=== PATIENT | male | born 1965 | race Caucasian/White ===

== ENCOUNTER → 2017-11-28 | Outpatient (REF) | payer OTHER, MEDICAID ==
[2017-11-28 12:24] LABS: HEMATOCRIT 42.9 % (42.0-52.0); HEMOGLOBIN 15.1 g/dl (14.0-18.0); MEAN CORPUSCULAR HEMOGLOBIN 33.6 pg (27.0-33.0); MEAN CORPUSCULAR HGB CONC 35.2 g/dl (32.0-36.5); MEAN CORPUSCULAR VOLUME 95.3 fl (80.0-96.0); PLATELET COUNT, AUTOMATED 228 10^3/uL (150-450); RED CELL DISTRIBUTION WIDTH 12.2 % (11.5-14.5); WHITE BLOOD COUNT 8.4 10^3/uL (4.0-10.0)
[2017-11-28 12:37] LABS: PROTHROMBIN TIME 12.2 SECONDS (12.4-14.5)
[2017-11-28 12:49] LABS: ALBUMIN 3.8 GM/DL (3.2-5.2); ALBUMIN/GLOBULIN RATIO 1.09 (1.00-1.93); ALKALINE PHOSPHATASE 66 U/L (45-117); ALT/SGPT 40 U/L (12-78); ANION GAP 11 MEQ/L (8-16); AST/SGOT 42 U/L (7-37); BILIRUBIN,TOTAL 0.4 MG/DL (0.2-1.0); BLOOD UREA NITROGEN 8 MG/DL (7-18); C REACTIVE PROTEIN QUANTITATIV 3.06 MG/DL (0.00-0.30); CALCIUM LEVEL 9.1 MG/DL (8.5-10.1); CARBON DIOXIDE LEVEL 24 MEQ/L (21-32); CHLORIDE LEVEL 101 MEQ/L (98-107); CREATININE FOR GFR 0.68 MG/DL (0.70-1.30); GLOMERULAR FILTRATION RATE > 60.0 (>56); GLUCOSE, FASTING 83 MG/DL (70-100); POTASSIUM SERUM 4.3 MEQ/L (3.5-5.1); RHEUMATOID FACTOR QUANT < 10.0 IU/ML (0-15.0); SODIUM LEVEL 136 MEQ/L (136-145); TOTAL PROTEIN 7.3 GM/DL (6.4-8.2)
[2017-11-28 12:59] LABS: ERYTHROCYTE SEDIMENTATION RATE 11 mm/hr (0-20)
[2017-11-29 14:46] LABS: COLD AGGLUTININS NEGATIVE (NEGATIVE)
[2017-11-30 00:06] LABS: ANTINUCLEAR ANTIBODIES DIRECT Negative (Negative)
== END ==
LOC: M LAB REF 12:13
DX: I70.25 Atherosclerosis of native arteries of other extremities with ulceration (principal)

== ENCOUNTER → 2017-12-05 | Outpatient (REF) | payer OTHER | LOC: M LAB REF 14:35 | DX: I70.25 Atherosclerosis of native arteries of other extremities with ulceration (principal) | CPT/HCPCS: 88304 ==

== ENCOUNTER → 2018-02-22 | Outpatient (CLI) | payer OTHER | LOC: M EKG 15:18 | DX: Z01.818 Encounter for other preprocedural examination (principal) | CPT/HCPCS: 93005 ==

== ENCOUNTER → 2018-07-27 | Outpatient (CLI) | payer OTHER | LOC: M RAD 10:23 | DX: I70.213 Atherosclerosis of native arteries of extremities with intermittent claudication, bilateral legs (principal); I83.811 Varicose veins of right lower extremity with pain | CPT/HCPCS: 93925 ==

== ENCOUNTER 2018-08-06 12:16 | Emergency (ER) | payer OTHER ==
[2018-08-06 15:46] LABS: BASO % 0.3 % (0.0-1.0); EOS # 0.3 10^3/uL (0.0-0.50); EOS % 3.7 % (0.0-3.0); HEMATOCRIT 46.1 % (42.0-52.0); HEMOGLOBIN 16.6 g/dl (13.5-17.5); IMMATURE GRANULOCYTE % 0.4 % (0-3.0); LYMPH # 1.9 10^3/uL (1.5-4.5); LYMPH % 24.7 % (24.0-44.0); MEAN CORPUSCULAR HEMOGLOBIN 35.1 pg (27.0-33.0); MEAN CORPUSCULAR VOLUME 97.5 fl (80.0-96.0); MONO # 1.5 10^3/uL (0.0-0.8); MONO % 19.6 % (0.0-5.0); NEUTROPHILS % 51.3 % (36.0-66.0); PLATELET COUNT, AUTOMATED 218 10^3/uL (150-450); RED BLOOD COUNT 4.73 10^6/uL (4.30-6.10); RED CELL DISTRIBUTION WIDTH 11.8 % (11.5-14.5); WHITE BLOOD COUNT 7.7 10^3/uL (4.0-10.0)
[2018-08-06 15:49] LABS: PROTHROMBIN TIME 12.2 SECONDS (12.1-14.4)
[2018-08-06 15:51] LABS: PARTIAL THROMBOPLASTIN TIME 23.9 SECONDS (25.4-37.6)
[2018-08-06 15:59] LABS: ALBUMIN 3.7 GM/DL (3.2-5.2); ALBUMIN/GLOBULIN RATIO 1.12 (1.00-1.93); ALKALINE PHOSPHATASE 60 U/L (45-117); ALT/SGPT 36 U/L (12-78); ANION GAP 11 MEQ/L (8-16); AST/SGOT 36 U/L (7-37); BILIRUBIN,DIRECT 0.2 MG/DL (0.0-0.2); BILIRUBIN,TOTAL 0.4 MG/DL (0.2-1.0); BLOOD UREA NITROGEN 11 MG/DL (7-18); CALCIUM LEVEL 8.7 MG/DL (8.5-10.1); CARBON DIOXIDE LEVEL 21 MEQ/L (21-32); CHLORIDE LEVEL 103 MEQ/L (98-107); CK-MB VALUE MASS < 1.0 NG/ML (<3.6); CPK CREATINE PHOSPHOKINASE 54 U/L (39-308); GLOMERULAR FILTRATION RATE > 60.0 (>56); GLUCOSE, FASTING 77 MG/DL (70-100); MB/CK RELATIVE INDEX 1.85 (< OR =4); POTASSIUM SERUM 4.4 MEQ/L (3.5-5.1); SODIUM LEVEL 135 MEQ/L (136-145); TROPONIN I < 0.02 NG/ML (< 0.10)
[2018-08-06] MEDS: ASPIRIN 81 MG CHEW TABLET PO (16:12)
[2018-08-06] MEDS: NS 1,000 ML IV (16:14)
[2018-08-06] MEDS ORDERED: ISOVUE-370 76% 100ML VIAL (Q9967) As Ordered (16:36)
== END 2018-08-06 18:07 | disposition home or self-care (01) ==
LOC: M ED 12:16
DX: I82.4Z2 Acute embolism and thrombosis of unspecified deep veins of left distal lower extremity (principal); Z87.891 Personal history of nicotine dependence
CPT/HCPCS: Q9967

== ENCOUNTER → 2018-08-06 | Outpatient (CLI) | payer OTHER | LOC: M RAD 10:22 | DX: I82.411 Acute embolism and thrombosis of right femoral vein (principal); I87.2 Venous insufficiency (chronic) (peripheral); I70.213 Atherosclerosis of native arteries of extremities with intermittent claudication, bilateral legs; I83.811 Varicose veins of right lower extremity with pain | CPT/HCPCS: 93970 ==

== ENCOUNTER 2018-09-26 15:20 | Inpatient (IN) | payer OTHER ==
[~2018-09-26] VITALS: Ht 177.8 cm; Wt 57.0 kg
[~2018-09-26 15:20] MED LIST: ELIQ5TAB PO; LOVE1INJ SC
[2018-09-26] MEDS ORDERED: BISACODYL 10 MG SUPP PR PRN (17:00)
[2018-09-26] MEDS ORDERED: MOM 30ML SUSPENSION UDC PO PRN (17:00)
[2018-09-26] MEDS ORDERED: MORPHINE 4 MG/ML 1ML VIAL/SYRINGE (J2270) IV PRN (17:00)
[2018-09-26] MEDS ORDERED: ACETAMINOPHEN TAB 650MG DOSE (2X325MG) PO PRN (17:00)
[2018-09-26 17:30] VITALS: BP 168/91
[2018-09-26] MEDS: D5W/0.45% SODIUM CHLORIDE 1,000 ML IV SCH (17:50)
[2018-09-26] MEDS: NORCO, ANEXSIA 5/325MG TABLET (HYDROcodone/ACETAMINOPHEN) PO PRN (17:50)
[2018-09-26 18:52] LABS: INR 0.89; PROTHROMBIN TIME 12.1 SECONDS (12.1-14.4)
[2018-09-26 18:53] LABS: PARTIAL THROMBOPLASTIN TIME 29.5 SECONDS (25.4-37.6)
[2018-09-26] MEDS: PIPERACILLIN/TAZOBACTAM SOD 3.375 GM in D5W MINI-BAG PLUS 50 ML IV SCH (18:57)
[2018-09-26 19:01] LABS: BASO % 0.4 % (0.0-1.0); EOS # 0.2 10^3/uL (0.0-0.50); EOS % 2.7 % (0.0-3.0); HEMATOCRIT 43.6 % (42.0-52.0); HEMOGLOBIN 15.9 g/dl (13.5-17.5); LYMPH # 1.7 10^3/uL (1.5-4.5); MEAN CORPUSCULAR HEMOGLOBIN 34.5 pg (27.0-33.0); MEAN CORPUSCULAR HGB CONC 36.5 g/dl (32.0-36.5); MEAN CORPUSCULAR VOLUME 94.6 fl (80.0-96.0); MONO # 1.3 10^3/uL (0.0-0.8); MONO % 15.9 % (0.0-5.0); NEUTROPHILS # 4.7 10^3/uL (1.8-7.7); NEUTROPHILS % 59.5 % (36.0-66.0); PLATELET COUNT, AUTOMATED 214 10^3/uL (150-450); RED BLOOD COUNT 4.61 10^6/uL (4.30-6.10); WHITE BLOOD COUNT 7.9 10^3/uL (4.0-10.0)
[2018-09-26 19:13] LABS: ALBUMIN 3.5 GM/DL (3.2-5.2); ALT/SGPT 91 U/L (12-78); BILIRUBIN,TOTAL 0.6 MG/DL (0.2-1.0); BLOOD UREA NITROGEN 5 MG/DL (7-18); CALCIUM LEVEL 8.5 MG/DL (8.5-10.1); CARBON DIOXIDE LEVEL 22 MEQ/L (21-32); CHLORIDE LEVEL 98 MEQ/L (98-107); CREATININE FOR GFR 0.53 MG/DL (0.70-1.30); GLOMERULAR FILTRATION RATE > 60.0 (>56); GLUCOSE, FASTING 61 MG/DL (70-100); POTASSIUM SERUM 4.2 MEQ/L (3.5-5.1); SODIUM LEVEL 131 MEQ/L (136-145); TOTAL PROTEIN 7.1 GM/DL (6.4-8.2)
[2018-09-26] MEDS: DOCUSATE SODIUM 100 MG CAP PO SCH (20:09)
[2018-09-26] MEDS: SENOKOT S TAB PO SCH (20:09)
[2018-09-26 22:00] VITALS: BP 134/86
[2018-09-26] MEDS: MORPHINE 4 MG/ML 1ML VIAL/SYRINGE (J2270) IV PRN (23:43)
[2018-09-27] VITALS (8 sets, daily range): BP systolic 121–157; BP diastolic 76–86
[2018-09-27] MEDS: PIPERACILLIN/TAZOBACTAM SOD 3.375 GM in D5W MINI-BAG PLUS 50 ML IV SCH ×4 (00:23→18:36)
[2018-09-27] MEDS: NORCO, ANEXSIA 5/325MG TABLET (HYDROcodone/ACETAMINOPHEN) PO PRN ×3 (06:16→20:09)
[2018-09-27] MEDS ORDERED: FLUBLOK(EGG FREE)(QUAD)INFLUENZA VACC 0.5ML SYRINGE (90682)18YRS&OLDER IM ONE (09:00)
[2018-09-27] MEDS ORDERED: CLOPIDOGREL 75 MG TAB PO SCH (09:00)
[2018-09-27] MEDS: SENOKOT S TAB PO SCH ×2 (09:02→20:14)
[2018-09-27] MEDS: DOCUSATE SODIUM 100 MG CAP PO SCH ×2 (09:02→20:13)
[2018-09-27] MEDS: MORPHINE 4 MG/ML 1ML VIAL/SYRINGE (J2270) IV PRN (09:35)
[2018-09-27] MEDS ORDERED: PLAV1TAB2 PO ×3 (10:42→10:45)
--- NOTE | 2018-09-27 11:25 | HPEPDOC ---
General Date of Admission Sep 26, 2018 at 16:57 Attending Physician: Dash Ignacio MD Chief Complaint The patient is a 53-year-old male admitted with a reason for visit of Rt First Toe Gangrene, Cellulitis. History of Present Illness A 53 yo male 34 PKY chronic smoker with PMH significant for Burger disease (per pt, Raynaud disease per record), HTN and anxiety. Pt is a poor historian. Pt was diagnosed Buerger disease of fingers with thrombosis in 2013 and underwent Rt hand surgery. The disease expanded to his Rt foot with claudication 2 years ago, for which he has to use a cane for walk. His Rt foot pain got worse for a couple of months. A couple of weeks ago, pt noticed his Rt great toe turned black and is painful. He was referred to Dr Feng for wound care. Pt stated he started having intermittent rest pain in his Rt foot about 1 week ago. His great toe nail fell off 3 days ago. His Rt foot is swelling and so painful that he can barely walk or sleep. He feels his LLE was involved now as well. Pt has followed up with Dr Alvarez at [facility] over past 4 years. He was first seen by Dr Ignacio of vascular surgery in the end of June 2018 for evaluation of his claudication. Pt seems not compliant for follow up. Pt presented to our office on 09/26/18 afternoon for follow up of BLE arterial US. Pt c/o worsening rest pain, paresthesia and coldness in his Rt foot; the Rt great toe gangrene got worse as well. Pt was found to be pulseless in Rt foot. Arterial US BLE 07/27/18 shows bilateral SFA occlusive disease in Rt SFA, PA, proximal MAC, TPT and distal MAC segments. There is an occlusion in the Lt proximal SFA with reversal of flow in the mid SFA, distal SFA open. The distal MAC is occluded. Abnormal monophasic flow waveforms are seen in the SFA, PA, TPT and GRINDER OPERATOR TOOL. Severe atherosclerotic changes are seen in b/l multifocal area. It also shows partial nonocclusive thrombus in the right femoral vein to popliteal vein. Reflux noted through the bilateral deep venous systems and mild reflux through the bilateral lesser saphenous veins. Venous US 08/06/18 shows striations and echogenic material in the right popliteal vein consistent with chronic or less likely an acute nonocclusive DVT. Pt was admitted to the hospital for anticoagulation and revascularization. Home Medications Scheduled Clopidogrel Bisulfate (Plavix) 75 Mg Tab, 75 MG PO DAILY Allergies Coded Allergies: No Known Allergies (Verified , 03/17/03) Past Medical History Medical History 1. HTN 2. 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 Anxiety Surgical History 1. Port placement 2. Hand surgery 04/2018 Family History Significant Family History: Cancer (Lung), Diabetes Social History * Smoker: former Smoker (34 PKY qiut 2016) Alcohol: sober (12 beers weekly) Drugs: denies Review of Systems Other systems 14 systems reviewed and were negative except those listed in HPI Physical Examination General Exam: Positive: Alert, Moderate Distress Eye Exam: Positive: PERRLA, Conjunctiva & lids normal, EOMI ENT Exam: Positive: Atraumatic Neck Exam: Positive: Supple, +2 carotid pulse wo bruit Chest Exam: Positive: Clear to auscultation, Normal air movement; Negative: Rales, Rhonchi, Wheezing, Diminished, Other Heart Exam: Positive: Rate Normal, Regular Rhythm, Normal S1, Normal S2; Negative: Gallops, Murmurs, Rubs, Other Abdomen Exam: Positive: Normal bowel sounds, BS Hyperactive, Soft; Negative: Tenderness, Mass, Hernia, Other Extremity Exam: Positive: Tenderness (Rt foot cold, purple red and mildly swelling, significant paresthesic and tender to touch, Rt great toe gengrene, toenail missing.), Swelling; Negative: Clubbing, Cyanosis, Edema, Normal pulses (Rt DP and PT not audible, Lt DP and PT monophasic), Other Neuro Exam: Positive: Strength at 5/5 X4 ext, Cranial Nerves 3-12 NL Psych Exam: Positive: Mental status NL, Anxiety, Oriented x 3; Negative: Memory Intact (can not answer questions logically ) Vital Signs Vital Signs Date Time Temp Pulse Resp B/P (MAP) Pulse Ox O2 Delivery O2 Flow Rate FiO2 09/27/18 09:45 18 Room Air 09/27/18 06:00 98.2 71 135/86 (102) 93 Laboratory Data Labs 24H Laboratory Tests 2 09/26/18 18:12: Immature Granulocyte % (Auto) 0.5, White Blood Count 7.9, Red Blood Count 4.61, Hemoglobin 15.9, Hematocrit 43.6, Mean Corpuscular Volume 94.6, Mean Corpuscular Hemoglobin 34.5H, Mean Corpuscular Hemoglobin Concent 36.5, Red Cell Distribution Width 11.7, Platelet Count 214, Neutrophils (%) (Auto) 59.5, Lymphocytes (%) (Auto) 21.0L, Monocytes (%) (Auto) 15.9H, Eosinophils (%) (Auto) 2.7, Basophils (%) (Auto) 0.4, Neutrophils # (Auto) 4.7, Lymphocytes # (Auto) 1.7, Monocytes # (Auto) 1.3H, Eosinophils # (Auto) 0.2, Basophils # (Auto) 0.0, Nucleated Red Blood Cells % (auto) 0.0, Prothrombin Time 12.1, Prothromb Time International Ratio 0.89, Activated Partial Thromboplast Time 29.5, Anion Gap 11, Glomerular Filtration Rate > 60.0, Blood Urea Nitrogen 5L, Creatinine 0.53L, Sodium Level 131L, Potassium Level 4.2, Chloride Level 98, Carbon Dioxide Level 22, Calcium Level 8.5, Aspartate Amino Transf (AST/SGOT) 99H, Alanine Aminotransferase (ALT/SGPT) 91H, Alkaline Phosphatase 93, Total Bilirubin 0.6, Total Protein 7.1, Albumin 3.5, Albumin/Globulin Ratio 0.97L CBC/BMP Laboratory Tests 09/26/18 18:12 Red Blood Count 4.61, Mean Corpuscular Volume 94.6, Mean Corpuscular Hemoglobin 34.5 H, Mean Corpuscular Hemoglobin Concent 36.5, Red Cell Distribution Width 11.7, Neutrophils (%) (Auto) 59.5, Lymphocytes (%) (Auto) 21.0 L, Monocytes (%) (Auto) 15.9 H, Eosinophils (%) (Auto) 2.7, Basophils (%) (Auto) 0.4, Neutrophils # (Auto) 4.7, Lymphocytes # (Auto) 1.7, Monocytes # (Auto) 1.3 H, Eosinophils # (Auto) 0.2, Basophils # (Auto) 0.0, Calcium Level 8.5, Aspartate Amino Transf (AST/SGOT) 99 H, Alanine Aminotransferase (ALT/SGPT) 91 H, Alkaline Phosphatase 93, Total Bilirubin 0.6, Total Protein 7.1, Albumin 3.5 Assessment/Plan 1. Severe BLE PVD with acute RLE ischemia and gangrenous toe Pt is a 53 yo male 34 PKY chronic smoker with underlying Burger disease /Raynaud disease. Pt has progressive BLE PVD with acute RLE ischemia and Rt gangrene toe. Arterial US shows severe atherosclerotic changes in BLE arterial systems and occlusive disease in Rt SFA, PA, MAC and TPT and in the Lt proximal SFA with reversal of flow in the mid SFA and distal MAC. Venous US 08/06/18 shows striations and echogenic material in the right popliteal vein consistent with chronic or less likely an acute nonocclusive DVT. Anticoagulation and revascularization are warranted. 2. Burger disease /Raynaud disease with thrombosis 3. Nonocclusive DVT RLE 4. VVI 5. HTN 6. Anxiety Plan / VTE VTE Prophylaxis Ordered?: Yes Plan Plan 1. Continue home Plavix 75 mg daily 2. Anticoagulation with Heparin drip per protocol 3. Zosyn 3.375 g IV q6hrs. 4. Angiogram RLE tomorrow GRISEL UMAÑA PA-C Sep 27, 2018 11:25
[2018-09-27] MEDS ORDERED: HEPARIN SOD (PORCINE) 5000 UNITS/ML VIAL IV ONE (11:45)
[2018-09-27 12:43] LABS: HEMATOCRIT 43.6 % (42.0-52.0); HEMOGLOBIN 15.4 g/dl (13.5-17.5); MEAN CORPUSCULAR HEMOGLOBIN 33.8 pg (27.0-33.0); MEAN CORPUSCULAR HGB CONC 35.3 g/dl (32.0-36.5); MEAN CORPUSCULAR VOLUME 95.6 fl (80.0-96.0); PLATELET COUNT, AUTOMATED 234 10^3/uL (150-450); RED BLOOD COUNT 4.56 10^6/uL (4.30-6.10); WHITE BLOOD COUNT 7.4 10^3/uL (4.0-10.0)
[2018-09-27] MEDS: HEPARIN DRIP 25,000 UNITS in APPROPRIATE DILUENT 1 EA IV SCH (13:22)
[2018-09-27] MEDS ORDERED: LIDOCAINE 2% MDV 20 ML VIAL As Ordered ONE (14:18)
[2018-09-27] MEDS ORDERED: HEPARIN 1,000 UNITS/ML 10ML VIAL (FOR RADIOLOGY& DIALYSIS ONLY) As Ordered ONE (14:18)
[2018-09-27] MEDS ORDERED: MIDAZOLAM INJ 2 MG/2 ML VIAL (J2250) As Ordered ONE (14:18)
[2018-09-27] MEDS ORDERED: fentaNYL 100 MCG/2 ML INJECTION (J3010) As Ordered ONE (14:18)
[2018-09-27] MEDS ORDERED: ISOVUE-300 61% 50ML VIAL (Q9967) As Ordered ONE (14:19)
[2018-09-27 19:55] LABS: INR 0.93; PROTHROMBIN TIME 12.6 SECONDS (12.1-14.4)
[2018-09-27 19:56] LABS: PARTIAL THROMBOPLASTIN TIME 36.4 SECONDS (25.4-37.6)
[2018-09-27] MEDS: D5W/0.45% SODIUM CHLORIDE 1,000 ML IV SCH (20:09)
[2018-09-27] MEDS: HEPARIN SOD (PORCINE) 5000 UNITS/ML VIAL IV PRN (20:25)
[2018-09-28] MEDS: MORPHINE 4 MG/ML 1ML VIAL/SYRINGE (J2270) IV PRN ×3 (00:05→18:05)
[2018-09-28] MEDS: PIPERACILLIN/TAZOBACTAM SOD 3.375 GM in D5W MINI-BAG PLUS 50 ML IV SCH ×4 (00:22→18:04)
[2018-09-28 02:00] VITALS: BP 146/87
[2018-09-28 06:00] VITALS: BP 123/88
[2018-09-28] MEDS: NORCO, ANEXSIA 5/325MG TABLET (HYDROcodone/ACETAMINOPHEN) PO PRN ×3 (06:08→21:30)
[2018-09-28] MEDS: DOCUSATE SODIUM 100 MG CAP PO SCH ×3 (08:02→21:30)
[2018-09-28] MEDS: SENOKOT S TAB PO SCH ×3 (08:02→21:29)
[2018-09-28] MEDS: D5W/0.45% SODIUM CHLORIDE 1,000 ML IV SCH (08:02)
[2018-09-28] MEDS: CLOPIDOGREL 75 MG TAB PO SCH (09:34)
[2018-09-28 10:00] VITALS: BP 137/82
[2018-09-28] MEDS: HEPARIN SOD (PORCINE) 5000 UNITS/ML VIAL IV PRN (11:24)
[2018-09-28] MEDS: HEPARIN DRIP 25,000 UNITS in APPROPRIATE DILUENT 1 EA IV SCH (11:27)
--- NOTE | 2018-09-28 14:33 | REP ---
Bilateral lower extremity duplex venous ultrasound: DVT study and vein mapping. History: Rule out DVT. Vein mapping for lower extremity arterial reconstruction. Comparison study August 06, 2018 showed nonocclusive echogenic thrombus in the right lower extremity femoral vein and popliteal vein. Sonographic findings: The deep veins in the left lower extremity are anechoic and fully compressible from the groin to the popliteal fossa. There is no evidence of left lower extremity deep vein thrombosis. Color flow and spectral Doppler interrogation are unremarkable on the left. On the right, there is echogenic nonocclusive deep vein thrombus in the mid and distal femoral vein and in the popliteal vein. This is likely chronic. Similar distribution as the prior study. No evidence of acute DVT. Vein mapping study findings: Right lower extremity venous diameter chart: Proximal greater saphenous vein 7.8 mm. Mid greater saphenous vein 7.8 mm. Distal greater saphenous vein 5.8 mm. Calf proximal greater saphenous vein 6.6 mm. Mid greater saphenous vein at the calf 6.0 mm. Distal greater saphenous vein at the calf 5.1 mm. Lesser saphenous vein, proximal 3.5 mm. Lesser saphenous vein at mid 1.9 mm. Lesser saphenous vein, distal 1.6 mm Left lower extremity venous diameter chart: Proximal greater saphenous vein 5.5 mm. Mid greater saphenous vein 4.0 mm. Distal greater saphenous vein 3.7 mm. Greater saphenous vein and calf proximal 4.0 mm. Greater saphenous vein calf mid 2.8 mm. Greater saphenous vein calf distal 3.6 mm. SFA proximal 2.1 mm. Left saphenous vein, mid 2.7 mm. Lesser saphenous vein, distal 2.4 mm Electronically Signed by Unruly Gotti MD 09/28/2018 02:24 P
[2018-09-28 18:00] VITALS: BP 154/88
[2018-09-28 22:00] VITALS: BP 143/87
[2018-09-29] MEDS: PIPERACILLIN/TAZOBACTAM SOD 3.375 GM in D5W MINI-BAG PLUS 50 ML IV SCH ×4 (00:38→18:17)
[2018-09-29] MEDS: NORCO, ANEXSIA 5/325MG TABLET (HYDROcodone/ACETAMINOPHEN) PO PRN ×4 (01:45→20:44)
[2018-09-29 02:00] VITALS: BP 124/82
[2018-09-29] MEDS: HEPARIN DRIP 25,000 UNITS in APPROPRIATE DILUENT 1 EA IV SCH (05:50)
[2018-09-29 06:00] VITALS: BP 128/78
[2018-09-29] MEDS: D5W/0.45% SODIUM CHLORIDE 1,000 ML IV SCH (07:25)
[2018-09-29] MEDS: SENOKOT S TAB PO SCH ×2 (08:21→20:38)
[2018-09-29] MEDS: DOCUSATE SODIUM 100 MG CAP PO SCH ×2 (08:21→20:38)
[2018-09-29] MEDS: CLOPIDOGREL 75 MG TAB PO SCH (09:37)
[2018-09-29] MEDS: MORPHINE 4 MG/ML 1ML VIAL/SYRINGE (J2270) IV PRN ×4 (09:38→22:59)
[2018-09-29 14:00] VITALS: BP 156/80
[2018-09-29] MEDS: HEPARIN SOD (PORCINE) 5000 UNITS/ML VIAL IV PRN ×2 (14:00→20:38)
[2018-09-29 22:00] VITALS: BP 122/86
[2018-09-30] MEDS: HEPARIN DRIP 25,000 UNITS in APPROPRIATE DILUENT 1 EA IV SCH ×2 (00:39→18:07)
[2018-09-30] MEDS: PIPERACILLIN/TAZOBACTAM SOD 3.375 GM in D5W MINI-BAG PLUS 50 ML IV SCH ×4 (01:33→18:04)
[2018-09-30] MEDS: NORCO, ANEXSIA 5/325MG TABLET (HYDROcodone/ACETAMINOPHEN) PO PRN ×5 (01:34→20:06)
[2018-09-30 02:00] VITALS: BP 98/62
[2018-09-30] MEDS: MORPHINE 4 MG/ML 1ML VIAL/SYRINGE (J2270) IV PRN ×3 (05:36→17:22)
[2018-09-30 06:00] VITALS: BP 140/84
[2018-09-30] MEDS: DOCUSATE SODIUM 100 MG CAP PO SCH ×2 (09:30→20:04)
[2018-09-30] MEDS: SENOKOT S TAB PO SCH ×2 (09:30→20:04)
[2018-09-30] MEDS: CLOPIDOGREL 75 MG TAB PO SCH (09:30)
[2018-09-30] MEDS: D5W/0.45% SODIUM CHLORIDE 1,000 ML IV SCH ×2 (09:32→16:47)
[2018-09-30 10:00] VITALS: BP 162/87
[2018-09-30 10:15] LABS: HEMATOCRIT 40.2 % (42.0-52.0); HEMOGLOBIN 14.4 g/dl (13.5-17.5); MEAN CORPUSCULAR HEMOGLOBIN 34.3 pg (27.0-33.0); MEAN CORPUSCULAR HGB CONC 35.8 g/dl (32.0-36.5); MEAN CORPUSCULAR VOLUME 95.7 fl (80.0-96.0); PLATELET COUNT, AUTOMATED 216 10^3/uL (150-450); WHITE BLOOD COUNT 8.7 10^3/uL (4.0-10.0)
[2018-09-30 14:00] VITALS: BP 139/85
[2018-09-30 22:00] VITALS: BP 136/76
[2018-10-01] MEDS: NORCO, ANEXSIA 5/325MG TABLET (HYDROcodone/ACETAMINOPHEN) PO PRN ×5 (00:08→20:29)
[2018-10-01] MEDS: PIPERACILLIN/TAZOBACTAM SOD 3.375 GM in D5W MINI-BAG PLUS 50 ML IV SCH ×4 (00:08→18:00)
[2018-10-01 02:00] VITALS: BP 140/80
[2018-10-01 06:00] VITALS: BP 153/79
[2018-10-01] MEDS: CLOPIDOGREL 75 MG TAB PO SCH (08:11)
[2018-10-01] MEDS: DOCUSATE SODIUM 100 MG CAP PO SCH ×2 (08:11→20:29)
[2018-10-01] MEDS: SENOKOT S TAB PO SCH ×2 (08:11→20:29)
[2018-10-01] MEDS: HEPARIN DRIP 25,000 UNITS in APPROPRIATE DILUENT 1 EA IV SCH ×2 (08:12→23:23)
[2018-10-01] MEDS: MORPHINE 4 MG/ML 1ML VIAL/SYRINGE (J2270) IV PRN ×3 (13:00→23:29)
[2018-10-01 14:00] VITALS: BP 115/68
[2018-10-01] MEDS: D5W/0.45% SODIUM CHLORIDE 1,000 ML IV SCH (17:03)
--- NOTE | 2018-10-01 17:26 | IPNPDOC ---
Subjective Date Seen The patient was seen on 10/01/18. Subjective Chief Complaint/HPI C/o Rt foot pain, coldness, numbness /tingling remain unchanged. Objective Physical Examination General Exam: Positive: Alert, Moderate Distress Eye Exam: Positive: PERRLA, Conjunctiva & lids normal, EOMI ENT Exam: Positive: Atraumatic Neck Exam: Positive: Supple, +2 carotid pulse wo bruit Chest Exam: Positive: Clear to auscultation, Normal air movement; Negative: Rales, Rhonchi, Wheezing, Diminished, Other Heart Exam: Positive: Rate Normal, Regular Rhythm, Normal S1, Normal S2; Negative: Gallops, Murmurs, Rubs, Other Abdomen Exam: Positive: Normal bowel sounds, BS Hyperactive, Soft; Negative: Tenderness, Mass, Hernia, Other Extremity Exam: Positive: Tenderness (Rt foot cold, purple red and mildly swelling, significant paresthesic and tender to touch, Rt great toe gengrene, toenail missing.), Swelling; Negative: Clubbing, Cyanosis, Edema, Normal pulses (Rt DP and PT not audible, Lt DP and PT monophasic), Other Neuro Exam: Positive: Strength at 5/5 X4 ext, Cranial Nerves 3-12 NL Psych Exam: Positive: Mental status NL, Anxiety, Oriented x 3; Negative: Memory Intact (can not answer questions logically ) Assessment /Plan Assessment 1. Severe BLE PVD with acute RLE ischemia and gangrenous toe On Heparin drip with slight improvement. Vein mapping done. 2. Burger disease /Raynaud disease with thrombosis 3. Nonocclusive DVT RLE 4. VVI 5. HTN 6. Anxiety Plan/VTE VTE Prophylaxis Ordered?: Yes Plan Continue anticoagulation with Heparin drip Continue Zosyn for gangrenous toe infection NPO after 24:00 Plan to have FemPop bypass tomorrow. VS, I&O, 24H, Fishbone Vital Signs/I&O Vital Signs Date Time Temp Pulse Resp B/P (MAP) Pulse Ox O2 Delivery O2 Flow Rate FiO2 10/01/18 17:05 22 Room Air 10/01/18 14:00 96.6 80 115/68 (84) 97 I&O- Last 24 Hours up to 6 AM 10/01/18 06:00 Intake Total 2570 ml Output Total 1925 ml Balance 645 ml Laboratory Data 24H LABS Laboratory Tests 2 1/20/19 21:50: Activated Partial Thromboplast Time 67.8H 10/01/18 04:04: Activated Partial Thromboplast Time 82.9H 10/01/18 09:59: Activated Partial Thromboplast Time 87.8H 10/01/18 16:23: Activated Partial Thromboplast Time 80.1H GRISEL UMAÑA PA-C Oct 01, 2018 17:26
[2018-10-01 22:00] VITALS: BP 149/87
[2018-10-02] VITALS (7 sets, daily range): BP systolic 128–170; BP diastolic 78–89
[2018-10-02] MEDS: PIPERACILLIN/TAZOBACTAM SOD 3.375 GM in D5W MINI-BAG PLUS 50 ML IV SCH ×4 (00:55→18:17)
[2018-10-02] MEDS: NORCO, ANEXSIA 5/325MG TABLET (HYDROcodone/ACETAMINOPHEN) PO PRN ×4 (06:48→23:24)
[2018-10-02] MEDS: DOCUSATE SODIUM 100 MG CAP PO SCH ×2 (08:36→20:24)
[2018-10-02] MEDS: SENOKOT S TAB PO SCH ×2 (08:36→20:24)
[2018-10-02] MEDS: CLOPIDOGREL 75 MG TAB PO SCH (08:37)
[2018-10-02] MEDS: MORPHINE 4 MG/ML 1ML VIAL/SYRINGE (J2270) IV PRN ×3 (10:35→20:25)
[2018-10-02] MEDS ORDERED: THROMBIN SOLN 20,000 UNITS KIT As Ordered ONE (11:40)
[2018-10-02] MEDS ORDERED: CLINDAMYCIN INJ 900MG/6ML VIAL As Ordered ONE (11:41)
[2018-10-02] MEDS ORDERED: CONRAY-60 60% 50ML VIAL (Q9961) As Ordered ONE (11:41)
[2018-10-02] MEDS ORDERED: HEPARIN SOD (PORCINE) 5000 UNITS/ML VIAL As Ordered ONE ×2 (11:41→12:26)
[2018-10-02] MEDS ORDERED: BUPIVACAINE HCL 0.5% 30 ML VIAL As Ordered ONE (12:24)
[2018-10-02] MEDS ORDERED: LIDOCAINE 1% SDV INJ 30 ML VIAL As Ordered ONE (12:24)
[2018-10-02] MEDS ORDERED: ONDANSETRON 4MG/2ML VIAL (J2405) As Ordered ONE (12:26)
[2018-10-02] MEDS ORDERED: KETAMINE HCL 200 MG/20 ML VIAL As Ordered ONE (12:26)
[2018-10-02] MEDS ORDERED: fentaNYL 250 MCG/5 ML INJECTION (J3010) As Ordered ONE (12:26)
[2018-10-02] MEDS ORDERED: ePHEDrine SULFATE 25 MG/5 ML(5MG/ML) SYRINGE As Ordered ONE (12:26)
[2018-10-02] MEDS ORDERED: PROPOFOL 200 MG/20 ML VIAL As Ordered ONE ×2 (12:26→13:00)
[2018-10-02] MEDS ORDERED: MIDAZOLAM INJ 2 MG/2 ML VIAL (J2250) As Ordered ONE (12:26)
[2018-10-02] MEDS: D5W/0.45% SODIUM CHLORIDE 1,000 ML IV SCH (12:48)
[2018-10-02] MEDS ORDERED: ZOSYN 3.375 GM VIAL (J2543) As Ordered ONE (13:10)
[2018-10-02] MEDS ORDERED: HEPARIN 25,000 UNITS/250 ML D5W BAG (100 UNITS/ML) As Ordered ONE (14:07)
[2018-10-02] MEDS ORDERED: NORCO, ANEXSIA 5/325MG TABLET (HYDROcodone/ACETAMINOPHEN) PO PRN (14:15)
[2018-10-02] MEDS ORDERED: fentaNYL 100 MCG/2 ML INJECTION (J3010) IV PRN (14:15)
[2018-10-02] MEDS ORDERED: LR 1,000 ML IV SCH (14:15)
--- NOTE | 2018-10-02 18:49 | RO ---
DATE OF PROCEDURE: 10/02/2018 PREOPERATIVE DIAGNOSIS: Right lower extremity ischemia, right first toe gangrene, Buerger's disease, history of tobacco use with smoking of cigarettes, right foot and calf cellulitis, chronic total occlusion of the right superficial femoral artery, aortoiliac atherosclerotic arterial occlusive disease, femoral-popliteal atherosclerotic arterial occlusive disease, tibioperoneal arterial atherosclerotic arterial occlusive disease, chronic venous hypertension bilateral lower extremities. POSTPROCEDURE DIAGNOSIS: Right lower extremity ischemia, right first toe gangrene, Buerger's disease, history of tobacco use with smoking of cigarettes, right foot and calf cellulitis, chronic total occlusion of the right superficial femoral artery, aortoiliac atherosclerotic arterial occlusive disease, femoral-popliteal atherosclerotic arterial occlusive disease, tibioperoneal arterial atherosclerotic arterial occlusive disease, chronic venous hypertension bilateral lower extremities. PROCEDURE: Right external iliac artery endarterectomy, right common femoral artery endarterectomy, right profunda femoris artery endarterectomy, right superficial femoral artery endarterectomy, endarterectomy closure with patch angioplasty with a XenoSure Biologic patch. Ligation of right superficial femoral artery. SURGEON: Sage Ignacio HIDE EXAMINER: Daniel Johns PA-C ANESTHESIA: Local monitored anesthesia care (MAC). ESTIMATED BLOOD LOSS: 50 mL. IV FLUIDS: 600 mL. HEPARIN: 6000 units. SPECIMEN: Right external iliac artery, common femoral artery, profunda femoris artery and superficial femoral artery plaque. INDICATION: The patient is a 53-year-old male with right lower extremity cellulitis and pain as well as necrosis of the distal aspect of the right great toe. The patient underwent an ultrasound which showed severe atherosclerotic occlusive disease in the lower extremities as well as the patient having a history of Buerger's disease with ulceration of his fingers and toes previously. The patient presented to the office in acute pain and with severe cellulitis of the right lower extremity and was admitted from the office to the hospital for IV antibiotic therapy and angiography of the right lower extremity. The patient underwent angiogram which showed complete occlusion of his right superficial femoral artery and popliteal artery with reconstitution of his anterior tibial, posterior tibial and peroneal artery in the below-knee region with severe disease in the anterior tibial and peroneal arteries with the dominant vessel runoff into the foot being the posterior tibial artery. Plan was for the patient to undergo a right femoral to posterior tibial artery bypass graft, but due to the extensive amount of disease in the external iliac artery, common femoral artery and profunda femoris artery, an endarterectomy was performed, which showed significant improvement in flow to the right lower extremity. Risks, benefits, and alternative options were discussed with the patient. Alternative treatment options included but were not limited to no intervention. Benefits included but were not limited to worship of blood flow to the right lower extremity with limb salvage and relief of symptoms and prevention of further tissue loss. Risks included but were not limited to infection, bleeding, loss of limb, loss to life, myocardial infarction, pulmonary embolus, deep vein thrombosis (DVT), cerebrovascular accident, complication from anesthesia, possible need for further open surgical intervention, complication from the prepping and draping materials, poor result, and/or poor outcome. The patient acknowledges these risks, benefits and alternative treatment options. The patient's questions were answered. No guarantees were made to the patient or his family regarding the results or outcome of the procedure. The procedure was described and explained to the patient in detail including drawing of pictures, describing the procedure, and the anatomy involved. DESCRIPTION OF PROCEDURE: The patient was taken to the operating room, placed supine on the operating room table and then prepped and draped in a standard surgical fashion. Incision was made obliquely in the right inguinal region after anesthetizing the overlying skin with 1% lidocaine mixed with 0.5% Marcaine. Incision was carried down through the skin and subcutaneous tissue using Bovie electrocautery. The femoral sheath was identified and opened along the force of the sheath exposing the right common femoral artery. Dissection was carried proximally and distally exposing the right superficial femoral artery and profunda femoris artery. The right superficial femoral artery was small in caliber and had no pulse or flow noted with Doppler. The right profunda femoris artery had minimal pulse with flow noted with Doppler, the right common femoral artery also had minimal pulse with flow noted with Doppler. An arteriotomy was then made after the clamps were placed around the common femoral, superficial femoral and profunda femoris artery, after the patient had received 6000 units of heparin for systemic anticoagulation. An arteriotomy was made, and this showed a high-grade stenosis in the entire length of the common femoral artery extending into the superficial femoral artery which was occluded, and the profunda femoris artery down to the secondary branches. The secondary branches of the profunda femoris were then dissected and encircled with vessel loops. The inguinal ligament was dissected and retracted cephalad exposing the external iliac artery, and a vessel loop was placed around the external iliac artery followed by a Satinsky clamp. The arteriotomy was extended into the external iliac artery, and an endarterectomy was performed with removal of plaque from the external iliac artery, common femoral artery, profunda femoris and superficial femoral artery. The superficial femoral artery showed no retrograde flow and was occluded distally, and the superficial femoral artery was then ligated with an #0 silk suture and transected. There was good back bleeding from the profunda femoris artery and good inflow noted through the external iliac artery. The arteriotomy closure was performed using a XenoSure Biologic Patch and #6-0 Prolene suture. There was good flow noted in the external iliac artery, common femoral, and profunda femoris artery branches at the completion of the arteriotomy closure after all vessels had been antegrade and retrograde flushed prior to completing the arteriotomy closure. Hemostasis was then obtained with thrombin Gelfoam, the deep layers were closed with a #2-0 Vicryl to approximate the femoral sheath and the deep subcutaneous tissue. The skin was closed with tremayne. Dressings were applied. The patient tolerated the procedure well. All instrument, sponge and needle counts were correct at the end the case. There were no complications. Dr. Ignacio was present for and directed the entire case. The patient was transferred to the recovery room, awake, alert, extubated and in stable condition with significantly improved flow to the right lower extremity and increased capillary refill in the right foot. Procedure and outcome were described and discussed with the patient in the recovery room where all of his questions were answered. SANJAY
[2018-10-02] MEDS: HEPARIN DRIP 25,000 UNITS in APPROPRIATE DILUENT 1 EA IV SCH (20:31)
[2018-10-03] MEDS: PIPERACILLIN/TAZOBACTAM SOD 3.375 GM in D5W MINI-BAG PLUS 50 ML IV SCH ×4 (00:08→18:26)
[2018-10-03 02:00] VITALS: BP 142/84
[2018-10-03] MEDS: HEPARIN DRIP 25,000 UNITS in APPROPRIATE DILUENT 1 EA IV SCH ×3 (03:19→16:45)
[2018-10-03] MEDS: MORPHINE 4 MG/ML 1ML VIAL/SYRINGE (J2270) IV PRN ×5 (03:25→23:41)
[2018-10-03 06:00] VITALS: BP 142/84
[2018-10-03] MEDS: NORCO, ANEXSIA 5/325MG TABLET (HYDROcodone/ACETAMINOPHEN) PO PRN ×3 (06:36→20:44)
[2018-10-03] MEDS: DOCUSATE SODIUM 100 MG CAP PO SCH ×2 (08:06→20:05)
[2018-10-03] MEDS: CLOPIDOGREL 75 MG TAB PO SCH (08:06)
[2018-10-03] MEDS: SENOKOT S TAB PO SCH ×2 (08:06→20:05)
[2018-10-03 08:53] LABS: HEMATOCRIT 37.2 % (42.0-52.0); HEMOGLOBIN 13.3 g/dl (13.5-17.5); MEAN CORPUSCULAR HEMOGLOBIN 33.8 pg (27.0-33.0); MEAN CORPUSCULAR HGB CONC 35.8 g/dl (32.0-36.5); MEAN CORPUSCULAR VOLUME 94.4 fl (80.0-96.0); PLATELET COUNT, AUTOMATED 262 10^3/uL (150-450); RED BLOOD COUNT 3.94 10^6/uL (4.30-6.10); WHITE BLOOD COUNT 12.3 10^3/uL (4.0-10.0)
[2018-10-03 10:00] VITALS: BP 126/81
[2018-10-03] MEDS: D5W/0.45% SODIUM CHLORIDE 1,000 ML IV SCH (10:18)
--- NOTE | 2018-10-03 10:35 | IPNPDOC ---
Subjective Date Seen The patient was seen on 10/03/18. Subjective Chief Complaint/HPI C/o soreness in Rt groin. Rt foot pain, coldness and numbness/tingling resolved. Objective Physical Examination General Exam: Positive: Alert, Moderate Distress Eye Exam: Positive: PERRLA, Conjunctiva & lids normal, EOMI ENT Exam: Positive: Atraumatic Neck Exam: Positive: Supple, +2 carotid pulse wo bruit Chest Exam: Positive: Clear to auscultation, Normal air movement; Negative: Rales, Rhonchi, Wheezing, Diminished, Other Heart Exam: Positive: Rate Normal, Regular Rhythm, Normal S1, Normal S2; Negative: Gallops, Murmurs, Rubs, Other Abdomen Exam: Positive: Normal bowel sounds, BS Hyperactive, Soft; Negative: Tenderness, Mass, Hernia, Other Extremity Exam: Positive: Edema (Rt groin incision c/d/i min serosanguinous drainage on dressing.), Tenderness (Rt foot tenderness resolved after surgery. Rt foot warm, cap refill <3 sec, Rt great toe gengrene, toenail missing demarcated at level PIP.); Negative: Clubbing, Cyanosis, Normal pulses (Rt DP and PT audible solid and monophasic , Lt PT monophasic, DP intermittent ), Other Skin Exam: Positive: Nl turgor and temperature Neuro Exam: Positive: Strength at 5/5 X4 ext, Cranial Nerves 3-12 NL Psych Exam: Positive: Mental status NL, Anxiety, Oriented x 3; Negative: Memory Intact (can not answer questions logically ) Assessment /Plan Assessment 1. POD #1, s/p Rt femoral endarterectomy Continue on Heparin drip, Sx/S RLE ALI resolved with solid distal pulses. *Lt DP is intermittent by Doppler. 2. Rt great toe gangrene Continue on IV Zosyn. The Rt great toe gangrene demarcated at level PIP. leukocytosis 12.3 vs 8.7 2. Burger disease /Raynaud disease with thrombosis 3. Nonocclusive DVT RLE 4. VVI 5. HTN 6. Anxiety Plan/VTE VTE Prophylaxis Ordered?: Yes Plan 1. Continue Heparin drip per protocol 2. Continue IV Zosyn until discharge 3. Dressing changed today 4. OOB up to chair 5. Encourage ambulation as able 6. PT Eval and Tx 7. Advice for smoking cessation 8. Arterial Duplex US LLE 9. Plan to DC home tomorrow VS, I&O, 24H, Fishbone Vital Signs/I&O Vital Signs Date Time Temp Pulse Resp B/P (MAP) Pulse Ox O2 Delivery O2 Flow Rate FiO2 10/03/18 08:17 18 Room Air 10/03/18 06:00 98.2 60 142/84 (103) 96 I&O- Last 24 Hours up to 6 AM 10/03/18 06:00 Intake Total 3026 ml Output Total 2200 ml Balance 826 ml Laboratory Data 24H LABS Laboratory Tests 2 10/02/18 16:10: Activated Partial Thromboplast Time > 240.0*H 10/02/18 18:01: Activated Partial Thromboplast Time 161.8*H 10/03/18 02:21: Activated Partial Thromboplast Time 54.0H 10/03/18 08:42: Activated Partial Thromboplast Time 68.7H, Nucleated Red Blood Cells % (auto) 0.0 CBC/BMP Laboratory Tests 10/03/18 08:42 Red Blood Count 3.94 L, Mean Corpuscular Volume 94.4, Mean Corpuscular Hemoglobin 33.8 H, Mean Corpuscular Hemoglobin Concent 35.8, Red Cell Distribution Width 11.6 GRISEL UMAÑA PA-C Oct 03, 2018 10:35
--- NOTE | 2018-10-03 11:22 | DS.PDOC ---
Discharge Summary General Date of Admission Sep 26, 2018 at 16:57 Date of Discharge 10/04/18 Attending Physician: Dash Ignacio MD Discharge Summary PROCEDURES PERFORMED DURING STAY: 1. RLE angiogram, 2. Rt femoral endarterectomy and patch angioplasty ADMITTING DIAGNOSES: 1. Severe BLE PVD with acute RLE ischemia and Rt gangrenous toe 2. Burger disease /Raynaud disease with thrombosis 3. Nonocclusive DVT RLE 4. VVI 5. HTN 6. Anxiety DISCHARGE DIAGNOSES: Same above COMPLICATIONS/CHIEF COMPLAINT: Acute RLE ischemia and Rt gangrenous great toe. HISTORY OF PRESENT ILLNESS:A 53 yo male 34 PKY chronic smoker with PMH significant for Burger disease (per pt, Raynaud disease per record), HTN and anxiety. Pt is a poor historian. Pt was diagnosed Buerger disease of fingers with thrombosis in 2013 and underwent Rt hand surgery. The disease expanded to his Rt foot with claudication 2 years ago, for which he has to use a cane for walk. His Rt foot pain got worse for a couple of months. A couple of weeks ago, pt noticed his Rt great toe turned black and is painful. He was referred to Dr Feng for wound care. Pt stated he started having intermittent rest pain in his Rt foot about 1 week ago. His great toe nail fell off 3 days ago. His Rt foot is swelling and so painful that he can barely walk or sleep. He feels his LLE was involved now as well. Pt has followed up with Dr Alvarez at [facility] over past 4 years. He was first seen by Dr Ignacio of vascular surgery in the end of June 2018 for evaluation of his claudication. Pt seems not compliant for follow up. Pt presented to our office on 09/26/18 afternoon for follow up of BLE arterial US. Pt c/o worsening rest pain, paresthesia and coldness in his Rt foot; the Rt great toe gangrene got worse as well. Pt was found to be pulseless in Rt foot. Arterial US BLE 07/27/18 shows bilateral SFA o cclusive disease in Rt SFA, PA, proximal MAC, TPT and distal MAC segments. There is an occlusion in the Lt proximal SFA with reversal of flow in the mid SFA, distal SFA open. The distal MAC is occluded. Abnormal monophasic flow waveforms are seen in the SFA, PA, TPT and SHELLFISH PROCESSING MACHINE TENDER. Severe atherosclerotic changes are seen in b/l multifocal area. It also shows partial nonocclusive thrombus in the right femoral vein to popliteal vein. Reflux noted through the bilateral deep venous systems and mild reflux through the bilateral lesser saphenous veins. Venous US 08/06/18 shows striations and echogenic material in the right popliteal vein consistent with chronic or less likely an acute nonocclusive DVT. Pt was admitted to the hospital for anticoagulation and revascularization. HOSPITAL COURSE: Pt was started on anticoagulation with Heparin drip. Angiogram RLE redemonstrated the US finding of occlusion of Rt SFA which is not amendable to endovascular intervention. Pt underwent Rt femoral endarterectomy that successfully revascularized distal foot. His Sx/S acute RLE ischemia have resolved postoperatively. Pt has been on IV Zosyn for his Rt gangrenous great toe with cellulitis. The gangrene was demarcated to PIP and cellulitis has resolved. Pt started ambulating with a walk assistance. He was doing well and ready for discharge today. Since pt has extensive small vessels disease, pt will be on dual antiplatelets with Aspirin 81 mg daily and Plavix 75mg daily. He will also be on 10 days course of Augmentin. He will f/u with Dr Ignacio for his gangrenous toe and LLE angiogram scheduling. DISCHARGE MEDICATIONS: Please see below. ALLERGIES: Please see below. PHYSICAL EXAMINATION ON DISCHARGE: VITAL SIGNS: Please see below. GENERAL: AAO x3 HEENT: NCAD, KENN, EOMI NECK: Supple, no carotid bruits CARDIOVASCULAR EXAMINATION: RRR, no G/M/R, PP: Rt DP and PT audible monophasic, Lt Rt DP and PT audible monophasic, DP intermittent RESPIRATORY EXAMINATION: CTAB ABDOMINAL EXAMINATION: BS nl, NT/ND, no pulsatile mass EXTREMITIES: No C/C/E LLE, RLE; Rt groin incision c/d/i, no hematoma. Rt great toe gangrene demarcated and dry w/o Sx/S infection. SKIN: moist and warm NEUROLOGICAL EXAMINATION: CN 2-12, motor and sensation intact, no focal deficits PSYCHIATRIC EXAMINATION: Appropriate mood and affect. LABORATORY DATA: Please see below. IMAGIN. RLE angiogram, 2. BLE vein mapping and Doppler, 3. LLE arterial US. See the reports for details PROGNOSIS: Good ACTIVITY: As tolerated. DIET: DASH diet DISCHARGE PLAN: discharge today DISPOSITION: home DISCHARGE INSTRUCTIONS: 1. Keep dressing clean and dry, change it as needed 2. Can have shower today 3. No pulling, heavy lifting >10 lb and no strenuous activity x 4 weeks 4. No driving prior to office visit in 1 week ITEMS TO FOLLOWUP ON ON OUTPATIENT: F/u with Dr Ignacio in 1 week Will schedule LLE angiogram during the visit. DISCHARGE CONDITION: good. TIME SPENT ON DISCHARGE: Greater than 60 minutes. Vital Signs/I&Os Vital Signs Date Time Temp Pulse Resp B/P (MAP) Pulse Ox O2 Delivery O2 Flow Rate FiO2 10/03/18 10:00 98.9 68 18 126/81 (96) 97 10/03/18 08:17 Room Air I&O- Last 24 Hours up to 6 AM 10/03/18 06:00 Intake Total 3026 ml Output Total 2200 ml Balance 826 ml Laboratory Data Labs 24H Laboratory Tests 2 10/02/18 16:10: Activated Partial Thromboplast Time > 240.0*H 10/02/18 18:01: Activated Partial Thromboplast Time 161.8*H 10/03/18 02:21: Activated Partial Thromboplast Time 54.0H 10/03/18 08:42: Activated Partial Thromboplast Time 68.7H, Nucleated Red Blood Cells % (auto) 0.0 10/03/18 10:44: CBC/BMP Laboratory Tests 10/03/18 08:42 Red Blood Count 3.94 L, Mean Corpuscular Volume 94.4, Mean Corpuscular Hemoglobin 33.8 H, Mean Corpuscular Hemoglobin Concent 35.8, Red Cell Distribution Width 11.6 Discharge Medications Scheduled Amoxicillin/Clavulanate Potas (Augmentin 875-125 mg) 1 Tab Tab, 1 TAB PO BID Aspirin (Aspir-81) 81 Mg Tab, 1 TAB PO DAILY for pain Clopidogrel Bisulfate (Plavix) 75 Mg Tab, 75 MG PO DAILY Scheduled PRN Acetaminophen/Hydrocodone ([place], [place] 5/325) 1 Tab Tab, 1 TAB PO Q6hrp PRN for MODERATE PAIN (PS 5-7) Allergies Coded Allergies: No Known Allergies (Verified , 03/17/03) GRISEL UMAÑA PA-C Oct 03, 2018 11:22
[2018-10-03 11:30] LABS: BLOOD UREA NITROGEN 6 MG/DL (7-18); CALCIUM LEVEL 8.9 MG/DL (8.5-10.1); CARBON DIOXIDE LEVEL 24 MEQ/L (21-32); CHLORIDE LEVEL 100 MEQ/L (98-107); CREATININE FOR GFR 0.81 MG/DL (0.70-1.30); GLOMERULAR FILTRATION RATE > 60.0 (>56); GLUCOSE, FASTING 80 MG/DL (70-100); POTASSIUM SERUM 3.8 MEQ/L (3.5-5.1); SODIUM LEVEL 132 MEQ/L (136-145)
[2018-10-03 14:00] VITALS: BP 133/92
--- NOTE | 2018-10-03 15:47 | REP ---
Unilateral left lower extremity arterial ultrasound: History: Peripheral vascular disease. Findings: Severe atherosclerotic changes are seen in the common femoral artery to the foot in the left lower extremity. The femoral artery is occluded proximally with reconstituted flow in the distal superficial femoral artery. The proximal and distal anterior tibial artery is felt to be occluded. Abnormal monophasic waveforms are observed at and below the popliteal artery on the left. Ankle brachial index could not be done due to patient tolerance. Left lower extremity arterial Doppler velocity chart: Left CF A 85 cm/S Profunda 65 cm/S Proximal SFA occluded Mid SFA occluded Distal SFA reverse flow reconstituted 90.8 cm/S Popliteal 59 cm/S Proximal AT A occluded Tibioperoneal trunk 41 cm/S Proximal BIOSOLIDS MANAGEMENT TECHNICIAN 16 cm/S Distal BIOSOLIDS MANAGEMENT TECHNICIAN 22 cm/S Distal AT A occluded Electronically Signed by Unruly Gotti MD 10/03/2018 03:38 P
[2018-10-03] MEDS: HEPARIN SOD (PORCINE) 5000 UNITS/ML VIAL IV PRN (16:41)
[2018-10-03 18:00] VITALS: BP 151/97
[2018-10-03 22:00] VITALS: BP 137/86
[2018-10-04] MEDS: PIPERACILLIN/TAZOBACTAM SOD 3.375 GM in D5W MINI-BAG PLUS 50 ML IV SCH ×2 (00:12→07:54)
[2018-10-04] MEDS: HEPARIN DRIP 25,000 UNITS in APPROPRIATE DILUENT 1 EA IV SCH (00:18)
[2018-10-04] MEDS: D5W/0.45% SODIUM CHLORIDE 1,000 ML IV SCH (04:48)
[2018-10-04] MEDS: MORPHINE 4 MG/ML 1ML VIAL/SYRINGE (J2270) IV PRN (05:19)
[2018-10-04 06:00] VITALS: BP 140/91
[2018-10-04] MEDS: SENOKOT S TAB PO SCH (07:55)
[2018-10-04] MEDS: NORCO, ANEXSIA 5/325MG TABLET (HYDROcodone/ACETAMINOPHEN) PO PRN (07:55)
[2018-10-04] MEDS: CLOPIDOGREL 75 MG TAB PO SCH (07:55)
[2018-10-04] MEDS: DOCUSATE SODIUM 100 MG CAP PO SCH (07:55)
[2018-10-04] MEDS ORDERED: NORCOTAB PO (09:20)
[2018-10-04] MEDS ORDERED: ELIQ2.5T PO (09:41)
[2018-10-04] MEDS ORDERED: AUGM875T28 PO (09:41)
--- NOTE | 2018-10-04 09:43 | IPNPDOC ---
Subjective Date Seen The patient was seen on 10/04/18. Subjective Chief Complaint/HPI Doing well, RLE and foot pain resolved. Ready to go home Objective Physical Examination General Exam: Positive: Alert, Moderate Distress Eye Exam: Positive: PERRLA, Conjunctiva & lids normal, EOMI ENT Exam: Positive: Atraumatic Neck Exam: Positive: Supple, +2 carotid pulse wo bruit Chest Exam: Positive: Clear to auscultation, Normal air movement; Negative: Rales, Rhonchi, Wheezing, Diminished, Other Heart Exam: Positive: Rate Normal, Regular Rhythm, Normal S1, Normal S2; Negative: Gallops, Murmurs, Rubs, Other Abdomen Exam: Positive: Normal bowel sounds, BS Hyperactive, Soft; Negative: Tenderness, Mass, Hernia, Other Extremity Exam: Positive: Edema (Rt groin incision c/d/i min serous drainage on dressing.), Other (Rt foot nontender, warm, cap refill <3 sec, Rt great toe gengrene, toenail missing demarcated at level PIP.); Negative: Clubbing, Cyanosis, Normal pulses (Rt DP and PT audible solid and monophasic , Lt PT and DP monophasic, DP intermittent ), Tenderness, Swelling Skin Exam: Positive: Nl turgor and temperature Neuro Exam: Positive: Strength at 5/5 X4 ext, Cranial Nerves 3-12 NL Psych Exam: Positive: Mental status NL, Anxiety, Oriented x 3; Negative: Memory Intact (can not answer questions logically ) Assessment /Plan Assessment 1. POD #2, s/p Rt femoral endarterectomy On Heparin drip, Sx/S RLE ALI resolved with solid but monophasic distal pulses. 2. Rt great toe gangrene On IV Zosyn. The Rt great toe gangrene demarcated at level PIP. 3. Occlusive PVD LLE asymptomatic now Lt PT and DP monophasic, DP is intermittent by Doppler. Arterial US LLE 10/03/18 with finding of severe atherosclerotic changes in CHANGE PERSON to the foot in LLE. The FA is occluded proximally with reconstituted flow in the distal SFA. The proximal and distal MAC is felt to be occluded. Abnormal monophasic waveforms are observed at and below the PA on the left. 4.. Burger disease /Raynaud disease with thrombosis 5. Nonocclusive DVT RLE 6. VVI 7. HTN 8. Anxiety Plan/VTE VTE Prophylaxis Ordered?: Yes Plan 1. DC home today 2. Continue Plavix 75 mg daily 3. Asprin 81 mg daily x 90 days, refills 6 4. Augmentin 875-125 mg 1 tab Bid x 10 days, no refill 5. [place] 3/325 mg 1 tab q6hrp pain x 7 days, no refill 6. F/u with Dr Ignacio in 1 week 7. Angiogram LLE will be scheduled as an outpatient VS, I&O, 24H, Fishbone Vital Signs/I&O Vital Signs Date Time Temp Pulse Resp B/P (MAP) Pulse Ox O2 Delivery O2 Flow Rate FiO2 10/04/18 08:25 6 Room Air 10/04/18 06:00 98.0 63 140/91 (107) 94 I&O- Last 24 Hours up to 6 AM 10/04/18 06:00 Intake Total 2434 ml Output Total 2250 ml Balance 184 ml Laboratory Data 24H LABS Laboratory Tests 2 10/03/18 10:44: Anion Gap 8, Glomerular Filtration Rate > 60.0, Blood Urea Nitrogen 6L, Creatinine 0.81, Sodium Level 132L, Potassium Level 3.8, Chloride Level 100, Carbon Dioxide Level 24, Calcium Level 8.9 10/03/18 15:30: Activated Partial Thromboplast Time 59.4H 10/03/18 22:51: Activated Partial Thromboplast Time 86.3H 10/04/18 05:19: Activated Partial Thromboplast Time 71.4H CBC/BMP Laboratory Tests 10/03/18 10:44 Calcium Level 8.9 GRISEL UMAÑA PA-C Oct 04, 2018 09:43
[2018-10-04 10:00] VITALS: BP 151/88
[2018-10-04] MEDS ORDERED: ASPI81TA85 PO (10:56)
[2018-10-04 13:28] LABS: BASO # 0.1 10^3/uL (0.0-0.2); BASO % 0.6 % (0.0-1.0); EOS # 0.3 10^3/uL (0.0-0.50); EOS % 2.7 % (0.0-3.0); HEMATOCRIT 40.3 % (42.0-52.0); HEMOGLOBIN 14.2 g/dl (13.5-17.5); LYMPH # 2.4 10^3/uL (1.5-4.5); LYMPH % 21.2 % (24.0-44.0); MEAN CORPUSCULAR HEMOGLOBIN 34.1 pg (27.0-33.0); MEAN CORPUSCULAR HGB CONC 35.2 g/dl (32.0-36.5); MEAN CORPUSCULAR VOLUME 96.9 fl (80.0-96.0); MONO % 20.4 % (0.0-5.0); NEUTROPHILS # 6.2 10^3/uL (1.8-7.7); NEUTROPHILS % 54.1 % (36.0-66.0); PLATELET COUNT, AUTOMATED 304 10^3/uL (150-450); RED BLOOD COUNT 4.16 10^6/uL (4.30-6.10); WHITE BLOOD COUNT 11.5 10^3/uL (4.0-10.0)
[2018-10-04 14:36] LABS: MONO # 2.3 10^3/uL (0.0-0.8)
--- NOTE | 2018-10-08 10:56 | REPIR ---
DATE OF PROCEDURE: 09/27/2018 ATTENDING PHYSICIAN: Dr. Sage Ignacio BIOMETRICS HEAD: Ranulfo Price and Jasmyne Castillo PREOPERATIVE DIAGNOSES: Right first toe gangrene and ischemia, right foot pain, right superficial femoral vein and popliteal vein deep vein thrombosis (DVT), chronic, right lower extremity venous valvular insufficiency, femoral-popliteal arterial atherosclerotic occlusive disease, aortoiliac atherosclerotic arterial occlusive disease. PROCEDURE: Aortogram, iliofemoral angiogram, selective right common femoral artery catheter placement, right lower extremity angiogram, selective right profunda femoris artery catheter placement, right lower extremity angiogram, Mynx closure of the left common femoral arteriotomy. INDICATION: The patient is a 53-year-old male with severe debilitating pain in his right lower extremity who has discoloration and gangrene of the right first toe and severe atherosclerotic arterial occlusive disease as well as venous valvular insufficiency in the right lower extremity. The patient also has chronic DVT in the right lower extremity. The patient undergo an angiogram with possible angioplasty, stent and/or atherectomy. Risks, benefits, alternative options were discussed with the patient. ANESTHESIA: Local with sedation with 1 mg Versed, 50 mcg of fentanyl and 10 mL of 2% lidocaine. FLUORO TIME: 1.1 minutes. CONTRAST: 13 mL of Isovue-300. SEDATION TIME: 1627 hours to 1703 hours, for a total of 36 minutes. The sedation was administered by the registered nurse in the room. The cardiopulmonary monitoring was performed by the registered nurse in the room. The administration of sedation and cardiopulmonary monitoring were performed under my direct supervision. I was present for and directed the entire case. There were no sedation related complications, and the patient returned to pre sedation status at the completion of procedure. COMPLICATIONS: None. DRAINS: None. SPECIMENS: None. IMPLANTS: Left common femoral arteriotomy closure with a Mynx closure device. DESCRIPTION OF PROCEDURE: The patient was taken to the angiography suite, placed supine on the angiography room table and then prepped and draped in a standard surgical fashion. The left common femoral artery was cannulated with a micropuncture needle after anesthetizing the overlying skin with 2% lidocaine. A micropuncture wire was advanced to the micropuncture needle, which was upsized to a micropuncture sheath. A uiuson wire was advanced to the micropuncture sheath, which was upsized to #5-Yakut sheath. An Omni flush catheter was placed in the aorta and abdominal aortogram was performed. Catheter was pulled down to the level of the bifurcation iliac arteries and a pelvic aortogram with iliofemoral angiography was performed. Catheter was directed over the bifurcation iliac arteries, placed in the right common femoral artery and a right lower extremity angiogram was performed. This showed complete occlusion of the superficial femoral artery with reconstitution of the tibial vessels distally. The catheter was advanced into the profunda femoris artery and a selective profunda femoris artery, right lower extremity angiogram was performed. The catheter and wire were then removed. A Mynx closure device was used to close the arteriotomy in the left common femoral artery with an additional 10 minutes of adjunctive pressure applied for hemostasis. Dressings were then applied. The patient tolerated the procedure well. All instrument, sponge, needle counts were correct at the end of the case. There were no complications. Dr. Ignacio was present for and directed the entire case. The patient was transferred to the holding area and subsequently to the floor in stable condition.
== END 2018-10-04 15:08 | disposition home health service (06) | DRG 169 ==
LOC: M MSPAV 16:57
PROVIDERS: ADMIT Surgery Vascular Surgery; ATTEND Surgery Vascular Surgery
PROC: 04CK0ZZ Extirpation of Matter from Right Femoral Artery, Open Approach (ICD-10-PCS; 2018-10-02)
PROC: 04UK0KZ Supplement Right Femoral Artery with Nonautologous Tissue Substitute, Open Approach (ICD-10-PCS; 2018-10-02)
PROC: 04CH0ZZ Extirpation of Matter from Right External Iliac Artery, Open Approach (ICD-10-PCS; principal; 2018-10-02 11:30)
DX: I70.261 Atherosclerosis of native arteries of extremities with gangrene, right leg (principal); I73.1 Thromboangiitis obliterans [Buerger's disease]; L03.115 Cellulitis of right lower limb; I70.202 Unspecified atherosclerosis of native arteries of extremities, left leg; I82.511 Chronic embolism and thrombosis of right femoral vein; I82.531 Chronic embolism and thrombosis of right popliteal vein; I73.01 Raynaud's syndrome with gangrene; I77.1 Stricture of artery; I10 Essential (primary) hypertension; F41.9 Anxiety disorder, unspecified; Z79.899 Other long term (current) drug therapy; Z87.891 Personal history of nicotine dependence

== ENCOUNTER 2018-11-15 07:29 | Inpatient (IN) | payer MEDICARE, MEDICAID ==
[2018-11-15] VITALS (7 sets, daily range): BP systolic 117–142; BP diastolic 75–88
[~2018-11-15] VITALS: Ht 177.8 cm; Wt 63.7 kg
[~2018-11-15 07:29] MED LIST changes: +ASPI81TA85 PO; +AUGM875T28 PO; +ELIQ2.5T PO; +HEPARIN 1,000 UNITS/ML 10ML VIAL (FOR RADIOLOGY& DIALYSIS ONLY) As Ordered ONE; +ISOVUE-300 61% 50ML VIAL (Q9967) As Ordered ONE; +LIDOCAINE 2% MDV 20 ML VIAL As Ordered ONE; +NORCOTAB PO; +PLAV1TAB2 PO
[2018-11-15] MEDS ORDERED: NORCO, ANEXSIA 5/325MG TABLET (HYDROcodone/ACETAMINOPHEN) As Ordered ONE (07:55)
[2018-11-15] MEDS ORDERED: MIDAZOLAM INJ 2 MG/2 ML VIAL (J2250) As Ordered ONE (08:56)
[2018-11-15] MEDS ORDERED: fentaNYL 100 MCG/2 ML INJECTION (J3010) As Ordered ONE (08:56)
[2018-11-15] MEDS ORDERED: LIDOCAINE 2% MDV 20 ML VIAL As Ordered ONE (09:09)
[2018-11-15] MEDS ORDERED: MOM 30ML SUSPENSION UDC PO PRN (11:00)
[2018-11-15] MEDS ORDERED: BISACODYL 10 MG SUPP PR PRN (11:00)
[2018-11-15] MEDS ORDERED: TYLE500T78 PO (11:25)
[2018-11-15] MEDS ORDERED: PLAV1TAB2 PO (11:25)
[2018-11-15] MEDS ORDERED: ASPI1TAB15 PO (11:25)
[2018-11-15] MEDS ORDERED: TYLE1TAB5 PO (11:25)
[2018-11-15] MEDS ORDERED: HEPARIN DRIP 25,000 UNITS in APPROPRIATE DILUENT 1 EA IV SCH (11:27)
[2018-11-15] MEDS ORDERED: HEPARIN SOD (PORCINE) 5000 UNITS/ML VIAL IV ONE (11:45)
[2018-11-15] MEDS ORDERED: ACETAMINOPHEN TAB 650MG DOSE (2X325MG) PO PRN (12:00)
[2018-11-15] MEDS: PIPERACILLIN/TAZOBACTAM SOD 3.375 GM in D5W MINI-BAG PLUS 50 ML IV SCH ×3 (12:18→23:04)
[2018-11-15] MEDS: MORPHINE 4 MG/ML 1ML VIAL/SYRINGE (J2270) IV PRN ×3 (12:19→23:07)
[2018-11-15 12:25] LABS: ALBUMIN 3.2 GM/DL (3.2-5.2); ALT/SGPT 30 U/L (12-78); BILIRUBIN,TOTAL 0.3 MG/DL (0.2-1.0); BLOOD UREA NITROGEN 7 MG/DL (7-18); CALCIUM LEVEL 8.9 MG/DL (8.5-10.1); CARBON DIOXIDE LEVEL 26 MEQ/L (21-32); CHLORIDE LEVEL 97 MEQ/L (98-107); CREATININE FOR GFR 0.64 MG/DL (0.70-1.30); GLOMERULAR FILTRATION RATE > 60.0 (>56); GLUCOSE, FASTING 111 MG/DL (70-100); POTASSIUM SERUM 3.6 MEQ/L (3.5-5.1); SODIUM LEVEL 131 MEQ/L (136-145); TOTAL PROTEIN 6.9 GM/DL (6.4-8.2)
[2018-11-15] MEDS: HEPARIN DRIP 25,000 UNITS in APPROPRIATE DILUENT 1 EA IV SCH (12:41)
[2018-11-15 13:03] LABS: BASO % 0.5 % (0.0-1.0); EOS # 0.2 10^3/uL (0.0-0.50); EOS % 2.8 % (0.0-3.0); HEMATOCRIT 40.9 % (42.0-52.0); HEMOGLOBIN 14.4 g/dl (13.5-17.5); LYMPH # 1.3 10^3/uL (1.5-4.5); LYMPH % 20.5 % (24.0-44.0); MEAN CORPUSCULAR HEMOGLOBIN 33.5 pg (27.0-33.0); MEAN CORPUSCULAR HGB CONC 35.2 g/dl (32.0-36.5); MEAN CORPUSCULAR VOLUME 95.1 fl (80.0-96.0); MONO # 0.9 10^3/uL (0.0-0.8); MONO % 14.3 % (0.0-5.0); NEUTROPHILS # 3.9 10^3/uL (1.8-7.7); NEUTROPHILS % 61.3 % (36.0-66.0); PLATELET COUNT, AUTOMATED 241 10^3/uL (150-450); WHITE BLOOD COUNT 6.4 10^3/uL (4.0-10.0)
[2018-11-15 13:06] LABS: INR 0.94; PROTHROMBIN TIME 12.7 SECONDS (12.1-14.4)
[2018-11-15] MEDS: PERCOCET 5MG/325MG TAB PO PRN ×2 (15:24→23:04)
--- NOTE | 2018-11-15 15:48 | REP ---
Chest x-ray: Two views. History: Cough. Comparison chest x-ray: January 01, 2013. Findings: There is linear discoid atelectasis in the left lower lobe. Lung kwong are otherwise clear. Pleural angles are sharp. Heart size is normal. No bony abnormality is appreciated. Impression: Left lower lobe plate-like atelectasis. Otherwise no acute disease. Electronically Signed by Unruly Gotti MD 11/15/2018 03:40 P
[2018-11-15] MEDS: DOCUSATE SODIUM 100 MG CAP PO SCH (21:00)
[2018-11-15] MEDS: SENOKOT S TAB PO SCH (21:00)
--- NOTE | 2018-11-15 22:57 | HPEPDOC ---
General Date of Admission Nov 15, 2018 at 10:28 Attending Physician: Dash Ignacio MD Chief Complaint The patient is a 53-year-old male admitted with a reason for visit of Ischemic Right Lower Extremity. Home Medications Scheduled Aspirin (Aspirin) 81 Mg Tab, 81 MG PO QHS, (Reported) Clopidogrel Bisulfate (Plavix) 75 Mg Tab, 75 MG PO DAILY, (Reported) Scheduled PRN (Tylenol Pm Extra Strength 500-25 mg) 1 Tab Tab, 3 TAB PO QHS PRN for PAIN, (Reported) Acetaminophen (Tylenol Extra Strength) 500 Mg Tab, 1,500 MG PO Q6H PRN for PAIN, (Reported) Allergies Coded Allergies: No Known Allergies (Verified , 03/17/03) Vital Signs Vital Signs Date Time Temp Pulse Resp B/P (MAP) Pulse Ox O2 Delivery O2 Flow Rate FiO2 11/15/18 20:01 18 11/15/18 15:50 97.8 78 133/82 (99) 94 Laboratory Data Labs 24H Laboratory Tests 2 11/15/18 10:49: Anion Gap 8, Glomerular Filtration Rate > 60.0, Blood Urea Nitrogen 7, Creatinine 0.64L, Sodium Level 131L, Potassium Level 3.6, Chloride Level 97L, Carbon Dioxide Level 26, Calcium Level 8.9, Aspartate Amino Transf (AST/SGOT) 33, Alanine Aminotransferase (ALT/SGPT) 30, Alkaline Phosphatase 65, Total Bilirubin 0.3, Total Protein 6.9, Albumin 3.2, Albumin/Globulin Ratio 0.86L 11/15/18 11:45: Immature Granulocyte % (Auto) 0.6, White Blood Count 6.4, Red Blood Count 4.30, Hemoglobin 14.4, Hematocrit 40.9L, Mean Corpuscular Volume 95.1, Mean Corpuscular Hemoglobin 33.5H, Mean Corpuscular Hemoglobin Concent 35.2, Red Cell Distribution Width 13.2, Platelet Count 241, Neutrophils (%) (Auto) 61.3, Lymphocytes (%) (Auto) 20.5L, Monocytes (%) (Auto) 14.3H, Eosinophils (%) (Auto) 2.8, Basophils (%) (Auto) 0.5, Neutrophils # (Auto) 3.9, Lymphocytes # (Auto) 1.3L, Monocytes # (Auto) 0.9H, Eosinophils # (Auto) 0.2, Basophils # (Auto) 0.0, Nucleated Red Blood Cells % (auto) 0.0, Prothrombin Time 12.7, Prothromb Time International Ratio 0.94, Activated Partial Thromboplast Time 29.0 11/15/18 18:57: Activated Partial Thromboplast Time 77.6H CBC/BMP Laboratory Tests 11/15/18 10:49 Calcium Level 8.9, Aspartate Amino Transf (AST/SGOT) 33, Alanine Aminotransferase (ALT/SGPT) 30, Alkaline Phosphatase 65, Total Bilirubin 0.3, Total Protein 6.9, Albumin 3.2 11/15/18 11:45 Red Blood Count 4.30, Mean Corpuscular Volume 95.1, Mean Corpuscular Hemoglobin 33.5 H, Mean Corpuscular Hemoglobin Concent 35.2, Red Cell Distribution Width 13.2, Neutrophils (%) (Auto) 61.3, Lymphocytes (%) (Auto) 20.5 L, Monocytes (%) (Auto) 14.3 H, Eosinophils (%) (Auto) 2.8, Basophils (%) (Auto) 0.5, Neutrophils # (Auto) 3.9, Lymphocytes # (Auto) 1.3 L, Monocytes # (Auto) 0.9 H, Eosinophils # (Auto) 0.2, Basophils # (Auto) 0.0 Dash Ignacio MD Nov 15, 2018 22:57
[2018-11-16] MEDS: PIPERACILLIN/TAZOBACTAM SOD 3.375 GM in D5W MINI-BAG PLUS 50 ML IV SCH ×3 (05:53→18:19)
[2018-11-16] MEDS: MORPHINE 4 MG/ML 1ML VIAL/SYRINGE (J2270) IV PRN ×5 (05:55→20:44)
[2018-11-16 06:00] VITALS: BP 134/84
[2018-11-16] MEDS: HEPARIN DRIP 25,000 UNITS in APPROPRIATE DILUENT 1 EA IV SCH (06:40)
--- NOTE | 2018-11-16 07:20 | ECGEPIP ---
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
[2018-11-16] MEDS: CLOPIDOGREL 75 MG TAB PO SCH (08:15)
[2018-11-16] MEDS: PERCOCET 5MG/325MG TAB PO PRN ×2 (08:16→18:33)
[2018-11-16] MEDS: DOCUSATE SODIUM 100 MG CAP PO SCH ×2 (08:16→20:09)
[2018-11-16] MEDS: SENOKOT S TAB PO SCH ×2 (08:16→20:09)
[2018-11-16 14:00] VITALS: BP 101/70
[2018-11-16 22:00] VITALS: BP 145/79
--- NOTE | 2018-11-16 23:10 | IPNPDOC ---
Subjective General Date/Time Seen The patient was seen on 11/16/18 at 23:08. Subject Chief Complaint/History The patient is a 53-year-old male admitted with a reason for visit of Ischemic Right Lower Extremity. Current Medications Current Medications Current Medications Acetaminophen (Tylenol Tab) 650 mg Q4HP PRN PO PAIN; Start 11/15/18 at 12:00 Bisacodyl (Dulcolax Suppository) 10 mg DAILYPRN PRN NE CONSTIPATION; Start 11/15/18 at 11:00 Clopidogrel Bisulfate (PLAVix) 75 mg DAILY PO Last administered on 11/16/18at 08:15; Start 11/16/18 at 09:00 Docusate Sodium (Colace) 100 mg BID PO Last administered on 11/16/18at 20:09; Start 11/15/18 at 21:00 Heparin Sodium (Porcine) (Heparin) ASDIRECTED PRN IV SEE LABEL COMMENTS; Start 11/15/18 at 11:30 Heparin Sodium (Porcine) 69953 units/IV Miscellaneous Supplies 250 ml @ 0 mls/hr Q0M IV ; Start 11/15/18 at 11:27; Status UNV Heparin Sodium (Porcine) 61187 units/IV Miscellaneous Supplies 250 ml @ 0 mls/hr Q0M IV Last administered on 11/16/18at 06:40; Start 11/15/18 at 11:45 Home Med (Med Rec Complete!) ASDIRECTED XX ; Start 11/15/18 at 11:30; Stop 11/15/18 at 11:34; Status DC Magnesium Hydroxide (Milk Of Magnesia) 30 ml DAILYPRN PRN PO CONSTIPATION; Start 11/15/18 at 11:00 Morphine Sulfate (Morphine Sulfate Inj) 2 mg Q2HP PRN IV SEVERE PAIN (PS 8-10); Start 11/15/18 at 11:00 Morphine Sulfate (Morphine Sulfate Inj) 4 mg Q2HP PRN IV SEVERE PAIN (PS 8-10) Last administered on 11/16/18at 20:44; Start 11/15/18 at 11:00 Non-Formulary Medication (Heparin Iv Rate Change Documentation ml/ Hr) ASDIRECTED XX Last administered on 11/15/18at 12:42; Start 11/15/18 at 11:30; Stop 11/20/18 at 11:29 Oxycodone/ Acetaminophen (Percocet 5mg/ 325mg Tablet) 1 tab Q4HP PRN PO MODERATE PAIN (PS 5-7); Start 11/15/18 at 11:00 Oxycodone/ Acetaminophen (Percocet 5mg/ 325mg Tablet) 2 tab Q6HP PRN PO SEVERE PAIN (PS 8-10) Last administered on 11/16/18at 18:33; Start 11/15/18 at 11:00 Piperacillin Sod/ Tazobactam Sod 3.375 gm/Dextrose 50 ml @ 50 mls/hr Q6H IV Last administered on 11/16/18at 18:19; Start 11/15/18 at 12:00 Senna/Docusate Sodium (Senokot S) 1 tab BID PO Last administered on 11/16/18at 20:09; Start 11/15/18 at 21:00 Allergies Coded Allergies: No Known Allergies (Verified , 03/17/03) VITAL SIGNS VITAL SIGNS Vital Signs Date Time Temp Pulse Resp B/P (MAP) Pulse Ox O2 Delivery O2 Flow Rate FiO2 11/16/18 20:44 18 11/16/18 18:43 18 11/16/18 18:33 18 11/16/18 18:33 18 11/16/18 14:00 97.7 59 18 101/70 (80) 97 11/16/18 13:05 18 11/16/18 08:46 18 11/16/18 08:16 18 11/16/18 08:15 18 11/16/18 06:00 98.1 67 20 134/84 (101) 97 11/16/18 05:55 18 Intake & Output 11/16/18 06:00 Intake Total 1100 ml Output Total 1625 ml Balance -525 ml Laboratory Tests 11/16/18 00:54: Activated Partial Thromboplast Time 82.9H 11/16/18 06:09: Activated Partial Thromboplast Time 75.1H Current Medications Medications (Trade) Dose Ordered Sig/Seth Route PRN Reason Start Time Stop Time Status Last Admin Dose Admin Clopidogrel Bisulfate (PLAVix) 75 mg DAILY PO 11/16/18 09:00 11/16/18 08:15 Docusate Sodium (Colace) 100 mg BID PO 11/15/18 21:00 11/16/18 20:09 Heparin Sodium (Porcine) 45321 units/IV Miscellaneous Supplies 250 ml @ 0 mls/hr Q0M IV 11/15/18 11:45 11/16/18 06:40 Morphine Sulfate (Morphine Sulfate Inj) 4 mg Q2HP PRN IV SEVERE PAIN (PS 8-10) 11/15/18 11:00 11/16/18 20:44 Non-Formulary Medication (Heparin Iv Rate Change Documentation ml/ Hr) ASDIRECTED XX 11/15/18 11:30 11/20/18 11:29 11/15/18 12:42 Oxycodone/ Acetaminophen (Percocet 5mg/ 325mg Tablet) 2 tab Q6HP PRN PO SEVERE PAIN (PS 8-10) 11/15/18 11:00 11/16/18 18:33 Piperacillin Sod/ Tazobactam Sod 3.375 gm/Dextrose 50 ml @ 50 mls/hr Q6H IV 11/15/18 12:00 11/16/18 18:19 Senna/Docusate Sodium (Senokot S) 1 tab BID PO 11/15/18 21:00 11/16/18 20:09 Laboratory Tests 11/15/18 10:49 Calcium Level 8.9, Aspartate Amino Transf (AST/SGOT) 33, Alanine Aminotransferas e (ALT/SGPT) 30, Alkaline Phosphatase 65, Total Bilirubin 0.3, Total Protein 6.9, Albumin 3.2 11/15/18 11:45 Red Blood Count 4.30, Mean Corpuscular Volume 95.1, Mean Corpuscular Hemoglobin 33.5 H, Mean Corpuscular Hemoglobin Concent 35.2, Red Cell Distribution Width 13.2, Neutrophils (%) (Auto) 61.3, Lymphocytes (%) (Auto) 20.5 L, Monocytes (%) (Auto) 14.3 H, Eosinophils (%) (Auto) 2.8, Basophils (%) (Auto) 0.5, Neutrophils # (Auto) 3.9, Lymphocytes # (Auto) 1.3 L, Monocytes # (Auto) 0.9 H, Eosinophils # (Auto) 0.2, Basophils # (Auto) 0.0 Dash Ignacio MD Nov 16, 2018 23:10
[2018-11-17] MEDS: PIPERACILLIN/TAZOBACTAM SOD 3.375 GM in D5W MINI-BAG PLUS 50 ML IV SCH ×4 (00:26→19:17)
[2018-11-17] MEDS: MORPHINE 4 MG/ML 1ML VIAL/SYRINGE (J2270) IV PRN ×3 (00:30→20:41)
[2018-11-17] MEDS: HEPARIN DRIP 25,000 UNITS in APPROPRIATE DILUENT 1 EA IV SCH ×3 (03:20→22:46)
[2018-11-17 06:00] VITALS: BP 124/78
[2018-11-17] MEDS: HEPARIN SOD (PORCINE) 5000 UNITS/ML VIAL IV PRN ×2 (08:28→22:46)
[2018-11-17] MEDS: PERCOCET 5MG/325MG TAB PO PRN ×3 (11:05→22:51)
[2018-11-17 14:00] VITALS: BP 127/82
[2018-11-17] MEDS: SENOKOT S TAB PO SCH ×2 (15:24→20:43)
[2018-11-17] MEDS: DOCUSATE SODIUM 100 MG CAP PO SCH ×2 (15:44→20:43)
[2018-11-17] MEDS: CLOPIDOGREL 75 MG TAB PO SCH (20:43)
[2018-11-17 22:00] VITALS: BP 129/80
[2018-11-18] MEDS: PIPERACILLIN/TAZOBACTAM SOD 3.375 GM in D5W MINI-BAG PLUS 50 ML IV SCH ×5 (00:01→23:09)
[2018-11-18 06:00] VITALS: BP 144/80
[2018-11-18] MEDS: PERCOCET 5MG/325MG TAB PO PRN ×5 (07:33→23:52)
[2018-11-18] MEDS: SENOKOT S TAB PO SCH ×2 (07:35→20:00)
[2018-11-18] MEDS: CLOPIDOGREL 75 MG TAB PO SCH (08:11)
[2018-11-18] MEDS: DOCUSATE SODIUM 100 MG CAP PO SCH ×2 (08:11→20:00)
[2018-11-18] MEDS ORDERED: THROMBIN SOLN 20,000 UNITS KIT As Ordered ONE (09:29)
[2018-11-18] MEDS ORDERED: CONRAY-60 60% 50ML VIAL (Q9961) As Ordered ONE (09:29)
[2018-11-18] MEDS ORDERED: HEPARIN SOD (PORCINE) 5000 UNITS/ML VIAL As Ordered ONE ×2 (09:30→14:30)
[2018-11-18] MEDS ORDERED: CLINDAMYCIN INJ 900MG/6ML VIAL As Ordered ONE (09:30)
[2018-11-18] MEDS ORDERED: fentaNYL 250 MCG/5 ML INJECTION (J3010) As Ordered ONE (09:39)
[2018-11-18] MEDS ORDERED: MIDAZOLAM INJ 5 MG/ML VIAL (J2250) As Ordered ONE (09:39)
--- NOTE | 2018-11-18 10:00 | IPNPDOC ---
Subjective General Date/Time Seen The patient was seen on 11/17/18 at 16:58. Subject Chief Complaint/History The patient is a 53-year-old male admitted with a reason for visit of Ischemic Right Lower Extremity. Current Medications Current Medications Current Medications Acetaminophen (Tylenol Tab) 650 mg Q4HP PRN PO PAIN; Start 11/15/18 at 12:00 Bisacodyl (Dulcolax Suppository) 10 mg DAILYPRN PRN [place] CONSTIPATION; Start 11/15/18 at 11:00 Clopidogrel Bisulfate (PLAVix) 75 mg DAILY PO Last administered on 11/18/18 08:11; Start 11/16/18 at 09:00 Docusate Sodium (Colace) 100 mg BID PO Last administered on 11/18/18 08:11; Start 11/15/18 at 21:00 Heparin Sodium (Porcine) (Heparin) ASDIRECTED PRN IV SEE LABEL COMMENTS Last administered on 11/17/18at 22:46; Start 11/15/18 at 11:30 Heparin Sodium (Porcine) 39839 units/IV Miscellaneous Supplies 250 ml @ 0 mls/hr Q0M IV ; Start 11/15/18 at 11:27; Status UNV Heparin Sodium (Porcine) 23781 units/IV Miscellaneous Supplies 250 ml @ 0 mls/hr Q0M IV Last administered on 11/17/18at 22:46; Start 11/15/18 at 11:45 Home Med (Med Rec Complete!) ASDIRECTED XX ; Start 11/15/18 at 11:30; Stop 11/15/18 at 11:34; Status DC Magnesium Hydroxide (Milk Of Magnesia) 30 ml DAILYPRN PRN PO CONSTIPATION; Start 11/15/18 at 11:00 Morphine Sulfate (Morphine Sulfate Inj) 2 mg Q2HP PRN IV SEVERE PAIN (PS 8-10); Start 11/15/18 at 11:00 Morphine Sulfate (Morphine Sulfate Inj) 4 mg Q2HP PRN IV SEVERE PAIN (PS 8-10) Last administered on 11/17/18at 20:41; Start 11/15/18 at 11:00 Non-Formulary Medication (Heparin Iv Rate Change Documentation ml/ Hr) ASDIRECTED XX Last administered on 11/17/18 22:44; Start 11/15/18 at 11:30; S top 11/20/18 at 11:29 Oxycodone/ Acetaminophen (Percocet 5mg/ 325mg Tablet) 1 tab Q4HP PRN PO MODERATE PAIN (PS 5-7); Start 11/15/18 at 11:00 Oxycodone/ Acetaminophen (Percocet 5mg/ 325mg Tablet) 2 tab Q6HP PRN PO SEVERE PAIN (PS 8-10) Last administered on 11/18/18at 07:33; Start 11/15/18 at 11:00 Piperacillin Sod/ Tazobactam Sod 3.375 gm/Dextrose 50 ml @ 50 mls/hr Q6H IV Last administered on 11/18/18at 06:17; Start 11/15/18 at 12:00 Senna/Docusate Sodium (Senokot S) 1 tab BID PO Last administered on 11/17/18at 20:43; Start 11/15/18 at 21:00 Allergies Coded Allergies: No Known Allergies (Verified , 03/17/03) VITAL SIGNS VITAL SIGNS Vital Signs Date Time Temp Pulse Resp B/P (MAP) Pulse Ox O2 Delivery O2 Flow Rate FiO2 11/17/18 15:45 18 11/17/18 14:00 98.0 58 18 127/82 (97) 94 11/17/18 11:05 18 Intake & Output 11/18/18 06:00 Intake Total 580 ml Output Total 1100 ml Balance -520 ml Laboratory Tests 11/17/18 14:18: Activated Partial Thromboplast Time 79.9H 11/17/18 21:10: Activated Partial Thromboplast Time 56.2H 11/18/18 06:14: Activated Partial Thromboplast Time 92.3H Current Medications Medications (Trade) Dose Ordered Sig/Seth Route PRN Reason Start Time Stop Time Status Last Admin Dose Admin Clopidogrel Bisulfate (PLAVix) 75 mg DAILY PO 11/16/18 09:00 11/18/18 08:11 Docusate Sodium (Colace) 100 mg BID PO 11/15/18 21:00 11/18/18 08:11 Heparin Sodium (Porcine) (Heparin) ASDIRECTED PRN IV SEE LABEL COMMENTS 11/15/18 11:30 11/17/18 22:46 Heparin Sodium (Porcine) 09109 units/IV Miscellaneous Supplies 250 ml @ 0 mls/hr Q0M IV 11/15/18 11:45 11/17/18 22:46 Morphine Sulfate (Morphine Sulfate Inj) 4 mg Q2HP PRN IV SEVERE PAIN (PS 8-10) 11/15/18 11:00 11/17/18 20:41 Non-Formulary Medication (Heparin Iv Rate Change Documentation ml/ Hr) ASDIRECTED XX 11/15/18 11:30 11/20/18 11:29 11/17/18 22:44 Oxycodone/ Acetaminophen (Percocet 5mg/ 325mg Tablet) 2 tab Q6HP PRN PO SEVERE PAIN (PS 8-10) 11/15/18 11:00 11/18/18 07:33 Piperacillin Sod/ Tazobactam Sod 3.375 gm/Dextrose 50 ml @ 50 mls/hr Q6H IV 11/15/18 12:00 11/18/18 06:17 Senna/Docusate Sodium (Senokot S) 1 tab BID PO 11/15/18 21:00 11/17/18 20:43 Assessment/Plan Assessment Right lower extremity ischemia Plan Plan for right femoral to posterior tibial artery bypass graft with reverse saphenous vein graft from the right lower extremity. Dash Ignacio MD Nov 18, 2018 10:00
--- NOTE | 2018-11-18 10:05 | IPNPDOC ---
Subjective General Date/Time Seen The patient was seen on 11/18/18 at 10:00. Subject Chief Complaint/History The patient is a 53-year-old male admitted with a reason for visit of Ischemic Right Lower Extremity. Current Medications Current Medications Current Medications Acetaminophen (Tylenol Tab) 650 mg Q4HP PRN PO PAIN; Start 11/15/18 at 12:00 Bisacodyl (Dulcolax Suppository) 10 mg DAILYPRN PRN [place] CONSTIPATION; Start 11/15/18 at 11:00 Clopidogrel Bisulfate (PLAVix) 75 mg DAILY PO Last administered on 11/18/18at 08:11; Start 11/16/18 at 09:00 Docusate Sodium (Colace) 100 mg BID PO Last administered on 11/18/18at 08:11; Start 11/15/18 at 21:00 Heparin Sodium (Porcine) (Heparin) ASDIRECTED PRN IV SEE LABEL COMMENTS Last administered on 11/17/18at 22:46; Start 11/15/18 at 11:30 Heparin Sodium (Porcine) 03611 units/IV Miscellaneous Supplies 250 ml @ 0 mls/hr Q0M IV ; Start 11/15/18 at 11:27; Status UNV Heparin Sodium (Porcine) 30416 units/IV Miscellaneous Supplies 250 ml @ 0 mls/hr Q0M IV Last administered on 11/17/18at 22:46; Start 11/15/18 at 11:45 Home Med (Med Rec Complete!) ASDIRECTED XX ; Start 11/15/18 at 11:30; Stop 11/15/18 at 11:34; Status DC Magnesium Hydroxide (Milk Of Magnesia) 30 ml DAILYPRN PRN PO CONSTIPATION; Start 11/15/18 at 11:00 Morphine Sulfate (Morphine Sulfate Inj) 2 mg Q2HP PRN IV SEVERE PAIN (PS 8-10); Start 11/15/18 at 11:00 Morphine Sulfate (Morphine Sulfate Inj) 4 mg Q2HP PRN IV SEVERE PAIN (PS 8-10) Last administered on 11/17/18at 20:41; Start 11/15/18 at 11:00 Non-Formulary Medication (Heparin Iv Rate Change Documentation ml/ Hr) ASDIRECTED XX Last administered on 11/17/18at 22:44; Start 11/15/18 at 11:30; St op 11/20/18 at 11:29 Oxycodone/ Acetaminophen (Percocet 5mg/ 325mg Tablet) 1 tab Q4HP PRN PO MODERATE PAIN (PS 5-7); Start 11/15/18 at 11:00 Oxycodone/ Acetaminophen (Percocet 5mg/ 325mg Tablet) 2 tab Q6HP PRN PO SEVERE PAIN (PS 8-10) Last administered on 11/18/18at 07:33; Start 11/15/18 at 11:00 Piperacillin Sod/ Tazobactam Sod 3.375 gm/Dextrose 50 ml @ 50 mls/hr Q6H IV Last administered on 11/18/18at 06:17; Start 11/15/18 at 12:00 Senna/Docusate Sodium (Senokot S) 1 tab BID PO Last administered on 11/17/18at 20:43; Start 11/15/18 at 21:00 Allergies Coded Allergies: No Known Allergies (Verified , 03/17/03) VITAL SIGNS VITAL SIGNS Vital Signs Date Time Temp Pulse Resp B/P (MAP) Pulse Ox O2 Delivery O2 Flow Rate FiO2 11/18/18 08:07 18 11/18/18 07:33 18 11/18/18 06:00 98.5 63 18 144/80 (101) 97 11/17/18 22:51 20 11/17/18 22:00 98.1 60 18 129/80 (96) 94 11/17/18 20:51 18 11/17/18 20:41 18 11/17/18 15:45 18 11/17/18 14:00 98.0 58 18 127/82 (97) 94 11/17/18 11:05 18 Intake & Output 11/18/18 06:00 Intake Total 580 ml Output Total 1100 ml Balance -520 ml Laboratory Tests 11/17/18 14:18: Activated Partial Thromboplast Time 79.9H 11/17/18 21:10: Activated Partial Thromboplast Time 56.2H 11/18/18 06:14: Activated Partial Thromboplast Time 92.3H Current Medications Medications (Trade) Dose Ordered Sig/Seth Route PRN Reason Start Time Stop Time Status Last Admin Dose Admin Clopidogrel Bisulfate (PLAVix) 75 mg DAILY PO 11/16/18 09:00 11/18/18 08:11 Docusate Sodium (Colace) 100 mg BID PO 11/15/18 21:00 11/18/18 08:11 Heparin Sodium (Porcine) (Heparin) ASDIRECTED PRN IV SEE LABEL COMMENTS 11/15/18 11:30 11/17/18 22:46 Heparin Sodium (Porcine) 16622 units/IV Miscellaneous Supplies 250 ml @ 0 mls/hr Q0M IV 11/15/18 11:45 11/17/18 22:46 Morphine Sulfate (Morphine Sulfate Inj) 4 mg Q2HP PRN IV SEVERE PAIN (PS 8-10) 11/15/18 11:00 11/17/18 20:41 Non-Formulary Medication (Heparin Iv Rate Change Documentation ml/ Hr) ASDIRECTED XX 11/15/18 11:30 11/20/18 11:29 11/17/18 22:44 Oxycodone/ Acetaminophen (Percocet 5mg/ 325mg Tablet) 2 tab Q6HP PRN PO SEVERE PAIN (PS 8-10) 11/15/18 11:00 11/18/18 07:33 Piperacillin Sod/ Tazobactam Sod 3.375 gm/Dextrose 50 ml @ 50 mls/hr Q6H IV 11/15/18 12:00 11/18/18 06:17 Senna/Docusate Sodium (Senokot S) 1 tab BID PO 11/15/18 21:00 11/17/18 20:43 Assessment/Plan Assessment Right lower extremity ischemia Plan Patient will undergo a right femoral to posterior tibial artery bypass graft with reverse saphenous vein graft from the right lower extremity. Dash Ignacio MD Nov 18, 2018 10:05
[2018-11-18] MEDS ORDERED: MIDAZOLAM INJ 2 MG/2 ML VIAL (J2250) As Ordered ONE (10:24)
[2018-11-18 10:29] LABS: HEMATOCRIT 37.1 % (42.0-52.0); HEMOGLOBIN 13.2 g/dl (13.5-17.5); MEAN CORPUSCULAR HEMOGLOBIN 33.4 pg (27.0-33.0); MEAN CORPUSCULAR HGB CONC 35.6 g/dl (32.0-36.5); MEAN CORPUSCULAR VOLUME 93.9 fl (80.0-96.0); PLATELET COUNT, AUTOMATED 229 10^3/uL (150-450); RED BLOOD COUNT 3.95 10^6/uL (4.30-6.10); WHITE BLOOD COUNT 10.5 10^3/uL (4.0-10.0)
[2018-11-18] MEDS ORDERED: ROCURONIUM BROMIDE 50 MG/5 ML VIAL As Ordered ONE ×2 (10:29→14:33)
[2018-11-18] MEDS ORDERED: LIDOCAINE 2% INJ 100 MG/5 ML SDV (FOR ANES.) As Ordered ONE (10:49)
[2018-11-18] MEDS ORDERED: PROPOFOL 200 MG/20 ML VIAL As Ordered ONE (10:49)
[2018-11-18 10:54] LABS: BLOOD UREA NITROGEN 5 MG/DL (7-18); CALCIUM LEVEL 8.4 MG/DL (8.5-10.1); CARBON DIOXIDE LEVEL 22 MEQ/L (21-32); CHLORIDE LEVEL 101 MEQ/L (98-107); CREATININE FOR GFR 0.62 MG/DL (0.70-1.30); GLOMERULAR FILTRATION RATE > 60.0 (>56); GLUCOSE, FASTING 87 MG/DL (70-100); POTASSIUM SERUM 4.3 MEQ/L (3.5-5.1); SODIUM LEVEL 133 MEQ/L (136-145)
[2018-11-18] MEDS ORDERED: ePHEDrine SULFATE 25 MG/5 ML(5MG/ML) SYRINGE As Ordered ONE ×2 (11:01→14:51)
[2018-11-18] MEDS ORDERED: SUCCINYLCHOLINE 100 MG/5 ML SYRINGE (J0330) As Ordered ONE (11:01)
[2018-11-18] MEDS ORDERED: ZOSYN 3.375 GM VIAL (J2543) As Ordered ONE (11:11)
[2018-11-18] MEDS ORDERED: HYDROmorphone HCL 2 MG/ML 1ML VIAL (J1170) As Ordered ONE (13:10)
[2018-11-18] MEDS ORDERED: PROTAMINE SULF INJ 50 MG/5 ML VIAL (J2720) As Ordered ONE (15:42)
[2018-11-18] MEDS ORDERED: GLYCOPYRROLATE INJ 0.2 MG/ML 2 ML VIAL As Ordered ONE (16:01)
[2018-11-18] MEDS ORDERED: NEOSTIGMINE 10 MG/10 ML VIAL (J2710) As Ordered ONE (16:01)
[2018-11-18] MEDS ORDERED: ONDANSETRON 4MG/2ML VIAL (J2405) As Ordered ONE ×2 (16:02→17:44)
[2018-11-18] MEDS ORDERED: fentaNYL 100 MCG/2 ML INJECTION (J3010) As Ordered ONE (16:40)
[2018-11-18] MEDS: fentaNYL 100 MCG/2 ML INJECTION (J3010) IV PRN ×4 (16:40→17:00)
[2018-11-18] MEDS ORDERED: PHENYLEPHRINE HCL INJ 10 MG in D5W 100 ML IV ONE (17:00)
[2018-11-18] MEDS ORDERED: ONDANSETRON 4MG/2ML VIAL (J2405) IV PRN (17:00)
[2018-11-18] MEDS ORDERED: LR 1,000 ML IV SCH (17:00)
[2018-11-18] MEDS ORDERED: METOCLOPRAMIDE INJ 10MG/2ML VIAL (J2765) IV PRN (17:00)
[2018-11-18] MEDS ORDERED: PERCOCET 5MG/325MG TAB As Ordered ONE ×2 (17:12→17:44)
[2018-11-18] MEDS ORDERED: MORPHINE 4 MG/ML 1ML VIAL/SYRINGE (J2270) As Ordered ONE (17:27)
[2018-11-18] MEDS: MORPHINE 4 MG/ML 1ML VIAL/SYRINGE (J2270) IV PRN (17:31)
[2018-11-18 18:35] VITALS: BP 109/67
[2018-11-18 20:00] VITALS: BP 106/61
[2018-11-18 21:00] VITALS: BP 95/63
[2018-11-18 22:00] VITALS: BP 100/63
[2018-11-18 23:00] VITALS: BP 101/68
[2018-11-19] VITALS (11 sets, daily range): BP systolic 101–148; BP diastolic 66–87
[2018-11-19] MEDS: PERCOCET 5MG/325MG TAB PO PRN ×4 (04:50→21:09)
[2018-11-19 04:51] LABS: HEMOGLOBIN 11.7 g/dl (13.5-17.5); MEAN CORPUSCULAR HEMOGLOBIN 31.5 pg (27.0-33.0); MEAN CORPUSCULAR HGB CONC 34.4 g/dl (32.0-36.5); MEAN CORPUSCULAR VOLUME 91.4 fl (80.0-96.0); PLATELET COUNT, AUTOMATED 175 10^3/uL (150-450); RED BLOOD COUNT 3.72 10^6/uL (4.30-6.10); WHITE BLOOD COUNT 9.8 10^3/uL (4.0-10.0)
[2018-11-19] MEDS: PIPERACILLIN/TAZOBACTAM SOD 3.375 GM in D5W MINI-BAG PLUS 50 ML IV SCH ×4 (05:11→23:50)
[2018-11-19 05:17] LABS: BLOOD UREA NITROGEN 4 MG/DL (7-18); CARBON DIOXIDE LEVEL 25 MEQ/L (21-32); CHLORIDE LEVEL 101 MEQ/L (98-107); CREATININE FOR GFR 0.69 MG/DL (0.70-1.30); GLOMERULAR FILTRATION RATE > 60.0 (>56); GLUCOSE, FASTING 106 MG/DL (70-100); SODIUM LEVEL 133 MEQ/L (136-145)
[2018-11-19] MEDS ORDERED: PHENYLephrine HCL 500 MCG/5 ML (100MCG/ML) SYRINGE (J2370) ONE (08:45)
[2018-11-19] MEDS ORDERED: PHENYLEPHRINE INJ 10MG/ML VIAL (J2370) ONE (08:45)
[2018-11-19] MEDS: CLOPIDOGREL 75 MG TAB PO SCH (09:13)
[2018-11-19] MEDS: SENOKOT S TAB PO SCH ×2 (09:13→20:13)
[2018-11-19] MEDS: DOCUSATE SODIUM 100 MG CAP PO SCH ×2 (09:13→20:13)
[2018-11-19] MEDS: MORPHINE 4 MG/ML 1ML VIAL/SYRINGE (J2270) IV PRN ×3 (11:51→23:50)
--- NOTE | 2018-11-19 19:59 | ROOPDOC ---
[facility] Report Of Operation Report of Operation Dash Ignacio MD Nov 19, 2018 19:59
--- NOTE | 2018-11-19 20:03 | IPNPDOC ---
Subjective General Date/Time Seen The patient was seen on 11/19/18 at 20:00. Subject Chief Complaint/History The patient is a 53-year-old male admitted with a reason for visit of Ischemic Right Lower Extremity. Current Medications Current Medications Current Medications Acetaminophen (Tylenol Tab) 650 mg Q4HP PRN PO PAIN; Start 11/15/18 at 12:00 Bisacodyl (Dulcolax Suppository) [address] CONSTIPATION; Start 11/15/18 at 11:00 Clopidogrel Bisulfate (PLAVix) 75 mg DAILY PO Last administered on 11/19/18at 09:13; Start 11/16/18 at 09:00 Docusate Sodium (Colace) 100 mg BID PO Last administered on 11/19/18at 09:13; Start 11/15/18 at 21:00 Fentanyl Citrate (Sublimaze) 25 mcg Q5MP PRN IV MODERATE PAIN (PS 4-7) Last administered on 11/18/18at 17:00; Start 11/18/18 at 17:00; Stop 11/18/18 at 17:58; Status DC Heparin Sodium (Porcine) (Heparin) ASDIRECTED PRN IV SEE LABEL COMMENTS Last administered on 11/17/18at 22:46; Start 11/15/18 at 11:30; Stop 11/18/18 at 16:28; Status DC Heparin Sodium (Porcine) 45960 units/IV Miscellaneous Supplies 250 ml @ 0 mls/hr Q0M IV ; Start 11/15/18 at 11:27; Status UNV Heparin Sodium (Porcine) 30172 units/IV Miscellaneous Supplies 250 ml @ 0 mls/hr Q0M IV Last administered on 11/17/18at 22:46; Start 11/15/18 at 11:45; Stop 11/18/18 at 16:28; Status DC Home Med (Med Rec Complete!) ASDIRECTED XX ; Start 11/15/18 at 11:30; Stop 11/15/18 at 11:34; Status DC Lactated Ringer's 1,000 ml @ 100 mls/hr Q10H IV ; Start 11/18/18 at 17:00; Stop 11/18/18 at 18:00; Status DC Magnesium Hydroxide (Milk Of Magnesia) 30 ml DAILYPRN PRN PO CONSTIPATION; Start 11/15/18 at 11:00 Metoclopramide HCl (REGLAN INJection) 10 mg Q6HP PRN IV NAUSEA OR VOMITING; Start 11/18/18 at 17:00; Stop 11/18/18 at 18:00; Status DC Morphine Sulfate (Morphine Sulfate Inj) 2 mg Q2HP PRN IV SEVERE PAIN (PS 8-10) Last administered on 11/18/18 17:31; Start 11/15/18 at 11:00 Morphine Sulfate (Morphine Sulfate Inj) 4 mg Q2HP PRN IV SEVERE PAIN (PS 8-10) Last administered on 11/19/18 18:03; Start 11/15/18 at 11:00 Non-Formulary Medication (Heparin Iv Rate Change Documentation ml/ Hr) ASDIRECTED XX Last administered on 11/17/18 22:44; Start 11/15/18 at 11:30; Stop 11/18/18 at 16:28; Status DC Ondansetron HCl (ZOFRAN INJection) 4 mg Q4HP PRN IV NAUSEA OR VOMITING Last administered on 11/18/18 17:45; Start 11/18/18 at 17:00; Stop 11/18/18 at 18:00; Status DC Oxycodone/ Acetaminophen (Percocet 5mg/ 325mg Tablet) 1 tab ASDIRECTED PRN PO MILD/MODERATE PAIN (PS 1-7) Last administered on 11/18/18 17:47; Start 11/18/18 at 17:00; Stop 11/18/18 at 17:49; Status DC Oxycodone/ Acetaminophen (Percocet 5mg/ 325mg Tablet) 1 tab Q4HP PRN PO MODERATE PAIN (PS 5-7) Last administered on 11/19/18 09:04; Start 11/15/18 at 11:00 Oxycodone/ Acetaminophen (Percocet 5mg/ 325mg Tablet) 2 tab Q6HP PRN PO SEVERE PAIN (PS 8-10) Last administered on 11/19/18 15:12; Start 11/15/18 at 11:00 Piperacillin Sod/ Tazobactam Sod 3.375 gm/Dextrose 50 ml @ 50 mls/hr Q6H IV Last administered on 11/19/18 17:25; Start 11/15/18 at 12:00 Senna/Docusate Sodium (Senokot S) 1 tab BID PO Last administered on 11/19/18at 09:13; Start 11/15/18 at 21:00 Allergies Coded Allergies: No Known Allergies (Verified , 03/17/03) VITAL SIGNS VITAL SIGNS Vital Signs Date Time Temp Pulse Resp B/P (MAP) Pulse Ox O2 Delivery O2 Flow Rate FiO2 11/19/18 18:46 21 11/19/18 18:03 24 11/19/18 17:16 18 11/19/18 16:00 98.2 81 18 132/79 (96) 95 11/19/18 15:12 25 11/19/18 12:00 99.3 77 18 148/87 (107) 94 11/19/18 11:51 22 11/19/18 11:30 76 11/19/18 11:15 76 11/19/18 11:00 76 11/19/18 10:00 77 18 144/86 (105) 94 11/19/18 09:38 18 11/19/18 09:30 79 11/19/18 09:04 69 25 119/77 98 11/19/18 09:00 74 119/77 (91) 11/19/18 08:50 74 11/19/18 08:00 98.9 73 16 120/74 (89) 98 11/19/18 06:00 82 16 119/77 (91) 11/19/18 04:50 22 11/19/18 04:00 97.8 82 16 130/79 (96) 11/19/18 02:00 73 16 110/66 (81) 11/19/18 00:00 97.4 66 16 101/66 (78) 94 11/18/18 23:52 18 11/18/18 23:00 97.8 76 16 101/68 (79) 97 11/18/18 22:00 97.8 65 16 100/63 (75) 96 11/18/18 21:00 97.4 69 16 95/63 (74) 96 Intake & Output 11/19/18 06:00 Intake Total 4390 ml Output Total 1950 ml Balance 2440 ml Laboratory Tests 11/19/18 04:35: White Blood Count 9.8, Red Blood Count 3.72L, Hemoglobin 11.7L, Hematocrit 34.0L, Mean Corpuscular Volume 91.4, Mean Corpuscular Hemoglobin 31.5, Mean Corpuscular Hemoglobin Concent 34.4, Red Cell Distribution Width 15.9H, Platelet Count 175, Nucleated Red Blood Cells % (auto) 0.0, Blood Urea Nitrogen 4L, Creatinine 0.69L, Sodium Level 133L, Potassium Level 4.0, Chloride Level 101, Carbon Dioxide Level 25, Calcium Level 8.0L, Anion Gap 7L, Glomerular Filtration Rate > 60.0, Fasting Glucose 106H Current Medications Medications (Trade) Dose Ordered Sig/Seth Route PRN Reason Start Time Stop Time Status Last Admin Dose Admin Clopidogrel Bisulfate (PLAVix) 75 mg DAILY PO 11/16/18 09:00 11/19/18 09:13 Docusate Sodium (Colace) 100 mg BID PO 11/15/18 21:00 11/19/18 09:13 Morphine Sulfate (Morphine Sulfate Inj) 4 mg Q2HP PRN IV SEVERE PAIN (PS 8-10) 11/15/18 11:00 11/19/18 18:03 Oxycodone/ Acetaminophen (Percocet 5mg/ 325mg Tablet) 2 tab Q6HP PRN PO SEVERE PAIN (PS 8-10) 11/15/18 11:00 11/19/18 15:12 Piperacillin Sod/ Tazobactam Sod 3.375 gm/Dextrose 50 ml @ 50 mls/hr Q6H IV 11/15/18 12:00 11/19/18 17:25 Senna/Docusate Sodium (Senokot S) 1 tab BID PO 11/15/18 21:00 11/19/18 09:13 Laboratory Tests 11/18/18 10:12 Red Blood Count 3.95 L, Mean Corpuscular Volume 93.9, Mean Corpuscular Hemoglobin 33.4 H, Mean Corpuscular Hemoglobin Concent 35.6, Red Cell Distribution Width 12.9, Calcium Level 8.4 L 11/19/18 04:35 Red Blood Count 3.72 L, Mean Corpuscular Volume 91.4, Mean Corpuscular Hem oglobin 31.5, Mean Corpuscular Hemoglobin Concent 34.4, Red Cell Distribution Width 15.9 H, Calcium Level 8.0 L Objective Physical Examination General Exam: Positive: Alert, Cooperative, No Acute Distress Eye Exam: Positive: PERRLA, Conjunctiva & lids normal, EOMI ENT Exam: Positive: Atraumatic, Mucous membr. moist/pink, Pharynx Normal, Tongue Midline, Nares Patent, Ext Auditory Canal Nml, Pinna Normal Neck Exam: Positive: Supple, +2 carotid pulse wo bruit Chest Exam: Positive: Clear to auscultation, Normal air movement Heart Exam: Positive: Rate Normal Telemetry: Positive: No significant arrhythmia Abdomen Exam: Positive: Normal bowel sounds, Soft Male Exam: Positive: Normal Genital Exam Extremity Exam: Positive: Clubbing, Tenderness, Swelling Skin Exam: Positive: Nl turgor and temperature Neuro Exam: Positive: Normal Speech, Sensation Intact Psych Exam: Positive: Mental status NL, Mood NL, Memory Intact, Oriented x 3 Dash Ignacio MD Nov 19, 2018 20:03
[2018-11-20] VITALS (7 sets, daily range): BP systolic 105–143; BP diastolic 56–78
[2018-11-20 05:28] LABS: HEMATOCRIT 31.5 % (42.0-52.0); HEMOGLOBIN 10.6 g/dl (13.5-17.5); MEAN CORPUSCULAR HEMOGLOBIN 31.5 pg (27.0-33.0); MEAN CORPUSCULAR HGB CONC 33.7 g/dl (32.0-36.5); MEAN CORPUSCULAR VOLUME 93.5 fl (80.0-96.0); PLATELET COUNT, AUTOMATED 182 10^3/uL (150-450); RED BLOOD COUNT 3.37 10^6/uL (4.30-6.10); WHITE BLOOD COUNT 10.6 10^3/uL (4.0-10.0)
[2018-11-20 05:46] LABS: BLOOD UREA NITROGEN 6 MG/DL (7-18); CALCIUM LEVEL 8.1 MG/DL (8.5-10.1); CARBON DIOXIDE LEVEL 26 MEQ/L (21-32); CHLORIDE LEVEL 104 MEQ/L (98-107); CREATININE FOR GFR 0.71 MG/DL (0.70-1.30); GLOMERULAR FILTRATION RATE > 60.0 (>56); GLUCOSE, FASTING 89 MG/DL (70-100); POTASSIUM SERUM 4.4 MEQ/L (3.5-5.1); SODIUM LEVEL 135 MEQ/L (136-145)
[2018-11-20] MEDS: PERCOCET 5MG/325MG TAB PO PRN ×3 (06:04→18:33)
[2018-11-20] MEDS: PIPERACILLIN/TAZOBACTAM SOD 3.375 GM in D5W MINI-BAG PLUS 50 ML IV SCH ×4 (06:04→23:45)
[2018-11-20] MEDS: SENOKOT S TAB PO SCH ×2 (08:39→19:57)
[2018-11-20] MEDS: DOCUSATE SODIUM 100 MG CAP PO SCH ×2 (08:39→19:58)
[2018-11-20] MEDS: CLOPIDOGREL 75 MG TAB PO SCH (08:39)
[2018-11-20] MEDS: MORPHINE 4 MG/ML 1ML VIAL/SYRINGE (J2270) IV PRN ×4 (10:14→22:10)
[2018-11-21] MEDS: PERCOCET 5MG/325MG TAB PO PRN ×3 (04:26→18:28)
[2018-11-21 04:43] VITALS: BP 146/77
[2018-11-21] MEDS: PIPERACILLIN/TAZOBACTAM SOD 3.375 GM in D5W MINI-BAG PLUS 50 ML IV SCH ×3 (05:53→17:46)
[2018-11-21 07:30] VITALS: BP 103/59
[2018-11-21] MEDS: MORPHINE 4 MG/ML 1ML VIAL/SYRINGE (J2270) IV PRN ×5 (07:37→20:40)
[2018-11-21] MEDS: DOCUSATE SODIUM 100 MG CAP PO SCH ×2 (08:13→19:56)
[2018-11-21] MEDS: CLOPIDOGREL 75 MG TAB PO SCH (08:13)
[2018-11-21] MEDS: SENOKOT S TAB PO SCH ×2 (08:13→19:56)
[2018-11-21 10:33] LABS: HEMATOCRIT 31.9 % (42.0-52.0); HEMOGLOBIN 10.8 g/dl (13.5-17.5); MEAN CORPUSCULAR HEMOGLOBIN 31.6 pg (27.0-33.0); MEAN CORPUSCULAR HGB CONC 33.9 g/dl (32.0-36.5); MEAN CORPUSCULAR VOLUME 93.3 fl (80.0-96.0); PLATELET COUNT, AUTOMATED 266 10^3/uL (150-450); RED BLOOD COUNT 3.42 10^6/uL (4.30-6.10); WHITE BLOOD COUNT 9.3 10^3/uL (4.0-10.0)
[2018-11-21 11:03] LABS: BLOOD UREA NITROGEN 7 MG/DL (7-18); CALCIUM LEVEL 8.3 MG/DL (8.5-10.1); CARBON DIOXIDE LEVEL 27 MEQ/L (21-32); CHLORIDE LEVEL 100 MEQ/L (98-107); GLOMERULAR FILTRATION RATE > 60.0 (>56); GLUCOSE, FASTING 87 MG/DL (70-100); POTASSIUM SERUM 4.3 MEQ/L (3.5-5.1); SODIUM LEVEL 132 MEQ/L (136-145)
[2018-11-21 12:00] VITALS: BP 114/71
[2018-11-21] MEDS ORDERED: SLF 3 ML SYR IV PRN (14:30)
[2018-11-21 16:00] VITALS: BP 118/66
[2018-11-21] MEDS: SLF 3 ML SYR IV SCH (19:57)
[2018-11-21 22:00] VITALS: BP 128/79
[2018-11-22] MEDS: PIPERACILLIN/TAZOBACTAM SOD 3.375 GM in D5W MINI-BAG PLUS 50 ML IV SCH ×2 (01:27→06:02)
[2018-11-22] MEDS: PERCOCET 5MG/325MG TAB PO PRN ×2 (02:24→08:43)
[2018-11-22 06:00] VITALS: BP 98/55
[2018-11-22] MEDS: SLF 3 ML SYR IV SCH (06:06)
[2018-11-22] MEDS: MORPHINE 4 MG/ML 1ML VIAL/SYRINGE (J2270) IV PRN (06:06)
[2018-11-22] MEDS: CLOPIDOGREL 75 MG TAB PO SCH (08:42)
[2018-11-22] MEDS: DOCUSATE SODIUM 100 MG CAP PO SCH (08:42)
[2018-11-22] MEDS: SENOKOT S TAB PO SCH (08:42)
[2018-11-22] MEDS ORDERED: AMOX875T2 PO (09:32)
--- NOTE | 2018-11-22 09:34 | DS.PDOC ---
Discharge Summary General Date of Admission Nov 15, 2018 at 10:28 Date of Discharge 11/22/2018 Discharge Summary PROCEDURES PERFORMED DURING STAY: Right leg angiogram. Right femoral to posterior tibial artery bypass graft with non-reverse saphenous vein graft. ADMITTING DIAGNOSES: 1. Right foot gangrene and rest pain. DISCHARGE DIAGNOSES: 1. Right foot gangrene and rest pain. COMPLICATIONS/CHIEF COMPLAINT: Ischemic Right Lower Extremity. 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 HOSPITAL COURSE: Patient was admitted after his angiogram and underwent a right femoral to posterior tibial artery bypass graft with non-reverse saphenous vein graft. Patient did well postoperatively and is now recuperated to the point that he will be transferred to acute rehabilitation unit. DISCHARGE MEDICATIONS: Please see below. ALLERGIES: Please see below. PHYSICAL EXAMINATION ON DISCHARGE: VITAL SIGNS: Please see below. GENERAL: No apparent distress HEENT: Normal NECK: Supple with no carotid bruits CARDIOVASCULAR EXAMINATION: Regular rate and rhythm RESPIRATORY EXAMINATION: Clear to auscultation bilaterally ABDOMINAL EXAMINATION: Soft nontender nondistended EXTREMITIES: Right lower extremity is well-perfused with good Doppler dorsalis pedis and posterior tibial pulses. Incisions are clean, dry and intact with tremayne in place. SKIN: Warm and well-perfused NEUROLOGICAL EXAMINATION: Awake, alert oriented 3 PSYCHIATRIC EXAMINATION: Normal LABORATORY DATA: Please see below. IMAGING: Right lower extremity angiogram showing occlusion of the right superficial femoral, popliteal and proximal tibial peroneal arteries. PROGNOSIS: Good ACTIVITY: As tolerated. DIET: Low-fat low-cholesterol diet DISCHARGE PLAN: Discharged to acute rehabilitation unit DISPOSITION: . DISCHARGE INSTRUCTIONS: 1. Follow-up in the office in 7-10 days. ITEMS TO FOLLOWUP ON ON OUTPATIENT: 1. Initiating exercise program and brisk modification management. DISCHARGE CONDITION: Stable. TIME SPENT ON DISCHARGE: Greater than 45 minutes. Vital Signs/I&Os Vital Signs Date Time Temp Pulse Resp B/P (MAP) Pulse Ox O2 Delivery O2 Flow Rate FiO2 11/22/18 08:43 18 11/22/18 06:00 98.7 69 98/55 (69) 99 11/18/18 18:35 2.0 I&O- Last 24 Hours up to 6 AM 11/22/18 06:00 Intake Total 2990 ml Output Total 1870 ml Balance 1120 ml Laboratory Data Labs 24H Laboratory Tests 2 11/21/18 10:06: Nucleated Red Blood Cells % (auto) 0.0, Anion Gap 5L, Glomerular Filtration Rate > 60.0, Blood Urea Nitrogen 7, Creatinine 0.70, Sodium Level 132L, Potassium Level 4.3, Chloride Level 100, Carbon Dioxide Level 27, Calcium Level 8.3L CBC/BMP Laboratory Tests 11/21/18 10:06 Red Blood Count 3.42 L, Mean Corpuscular Volume 93.3, Mean Corpuscular Hemoglobin 31.6, Mean Corpuscular Hemoglobin Concent 33.9, Red Cell Distribution Width 15.2 H, Calcium Level 8.3 L Discharge Medications Scheduled Amoxicillin/Clavulanate Potas (Amoxicillin/Clavulanate P 875-125 mg) 1 Tab Tab, 875 MG PO BID Aspirin (Aspirin) 81 Mg Tab, 81 MG PO QHS Clopidogrel Bisulfate (Plavix) 75 Mg Tab, 75 MG PO DAILY Oxycodone HCl (Oxycodone HCl ER) 10 Mg Tab, 10 MG PO BID@0700,1900 Pantoprazole Sodium (Pantoprazole Sodium) 40 Mg Tab, 40 MG PO DAILY Scheduled PRN Acetaminophen (Tylenol Extra Strength) 500 Mg Tab, 1,500 MG PO Q6H PRN for PAIN, (Reported) Oxycodone HCl (Oxycodone HCl) 5 Mg Tab, 5 MG PO Q4HP PRN for PAIN Allergies Coded Allergies: No Known Allergies (Verified , 03/17/03) Dash Ignacio MD Nov 22, 2018 09:34
--- NOTE | 2018-12-12 08:44 | REPIR ---
DATE OF PROCEDURE: 11/15/2018 ATTENDING SURGEON: Dr. Sage Ignacio VALVE GRINDER: Nithya Duggan and Shana Castano PREOPERATIVE DIAGNOSES: Right lower extremity ischemia. Right foot rest pain. Right first toe gangrene. POSTOPERATIVE DIAGNOSES: Right lower extremity ischemia. Right foot rest pain. Right first toe gangrene. PROCEDURE: Aortogram. Iliofemoral angiogram. Selective right common femoral artery catheter placement with right lower extremity angiogram. Selective right profunda femoris artery catheter placement with right lower extremity angiogram. MYNX closure of the left common femoral arteriotomy. INDICATION: Patient is a 53-year-old male with significant ischemia of the right lower extremity and gangrene of the right first toe tip, who will undergo an angiogram with possible angioplasty, stent and/or atherectomy. Risks, benefits and alternative options were discussed with the patient. ANESTHESIA: Local with 10 mL of 2% lidocaine. FLUORO TIME: 1.9 minutes. CONTRAST: 20 mL of ISOVUE-300. HEPARIN: None. COMPLICATIONS: None. DRAINS: None. SPECIMENS: None. IMPLANTS: Left common femoral arteriotomy closure with a MYNX closure device. PROCEDURE: Patient was taken to the angiography suite, placed supine. The left common femoral artery was cannulated with a micropuncture needle. A micropuncture wire was advanced through the micropuncture needle, which was upsized to a micropuncture sheath. A Bentson wire was advanced to the micropuncture sheath which was upsized to a #5-Swedish sheath. An Omni Flush catheter was placed in the aorta and an aortogram was performed. Catheter was pulled down level with the bifurcation of the iliac arteries and a pelvic aortogram and iliofemoral angiogram was performed. Catheter was directed over the bifurcation of the iliac arteries, placed in the right common femoral artery and a right lower extremity angiogram was performed. Catheter was then placed in the right profunda femoris artery and a selective right lower extremity angiogram was performed. Catheter was then removed over a Bentson wire, a MYNX closure device was used to close the arteriotomy in the left common femoral artery with an additional 10 minutes of adjunctive pressure applied for hemostasis. Dressings were then applied. The patient tolerated the procedure well. All instrument, sponge, needle counts were correct at the end of the case. There were no complications. Dr. Ignacio was present for and directed the entire case. The patient was transferred to holding area and subsequently admitted for bypass surgery. RADIOLOGIC SUPERVISION INTERPRETATION: The aortogram showed the aorta be widely patent as well as the renal arteries, superior mesenteric and celiac arteries. The infrarenal aorta were patent as well as the lumbar vessels. The common iliac, external and internal iliac arteries were patent bilaterally on the right side. The superficial femoral artery occluded at its origin. The catheter was advanced into the common femoral artery and a right lower extremity angiogram was performed. The catheter was then further advanced into the profunda femoris artery and a right lower extremity angiogram was performed showing reconstitution of the posterior tibial artery which was patent into the foot. A MYNX closure device was used to close the arteriotomy in the left common femoral artery.
--- NOTE | 2018-12-12 10:05 | RO ---
DATE OF PROCEDURE: 11/18/2018 PREOPERATIVE DIAGNOSIS: Right lower extremity rest pain, right first toe gangrene, bilateral lower extremity venous valvular insufficiency with varicose veins, right superficial femoral popliteal artery, chronic total occlusion with reconstitution of the posterior tibial artery which was patent into the foot. POSTOPERATIVE DIAGNOSIS: Right lower extremity wrist pain, right first toe gangrene, bilateral lower extremity venous valvular insufficiency with varicose veins, right superficial femoral popliteal artery, chronic total occlusion with reconstitution of the posterior tibial artery which was patent into the foot. PROCEDURE: Right common femoral artery to posterior tibial artery bypass graft with non reverse saphenous vein graft. ATTENDING PHYSICIAN: Dr. Sage Ignacio ENGINEERING TEAM SUPERVISOR: None. INDICATION: The patient is a 53-year-old male with the occlusion of his right superficial femoral popliteal and proximal tibial vessels with reconstitution of his posterior tibial artery who has gangrene rest pain in the right foot. The patient will undergo a bypass with non reverse saphenous vein graft. Risks, benefits and alternative options were discussed with the patient. ANESTHESIA: General endotracheal. ESTIMATED BLOOD LOSS: 150 mL IV FLUIDS: 2400 mL SPECIMEN: None. COMPLICATIONS: None. DRAINS: None. IMPLANTS: None. URINE OUTPUT: 575 mL via Rubin. HEPARIN: 7000 units followed by an additional 3000 units bolus. COMPLICATIONS: None. PROCEDURE: The patient was taken to the operating room, placed supine on the operating room table and the right lower extremity was prepped and draped in the standard surgical fashion. The saphenous vein was harvested from the ankle to the upper thigh through skipped incisions in a standard fashion. The vein was then prepped with all side branches ligated. The posterior tibial artery in the right calf was exposed through a longitudinal incision the right femoral common femoral artery was exposed through an oblique incision. The vein was anastomosed to the right common femoral artery flow established through the femoral artery and a valvulotome was used to lyse the valves within the non reverse saphenous vein graft. Once all valves were lysed there was good flow through the graft and it was tunneled anatomically and then anastomosed to the posterior tibial artery and end-to-side fashion using 6-0 Prolene suture. There was good flow in the posterior tibial artery distal and proximal to the arterial anastomosis. Hemostasis was then obtained after which the incisions were closed with 2-0 Vicryl to approximate the deeper layers and tremayne to approximate the skin. Dressings were applied. All instrument, sponge, needle counts were correct at the end the case. There were no complications. Dr. Ignacio was present for directed the entire case. The patient was transferred to the recovery room awake, alert, extubated and in stable condition.
== END 2018-11-22 12:01 | DRG 254 ==
LOC: M IRPRO 07:29 → M MS5PR 10:28 → M ICU 11-18 15:43 → M PCU 11-19 21:38 → M MS5PR 11-21 17:59
PROVIDERS: ADMIT Surgery Vascular Surgery; ATTEND Surgery Vascular Surgery
PROC: B400YZZ Plain Radiography of Abdominal Aorta using Other Contrast (ICD-10-PCS; 2018-11-15)
PROC: B40FYZZ Plain Radiography of Right Lower Extremity Arteries using Other Contrast (ICD-10-PCS; 2018-11-15)
PROC: 30233N1 Transfusion of Nonautologous Red Blood Cells into Peripheral Vein, Percutaneous Approach (ICD-10-PCS; 2018-11-18)
PROC: 041K09N Bypass Right Femoral Artery to Posterior Tibial Artery with Autologous Venous Tissue, Open Approach (ICD-10-PCS; principal; 2018-11-18 09:30)
DX: I70.261 Atherosclerosis of native arteries of extremities with gangrene, right leg (principal); I70.221 Atherosclerosis of native arteries of extremities with rest pain, right leg; Z79.82 Long term (current) use of aspirin; Z79.899 Other long term (current) drug therapy

== ENCOUNTER 2018-11-22 11:53 | Inpatient (IN) | payer MEDICARE, MEDICAID ==
[~2018-11-22] VITALS: Ht 177.8 cm; Wt 62.8 kg
[~2018-11-22 11:53] MED LIST changes: +AMOX875T2 PO; +ASPI1TAB15 PO; -HEPARIN 1,000 UNITS/ML 10ML VIAL (FOR RADIOLOGY& DIALYSIS ONLY) As Ordered ONE; -ISOVUE-300 61% 50ML VIAL (Q9967) As Ordered ONE; -LIDOCAINE 2% MDV 20 ML VIAL As Ordered ONE; +TYLE1TAB5 PO; +TYLE500T78 PO
[2018-11-22 12:10] VITALS: BP 128/67
[2018-11-22 14:00] VITALS: BP 121/72
[2018-11-22] MEDS ORDERED: PERCOCET 5MG/325MG TAB PO ONE (16:15)
[2018-11-22] MEDS ORDERED: MOM 30ML SUSPENSION UDC PO PRN (16:30)
[2018-11-22] MEDS ORDERED: BISACODYL 10 MG SUPP PR PRN (16:30)
[2018-11-22] MEDS ORDERED: ACETAMINOPHEN TAB 650MG DOSE (2X325MG) PO PRN (16:30)
[2018-11-22] MEDS ORDERED: ONDANSETRON 4 MG TAB (S0181) PO PRN (16:30)
[2018-11-22 20:00] VITALS: BP 137/77
[2018-11-22] MEDS: AUGMENTIN 875 MG TAB GT SCH (20:21)
[2018-11-22] MEDS: oxyCODONE 5MG TAB PO PRN (20:22)
[2018-11-22] MEDS: DOCUSATE SODIUM 100 MG CAP PO SCH (20:22)
[2018-11-23] MEDS: oxyCODONE 5MG TAB PO PRN ×4 (04:49→18:14)
[2018-11-23 05:25] VITALS: BP 146/61
[2018-11-23 07:16] LABS: BASO % 0.5 % (0.0-1.0); EOS # 0.5 10^3/uL (0.0-0.50); EOS % 5.4 % (0.0-3.0); HEMATOCRIT 33.1 % (42.0-52.0); HEMOGLOBIN 11.4 g/dl (13.5-17.5); LYMPH # 1.6 10^3/uL (1.5-4.5); LYMPH % 19.1 % (24.0-44.0); MEAN CORPUSCULAR HEMOGLOBIN 32.2 pg (27.0-33.0); MEAN CORPUSCULAR HGB CONC 34.4 g/dl (32.0-36.5); MEAN CORPUSCULAR VOLUME 93.5 fl (80.0-96.0); MONO # 1.6 10^3/uL (0.0-0.8); MONO % 19.5 % (0.0-5.0); NEUTROPHILS # 4.6 10^3/uL (1.8-7.7); NEUTROPHILS % 54.5 % (36.0-66.0); PLATELET COUNT, AUTOMATED 380 10^3/uL (150-450); RED BLOOD COUNT 3.54 10^6/uL (4.30-6.10); WHITE BLOOD COUNT 8.4 10^3/uL (4.0-10.0)
[2018-11-23 07:49] LABS: ALBUMIN 2.9 GM/DL (3.2-5.2); ALT/SGPT 41 U/L (12-78); BILIRUBIN,TOTAL 0.5 MG/DL (0.2-1.0); BLOOD UREA NITROGEN 6 MG/DL (7-18); CALCIUM LEVEL 8.9 MG/DL (8.5-10.1); CARBON DIOXIDE LEVEL 23 MEQ/L (21-32); CHLORIDE LEVEL 101 MEQ/L (98-107); CREATININE FOR GFR 0.71 MG/DL (0.70-1.30); GLOMERULAR FILTRATION RATE > 60.0 (>56); GLUCOSE, FASTING 87 MG/DL (70-100); POTASSIUM SERUM 4.2 MEQ/L (3.5-5.1); SODIUM LEVEL 132 MEQ/L (136-145); TOTAL PROTEIN 7.2 GM/DL (6.4-8.2)
[2018-11-23] MEDS: CLOPIDOGREL 75 MG TAB PO SCH (08:53)
[2018-11-23] MEDS: AUGMENTIN 875 MG TAB GT SCH ×2 (08:53→23:29)
[2018-11-23] MEDS: PANTOPRAZOLE 40MG TAB (PROTONIX) PO SCH (08:54)
[2018-11-23] MEDS: ASPIRIN 81 MG CHEW TABLET PO SCH (08:54)
[2018-11-23] MEDS: DOCUSATE SODIUM 100 MG CAP PO SCH ×2 (08:54→21:00)
--- NOTE | 2018-11-23 12:58 | HPEPDOC ---
[employer] Note DATE OF ADMISSION: Nov 22, 2018 at 12:10 SOURCE OF ADMISSION INFORMATION: patient and [facility] records CHIEF COMPLAINT: right LE gangrene HISTORY OF PRESENT ILLNESS: 53M pmh ex-smoker with Buergers disease diagnosed in 2014 after finger thrombosis in 2014 and partial amputation in 2018, HTN, anxiety, with severe BLE PVD with acute RLE ischemia and right gangrenous toe s/p right RLE angiogram, and right femoral endarterectomy with patch angioplasty performed on 10/02/18 with recurrent right LE pain who underwent a repeat right femoral endarterectomy on performed by Dr. Ignacio. Patient was given IV ZOsyn and switched over to the Augmentin prior to discharge. He had post-op anemia and hyponatremia. He was instructed to not bear weight onto his right leg and he was restarted on his Aspirin and Plavix. He was evaluated by therapy and deemed to have deficits in gait and ADLs and medically appropriate for discharge to ARU on 11/22/18. Upon a rrival patient reports his right foot does not appear or feel any worse since following the surgery, but also does not feel or appear much better. REVIEW OF SYSTEMS: The following is a completed review of systems and has been reviewed. Review of systems otherwise unremarkable. PAIN: Patient self reports RLE pain and left toe pain EYES: Negative for recent vision changes EARS, NOSE, & THROAT: denies dysphagia, throat pain, or rhinorrhea CARDIOVASCULAR: denies chest pain or palpitations PULMONARY: Negative. Denies shortness of breath GASTROINTESTINAL: Negative for diarrhea or constipation GENITOURINARY: Negative for dysuria NEUROLOGICAL: denies seizure or tremor SKIN: right groin and LE incision PSYCHIATRIC: Unremarkable All other review of systems found to be negative. PAST MEDICAL HISTORY: as per HPI PAST SURGICAL HISTORY: as per HPI ALLERGIES: Please see below. MEDICATIONS: Please see below. SOCIAL HISTORY: ex-smoker, occasional ETOH, no illicit drugs, lives with DIET: low sodium PHYSICAL EXAMINATION: VITAL SIGNS: Please see below. GENERAL: Pleasant and cooperative. No acute distress. HEENT: PERRL. Extraocular movements intact. Clear conjunctiva CARDIOVASCULAR: Regular rate and rhythm. No murmurs, rubs, or gallops LUNGS: Mostly clear to auscultation bilaterally, + wheezes. No rhonchi ABDOMEN: Soft, nontender, nondistended. Positive bowel sounds. Normal active bowel sounds NEUROLOGICAL: Alert and oriented times three. Cranial nerves II through XII g rossly intact. Sensation grossly intact to light touch EXTREMITIES: 5\5 strength bilateral upper extremities. 5/5 strength in left lower extremity, right lower extremity >3/5 however limited exam due to wounds SKIN: right groin and leg tremayne erythematous without induration, Right D1 gangrenous, and right foot swollen erythematous and painful to touch IMAGING: Imaging documentation personally reviewed by record. FUNCTIONAL STATUS: Premorbid: Mod-Independent with all activities of daily life with AD and required assistance with household tasks and some ADLS. On Admission: Contact guard-Min assist for functional transfers, ambulation, dressing. GOALS: Modified Independent with gait and stairs using a RW, Mod-I for functional transfers, toileting and Mod-I to Supervision for bathing. ASSESSMENT:53-year-old M with past medical history of PVD who presents status post right femoral endarterectomy with gangrenous right foot admitted for complications from PVD. PLAN: 1. Rehab: PT/OT, assess for DME needs 2. Cardio: pmh bilat LE PVD in setting of Buerger's disease s/p right D4 partial digit amputation, s/p right femoral endarterectomy performed 11/19/18-c/u ASA and Plavix in addition to Augmentin x 10d days for cellulitis-medicine and vascular consulted -Arterial US BLE 07/27/18 shows bilateral SFA occlusive disease in Rt SFA, PA, proximal MAC, TPT and distal MAC segments. There is an occlusion in the Lt proximal SFA with reversal of flow in the mid SFA, distal SFA open. The distal MAC is occluded. Abnormal monophasic flow waveforms are seen in the SFA, PA, TPT and [employer]CH[employer]ICIAN. Severe atherosclerotic changes are seen in b/l multifocal area. It also shows partial nonocclusive thrombus in the right femoral vein to popliteal vein. Reflux noted through the bilateral deep venous systems and mild reflux through the bilateral lesser saphenous veins -pmh HTN diet controlled, however will monitor 3. Resp: stable, will encourage incentive spirometry and monitor for infection 4. DVT ppx: Venous US 08/06/18 shows striations and echogenic material in the r ight popliteal vein consistent with chronic or less likely an acute nonocclusive DVT -will repeat Doppler and consider treating 5. GI ppx: Protonix 6. Pain: Oxycodone and Tylenol 7. Skin: will cover right LE incisions with silver optifoam and elevate right leg when in bed 8. Dispo: TBD POST ADMISSION PHYSICIAN EVALUATION: Medical and functional status: Description of medical status, medical assessment: As above. Rehabilitation diagnosis and current and prior cold morbid medical conditions as above. Risk of complications and plans to mitigate them as above. Description of functional status current status is as above. Prior status as above. Status compared to preadmission: There are no clinically significant differences between the patient's current status and the information described on the preadmission screening document. Treatment plan anticipated: Treatment plan is as described above. Required disciplines including physical therapy, occupational therapy, others as noted above. Intensity of services: 3 hours a day, 6 days a week. Special considerations: There are no specific special or safety considerations that would likely preclude immediate implementation of an intensive rehabilitation program or subsequently influence the plan of care ATTESTATION: Considering all the information above, it is my best judgment that this patient requires intensive rehabilitation therapy as described above and an inpatient hospital environment due to the complexity of nursing, medical, and rehabilitation needs required by the patient. Furthermore, this patient can reasonably be expected to participate in an benefit from an inpatient rehabilitation stay with an interdisciplinary team approach to the delivery of rehabilitation care under the direction and supervision of rehabilitation physician. PROGNOSIS: good ESTIMATED LENGTH OF STAY:10-14 days. PROJECTED DISCHARGE DESTINATION: Home with family support and any durable medical equipment required to increase functional safety and mobility. TIME SPENT COUNSELING AND COORDINATING INITIAL CARE: Greater than 70 minutes. Vital Signs Vital Sign - Last 24 Hours 11/22/18 11/22/18 11/22/18 11/22/18 12:10 14:00 16:16 16:46 Temp 97.4 98.0 Pulse 72 67 Resp 15 18 16 16 B/P (MAP) 128/67 (87) 121/72 (88) Pulse Ox 97 97 11/22/18 11/22/18 11/23/18 11/23/18 20:00 20:22 04:49 05:25 Temp 97.8 98.1 Pulse 69 72 Resp 18 19 18 18 B/P (MAP) 137/77 (97) 146/61 (89) Pulse Ox 99 97 11/23/18 11/23/18 09:22 09:52 Resp 18 16 Laboratory Data CBC/BMP Laboratory Tests 11/23/18 06:53 Red Blood Count 3.54 L, Mean Corpuscular Volume 93.5, Mean Corpuscular Hemoglobin 32.2, Mean Corpuscular Hemoglobin Concent 34.4, Red Cell Distribution Width 14.6 H, Neutrophils (%) (Auto) 54.5, Lymphocytes (%) (Auto) 19.1 L, Monocytes (%) (Auto) 19.5 H, Eosinophils (%) (Auto) 5.4 H, Basophils (%) (Auto) 0.5, Neutrophils # (Auto) 4.6, Lymphocytes # (Auto) 1.6, Monocytes # (Auto) 1.6 H, Eosinophils # (Auto) 0.5, Basophils # (Auto) 0.0, Calcium Level 8.9, Aspartate Amino Transf (AST/SGOT) 47 H, Alanine Aminotransferase (ALT/SGPT) 41, Alkaline Phosphatase 72, Total Bilirubin 0.5, Total Protein 7.2, Albumin 2.9 L Labs 24H Laboratory Tests 2 11/23/18 06:53: Immature Granulocyte % (Auto) 1.0, White Blood Count 8.4, Red Blood Count 3.54L, Hemoglobin 11.4L, Hematocrit 33.1L, Mean Corpuscular Volume 93.5, Mean Corpuscular Hemoglobin 32.2, Mean Corpuscular Hemoglobin Concent 34.4, Red Cell Distribution Width 14.6H, Platelet Count 380, Neutrophils (%) (Auto) 54.5, Lymphocytes (%) (Auto) 19.1L, Monocytes (%) (Auto) 19.5H, Eosinophils (%) (Auto) 5.4H, Basophils (%) (Auto) 0.5, Neutrophils # (Auto) 4.6, Lymphocytes # (Auto) 1.6, Monocytes # (Auto) 1.6H, Eosinophils # (Auto) 0.5, Basophils # (Auto) 0.0, Nucleated Red Blood Cells % (auto) 0.0, Anion Gap 8, Glomerular Filtration Rate > 60.0, Blood Urea Nitrogen 6L, Creatinine 0.71, Sodium Level 132L, Potassium Level 4.2, Chloride Level 101, Carbon Dioxide Level 23, Calcium Level 8.9, As partate Amino Transf (AST/SGOT) 47H, Alanine Aminotransferase (ALT/SGPT) 41, Alkaline Phosphatase 72, Total Bilirubin 0.5, Total Protein 7.2, Albumin 2.9L, Albumin/Globulin Ratio 0.67L Home Medications Scheduled Amoxicillin/Clavulanate Potas (Amoxicillin/Clavulanate P 875-125 mg) 1 Tab Tab, 875 MG PO BID Aspirin (Aspirin) 81 Mg Tab, 81 MG PO QHS, (Reported) Clopidogrel Bisulfate (Plavix) 75 Mg Tab, 75 MG PO DAILY, (Reported) Scheduled PRN (Tylenol Pm Extra Strength 500-25 mg) 1 Tab Tab, 3 TAB PO QHS PRN for PAIN, (Reported) Acetaminophen (Tylenol Extra Strength) 500 Mg Tab, 1,500 MG PO Q6H PRN for PAIN, (Reported) Allergies Coded Allergies: No Known Allergies (Verified , 03/17/03) ELSI CAMARGO MD Nov 23, 2018 12:46
--- NOTE | 2018-11-23 13:52 | CR.PDOC ---
General Date of Consultation: Nov 23, 2018 Consultation CONSULTATION REPORT FOR: Dr Allen REASON FOR CONSULTATION: Medical Management ATTENDING: Dr. Tressa Sands PCP: Dr Ramirez [facility] Surgery Dr Ignacio HPI: 53 yoM with severe BLE PVD with acute RLE ischemia and right gangrenous toe s/p right RLE angiogram, and right femoral endarterectomy with patch angioplasty performed on 10/02/18 with recurrent right LE pain who underwent a repeat right femoral endarterectomy on 11/19/[address] Ignacio. Patient was given IV Zosyn and switched to po Augmentin. The pt was transferred to the care of ARU, Dr Allen, 11/22/18. The pt states his Rt foot has been unchanged in appearance, denies pain currently, Rt Great toe with gangrene. Denies any fevers, chills, weakness, fatigue, Headache, Chest Pain, Shortness of breath, cough, palpitations, abdominal pain, N/V/D or changes in bowel or bladder habits. Medical History/Surgical History HTN Raynaud disease with thrombosis Barnard's disease 2013 Anxiety H/O tobacco use, quit 2017 Port placement finger thrombosis in 2013 and partial amputation in 2018 severe BLE PVD with acute RLE ischemia and right gangrenous toe s/p right RLE angiogram, and right femoral endarterectomy with patch angioplasty performed on 10/02/18 with recurrent right LE pain/ repeat right femoral endarterectomy on 07/[address] Ignacio. SOCHX: Resides in: [facility] Marital Status: Employment: disabled Tobacco use: Quit 2016 ETOH: denies FAMHX: Mother: , DM Father: Ca Siblings: 4 COPD, DM, CAD Children: Alive, well. ROS: As noted in HPI, otherwise 11pt ROS of systems reviewed and unremarkable. PE: GEN: 53yoM. No acute distress. Alert and oriented x 3. Pleasant, interactive. HEENT: Normocephalic, atraumatic. Pupils are equal, round, and reactive to light. Extraocular movements are intact. No nystagmus appreciated. Sclera are nonicteric. Conjunctiva without injection. Nose midline. Moist mucous membranes. edentulous. Neck supple, trachea midline. CHEST: Regular rate and rhythm, +S1, +S2 LUNGS: Clear to auscultation bilaterally. No wheezes, rales, or rhonchi. Breathing appears symmetric and easy. Patient is speaking in full sentences. No accessory muscle use. ABD: Round, soft, non-tender, non-distended. +Bowel sounds throughout. No rebound or guarding. No costovertebral angle tenderness. EXT: RLE with dressing intact. Right Great toe gangrenous, and right foot swollen, erythematous and TTP. NEURO: Alert and oriented x 3. No focal deficits appreciated. EKG SINUS RHYTHM Similar to tracing done 08-06-18 Electronically Signed On 11-16-2018 7:19:45 EST by Ishan Larios CXR Left lower lobe plate-like atelectasis. Otherwise no acute disease. Electronically Signed by Unruly Gotti MD 11/15/2018 03:40 P A&P: 53 yoM with severe BLE PVD with acute RLE ischemia and right gangrenous toe s/p right RLE angiogram, and right femoral endarterectomy with patch angioplasty performed on 10/02/18 with recurrent right LE pain who underwent a repeat right femoral endarterectomy on 11/19/[address] Ignacio. Patient was given IV Zosyn and switched to po Augmentin. The pt was transferred to the care of ARU, Dr Allen, 11/22/18. 1. severe BLE PVD with acute RLE ischemia and right gangrenous toe s/p right RLE angiogram, and right femoral endarterectomy with patch angioplasty performed on 10/02/18 with recurrent right LE pain who underwent a repeat right femoral endarterectomy on 11/19/[address] Ignacio. Mgmt as per Dr Ignacio. Complete course of po Augmentin as per Dr Ignacio. ASA/Plavix as per Dr Ignacio. Wound care as per LILIAN John. pain control as per LILIAN John. Bowel care as per LILIAN John. DVT prophylaxis as per LILIAN John. Disposition as per LILIAN John. 2. GERD. protonix. 3. H/O HTN. No meds as outpt SBP 98-146. Monitor. 4. LLL atelectasis. Pt afebrile. WBC 8.4. Encourage I/S. 5. Hyponatremia. Na 132. Appears to be chronic from previous labs, 131-135. Add serum osm, urine studies, mag, TSH. Monitor BMP. 6. Postoperative anemia. Hgb 11.4, trend upward. baseline 13-14. Monitor. Vital Signs/I&O Vital Signs Date Time Temp Pulse Resp B/P (MAP) Pulse Ox O2 Delivery O2 Flow Rate FiO2 11/23/18 09:52 16 11/23/18 05:25 98.1 72 146/61 (89) 97 I&O- Last 24 Hours up to 6 AM 11/23/18 06:00 Intake Total 1340 ml Output Total 625 ml Balance 715 ml Laboratory Data Labs 24H Laboratory Tests 2 11/23/18 06:53: Immature Granulocyte % (Auto) 1.0, White Blood Count 8.4, Red Blood Count 3.54L, Hemoglobin 11.4L, Hematocrit 33.1L, Mean Corpuscular Volume 93.5, Mean Corpuscular Hemoglobin 32.2, Mean Corpuscular Hemoglobin Concent 34.4, Red Cell Distribution Width 14.6H, Platelet Count 380, Neutrophils (%) (Auto) 54.5, Lymphocytes (%) (Auto) 19.1L, Monocytes (%) (Auto) 19.5H, Eosinophils (%) (Auto) 5.4H, Basophils (%) (Auto) 0.5, Neutrophils # (Auto) 4.6, Lymphocytes # (Auto) 1.6, Monocytes # (Auto) 1.6H, Eosinophils # (Auto) 0.5, Basophils # (Auto) 0.0, Nucleated Red Blood Cells % (auto) 0.0, Anion Gap 8, Glomerular Filtration Rate > 60.0, Blood Urea Nitrogen 6L, Creatinine 0.71, Sodium Level 132L, Potassium Le alton 4.2, Chloride Level 101, Carbon Dioxide Level 23, Calcium Level 8.9, Aspartate Amino Transf (AST/SGOT) 47H, Alanine Aminotransferase (ALT/SGPT) 41, Alkaline Phosphatase 72, Total Bilirubin 0.5, Total Protein 7.2, Albumin 2.9L, Albumin/Globulin Ratio 0.67L CBC/BMP Laboratory Tests 11/23/18 06:53 Red Blood Count 3.54 L, Mean Corpuscular Volume 93.5, Mean Corpuscular Hemoglo bin 32.2, Mean Corpuscular Hemoglobin Concent 34.4, Red Cell Distribution Width 14.6 H, Neutrophils (%) (Auto) 54.5, Lymphocytes (%) (Auto) 19.1 L, Monocytes (%) (Auto) 19.5 H, Eosinophils (%) (Auto) 5.4 H, Basophils (%) (Auto) 0.5, Neutrophils # (Auto) 4.6, Lymphocytes # (Auto) 1.6, Monocytes # (Auto) 1.6 H, Eosinophils # (Auto) 0.5, Basophils # (Auto) 0.0, Calcium Level 8.9, Aspartate Amino Transf (AST/SGOT) 47 H, Alanine Aminotransferase (ALT/SGPT) 41, Alkaline Phosphatase 72, Total Bilirubin 0.5, Total Protein 7.2, Albumin 2.9 L Allergies Coded Allergies: No Known Allergies (Verified , 03/17/03) Home Medications Scheduled Amoxicillin/Clavulanate Potas (Amoxicillin/Clavulanate P 875-125 mg) 1 Tab Tab, 875 MG PO BID for 10 Days, #20 Aspirin (Aspirin) 81 Mg Tab, 81 MG PO QHS, (Reported) Clopidogrel Bisulfate (Plavix) 75 Mg Tab, 75 MG PO DAILY, (Reported) Scheduled PRN (Tylenol Pm Extra Strength 500-25 mg) 1 Tab Tab, 3 TAB PO QHS PRN for PAIN, (Reported) Acetaminophen (Tylenol Extra Strength) 500 Mg Tab, 1,500 MG PO Q6H PRN for PAIN, (Reported) Eliza Garvey Nov 23, 2018 13:52
[2018-11-23 14:00] VITALS: BP 137/67
[2018-11-23 20:00] VITALS: BP 118/83
[2018-11-23] MEDS: POLYSPORIN TOPICAL OINTMENT 15GM TOP SCH (23:00)
[2018-11-24 04:09] LABS: APPEARANCE, URINE CLEAR (CLEAR); BACTERIA, URINE AUTO NEGATIVE (NEGATIVE); BILIRUBIN, URINE AUTO NEGATIVE (NEGATIVE); BLOOD, URINE BLOOD NEGATIVE (NEGATIVE); COLOR, URINE YELLOW (YELLOW); GLUCOSE, URINE (UA) AUTO NEGATIVE (NEGATIVE); KETONE, URINE AUTO NEGATIVE (NEGATIVE); LEUKOCYTE ESTERASE, URINE AUTO NEGATIVE (NEGATIVE); NITRITE, URINE AUTO NEGATIVE (NEGATIVE); PROTEIN, URINE AUTO NEGATIVE (NEGATIVE); RBC, URINE AUTO 0 /HPF (0-3); SPECIFIC GRAVITY URINE AUTO 1.005 (1.002-1.035); SQUAMOUS EPITHELIAL CELL UR AU 0 /HPF (0-6); UROBILINOGEN, URINE AUTO 0.2 mg/dL (0.0-2.0); WBC, URINE AUTO 0 /HPF (0-3)
[2018-11-24 04:33] LABS: CREATININE,RANDOM URINE 40.8 MG/DL
[2018-11-24 06:00] VITALS: BP 124/71
[2018-11-24 07:54] LABS: HEMATOCRIT 30.8 % (42.0-52.0); HEMOGLOBIN 10.4 g/dl (13.5-17.5); MEAN CORPUSCULAR HGB CONC 33.8 g/dl (32.0-36.5); MEAN CORPUSCULAR VOLUME 91.9 fl (80.0-96.0); PLATELET COUNT, AUTOMATED 395 10^3/uL (150-450); RED BLOOD COUNT 3.35 10^6/uL (4.30-6.10); WHITE BLOOD COUNT 7.2 10^3/uL (4.0-10.0)
[2018-11-24 08:28] LABS: OSMOLALITY SERUM 279 MOSM/KG (275-295)
[2018-11-24 08:29] LABS: ALBUMIN 2.6 GM/DL (3.2-5.2); ALT/SGPT 43 U/L (12-78); BILIRUBIN,TOTAL 0.4 MG/DL (0.2-1.0); BLOOD UREA NITROGEN 8 MG/DL (7-18); CALCIUM LEVEL 8.3 MG/DL (8.5-10.1); CARBON DIOXIDE LEVEL 22 MEQ/L (21-32); CHLORIDE LEVEL 105 MEQ/L (98-107); CREATININE FOR GFR 0.66 MG/DL (0.70-1.30); GLOMERULAR FILTRATION RATE > 60.0 (>56); GLUCOSE, FASTING 108 MG/DL (70-100); MAGNESIUM LEVEL 2.1 MG/DL (1.8-2.4); POTASSIUM SERUM 4.3 MEQ/L (3.5-5.1); SODIUM LEVEL 135 MEQ/L (136-145); TOTAL PROTEIN 5.8 GM/DL (6.4-8.2)
[2018-11-24] MEDS: AUGMENTIN 875 MG TAB GT SCH ×2 (09:33→20:15)
[2018-11-24] MEDS: DOCUSATE SODIUM 100 MG CAP PO SCH ×2 (09:33→20:16)
[2018-11-24] MEDS: PANTOPRAZOLE 40MG TAB (PROTONIX) PO SCH (09:33)
[2018-11-24] MEDS: ASPIRIN 81 MG CHEW TABLET PO SCH (09:33)
[2018-11-24] MEDS: CLOPIDOGREL 75 MG TAB PO SCH (09:33)
[2018-11-24] MEDS: oxyCODONE 5MG TAB PO PRN ×3 (09:34→20:16)
[2018-11-24 11:29] VITALS: BP 124/71
[2018-11-24] MEDS: POLYSPORIN TOPICAL OINTMENT 15GM TOP SCH ×2 (11:30→20:16)
[2018-11-24 14:00] VITALS: BP 130/74
--- NOTE | 2018-11-24 17:17 | IPN ---
DATE: 11/24/2018 The patient is seen and examined. Undergoing physical therapy (PT). Denies any chest pain, pressure or discomfort. Reported right lower extremity pain that has not changed from previous. No other complaints. Tolerating orally. VITAL SIGNS: Temperature 97.4, pulse 72, respirations 20, blood pressure 130/74, pulse oximetry 96% on room air. LABORATORY: WBC 7.2, hemoglobin and hematocrit 10.4/30.8, platelets 395. Chemistry: Sodium 135, potassium 4.3, chloride 105, bicarbonate 22, BUN 8, creatinine 0.66. PHYSICAL EXAMINATION: GENERAL: The patient is alert, comfortable, and in no acute distress. HEENT: Normocephalic, atraumatic. Pupils are equal, round and reactive to light bilaterally. CARDIAC: Regular, S1, S2. PULMONARY: Bilaterally clear. ABDOMEN: Soft, nontender. EXTREMITIES: Right lower extremity dressing intact with right great toe that is gangrenous, dry gangrene. Right foot is also swollen, edematous, mild erythema. Left foot the patient reported left great toe is slightly tender to palpation. No discoloration. Dorsalis pedis and posterior tibialis pulses are bilaterally thready, which according to vascular surgeon has been baseline for patient. ASSESSMENT AND PLAN: This is a 53-year-old male with history of severe bilateral lower extremity peripheral vascular disease with also smoking, history of hypertension, Raynaud's disease with thrombosis, Barnard's disease, anxiety, finger thrombosis in 2013 with partial amputation, presented with acute ischemia of the right lower extremity and right gangrenous toe, status post right lower extremity angiogram and right femoral endarterectomy with patch angioplasty performed on 10/02/2018 with also recurrence of right lower extremity pain, underwent a repeat right femoral endarterectomy on 11/19/2018. As per Dr. Ignacio, the patient was given Zosyn and switched to oral Augmentin, transferred to acute rehabilitation for further care on 11/22/2018. 1. Severe bilateral peripheral vascular disease with acute right lower extremity ischemia, right gangrenous big toe, status post right lower extremity angiogram and right femoral endarterectomy with patch angioplasty performed on 10/02/2018, as well as 11/19/2018. The patient also has recurrent right lower extremity, underwent a repeat right femoral endarterectomy on 11/19/2018. The patient completed a course of Augmentin, as per vascular surgeon. Aspirin and Plavix as per vascular surgeon. Wound care, pain management, bowel care, deep vein thrombosis (DVT) prophylaxis as per acute rehabilitation provider. 2. Gastroesophageal reflux disease (GERD), continue proton pump inhibitor. 3. Hypertension. Monitor blood pressure. Add medication as needed. 4. Left lower lobe atelectasis. Incentive spirometry. 5. Hyponatremia. Appears to be chronic. Urine study has been sent. 6. Postoperative anemia. We will monitor. 7. Deep vein thrombosis (DVT) prophylaxis. The patient is on aspirin and Plavix. Early ambulation. DISPOSITION: Case discussed with Dr. Ignacio. Possible that the patient also needs work in the near future as an outpatient on the patient's left lower extremity. In the meantime, supportive care, physical therapy (PT) as per Dr. Allen.
[2018-11-24 20:00] VITALS: BP 140/84
[2018-11-25 06:00] VITALS: BP 133/69
[2018-11-25 06:56] LABS: HEMOGLOBIN 10.5 g/dl (13.5-17.5); MEAN CORPUSCULAR HEMOGLOBIN 31.8 pg (27.0-33.0); MEAN CORPUSCULAR HGB CONC 33.9 g/dl (32.0-36.5); MEAN CORPUSCULAR VOLUME 93.9 fl (80.0-96.0); PLATELET COUNT, AUTOMATED 416 10^3/uL (150-450); WHITE BLOOD COUNT 7.6 10^3/uL (4.0-10.0)
[2018-11-25 07:32] LABS: ALBUMIN 2.6 GM/DL (3.2-5.2); ALT/SGPT 54 U/L (12-78); BILIRUBIN,TOTAL 0.5 MG/DL (0.2-1.0); BLOOD UREA NITROGEN 8 MG/DL (7-18); CALCIUM LEVEL 8.4 MG/DL (8.5-10.1); CARBON DIOXIDE LEVEL 21 MEQ/L (21-32); CHLORIDE LEVEL 106 MEQ/L (98-107); CREATININE FOR GFR 0.66 MG/DL (0.70-1.30); GLOMERULAR FILTRATION RATE > 60.0 (>56); GLUCOSE, FASTING 94 MG/DL (70-100); POTASSIUM SERUM 3.9 MEQ/L (3.5-5.1); SODIUM LEVEL 135 MEQ/L (136-145); TOTAL PROTEIN 6.1 GM/DL (6.4-8.2)
[2018-11-25] MEDS: AUGMENTIN 875 MG TAB GT SCH ×2 (08:21→20:02)
[2018-11-25] MEDS: CLOPIDOGREL 75 MG TAB PO SCH (08:22)
[2018-11-25] MEDS: oxyCODONE 5MG TAB PO PRN ×3 (08:22→17:39)
[2018-11-25] MEDS: DOCUSATE SODIUM 100 MG CAP PO SCH ×2 (08:22→19:58)
[2018-11-25] MEDS: ASPIRIN 81 MG CHEW TABLET PO SCH (08:22)
[2018-11-25] MEDS: POLYSPORIN TOPICAL OINTMENT 15GM TOP SCH ×2 (08:23→20:02)
[2018-11-25] MEDS: PANTOPRAZOLE 40MG TAB (PROTONIX) PO SCH (08:23)
[2018-11-25 14:00] VITALS: BP 119/67
--- NOTE | 2018-11-25 18:31 | IPNPDOC ---
Text Note Date of Service The patient was seen on 11/25/18. NOTE The patient is seen and examined. Undergoing physical therapy (PT). Denies any chest pain, pressure or discomfort. Reported right lower extremity pain. No other complaints. Tolerating orally. concerned about delay in getting pain medication overnight. PHYSICAL EXAMINATION: GENERAL: The patient is alert, comfortable, and in no acute distress. HEENT: Normocephalic, atraumatic. Pupils are equal, round and reactive to light bilaterally. CARDIAC: Regular, S1, S2. PULMONARY: Bilaterally clear. ABDOMEN: Soft, nontender. EXTREMITIES: Right lower extremity dressing intact with right great toe that is gangrenous, dry gangrene. Right foot is also swollen, edematous, mild erythema improved. Left foot the patient reported left great toe is slightly tender to palpation. No discoloration. Dorsalis pedis and posterior tibialis pulses are bilaterally 1+ ASSESSMENT AND PLAN: This is a 53-year-old male with history of severe bilateral lower extremity peripheral vascular disease with also smoking, history of hypertension, Raynaud's disease with thrombosis, Barnard's disease, anxiety, finger thrombosis in 2013 with partial amputation, presented with acute ischemia of the right lower extremity and right gangrenous toe, status post right lower extremity angiogram and right femoral endarterectomy with patch angioplasty performed on 10/02/2018 with also recurrence of right lower extremity pain, underwent a repeat right femoral endarterectomy on 11/19/2018. As per Dr. Ignacio, the patient was given Zosyn and switched to oral Augmentin, transferred to acute rehabilitation for further care on 11/22/2018. 1. Severe bilateral peripheral vascular disease with acute right lower extremity ischemia, right gangrenous big toe, status post right lower extremity angiogram and right femoral endarterectomy with patch angioplasty performed on 10/02/2018, as well as 11/19/2018. The patient also has recurrent right lower extremity, underwent a repeat right femoral endarterectomy on 11/19/2018. The patient completed a course of Augmentin, as per vascular surgeon. Aspirin and Plavix as per vascular surgeon. Wound care, pain management, bowel care, deep vein thrombosis (DVT) prophylaxis as per acute rehabilitation provider. 2. Gastroesophageal reflux disease (GERD), continue proton pump inhibitor. 3. Hypertension. Monitor blood pressure. Add medication as needed. 4. Left lower lobe atelectasis. Incentive spirometry. 5. Hyponatremia. Appears to be chronic. Urine study has been sent. 6. Postoperative anemia. We will monitor. 7. Deep vein thrombosis (DVT) prophylaxis. The patient is on aspirin and Plavix. Early ambulation. DISPOSITION: Case discussed with Dr. Ignacio. Possible that the patient also needs work in the near future as an outpatient on the patient's left lower extremity. In the meantime, supportive care, physical therapy (PT) as per Dr. Allen. VS,Shahida, I+O VS, Shahida, I+O Laboratory Tests 11/25/18 06:41 Red Blood Count 3.30 L, Mean Corpuscular Volume 93.9, Mean Corpuscular Hemoglobin 31.8, Mean Corpuscular Hemoglobin Concent 33.9, Red Cell Distribution Width 14.5, Calcium Level 8.4 L, Aspartate Amino Transf (AST/SGOT) 62 H, Alanine Aminotransferase (ALT/SGPT) 54, Alkaline Phosphatase 61, Total Bilirubin 0.5, Total Protein 6.1 L, Albumin 2.6 L Vital Signs Date Time Temp Pulse Resp B/P (MAP) Pulse Ox O2 Delivery O2 Flow Rate FiO2 11/25/18 18:09 20 11/25/18 14:00 97.7 70 119/67 (84) 97 I&O- Last 24 Hours up to 6 AM 11/25/18 06:00 Intake Total 1100 ml Output Total 2050 ml Balance -950 ml WOJCIECH PELAEZ MD Nov 25, 2018 18:31
[2018-11-25 20:00] VITALS: BP 134/72
[2018-11-26 06:00] VITALS: BP 126/73
[2018-11-26] MEDS: oxyCODONE 10 MG CR TAB PO SCH ×2 (09:00→21:08)
[2018-11-26] MEDS: DOCUSATE SODIUM 100 MG CAP PO SCH ×2 (09:06→21:08)
[2018-11-26] MEDS: oxyCODONE 5MG TAB PO PRN ×3 (09:10→19:48)
[2018-11-26] MEDS: AUGMENTIN 875 MG TAB GT SCH ×2 (09:10→21:09)
[2018-11-26] MEDS: ASPIRIN 81 MG CHEW TABLET PO SCH (09:10)
[2018-11-26] MEDS: PANTOPRAZOLE 40MG TAB (PROTONIX) PO SCH (09:10)
[2018-11-26] MEDS: CLOPIDOGREL 75 MG TAB PO SCH (09:11)
[2018-11-26] MEDS: POLYSPORIN TOPICAL OINTMENT 15GM TOP SCH ×2 (09:14→21:10)
--- NOTE | 2018-11-26 11:10 | IPNPDOC ---
Date Seen The patient was seen on 11/26/18. Progress Note HPI: 53 yoM with severe BLE PVD with acute RLE ischemia and right gangrenous toe s/p right RLE angiogram, and right femoral endarterectomy with patch angioplasty performed on 10/02/18 with recurrent right LE pain who underwent a repeat right femoral endarterectomy on 11/19/[address] Ignacio. Patient was given IV Zosyn and switched to po Augmentin. The pt was transferred to the care of ARU, Dr Allen, 11/22/18. The pt states his Rt foot has been unchanged in appearance, Rt Great toe with gangrene. Bandaged currently. Pt states pain has been controlled. Denies any fevers, chills, weakness, fatigue, Headache, Chest Pain, Shortness of breath, cough, palpitations, abdominal pain, N/V/D or changes in bowel or bladder habits. 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 Ignacio. PE: GEN: 53yoM. No acute distress. Alert and oriented x 3. Pleasant, interactive. HEENT: Normocephalic, atraumatic. Sclera are nonicteric. Conjunctiva without injection. Nose midline. Moist mucous membranes. edentulous. CHEST: Regular rate and rhythm, +S1, +S2 LUNGS: Clear to auscultation bilaterally. No wheezes, rales, or rhonchi. Breathing appears symmetric and easy. ABD: Round, soft, non-tender, non-distended. +Bowel sounds throughout. EXT: RLE with dressing intact over surgical wounds and bandage over Rt Foot. NEURO: Alert and oriented x 3. No focal deficits appreciated. EKG SINUS RHYTHM Similar to tracing done 08-06-18 Electronically Signed On 11-16-2018 7:19:45 EST by Ishan Larios CXR Left lower lobe plate-like atelectasis. Otherwise no acute disease. Electronically Signed by Unruly Gotti MD 11/15/2018 03:40 P A&P: 53 yoM with severe BLE PVD with acute RLE ischemia and right gangrenous toe s/p right RLE angiogram, and right femoral endarterectomy with patch angioplasty performed on 10/02/18 with recurrent right LE pain who underwent a repeat right femoral endarterectomy on 11/19/[address] Ignacio. Patient was given IV Zosyn and switched to po Augmentin. The pt was transferred to the care of ARU, Dr Allen, 11/22/18. 1. severe BLE PVD with acute RLE ischemia and right gangrenous toe s/p right RLE angiogram, and right femoral endarterectomy with patch angioplasty performed on 10/02/18 with recurrent right LE pain who underwent a repeat right femoral endarterectomy on 11/19/[address] Ignacio. Mgmt as per Dr Ignacio. Outpt f/u with Dr Ignacio with plan to also evaluate LLE. Complete course of po Augmentin as per Dr Ignacio. ASA/Plavix as per Dr Ignacio. Wound care as per LILIAN John. pain control as per LILIAN John. Bowel care as per LILIAN John. DVT prophylaxis as per LILIAN John. Disposition as per LILIAN John. 2. GERD. protonix. 3. H/O HTN. No meds as outpt SBP 118-146. Monitor. 4. LLL atelectasis. Pt afebrile. WBC 7.6. Encourage I/S. 5. Hyponatremia. Na 135. Appears to be chronic from previous labs, 131-135. serum osm, urine studies, mag, TSH. Monitor BMP. 6. Postoperative anemia. Hgb 10.5. baseline 13-14. Monitor. VS, I&O, 24H, Fishbone Vital Signs/I&O Vital Signs Date Time Temp Pulse Resp B/P (MAP) Pulse Ox O2 Delivery O2 Flow Rate FiO2 11/26/18 10:00 18 11/26/18 09:10 64 11/26/18 06:00 98.1 126/73 (90) 100 I&O- Last 24 Hours up to 6 AM 11/26/18 06:00 Intake Total 1700 ml Output Total 1600 ml Balance 100 ml Laboratory Data Microbiology Microbiology 11/24/18 Urine Culture - Final, Complete Eliza Garvey Nov 26, 2018 11:10
[2018-11-26 14:00] VITALS: BP 123/68
--- NOTE | 2018-11-26 14:40 | IPNPDOC ---
PM&R Progress Note DATE OF SERVICE: Nov 26, 2018 Electrotherapist Progress Note Subjective: PAtient seen in therapy in good spirits, states he is elevating his leg while in bed and that he would like to try a log acting opioid as he usually only needs to take oxycodone twice a day. He says is pain is overall controlled. REVIEW OF SYSTEMS: The following is a completed review of systems and has been reviewed. Review of systems otherwise unremarkable. PAIN: Patient self reports RLE pain and left toe pain EYES: Negative for recent vision changes EARS, NOSE, & THROAT: denies dysphagia, throat pain, or rhinorrhea CARDIOVASCULAR: denies chest pain or palpitations PULMONARY: Negative. Denies shortness of breath GASTROINTESTINAL: Negative for diarrhea or constipation GENITOURINARY: Negative for dysuria NEUROLOGICAL: denies seizure or tremor SKIN: right groin and LE incision PSYCHIATRIC: Unremarkable All other review of systems found to be negative. PHYSICAL EXAMINATION: VITAL SIGNS: Please see below. GENERAL: Pleasant and cooperative. No acute distress. HEENT: PERRL. Extraocular movements intact. Clear conjunctiva CARDIOVASCULAR: Regular rate and rhythm. No murmurs, rubs, or gallops LUNGS: Mostly clear to auscultation bilaterally, + wheezes. No rhonchi ABDOMEN: Soft, nontender, nondistended. Positive bowel sounds. Normal active bowel sounds NEUROLOGICAL: Alert and oriented times three. Cranial nerves II through XII grossly intact. Sensation grossly intact to light touch EXTREMITIES: 5\5 strength bilateral upper extremities. 5/5 strength in left lower extremity, right lower extremity >3/5 however limited exam due to wounds SKIN: right groin and leg tremayne erythematous without induration, Right D1 gangrenous, and right foot swollen erythematous and painful to touch ASSESSMENT:53-year-old M with past medical history of PVD who presents status post right femoral endarterectomy with gangrenous right foot admitted for complications from PVD. PLAN: 1. Rehab: PT/OT, assess for DME needs, ambulating well with RW and NWB to RLE 2. Cardio: pmh bilat LE PVD in setting of Buerger's disease s/p right D4 partial digit amputation, s/p right femoral endarterectomy performed 11/19/18-c/u ASA and Plavix in addition to Augmentin x 10d days for cellulitis-medicine and vascular consulted -Arterial US BLE 11/16/18 shows bilateral SFA occlusive disease in Rt SFA, PA, proximal MAC, TPT and distal MAC segments. There is an occlusion in the Lt proximal SFA with reversal of flow in the mid SFA, distal SFA open. The distal MAC is occluded. Abnormal monophasic flow waveforms are seen in the SFA, PA, TPT and SHELF FILLER. Severe atherosclerotic changes are seen in b/l multifocal area. It also shows partial nonocclusive thrombus in the right femoral vein to popliteal vein. Reflux noted through the bilateral deep venous systems and mild reflux through the bilateral lesser saphenous veins -pmh HTN diet controlled, however will monitor 3. Resp: stable, will encourage incentive spirometry and monitor for infection 4. DVT ppx: Venous US 08/06/18 shows striations and echogenic material in the right popliteal vein consistent with chronic or less likely an acute nonocclusive DVT -will repeat Doppler and consider treating 5. GI ppx: Protonix 6. Pain: will add long acting oxycontin 10mg BID and c/u oxycodone 5mg prn q4h, c/u Tylenol prn 7. Skin: c/u to cover right LE incisions with silver optifoam and elevate right leg when in bed 8. Dispo: 12/04/18 to home, progressing towards goals Allergies Coded Allergies: No Known Allergies (Verified , 03/17/03) Vital Signs Vital Signs Date Time Temp Pulse Resp B/P (MAP) Pulse Ox O2 Delivery O2 Flow Rate FiO2 11/26/18 14:00 97.8 86 18 123/68 (86) 96 Microbiology Microbiology 11/24/18 Urine Culture - Final, Complete Current Medications Current Medications Current Medications Acetaminophen (Tylenol Tab) 650 mg Q4HP PRN PO fever/MILD PAIN (PS 1-4); Start 11/22/18 at 16:30 Amoxicillin/ Clavulanate Potassium (Augmentin) 875 mg BID GT Last administered on 11/26/18at 09:10; Start 11/22/18 at 21:00; Stop 12/02/18 at 09:01 Aspirin (Aspirin Chewable) 81 mg DAILY PO Last administered on 11/26/18at 09:10; Start 11/23/18 at 09:00 Bacitracin/ Polymyxin B Sulfate (Polysporin Top Oint) 1 dose BID TOP Last administered on 11/26/18 09:14; Start 11/23/18 at 21:00 Bisacodyl (Dulcolax Suppository) 10 mg DAILYPRN PRN [place] CONSTIPATION; Start 11/22/18 at 16:30 Clopidogrel Bisulfate (PLAVix) 75 mg DAILY PO Last administered on 11/26/18 09:11; Start 11/23/18 at 09:00 Docusate Sodium (Colace) 100 mg BID PO Last administered on 11/26/18at 09:06; Start 11/22/18 at 21:00 Magnesium Hydroxide (Milk Of Magnesia) 30 ml DAILYPRN PRN PO CONSTIPATION; Start 11/22/18 at 16:30 Ondansetron HCl (Zofran) 4 mg Q6HP PRN PO NAUSEA; Start 11/22/18 at 16:30 Oxycodone HCl (Roxicodone, Oxyir) 5 mg Q4HP PRN PO PAIN Last administered on 11/26/18 09:10; Start 11/22/18 at 16:30 Oxycodone HCl (Roxicodone, Oxyir) 10 mg Q4HP PRN PO SEVERE PAIN (PS 8-10) Last administered on 11/25/18 17:39; Start 11/22/18 at 16:30 Pantoprazole Sodium (Protonix) 40 mg DAILY PO Last administered on 11/26/18 09:10; Start 11/23/18 at 09:00 ELSI CAMARGO MD Nov 26, 2018 14:40
--- NOTE | 2018-11-26 19:34 | REP ---
Bilateral lower extremity duplex venous ultrasound: History: History of right-sided DVT. Right greater saphenous vein stripped. Comparison study on September 28, 2018 for nonocclusive DVT in the right femoral and right popliteal vein suggests chronic change. Today's sonographic findings: The left lower extremity deep veins are anechoic and fully compressible from the groin to the popliteal fossa on two-dimensional scanning. Color flow and spectral Doppler interrogation are unremarkable on the left. There is no evidence of left-sided DVT. On the right, there is nonocclusive echogenic thrombus in the proximal mid and distal femoral vein and the popliteal vein unchanged in extent from the prior study. This is consistent with chronic DVT as before. Limited compressibility was achieved due to patient tolerance and bandaging. Impression: No evidence of acute DVT. Chronic nonocclusive DVT in the right femoral vein and popliteal vein again observed unchanged. Electronically Signed by Unruly Gotti MD 11/26/2018 08:58 P
[2018-11-26 20:00] VITALS: BP 127/70
[2018-11-27 06:00] VITALS: BP 129/71
[2018-11-27 07:04] LABS: HEMATOCRIT 31.6 % (42.0-52.0); HEMOGLOBIN 10.6 g/dl (13.5-17.5); MEAN CORPUSCULAR HEMOGLOBIN 30.8 pg (27.0-33.0); MEAN CORPUSCULAR HGB CONC 33.5 g/dl (32.0-36.5); MEAN CORPUSCULAR VOLUME 91.9 fl (80.0-96.0); PLATELET COUNT, AUTOMATED 515 10^3/uL (150-450); RED BLOOD COUNT 3.44 10^6/uL (4.30-6.10); WHITE BLOOD COUNT 7.4 10^3/uL (4.0-10.0)
[2018-11-27 07:23] LABS: ERYTHROCYTE SEDIMENTATION RATE 58 mm/hr (0-20)
[2018-11-27 07:27] LABS: ALBUMIN 2.8 GM/DL (3.2-5.2); ALT/SGPT 59 U/L (12-78); BILIRUBIN,TOTAL 0.4 MG/DL (0.2-1.0); BLOOD UREA NITROGEN 8 MG/DL (7-18); C REACTIVE PROTEIN QUANTITATIV 1.58 MG/DL (0.00-0.30); CALCIUM LEVEL 8.7 MG/DL (8.5-10.1); CARBON DIOXIDE LEVEL 23 MEQ/L (21-32); CHLORIDE LEVEL 105 MEQ/L (98-107); CREATININE FOR GFR 0.71 MG/DL (0.70-1.30); GLOMERULAR FILTRATION RATE > 60.0 (>56); GLUCOSE, FASTING 84 MG/DL (70-100); SODIUM LEVEL 134 MEQ/L (136-145); TOTAL PROTEIN 6.7 GM/DL (6.4-8.2)
[2018-11-27] MEDS: oxyCODONE 10 MG CR TAB PO SCH ×2 (07:43→18:35)
[2018-11-27] MEDS: AUGMENTIN 875 MG TAB GT SCH ×2 (08:29→21:09)
[2018-11-27] MEDS: ASPIRIN 81 MG CHEW TABLET PO SCH (08:29)
[2018-11-27] MEDS: DOCUSATE SODIUM 100 MG CAP PO SCH ×2 (08:29→21:00)
[2018-11-27] MEDS: PANTOPRAZOLE 40MG TAB (PROTONIX) PO SCH (08:29)
[2018-11-27] MEDS: CLOPIDOGREL 75 MG TAB PO SCH (08:29)
[2018-11-27] MEDS: POLYSPORIN TOPICAL OINTMENT 15GM TOP SCH ×2 (08:29→21:10)
[2018-11-27] MEDS: oxyCODONE 5MG TAB PO PRN ×3 (08:42→17:55)
[2018-11-27 14:00] VITALS: BP 110/60
[2018-11-27 20:00] VITALS: BP 110/60
[2018-11-28 06:00] VITALS: BP 131/66
[2018-11-28] MEDS: oxyCODONE 10 MG CR TAB PO SCH ×2 (06:26→18:20)
[2018-11-28] MEDS: PANTOPRAZOLE 40MG TAB (PROTONIX) PO SCH (08:41)
[2018-11-28] MEDS: AUGMENTIN 875 MG TAB GT SCH ×2 (08:41→20:03)
[2018-11-28] MEDS: oxyCODONE 5MG TAB PO PRN ×3 (08:41→20:03)
[2018-11-28] MEDS: CLOPIDOGREL 75 MG TAB PO SCH (08:41)
[2018-11-28] MEDS: ASPIRIN 81 MG CHEW TABLET PO SCH (08:41)
[2018-11-28] MEDS: POLYSPORIN TOPICAL OINTMENT 15GM TOP SCH ×2 (08:42→20:05)
[2018-11-28] MEDS: DOCUSATE SODIUM 100 MG CAP PO SCH ×2 (08:42→20:03)
[2018-11-28 14:00] VITALS: BP 123/65
[2018-11-28 20:00] VITALS: BP 121/68
[2018-11-29 06:00] VITALS: BP 128/71
[2018-11-29] MEDS: oxyCODONE 10 MG CR TAB PO SCH ×2 (06:43→18:41)
[2018-11-29 07:31] LABS: BASO # 0.1 10^3/uL (0.0-0.2); BASO % 0.7 % (0.0-1.0); EOS # 0.6 10^3/uL (0.0-0.50); EOS % 8.1 % (0.0-3.0); HEMATOCRIT 31.5 % (42.0-52.0); HEMOGLOBIN 10.6 g/dl (13.5-17.5); LYMPH # 1.7 10^3/uL (1.5-4.5); LYMPH % 24.6 % (24.0-44.0); MEAN CORPUSCULAR HEMOGLOBIN 31.1 pg (27.0-33.0); MEAN CORPUSCULAR HGB CONC 33.7 g/dl (32.0-36.5); MEAN CORPUSCULAR VOLUME 92.4 fl (80.0-96.0); MONO # 1.3 10^3/uL (0.0-0.8); MONO % 19.1 % (0.0-5.0); NEUTROPHILS # 3.2 10^3/uL (1.8-7.7); NEUTROPHILS % 47.1 % (36.0-66.0); PLATELET COUNT, AUTOMATED 506 10^3/uL (150-450); RED BLOOD COUNT 3.41 10^6/uL (4.30-6.10); WHITE BLOOD COUNT 6.8 10^3/uL (4.0-10.0)
[2018-11-29 07:55] LABS: BLOOD UREA NITROGEN 7 MG/DL (7-18); CALCIUM LEVEL 8.8 MG/DL (8.5-10.1); CARBON DIOXIDE LEVEL 24 MEQ/L (21-32); CHLORIDE LEVEL 105 MEQ/L (98-107); CREATININE FOR GFR 0.77 MG/DL (0.70-1.30); GLOMERULAR FILTRATION RATE > 60.0 (>56); GLUCOSE, FASTING 90 MG/DL (70-100); POTASSIUM SERUM 4.1 MEQ/L (3.5-5.1); SODIUM LEVEL 136 MEQ/L (136-145)
[2018-11-29] MEDS: PANTOPRAZOLE 40MG TAB (PROTONIX) PO SCH (08:53)
[2018-11-29] MEDS: ASPIRIN 81 MG CHEW TABLET PO SCH (08:53)
[2018-11-29] MEDS: AUGMENTIN 875 MG TAB GT SCH ×2 (08:53→21:37)
[2018-11-29] MEDS: CLOPIDOGREL 75 MG TAB PO SCH (08:53)
[2018-11-29] MEDS: DOCUSATE SODIUM 100 MG CAP PO SCH ×2 (08:54→21:37)
[2018-11-29] MEDS: POLYSPORIN TOPICAL OINTMENT 15GM TOP SCH ×2 (09:02→21:00)
--- NOTE | 2018-11-29 11:45 | IPNPDOC ---
PM&R Progress Note DATE OF SERVICE: Nov 27, 2018 Public Employment Mediator Progress Note Subjective: Patient seen in his room stating therapy went much better today because his pain is better controlled on the oxycontin. REVIEW OF SYSTEMS: The following is a completed review of systems and has been reviewed. Review of systems otherwise unremarkable. PAIN: Patient self reports RLE pain and left toe pain EYES: Negative for recent vision changes EARS, NOSE, & THROAT: denies dysphagia, throat pain, or rhinorrhea CARDIOVASCULAR: denies chest pain or palpitations PULMONARY: Negative. Denies shortness of breath GASTROINTESTINAL: Negative for diarrhea or constipation GENITOURINARY: Negative for dysuria NEUROLOGICAL: denies seizure or tremor SKIN: right groin and LE incision PSYCHIATRIC: Unremarkable All other review of systems found to be negative. PHYSICAL EXAMINATION: VITAL SIGNS: Please see below. GENERAL: Pleasant and cooperative. No acute distress. HEENT: PERRL. Extraocular movements intact. Clear conjunctiva CARDIOVASCULAR: Regular rate and rhythm. No murmurs, rubs, or gallops LUNGS: Mostly clear to auscultation bilaterally, + wheezes. No rhonchi ABDOMEN: Soft, nontender, nondistended. Positive bowel sounds. Normal active bowel sounds NEUROLOGICAL: Alert and oriented times three. Cranial nerves II through XII grossly intact. Sensation grossly intact to light touch EXTREMITIES: 5\\5 strength bilateral upper extremities. 5/5 strength in left lower extremity, right lower extremity >3/5 however limited exam due to wounds SKIN: right groin and leg tremayne erythematous without induration, Right D1 gangrenous, and right foot swollen less erythematous and less painful to touch ASSESSMENT:53-year-old M with past medical history of PVD who presents status post right femoral endarterectomy with gangrenous right foot admitted for com plications from PVD. PLAN: 1. Rehab: PT/OT, assess for DME needs, ambulating well with RW and NWB to RLE 2. Cardio: pmh bilat LE PVD in setting of Buerger's disease s/p right D4 partial digit amputation, s/p right femoral endarterectomy performed 11/19/18-c/u ASA and Plavix in addition to Augmentin x 10d days for cellulitis-medicine and vascular consulted -Arterial US BLE 07/27/18 shows bilateral SFA occlusive disease in Rt SFA, PA, proximal MAC, TPT and distal MAC segments. There is an occlusion in the Lt proximal SFA with reversal of flow in the mid SFA, distal SFA open. The distal MAC is occluded. Abnormal monophasic flow waveforms are seen in the SFA, PA, TPT and DRAFTER PATENT. Severe atherosclerotic changes are seen in b/l multifocal area. It also shows partial nonocclusive thrombus in the right femoral vein to popliteal vein. Reflux noted through the bilateral deep venous systems and mild reflux through the bilateral lesser saphenous veins -pmh HTN diet controlled, however will monitor 3. Resp: stable, will encourage incentive spirometry and monitor for infection 4. DVT ppx: Venous US 08/06/18 shows striations and echogenic material in the right popliteal vein consistent with chronic or less likely an acute nonocclusive DVT - Doppler 11/26/18, "Chronic nonocclusive DVT in the right femoral vein and popliteal vein again observed unchanged"-will discuss with Dr. Ignacio if need to treat this as has not appeared to have been treated in the past 5. GI ppx: Protonix 6. Pain: improvement in pain level with oxycontin 10mg BID and c/u oxycodone 5mg prn q4h, c/u Tylenol prn 7. Skin: c/u to cover right LE incisions with silver optifoam and elevate right leg when in bed 8. Dispo: 12/04/18 to home, progressing towards goals Allergies Coded Allergies: No Known Allergies (Verified , 03/17/03) Vital Signs Vital Signs Date Time Temp Pulse Resp B/P (MAP) Pulse Ox O2 Delivery O2 Flow Rate FiO2 11/29/18 06:43 18 11/29/18 06:00 98.3 63 128/71 (90) 97 Laboratory Data CBC/BMP Laboratory Tests 11/29/18 06:27 Red Blood Count 3.41 L, Mean Corpuscular Volume 92.4, Mean Corpuscular Hemoglobin 31.1, Mean Corpuscular Hemoglobin Concent 33.7, Red Cell Distribution Width 14.3, Neutrophils (%) (Auto) 47.1, Lymphocytes (%) (Auto) 24.6, Monocytes (%) (Auto) 19.1 H, Eosinophils (%) (Auto) 8.1 H, Basophils (%) (Auto) 0.7, Neut rophils # (Auto) 3.2, Lymphocytes # (Auto) 1.7, Monocytes # (Auto) 1.3 H, Eosinophils # (Auto) 0.6 H, Basophils # (Auto) 0.1, Calcium Level 8.8 Labs 24H Laboratory Tests 2 11/29/18 06:27: Immature Granulocyte % (Auto) 0.4, White Blood Count 6.8, Red Blood Count 3.41L, Hemoglobin 10.6L, Hematocrit 31.5L, Mean Corpuscular Volume 92.4, Mean Corpuscular Hemoglobin 31.1, Mean Corpuscular Hemoglobin Concent 33.7, Red Cell Distribution Width 14.3, Platelet Count 506H, Neutrophils (%) (Auto) 47.1, Lymphocytes (%) (Auto) 24.6, Monocytes (%) (Auto) 19.1H, Eosinophils (%) (Auto) 8.1H, Basophils (%) (Auto) 0.7, Neutrophils # (Auto) 3.2, Lymphocytes # (Auto) 1.7, Monocytes # (Auto) 1.3H, Eosinophils # (Auto) 0.6H, Basophils # (Auto) 0.1, Nucleated Red Blood Cells % (auto) 0.0, Anion Gap 7L, Glomerular Filtration Rate > 60.0, Blood Urea Nitrogen 7, Creatinine 0.77, Sodium Level 136, Potassium Level 4.1, Chloride Level 105, Carbon Dioxide Level 24, Calcium Level 8.8 Microbiology Microbiology 11/24/18 Urine Culture - Final, Complete Current Medications Current Medications Current Medications Acetaminophen (Tylenol Tab) 650 mg Q4HP PRN PO fever/MILD PAIN (PS 1-4); Start 11/22/18 at 16:30 Amoxicillin/ Clavulanate Potassium (Augmentin) 875 mg BID GT Last administered on 11/29/18at 08:53; Start 11/22/18 at 21:00; Stop 12/02/18 at 09:01 Aspirin (Aspirin Chewable) 81 mg DAILY PO Last administered on 11/29/18at 08:53; Start 11/23/18 at 09:00 Bacitracin/ Polymyxin B Sulfate (Polysporin Top Oint) 1 dose BID TOP Last administered on 11/29/18at 09:02; Start 11/23/18 at 21:00 Bisacodyl (Dulcolax Suppository) 10 mg DAILYPRN PRN [place] CONSTIPATION; Start 11/22/18 at 16:30 Clopidogrel Bisulfate (PLAVix) 75 mg DAILY PO Last administered on 11/29/18 08:53; Start 11/23/18 at 09:00 Docusate Sodium (Colace) 100 mg BID PO Last administered on 11/28/18at 20:03; Start 11/22/18 at 21:00 Magnesium Hydroxide (Milk Of Magnesia) 30 ml DAILYPRN PRN PO CONSTIPATION; St art 11/22/18 at 16:30 Miscellaneous (Unresolved Clarification Entry) SEE LABEL COMMENTS DAILY XX ; S tart 11/28/18 at 09:00; Stop 11/29/18 at 07:25; Status DC Miscellaneous (Unresolved Clarification Entry) SEE LABEL COMMENTS DAILY XX ; Start 11/29/18 at 09:00; Stop 11/29/18 at 10:49; Status DC Ondansetron HCl (Zofran) 4 mg Q6HP PRN PO NAUSEA; Start 11/22/18 at 16:30 Oxycodone HCl (OxyCONTIN) 10 mg BID PO Last administered on 11/27/18at 07:43; Start 11/26/18 at 09:00; Stop 11/27/18 at 15:03; Status DC Oxycodone HCl (OxyCONTIN) 10 mg BID@0700,1900 PO Last administered on 11/29/18at 06:43; Start 11/27/18 at 19:00 Oxycodone HCl (Roxicodone, Oxyir) 5 mg Q4HP PRN PO PAIN Last administered on 20:03; Start 11/22/18 at 16:30 Oxycodone HCl (Roxicodone, Oxyir) 10 mg Q4HP PRN PO SEVERE PAIN (PS 8-10) Last administered on 11/25/18 17:39; Start 11/22/18 at 16:30; Stop 11/26/18 at 14:34; Status DC Pantoprazole Sodium (Protonix) 40 mg DAILY PO Last administered on 11/29/18 08:53; Start 11/23/18 at 09:00 ELSI CAMARGO MD Nov 29, 2018 11:45
--- NOTE | 2018-11-29 11:46 | IPNPDOC ---
PM&R Progress Note DATE OF SERVICE: Nov 28, 2018 Environmental Services Supervisor Progress Note Subjective: Patient seen in therapy stating he would prefer to go home [place] with his because he hates feeling contained. REVIEW OF SYSTEMS: The following is a completed review of systems and has been reviewed. Review of systems otherwise unremarkable. PAIN: Patient self reports RLE pain and left toe pain EYES: Negative for recent vision changes EARS, NOSE, & THROAT: denies dysphagia, throat pain, or rhinorrhea CARDIOVASCULAR: denies chest pain or palpitations PULMONARY: Negative. Denies shortness of breath GASTROINTESTINAL: Negative for diarrhea or constipation GENITOURINARY: Negative for dysuria NEUROLOGICAL: denies seizure or tremor SKIN: right groin and LE incision PSYCHIATRIC: Unremarkable All other review of systems found to be negative. PHYSICAL EXAMINATION: VITAL SIGNS: Please see below. GENERAL: Pleasant and cooperative. No acute distress. HEENT: PERRL. Extraocular movements intact. Clear conjunctiva CARDIOVASCULAR: Regular rate and rhythm. No murmurs, rubs, or gallops LUNGS: Mostly clear to auscultation bilaterally, + wheezes. No rhonchi ABDOMEN: Soft, nontender, nondistended. Positive bowel sounds. Normal active bowel sounds NEUROLOGICAL: Alert and oriented times three. Cranial nerves II through XII grossly intact. Sensation grossly intact to light touch EXTREMITIES: 5\\5 strength bilateral upper extremities. 5/5 strength in left lower extremity, right lower extremity >3/5 however limited exam due to wounds SKIN: right groin and leg tremayne erythematous without induration, Right D1 gangrenous, and right foot swollen less erythematous and less painful to touch ASSESSMENT:53-year-old M with past medical history of PVD who presents status post right femoral endarterectomy with gangrenous right foot admitted for complications from PVD. PLAN: 1. Rehab: PT/OT, assess for DME needs, ambulating well with RW and NWB to RLE 2. Cardio: pmh bilat LE PVD in setting of Buerger's disease s/p right D4 partial digit amputation, s/p right femoral endarterectomy performed 11/19/18-c/u ASA and Plavix in addition to Augmentin x 10d days for cellulitis-medicine and vascular consulted -Arterial US BLE 07/27/18 shows bilateral SFA occlusive disease in Rt SFA, PA, proximal MAC, TPT and distal MAC segments. There is an occlusion in the Lt proximal SFA with reversal of flow in the mid SFA, distal SFA open. The distal MAC is occluded. Abnormal monophasic flow waveforms are seen in the SFA, PA, TPT and ELECTRICAL ENGINEERING TECHNICIAN. Severe atherosclerotic changes are seen in b/l multifocal area. It also shows partial nonocclusive thrombus in the right femoral vein to popliteal vein. Reflux noted through the bilateral deep venous systems and mild reflux through the bilateral lesser saphenous veins -pmh HTN diet controlled, however will monitor 3. Resp: stable, will encourage incentive spirometry and monitor for infection 4. DVT ppx: Venous US 08/06/18 shows striations and echogenic material in the right popliteal vein consistent with chronic or less likely an acute nonocclusive DVT - Doppler 11/26/18, "Chronic nonocclusive DVT in the right femoral vein and popliteal vein again observed unchanged"-will discuss with Dr. Ignacio if need to treat this as has not appeared to have been treated in the past 5. GI ppx: Protonix 6. Pain: improvement in pain level with oxycontin 10mg BID and c/u oxycodone 5mg prn q4h, c/u Tylenol prn 7. Skin: c/u to cover right LE incisions with silver optifoam and elevate right leg when in bed 8. Dispo: 11/30/18 with , progressing towards goals, will need some assistance at home, however will be able to provide this Allergies Coded Allergies: No Known Allergies (Verified , 03/17/03) Vital Signs Vital Signs Date Time Temp Pulse Resp B/P (MAP) Pulse Ox O2 Delivery O2 Flow Rate FiO2 11/29/18 06:43 18 11/29/18 06:00 98.3 63 128/71 (90) 97 Laboratory Data CBC/BMP Laboratory Tests 11/29/18 06:27 Red Blood Count 3.41 L, Mean Corpuscular Volume 92.4, Mean Corpuscular Hemoglobin 31.1, Mean Corpuscular Hemoglobin Concent 33.7, Red Cell Distribution Width 14.3, Neutrophils (%) (Auto) 47.1, Lymphocytes (%) (Auto) 24.6, Monocytes (%) (Auto) 19.1 H, Eosinophils (%) (Auto) 8.1 H, Basophils (%) (Auto) 0.7, Neutrophils # (Auto) 3.2, Lymphocytes # (Auto) 1.7, Monocytes # (Auto) 1.3 H, Eosinophils # (Auto) 0.6 H, Basophils # (Auto) 0.1, Calcium Level 8.8 Labs 24H Laboratory Tests 2 11/29/18 06:27: Immature Granulocyte % (Auto) 0.4, White Blood Count 6.8, Red Blood Count 3.41L, Hemoglobin 10.6L, Hematocrit 31.5L, Mean Corpuscular Volume 92.4, Mean Corpuscular Hemoglobin 31.1, Mean Corpuscular Hemoglobin Concent 33.7, Red Cell Distribution Width 14.3, Platelet Count 506H, Neutrophils (%) (Auto) 47.1, Lymphocytes (%) (Auto) 24.6, Monocytes (%) (Auto) 19.1H, Eosinophils (%) (Auto) 8.1H, Basophils (%) (Auto) 0.7, Neutrophils # (Auto) 3.2, Lymphocytes # (Auto) 1.7, Monocytes # (Auto) 1.3H, Eosinophils # (Auto) 0.6H, Basophils # (Auto) 0.1, Nucleated Red Blood Cells % (auto) 0.0, Anion Gap 7L, Glomerular Filtration Rate > 60.0, Blood Urea Nitrogen 7, Creatinine 0.77, Sodium Level 136, Potassium Level 4.1, Chloride Level 105, Carbon Dioxide Level 24, Calcium Level 8.8 Microbiology Microbiology 11/24/18 Urine Culture - Final, Complete Current Medications Current Medications Current Medications Acetaminophen (Tylenol Tab) 650 mg Q4HP PRN PO fever/MILD PAIN (PS 1-4); Start 11/22/18 at 16:30 Amoxicillin/ Clavulanate Potassium (Augmentin) 875 mg BID GT Last administered on 11/29/18at 08:53; Start 11/22/18 at 21:00; Stop 12/02/18 at 09:01 Aspirin (Aspirin Chewable) 81 mg DAILY PO Last administered on 11/29/18at 08:53; Start 11/23/18 at 09:00 Bacitracin/ Polymyxin B Sulfate (Polysporin Top Oint) 1 dose BID TOP Last administered on 11/29/18at 09:02; Start 11/23/18 at 21:00 Bisacodyl (Dulcolax Suppository) 10 mg DAILYPRN PRN [place] CONSTIPATION; Start 11/22/18 at 16:30 Clopidogrel Bisulfate (PLAVix) 75 mg DAILY PO Last administered on 11/29/18 08:53; Start 11/23/18 at 09:00 Docusate Sodium (Colace) 100 mg BID PO Last administered on 11/28/18 20:03; Start 11/22/18 at 21:00 Magnesium Hydroxide (Milk Of Magnesia) 30 ml DAILYPRN PRN [place] CONSTIPATION; Start 11/22/18 at 16:30 Miscellaneous (Unresolved Clarification Entry) SEE LABEL COMMENTS DAILY XX ; Start 11/28/18 at 09:00; Stop 11/29/18 at 07:25; Status DC Miscellaneous (Unresolved Clarification Entry) SEE LABEL COMMENTS DAILY XX ; Start 11/29/18 at 09:00; Stop 11/29/18 at 10:49; Status DC Ondansetron HCl (Zofran) 4 mg Q6HP PRN PO NAUSEA; Start 11/22/18 at 16:30 Oxycodone HCl (OxyCONTIN) 10 mg BID PO Last administered on 11/27/18 07:43; Start 11/26/18 at 09:00; Stop 11/27/18 at 15:03; Status DC Oxycodone HCl (OxyCONTIN) 10 mg BID@0700,1900 PO Last administered on 11/29/18 06:43; Start 11/27/18 at 19:00 Oxycodone HCl (Roxicodone, Oxyir) 5 mg Q4HP PRN PO PAIN Last administered on 11/28/18 20:03; Start 11/22/18 at 16:30 Oxycodone HCl (Roxicodone, Oxyir) 10 mg Q4HP PRN PO SEVERE PAIN (PS 8-10) Last administered on 11/25/18 17:39; Start 11/22/18 at 16:30; Stop 11/26/18 at 14:34; Status DC Pantoprazole Sodium (Protonix) 40 mg DAILY PO Last administered on 11/29/18 08:53; Start 11/23/18 at 09:00 ELSI CAMARGO MD Nov 29, 2018 11:46
--- NOTE | 2018-11-29 11:48 | IPNPDOC ---
PM&R Progress Note DATE OF SERVICE: Nov 29, 2018 Clinical Laboratory Technologist Progress Note Subjective: Patient in good spirits and ready to go home tomorrow. REVIEW OF SYSTEMS: The following is a completed review of systems and has been reviewed. Review of systems otherwise unremarkable. PAIN: Patient self reports RLE pain and left toe pain EYES: Negative for recent vision changes EARS, NOSE, & THROAT: denies dysphagia, throat pain, or rhinorrhea CARDIOVASCULAR: denies chest pain or palpitations PULMONARY: Negative. Denies shortness of breath GASTROINTESTINAL: Negative for diarrhea or constipation GENITOURINARY: Negative for dysuria NEUROLOGICAL: denies seizure or tremor SKIN: right groin and LE incision PSYCHIATRIC: Unremarkable All other review of systems found to be negative. PHYSICAL EXAMINATION: VITAL SIGNS: Please see below. GENERAL: Pleasant and cooperative. No acute distress. HEENT: PERRL. Extraocular movements intact. Clear conjunctiva CARDIOVASCULAR: Regular rate and rhythm. No murmurs, rubs, or gallops LUNGS: Mostly clear to auscultation bilaterally, + wheezes. No rhonchi ABDOMEN: Soft, nontender, nondistended. Positive bowel sounds. Normal active bowel sounds NEUROLOGICAL: Alert and oriented times three. Cranial nerves II through XII grossly intact. Sensation grossly intact to light touch EXTREMITIES: 5\\5 strength bilateral upper extremities. 5/5 strength in left lower extremity, right lower extremity >3/5 however limited exam due to wounds SKIN: right groin and leg tremayne covered with silver optifoam, Right D1 gangr enous, and right foot less swollen less erythematous and less painful to touch ASSESSMENT:53-year-old M with past medical history of PVD who presents status post right femoral endarterectomy with gangrenous right foot admitted for complications from PVD. PLAN: 1. Rehab: PT/OT, assess for DME needs, ambulating well with RW and NWB to RLE 2. Cardio: pmh bilat LE PVD in setting of Buerger's disease s/p right D4 partial digit amputation, s/p right femoral endarterectomy performed 11/19/18-c/u ASA and Plavix in addition to Augmentin x 10d days for cellulitis-medicine and vascular consulted -Arterial US BLE 07/27/18 shows bilateral SFA occlusive disease in Rt SFA, PA, proximal MAC, TPT and distal MAC segments. There is an occlusion in the Lt proximal SFA with reversal of flow in the mid SFA, distal SFA open. The distal MAC is occluded. Abnormal monophasic flow waveforms are seen in the SFA, PA, TPT and HOME MISSION WORKER. Severe atherosclerotic changes are seen in b/l multifocal area. It also shows partial nonocclusive thrombus in the right femoral vein to popliteal vein. Reflux noted through the bilateral deep venous systems and mild reflux through the bilateral lesser saphenous veins -pmh HTN diet controlled, however will monitor 3. Resp: stable, will encourage incentive spirometry and monitor for infection 4. DVT ppx: Venous US 08/06/18 shows striations and echogenic material in the right popliteal vein consistent with chronic or less likely an acute nonocclusiv e DVT - Doppler 11/26/18, "Chronic nonocclusive DVT in the right femoral vein and popliteal vein again observed unchanged"-will discuss with Dr. Ignacio if need to treat this as has not appeared to have been treated in the past 5. GI ppx: Protonix 6. Pain: improvement in pain level with oxycontin 10mg BID and c/u oxycodone 5mg prn q4h, c/u Tylenol prn 7. Skin: c/u to cover right LE incisions with silver optifoam and elevate right leg when in bed-improving 8. Dispo: 11/30/18 with , progressing towards goals, will need some assistance at home, however will be able to provide this Allergies Coded Allergies: No Known Allergies (Verified , 03/17/03) Vital Signs Vital Signs Date Time Temp Pulse Resp B/P (MAP) Pulse Ox O2 Delivery O2 Flow Rate FiO2 11/29/18 06:43 18 11/29/18 06:00 98.3 63 128/71 (90) 97 Laboratory Data CBC/BMP Laboratory Tests 11/29/18 06:27 Red Blood Count 3.41 L, Mean Corpuscular Volume 92.4, Mean Corpuscular Hemoglobin 31.1, Mean Corpuscular Hemoglobin Concent 33.7, Red Cell Distribution Width 14.3, Neutrophils (%) (Auto) 47.1, Lymphocytes (%) (Auto) 24.6, Monocytes (%) (Auto) 19.1 H, Eosinophils (%) (Auto) 8.1 H, Basophils (%) (Auto) 0.7, Neutrophils # (Auto) 3.2, Lymphocytes # (Auto) 1.7, Monocytes # (Auto) 1.3 H, Eosinophils # (Auto) 0.6 H, Basophils # (Auto) 0.1, Calcium Level 8.8 Labs 24H Laboratory Tests 2 11/29/18 06:27: Immature Granulocyte % (Auto) 0.4, White Blood Count 6.8, Red Blood Count 3.41L, Hemoglobin 10.6L, Hematocrit 31.5L, Mean Corpuscular Volume 92.4, Mean Corpuscular Hemoglobin 31.1, Mean Corpuscular Hemoglobin Concent 33.7, Red Cell Distribution Width 14.3, Platelet Count 506H, Neutrophils (%) (Auto) 47.1, Lymphocytes (%) (Auto) 24.6, Monocytes (%) (Auto) 19.1H, Eosinophils (%) (Auto) 8.1H, Basophils (%) (Auto) 0.7, Neutrophils # (Auto) 3.2, Lymphocytes # (Auto) 1.7, Monocytes # (Auto) 1.3H, Eosinophils # (Auto) 0.6H, Basophils # (Auto) 0.1, Nucleated Red Blood Cells % (auto) 0.0, Anion Gap 7L, Glomerular Filtration Rate > 60.0, Blood Urea Nitrogen 7, Creatinine 0.77, Sodium Level 136, Potassium Level 4.1, Chloride Level 105, Carbon Dioxide Level 24, Calcium Level 8.8 Microbiology Microbiology 11/24/18 Urine Culture - Final, Complete Current Medications Current Medications Current Medications Acetaminophen (Tylenol Tab) 650 mg Q4HP PRN PO fever/MILD PAIN (PS 1-4); Start 11/22/18 at 16:30 Amoxicillin/ Clavulanate Potassium (Augmentin) 875 mg BID GT Last administered on 11/29/18at 08:53; Start 11/22/18 at 21:00; Stop 12/02/18 at 09:01 Aspirin (Aspirin Chewable) 81 mg DAILY PO Last administered on 11/29/18at 08:53; Start 11/23/18 at 09:00 Bacitracin/ Polymyxin B Sulfate (Polysporin Top Oint) 1 dose BID TOP Last administered on 11/29/18at 09:02; Start 11/23/18 at 21:00 Bisacodyl (Dulcolax Suppository) 10 mg DAILYPRN PRN [place] CONSTIPATION; Start 11/22/18 at 16:30 Clopidogrel Bisulfate (PLAVix) 75 mg DAILY PO Last administered on 11/29/18 08:53; Start 11/23/18 at 09:00 Docusate Sodium (Colace) 100 mg BID PO Last administered on 11/28/18 20:03; Start 11/22/18 at 21:00 Magnesium Hydroxide (Milk Of Magnesia) 30 ml DAILYPRN PRN PO CONSTIPATION; Start 11/22/18 at 16:30 Miscellaneous (Unresolved Clarification Entry) SEE LABEL COMMENTS DAILY XX ; Start 11/28/18 at 09:00; Stop 11/29/18 at 07:25; Status DC Miscellaneous (Unresolved Clarification Entry) SEE LABEL COMMENTS DAILY XX ; Start 11/29/18 at 09:00; Stop 11/29/18 at 10:49; Status DC Ondansetron HCl (Zofran) 4 mg Q6HP PRN PO NAUSEA; Start 11/22/18 at 16:30 Oxycodone HCl (OxyCONTIN) 10 mg BID PO Last administered on 11/27/18at 07:43; Start 11/26/18 at 09:00; Stop 11/27/18 at 15:03; Status DC Oxycodone HCl (OxyCONTIN) 10 mg BID@0700,1900 PO Last administered on 11/29/18 06:43; Start 11/27/18 at 19:00 Oxycodone HCl (Roxicodone, Oxyir) 5 mg Q4HP PRN PO PAIN Last administered on 11/28/18at 20:03; Start 11/22/18 at 16:30 Oxycodone HCl (Roxicodone, Oxyir) 10 mg Q4HP PRN PO SEVERE PAIN (PS 8-10) Last administered on 11/25/18 17:39; Start 11/22/18 at 16:30; Stop 11/26/18 at 14:34; Status DC Pantoprazole Sodium (Protonix) 40 mg DAILY PO Last administered on 11/29/18 08:53; Start 11/23/18 at 09:00 ELSI CAMARGO MD Nov 29, 2018 11:48
[2018-11-29] MEDS ORDERED: PLAV1TAB2 PO (11:55)
[2018-11-29] MEDS ORDERED: OXYCO5TA PO (11:55)
[2018-11-29] MEDS ORDERED: AMOX875T2 PO (11:55)
[2018-11-29] MEDS ORDERED: ASPI1TAB15 PO (11:55)
[2018-11-29] MEDS ORDERED: PANT40TA3 PO (11:55)
[2018-11-29] MEDS ORDERED: OXYC-403 PO ×2 (11:55→11:59)
[2018-11-29] MEDS ORDERED: OXYC-141 PO (11:58)
[2018-11-29 14:00] VITALS: BP 125/65
[2018-11-29 21:37] VITALS: BP 125/83
[2018-11-30 06:00] VITALS: BP 141/78
[2018-11-30] MEDS: oxyCODONE 10 MG CR TAB PO SCH (06:18)
[2018-11-30] MEDS: CLOPIDOGREL 75 MG TAB PO SCH (09:19)
[2018-11-30] MEDS: DOCUSATE SODIUM 100 MG CAP PO SCH (09:19)
[2018-11-30] MEDS: PANTOPRAZOLE 40MG TAB (PROTONIX) PO SCH (09:19)
[2018-11-30] MEDS: AUGMENTIN 875 MG TAB GT SCH (09:19)
[2018-11-30] MEDS: ASPIRIN 81 MG CHEW TABLET PO SCH (09:19)
[2018-11-30] MEDS: POLYSPORIN TOPICAL OINTMENT 15GM TOP SCH (09:20)
[2018-11-30] MEDS: oxyCODONE 5MG TAB PO PRN (11:00)
== END 2018-11-30 12:55 | disposition home or self-care (01) | DRG 300 ==
LOC: M PM&R 12:10
PROVIDERS: ADMIT Physical Medicine & Rehabilitation; ATTEND Physical Medicine & Rehabilitation
DX: I70.261 Atherosclerosis of native arteries of extremities with gangrene, right leg (principal); E87.1 Hypo-osmolality and hyponatremia; J98.11 Atelectasis; I82.511 Chronic embolism and thrombosis of right femoral vein; I70.202 Unspecified atherosclerosis of native arteries of extremities, left leg; I10 Essential (primary) hypertension; F41.9 Anxiety disorder, unspecified; K21.9 Gastro-esophageal reflux disease without esophagitis; I73.1 Thromboangiitis obliterans [Buerger's disease]; D64.9 Anemia, unspecified; R26.9 Unspecified abnormalities of gait and mobility; Z87.891 Personal history of nicotine dependence; Z79.82 Long term (current) use of aspirin; Z79.899 Other long term (current) drug therapy; Z98.62 Peripheral vascular angioplasty status

== ENCOUNTER → 2019-02-19 | Outpatient (CLI) | payer MEDICARE, MEDICAID ==
[~2019-02-19] MED LIST changes: +HYDR-3715 PO; -NORCOTAB PO; +OXYC-141 PO; +OXYC-403 PO; +OXYCO5TA PO; +PANT40TA3 PO
--- NOTE | 2019-02-19 11:00 | REP ---
Bilateral lower extremity arterial Doppler ultrasound: History: Atherosclerosis of the [place] vessels. Intermittent claudication bilateral legs. Findings: Ankle brachial indices could not be performed due to patient pain tolerance. On the left side the superficial femoral artery is felt to be occluded proximally and reconstituted distally. The left anterior tibial artery appears to be occluded as well. On the right there is a patent bypass graft from the common femoral artery to the mid posterior tibial artery. The [place] SFA popliteal and proximal AT A and tibioperoneal trunk are all occluded on the right. Arterial Doppler velocity chart right lower extremity: CF A 125 cm/S Profunda 46 Proximal SFA occluded Mid SFA occluded Distal SFA occluded Popliteal occluded Proximal AT A occluded Tibioperoneal trunk occluded Proximal POLITICAL SCIENCE RESEARCH ASSISTANT 241 cm/S Distal POLITICAL SCIENCE RESEARCH ASSISTANT 76 Distal AT A 49 Arterial Doppler velocity chart left lower extremity: CF A 106 cm/S Profunda 83 Proximal SFA occluded Mid SFA occluded Distal SFA 47 Popliteal 46 Proximal AT A occluded Tibioperoneal trunk 22 Proximal POLITICAL SCIENCE RESEARCH ASSISTANT 20 Distal POLITICAL SCIENCE RESEARCH ASSISTANT 16 Distal AT A no flow seen. Electronically Signed by Unruly Gotti MD 02/19/2019 10:50 A
== END ==
LOC: M RAD 08:39
PROVIDERS: ATTEND Surgery Vascular Surgery
DX: I83.811 Varicose veins of right lower extremity with pain (principal); I70.213 Atherosclerosis of native arteries of extremities with intermittent claudication, bilateral legs

== ENCOUNTER 2019-05-02 12:35 | Day surgery (SDC) | payer MEDICARE, MEDICAID ==
[~2019-05-02] VITALS: Ht 177.8 cm; Wt 59.9 kg
[~2019-05-02 12:35] MED LIST changes: +ACET-683 PO; +LR 1,000 ML IV ONE
[2019-05-02] MEDS ORDERED: LIDOCAINE 2% MDV 20 ML VIAL As Ordered ONE (16:41)
[2019-05-02] MEDS ORDERED: BUPIVACAINE HCL 0.5% 30 ML VIAL As Ordered ONE (16:41)
[2019-05-02] MEDS ORDERED: propofoL 200 MG/20 ML VIAL As Ordered ONE (16:42)
[2019-05-02] MEDS ORDERED: ONDANSETRON 4MG/2ML VIAL (J2405) As Ordered ONE (16:42)
[2019-05-02] MEDS ORDERED: LIDOCAINE 2% INJ 100 MG/5 ML SDV (FOR ANES.) As Ordered ONE (16:42)
[2019-05-02] MEDS ORDERED: fentaNYL 100 MCG/2 ML INJECTION (J3010) As Ordered ONE (16:42)
[2019-05-02] MEDS ORDERED: MIDAZOLAM INJ 2 MG/2 ML VIAL (J2250) As Ordered ONE (16:43)
[2019-05-02 18:00] VITALS: BP 158/83
--- NOTE | 2019-05-17 20:30 | RO ---
DATE OF PROCEDURE: 05/02/2019 PREOPERATIVE DIAGNOSIS: Right first toe gangrene. POSTOPERATIVE DIAGNOSIS: Right first toe gangrene. PROCEDURE: Right first toe guillotine amputation. SURGEON: Dr. Sage Ignacio BROADCAST CHIEF ENGINEER: None. ANESTHESIA: Ankle block and local monitored anesthesia care (MAC). ESTIMATED BLOOD LOSS: 5 mL IV FLUIDS: 200 mL SPECIMEN: Distal portion of the right first toe. INDICATION: The patient is a 53-year-old male with gangrene of his right first toe who has had dry gangrene of the toe, which is now starting to fall off, but there is a tendon which is connecting the toe distally. The patient will undergo amputation of the distal right first toe. DESCRIPTION OF PROCEDURE: The patient was taken to the operating room, placed supine on the operating room table and then prepped and draped in a standard surgical fashion. An ankle block was performed using 2% lidocaine mixed with 0% Marcaine, after which the toe was amputated sharply with a scalpel. The wound remained open with good granulation tissue noted at the base of the wound, and no signs of infection. Dressings were then applied. The patient tolerated the procedure well. All instrument, sponge, and needle counts were correct at the end of the case. There were no complications. Dr. Ignacio was present for and directed the entire case. The patient was transferred to the recovery room awake, alert, extubated and in stable condition.
== END 2019-05-02 18:05 | disposition home or self-care (01) ==
LOC: M SDC 12:35
PROVIDERS: ATTEND Surgery Vascular Surgery
DX: I96 Gangrene, not elsewhere classified (principal); M87.877 Other osteonecrosis, right toe(s); I10 Essential (primary) hypertension; F32.9 Major depressive disorder, single episode, unspecified; F41.9 Anxiety disorder, unspecified; I73.01 Raynaud's syndrome with gangrene; R60.0 Localized edema; I73.1 Thromboangiitis obliterans [Buerger's disease]; Z86.711 Personal history of pulmonary embolism; Z79.899 Other long term (current) drug therapy; Z79.01 Long term (current) use of anticoagulants; Z79.82 Long term (current) use of aspirin; Z87.891 Personal history of nicotine dependence
CPT/HCPCS: 28825; 64450; 88305; J2250; J2405; J3010

== ENCOUNTER → 2019-07-17 | Outpatient (CLI) | payer MEDICARE, MEDICAID ==
[~2019-07-17] MED LIST changes: -LR 1,000 ML IV ONE
--- NOTE | 2019-07-17 18:00 | REP ---
Bilateral lower extremity arterial Doppler ultrasound: History: Atherosclerosis. Intermittent bilateral lower extremity claudication. Thromboangiitis obliterate hands. Findings: Ankle brachial indices could not be obtained due to patient's pain tolerance the cuff pressure. Moderate to severe plaquing is observed. On the right, the [place] arteries are occluded from the proximal superficial femoral to and through the tibioperoneal trunk including the proximal anterior tibial artery. The right common femoral artery to the posterior tibial artery bypass graft is patent. There is reversal of the collateralized flow in the proximal posterior tibial artery and distal anterior tibial artery on the right. The distal anterior tibial artery appears occluded above this. On the left the proximal superficial femoral and mid superficial femoral artery are occluded. The left distal SFA is reconstituted. The proximal AT A on the left is occluded. A trickle of flow is seen in the distal AT A. Monophasic waveforms are noted in the left lower extremity arteries. Right lower extremity arterial Doppler velocity chart: Right CF A 106 cm/S Profunda 50 Proximal SFA occluded Mid SFA occluded Distal SFA occluded Popliteal occluded Proximal AT A occluded Tibioperoneal trunk occluded Proximal HVAC TECH 79 reversed Distal HVAC TECH 58 Distal AT A 9.8 reversed Right CF A to posterior tibial artery graft velocities: Proximal 40 cm/S/60 cm/S Mid graft 37 cm/S Distal graft 30 cm/S Left lower extremity arterial Doppler velocity chart: CF A 144 cm/S Profunda 80 Proximal SFA occluded Mid SFA occluded Distal SFA 34 Popliteal 43 Proximal AT A occluded Tibioperoneal trunk 55 Proximal HVAC TECH 31 Distal HVAC TECH 34 Distal AT A trickle of flow 16 Electronically Signed by Unruly Gotti MD 07/17/2019 05:52 P
== END ==
LOC: M RAD 12:17
PROVIDERS: ATTEND Physician Assistant
DX: I70.213 Atherosclerosis of native arteries of extremities with intermittent claudication, bilateral legs (principal); I73.1 Thromboangiitis obliterans [Buerger's disease]

== ENCOUNTER → 2019-08-27 | Outpatient (CLI) | payer MEDICARE, MEDICAID ==
[~2019-08-27] MED LIST changes: +HEPARIN 1,000 UNITS/ML 10ML VIAL (FOR RADIOLOGY& DIALYSIS ONLY) As Ordered ONE; +ISOVUE-300 61% 50ML VIAL (Q9967) As Ordered ONE; +LIDOCAINE 1% MDV 20ML VIAL As Ordered ONE; +MIDAZOLAM INJ 2 MG/2 ML VIAL (J2250) As Ordered ONE; +diphenhydrAMINE INJ 50MG/ML VIAL (J1200) As Ordered ONE; +fentaNYL 100 MCG/2 ML INJECTION (J3010) As Ordered ONE
[2019-08-27 07:31] LABS: HEMATOCRIT 48.7 % (42.0-52.0); HEMOGLOBIN 16.6 g/dl (13.5-17.5); MEAN CORPUSCULAR HEMOGLOBIN 34.5 pg (27.0-33.0); MEAN CORPUSCULAR HGB CONC 34.1 g/dl (32.0-36.5); MEAN CORPUSCULAR VOLUME 101.2 fl (80.0-96.0); PLATELET COUNT, AUTOMATED 123 10^3/uL (150-450); RED BLOOD COUNT 4.81 10^6/uL (4.30-6.10); WHITE BLOOD COUNT 5.4 10^3/uL (4.0-10.0)
[2019-08-27 08:01] LABS: BLOOD UREA NITROGEN 5 MG/DL (7-18); CALCIUM LEVEL 8.5 MG/DL (8.5-10.1); CARBON DIOXIDE LEVEL 26 MEQ/L (21-32); CHLORIDE LEVEL 105 MEQ/L (98-107); GLOMERULAR FILTRATION RATE > 60.0 (>56); GLUCOSE, FASTING 79 MG/DL (70-100); POTASSIUM SERUM 4.4 MEQ/L (3.5-5.1); SODIUM LEVEL 138 MEQ/L (136-145)
--- NOTE | 2019-08-27 08:54 | ROOPDOC ---
[facility] Report Of Operation Report of Operation DATE OF PROCEDURE: 08/27/19 PREPROCEDURE DIAGNOSES: 1. Buerger's disease 2. Atherosclerosis of the [place] vessels with lifestyle limiting claudication nonhealing wounds of the left toes POSTPROCEDURE DIAGNOSES: Same. PROCEDURE: 1. Ultrasound-guided access right common femoral artery 2. Aortoiliofemoral arteriogram 3. Selection of left common femoral artery and left lower extremity runoff 4. Attempt to cross chronic total occlusion left superficial femoral artery, aborted 5. Mynx closure right common femoral artery SURGEON: Frances Mendez MD ANESTHESIA: Local anesthesia 2 mL lidocaine. Moderate intravenous conscious sedation was supervised by Dr. Mendez. The patient was independently monitored by a registered nurse and signs at the Department of radiology using automated blood pressure, EKG, and pulse oximetry. A detailed sedation record is permanently stored in the hospital information system. The following is the [facility] sedation record: Start time 08:05, stop time 08:40, fentanyl 100 g, Versed 2 mg. CONTRAST: 44 mL Isovue-300 INDICATION FOR PROCEDURE: Mr. Garcia is a very pleasant 54-year-old gentleman with a history of Buerger's disease and severe bilateral lower extremity atherosclerosis of the [place] vessels who has lost the tips of fingers and has severe microvascular disease from heavy tobacco use. The patient quit smoking 3 months ago. He has a functional right femoropopliteal bypass done by Dr. Ignacio, and now returns for intervention on the left lower extremity. Risks benefits and alternatives to an arteriogram with potential intervention were explained to the patient. Based on his noninvasive studies, we know he has an occlusion of the superficial femoral artery in the midportion and the anterior tibial artery. We hope to be able to treat at least the SFA endovascularly. Informed consent was obtained. INTERPRETATION: 1. The aortoiliofemoral segments are widely patent. 2. The left common femoral artery is widely patent with good runoff into the profunda. The superficial femoral artery is occluded at its origin and reconstitutes just proximal to Johnny's canal through extensive collaterals from the profunda. The popliteal arteries widely patent and run softer widely patent tibioperoneal trunk into the posterior tibial artery and peroneal artery. Both of these tibial vessels become thready at the ankle. The anterior tibial artery is occluded at its origin and does not reconstitute. 3. Aggressive attempts were made to cross the superficial femoral artery. We could cross to the mid thigh but could not cross further. No extravasation was noted on completion imaging. REPORT OF OPERATION: The patient was brought to the angiographic suite in stable condition and placed supine on the fluoroscopic table. His bilateral groins were prepped and draped in a sterile fashion. A timeout was performed. Sedation was administered without complication. Local anesthesia was Mr. to the skin and subcutaneous tissue over the right common femoral artery and ultrasound was used to guide access proximal to the takeoff of the bypass. A wire was passed through this access under fluoroscopic guidance the needle was removed and a micro- sheath was placed. A Glidewire was advanced through this access into the aorta under fluoroscopic guidance. The sheath was exchanged for 6 Greek sheath and flushed with saline. An Omni flushed catheter was advanced in the distal aorta and aortoiliofemoral arteriogram was performed. Please see interpretation above. Next, we went up and over the bifurcation with a Glidewire an Omni flushed catheter. We selected the left common femoral artery and arteriograms and runoff or perform. Please see interpretation above. Following this, we utilized a Glidewire [place] catheter to try to cross through the SFA occlusion. We were able to access the SFA, and pass a wire and catheter to the midportion of the SFA, but could not cross further. Aggressive attempts were made, but we were unsuccessful at Crossing the last 5-10 cm of occluded SFA. Completion imaging showed that there was no extravasation. We then exchanged the sheath over the wire for a short 6 Greek sheath and deployed a Mynx closure device under fluoroscopic guidance with good hemostasis. Pressure was held for 10 minutes and the patient was taken to recovery in stable condition. There were no complications. The patient tolerated the procedure well. ESTIMATED BLOOD LOSS: Approximately 5 mL. COMPLICATIONS: None. PLAN: Our plan will be to see the patient back in a week to check his groin access site. He will need a vein mapping of the left lower extremity. He will need a left femoral to above-knee bypass, hopefully with greater saphenous vein in situ. He will need medical clearance and a stress test if he has not had one within the last year. Resume all home medications. FRANCES MENDEZ MD Aug 27, 2019 08:54
[2019-08-27 12:45] VITALS: BP 159/82
--- NOTE | 2019-08-27 13:04 | REP ---
Left lower extremity venous ultrasound: Vein mapping study. History: Vein mapping for left lower extremity bypass. Findings: There is no ultrasound evidence of deep vein thrombosis or superficial vein thrombosis in the left lower extremity. Left lower extremity greater saphenous vein diameter chart: Proximal 5.4 mm Mid thigh 4.1 mm Distal thigh at 4.4 mm Proximal calf 3.8 mm [place] 2.4 mm Distal calf 3.4 mm Left lower extremity lesser saphenous vein diameter chart: Distal thigh 1.7 mm Popliteal fossa 1.4 mm Proximal calf 1.4 mm [place]calf 1.3 mm Distal calf 1.3 mm. The lesser saphenous vein connects posterior thigh not of the popliteal. Electronically Signed by Unruly Gotti MD 08/27/2019 12:55 P
== END ==
LOC: M IRPRO 06:31
PROVIDERS: ATTEND Surgery Vascular Surgery
DX: I73.1 Thromboangiitis obliterans [Buerger's disease] (principal); I70.202 Unspecified atherosclerosis of native arteries of extremities, left leg; I70.248 Atherosclerosis of native arteries of left leg with ulceration of other part of lower leg; I70.92 Chronic total occlusion of artery of the extremities

== ENCOUNTER 2019-10-07 05:53 | Inpatient (IN) | payer MEDICAID, MEDICARE ==
--- NOTE | 2019-10-04 11:06 | HPEPDOC ---
[facility] Medical History & Physical Date of Admission Oct 07, 2019 Date of Service: Oct 07, 2019 Attending Physician: FRANCES MENDEZ MD History and Physical CHIEF COMPLAINT: Left lower extremity pain. HISTORY OF PRESENT ILLNESS: The patient is a 54-year-old male diagnosed with Buerger's disease in 2018 at [facility] in [facility]. Status post right common femoral artery to posterior tibial artery bypass graft with saphenous vein graft 11/18/[address] Ignacio. Status post first toe amputation 05/02/[address] Ignacio. The patient was reporting increasing left lower extremity lifestyle limiting claudication, reddish discoloration of the left great toe, increasing pain of the left great toe and a wound of the left nail which was not healing. The patient underwent left lower extremity angiogram as per Dr. Mendez 08/27/19 which indicated patent left common femoral artery with good runoff to the profunda, SFA occluded at the origin with collaterals from the profunda. Popliteal arteries patent, tibial peroneal trunk patent as well as SIDER and perineal. Tibial vessels becoming thready at the ankle. MAC occluded at the origin with no reconstitution. Aggressive attempts to cross the SFA were unsuccessful. It was recommended the patient consider left femoral to above-knee popliteal bypass procedure. In preparation for this vein mapping was obtained indicating suitable left greater saphenous vein for the bypass procedure. The patient follows with podiatry, Dr Hopson, for left foot wound management. Recommendations were discussed and reviewed with the patient at his appointment 09/24/19. The procedure, risks, and benefits were discussed with the patient at length. Informed consent, transfusion consent was obtained and placed on the chart. Medical and cardiac clearance was requested. PAST MEDICAL HISTORY: PAD Buerger's disease Hypertension Depression Anxiety PAST SURGICAL HISTORY: Hand surgery April 2018 Right lower extremity bypass November 2018 Right great toe amputation April 2019 Right lower extremity arteriogram November 2018 Left lower extremity arteriogram 08/27/2019 SOCIAL HISTORY: Former smoker, quit 2017 FAMILY HISTORY: Father with history of lung cancer and brain cancer. Mother history of diabetes. REVIEW OF SYSTEMS: As noted in HPI, otherwise 11pt ROS of systems reviewed and unremarkable. PHYSICAL EXAMINATION: Admission vital signs pending. GEN: 54 yo M, appears medically stable, thin appearing. No acute distress. Alert and oriented x 3. Pleasant, interactive. HEENT: Normocephalic, atraumatic. Moist mucous membranes. Neck supple, trachea midline. No lymphadenopathy or thyromegaly appreciated. CHEST: Regular rate and rhythm, +S1, +S2 LUNGS: Clear to auscultation bilaterally. No wheezes, rales, or rhonchi. No accessory muscle use. ABD: Round, soft, non-tender, non-distended. +Bowel sounds throughout. EXT: SKIN: [place], dry, warm. No rashes. NEURO: Alert and oriented x 3. Cranial nerves III-XII are intact. No focal deficits appreciated. ASSESSMENT/Plan #1 PAD, lifestyle limiting claudication left lower extremity. Plan is to proceed with left lower extremity femoral to above-knee popliteal bypass with left greater saphenous vein as per Dr. Mendez. Medical and cardiac clearance requested. Patient remains on aspirin 81 mg daily. Preoperative CBC/CMP/PTT/PT/INR/type and screen. Ancef 2 g IV preoperatively. #2. History of Buerger's disease. #3. Hypertension. Patient remains on amlodipine. #4. History of anxiety/depression. The patient is not on any medications at this time. Laboratory Data Labs 24H Item Value Date Time White Blood Count 5.4 10^3/uL 08/27/19 0713 Red Blood Count 4.81 10^6/uL 08/27/19 0713 Hemoglobin 16.6 g/dl 08/27/19 0713 Hematocrit 48.7 % 08/27/19 0713 Mean Corpuscular Volume 101.2 fl H 08/27/19 0713 Mean Corpuscular Hemoglobin 34.5 pg H 08/27/19 0713 Mean Corpuscular Hemoglobin Concent 34.1 g/dl 08/27/19 0713 Red Cell Distribution Width 11.9 % 08/27/19 0713 Platelet Count 123 10^3/uL L 08/27/19 0713 Sodium Level 138 MEQ/L 08/27/19 0715 Potassium Level 4.4 MEQ/L 08/27/19 0715 Chloride Level 105 MEQ/L 08/27/19 0715 Carbon Dioxide Level 26 MEQ/L 08/27/19 0715 Anion Gap 7 MEQ/L L 08/27/19 0715 Blood Urea Nitrogen 5 MG/DL L 08/27/19 0715 Creatinine 0.80 MG/DL 08/27/19 0715 Glomerular Filtration Rate > 60.0 08/27/19 0715 Fasting Glucose 79 MG/DL 08/27/19 0715 Aspartate Amino Transf (AST/SGOT) 56 U/L H 11/27/18 0616 Alanine Aminotransferase (ALT/SGPT) 59 U/L 11/27/18 0616 LDL Cholesterol 113.8 MG/DL H 03/04/16 1030 Thyroid Stimulating Hormone (TSH) 1.230 uIU/ML 11/24/18 0717 Home Medications Scheduled Amlodipine Besylate (Norvasc) 10 Mg Tablet, 10 MG PO DAILY Aspirin (Ecotrin) 81 Mg Tablet.dr, 81 MG PO DAILY Scheduled PRN Acetaminophen (Acetaminophen) 500 Mg Tablet, 1,500 MG PO Q6H PRN for PAIN Ibuprofen (Ibuprofen) 200 Mg Capsule, 600 MG PO QIDP PRN for PAIN Allergies Coded Allergies: No Known Allergies (Verified , 10/03/19) A-FIB/CHADSVASC A-FIB History Current/History of A-Fib/PAF?: No Eliza Garvey Oct 04, 2019 11:06
[~2019-10-07] VITALS: Ht 175.3 cm; Wt 59.4 kg
[2019-10-07] VITALS (8 sets, daily range): BP systolic 108–136; BP diastolic 73–87
[~2019-10-07 05:53] MED LIST changes: +AMLO10TA PO; +ECOT81TA5 PO; -HEPARIN 1,000 UNITS/ML 10ML VIAL (FOR RADIOLOGY& DIALYSIS ONLY) As Ordered ONE; +IBUP200C25 PO; -ISOVUE-300 61% 50ML VIAL (Q9967) As Ordered ONE; -LIDOCAINE 1% MDV 20ML VIAL As Ordered ONE; -MIDAZOLAM INJ 2 MG/2 ML VIAL (J2250) As Ordered ONE; -diphenhydrAMINE INJ 50MG/ML VIAL (J1200) As Ordered ONE; -fentaNYL 100 MCG/2 ML INJECTION (J3010) As Ordered ONE
[2019-10-07] MEDS ORDERED: LR 1,000 ML IV ONE (06:00)
[2019-10-07] MEDS ORDERED: ceFAZolin SOD 2 GM in IV 1 EA IV ONE (06:00)
[2019-10-07 06:29] LABS: HEMATOCRIT 48.3 % (42.0-52.0); HEMOGLOBIN 16.4 g/dl (13.5-17.5); MEAN CORPUSCULAR HEMOGLOBIN 34.6 pg (27.0-33.0); MEAN CORPUSCULAR VOLUME 101.9 fl (80.0-96.0); PLATELET COUNT, AUTOMATED 201 10^3/uL (150-450); RED BLOOD COUNT 4.74 10^6/uL (4.30-6.10); WHITE BLOOD COUNT 6.3 10^3/uL (4.0-10.0)
[2019-10-07 06:51] LABS: INR 0.96; PROTHROMBIN TIME 12.5 SECONDS (11.8-14.0)
[2019-10-07 06:57] LABS: BLOOD UREA NITROGEN 3 MG/DL (7-18); CALCIUM LEVEL 8.4 MG/DL (8.5-10.1); CARBON DIOXIDE LEVEL 22 MEQ/L (21-32); CHLORIDE LEVEL 108 MEQ/L (98-107); CREATININE FOR GFR 0.65 MG/DL (0.70-1.30); GLOMERULAR FILTRATION RATE > 60.0 (>56); GLUCOSE, FASTING 67 MG/DL (70-100); POTASSIUM SERUM 4.7 MEQ/L (3.5-5.1); SODIUM LEVEL 136 MEQ/L (136-145)
[2019-10-07] MEDS ORDERED: fentaNYL 250 MCG/5 ML INJECTION (J3010) As Ordered ONE (07:15)
[2019-10-07] MEDS ORDERED: MIDAZOLAM INJ 2 MG/2 ML VIAL (J2250) As Ordered ONE (07:15)
[2019-10-07] MEDS ORDERED: propofoL 200 MG/20 ML VIAL As Ordered ONE (07:15)
[2019-10-07] MEDS ORDERED: LIDOCAINE 2% INJ 100 MG/5 ML SDV (FOR ANES.) As Ordered ONE (07:15)
[2019-10-07] MEDS ORDERED: ONDANSETRON 4MG/2ML VIAL (J2405) As Ordered ONE (07:16)
[2019-10-07] MEDS ORDERED: dexameTHASONE 4 MG/ML 1ML VIAL (J1100) As Ordered ONE (07:16)
[2019-10-07] MEDS ORDERED: THROMBIN SOLN 20,000 UNITS KIT As Ordered ONE (07:16)
[2019-10-07] MEDS ORDERED: ISOVUE-300 61% 50ML VIAL (Q9967) As Ordered ONE (07:17)
[2019-10-07] MEDS ORDERED: HEPARIN SOD (PORCINE) 5000 UNITS/ML VIAL (J1644 PER 1000UNITS) As Ordered ONE ×3 (07:17→10:16)
[2019-10-07] MEDS ORDERED: BUPIVACAINE/EPIN 0.5% 30 ML VIAL As Ordered ONE (07:17)
[2019-10-07] MEDS ORDERED: ACETAMINOPHEN 1000MG 100ML IV BTL (OFIRMEV) (J0131 PER 10MG) As Ordered ONE (09:25)
[2019-10-07] MEDS ORDERED: PHENYLephrine HCL 500 MCG/5 ML (100MCG/ML) SYRINGE (J2370) As Ordered ONE (09:53)
[2019-10-07] MEDS ORDERED: ePHEDrine SULFATE 25 MG/5 ML(5MG/ML) SYRINGE As Ordered ONE (09:53)
[2019-10-07] MEDS ORDERED: KETOROLAC 60 MG/2 ML VIAL (J1885) As Ordered ONE (11:58)
[2019-10-07] MEDS ORDERED: diazePAM 5 MG TAB PO PRN (12:45)
[2019-10-07] MEDS ORDERED: PERCOCET 5MG/325MG TAB PO PRN ×2 (12:45→13:00)
[2019-10-07] MEDS: LR 1,000 ML IV SCH ×2 (13:00→23:00)
[2019-10-07] MEDS ORDERED: METOCLOPRAMIDE INJ 10MG/2ML VIAL (J2765) IV PRN (13:00)
[2019-10-07] MEDS ORDERED: MEPERIDINE INJ 25 MG/ML VIAL (J2175) IV PRN (13:00)
[2019-10-07] MEDS ORDERED: ONDANSETRON 4MG/2ML VIAL (J2405) IV PRN (13:00)
[2019-10-07] MEDS ORDERED: fentaNYL 100 MCG/2 ML INJECTION (J3010) IV PRN (13:00)
--- NOTE | 2019-10-07 13:00 | ROOPDOC ---
[facility] Report Of Operation Report of Operation DATE OF PROCEDURE: 10/07/19 PREPROCEDURE DIAGNOSES: Atherosclerosis of the [place] vessels, Buerger's disease, nonhealing wound left first toe. POSTPROCEDURE DIAGNOSES: Same. PROCEDURE: 1. Left common femoral endarterectomy with Xenosure patch angioplasty 2. Left femoral to above-knee popliteal bypass with in situ vein SURGEON: Frances Mendez MD ANESTHESIA: Gen. anesthesia and local anesthesia. INDICATION FOR PROCEDURE: Mr. Garcia is a very pleasant 54-year-old gentleman with Buerger's disease who has quit smoking, and has undergone extensive romario scularization on the right lower extremity, now returns with a nonhealing very painful ischemic wound of the left first toe. He underwent arteriogram with attempted revascularization of the left lower extremity, but this was unsuccessful and we discussed options for a left femoral to above-knee Pop bypass with in situ vein. The patient has suitable greater saphenous vein for bypass. Risks benefits and alternatives were explained at length and he was agreeable to proceed. Informed consent was obtained. REPORT OF OPERATION: The patient was brought to the operating room in stable condition. General anesthesia and antibiotics were administered without complication. His left groin and lower extremity were prepped and draped in a sterile fashion. A timeout was performed. An oblique incision was made over the left groin over the inguinal ligament carried down to the subcutaneous tissue with Bovie cautery. The femoral sheath was encountered and carefully skeletonized proximally and distally within the incision. Due to history of percutaneous interventions through the left common femoral artery and a history of Buerger's disease, there was a lot of scar and inflammatory tissue around the vessels. This added a bit of extra time to the dissection. After careful skeletonization, we are able to place vessel loops around the superficial femoral artery distally, the profunda artery branches of the SFA, the circumflex vessels and dissected suitable area proximal to the circumflex vessels for clamp placement. We skeletonized the proximal greater saphenous vein within the incision. He came off very low on the common femoral artery, but we were able to skeletonized about 6 cm and ligated branches along that area. Next we turned our attention to the above-knee popliteal dissection. A longitudinal incision was made over the medial lower thigh and carried down to the subcutaneous tissue with Bovie cautery. The fascia was incised and we continued the dissection laterally towards the popliteal vessels. The artery was skeletonized proximally and distally. There were 2 large branches that were preserved with Vesseloops. We then placed a vessel loop proximally and distally on the vessel. The saphenous vein was fairly deep in the subcutaneous tissue inferior to her incision and we were able to carefully dissected out and skeletonized proximally and distally. Branches were suture ligated and divided. The vein appeared to be in good condition for bypass. Since the saphenofemoral junction was fairly distal on the common femoral vein, we estimated we would need to do her anastomosis on the proximal superficial femoral artery if we wanted to continue with in situ bypass, which we did. We therefore needed to do an SFA endarterectomy, and we were able to palpate significant intimal hyperplasia within the common femoral artery and the profunda, so at this point I felt the safest thing was just endarterectomized the common femoral artery, profunda, and SFA to allow better inflow. A clamp was placed proximally after heparinizing and the Vesseloops were secured. An arteriotomy was made from the proximal SFA up over the common femoral artery. Smooth rubbery near occlusive plaque was removed from the SFA and the profunda, and also from the common femoral artery. Care was taken to remove all loose intima and debris. This took a bit of time, but we eventually were very happy with the endarterectomy plane and irrigated with heparinized saline. A Xenosure patch was then used to close the arteriotomy in a running fashion with 5-0 Prolene suture. Before the final sutures are placed, we flushed the inflow and outflow arterial and irrigated with heparinized saline. We then restored flow and had a good pulse in the proximal SFA and the profunda. Next, a clamp was placed across the saphenofemoral junction and a 5-0 Prolene suture was used to close the common femoral vein and a running mattress fashion under the clavicle. We then used a 15 blade to remove the saphenous vein from the femoral vein and a bulldog clamp was placed on the greater saphenous vein. We then oversewed the rest of the common femoral vein for good hemostasis. The saphenous vein was inverted and the valves were lysed. We then give additional heparin and resecure the clamp on the common femoral artery and the Vesseloops resecured. An arteriotomy was made in our patch and the saphenous vein was anastomosed in an end-to-side fashion with 6-0 Prolene suture. Before the final sutures are placed, we flushed the inflow and outflow of the artery and then secured the sutures. Good hemostasis was noted on restored flow. Next, we tied off the very distal aspect of the greater saphenous vein within our popliteal incision, and placed a clot. The vein was divided and spatulated. We flushed with heparinized saline. We then passed a valvulotome up to but not through our anastomosis and lyse the bowels. This was repeated 2 times. We then introduced a valvulotome again through her anastomosis with the infusion tip and aquatic arteriogram helped S identified branches to be clipped in the in situ vein. We marked these on a skin, and a single mid thigh incision was needed to clip branches. A small incision was made over the area and carried down to the subcutaneous tissue with Bovie cautery. The saphenous vein bypass was identified and skeletonized within the incision and the branches were identified and clipped. Repeat arteriogram showed that we had no new additional branches and there was a bounding pulse an excellent flow through the graft. We then secured a bulldog clamp on the distal graft. Additional heparin was given in the Vesseloops were secured on the popliteal artery. A small arteriotomy was made in the vein was fashioned for an end-to-side anastomosis. We performed this with a 6-0 Prolene running suture and before the final sutures are placed, we flushed the inflow and the outflow of the artery, and then placed the final sutures. Flow was restored and good hemostasis was noted. There is an excellent pulse in the bypass, an excellent pulse in the popliteal artery and excellent flow on Doppler through the common femoral artery, profunda, proximal SFA, bypass, and popliteal artery. All 3 incisions were copiously irrigated with normal saline. Local anesthesia was administered to skin and subcutaneous tissue around each incision. The popliteal incision vein harvest area was closed with some interrupted Vicryl sutures to close the space. We then closed the fascia in 2 layers with running Vicryl suture with care taken not to disturb the bypass. We then closed the superficial dermal layer with 3-0 Vicryl suture and tremayne close the skin. The mid thigh small incision deep tissue was approximated with running Vicryl suture. The fascia above this was approximated with running Vicryl suture and the skin was closed with tremayne. At the groin incision, the femoral sheath was approximated with running Vicryl suture. The fascia was closed in 3 layers with running Vicryl suture and the deep dermal layer was approximated with real Vicryl suture. Skin tremayne were used to close the skin. All 3 incisions were clean and dry. Good hemostasis was noted. Sterile dressings were applied and the patient was allowed to awaken and taken to recovery in stable condition. ESTIMATED BLOOD LOSS: Approximately 150 mL. COMPLICATIONS: None. SPECIMEN: Left femoral plaque sent for pathology PLAN: We will admit the patient to hospitalist service and appreciate their assistance. He should elevate his extremity when in bed. We will do 24 hours of bedrest postprocedure, and then DC the Rubin and get him out of bed with assist tomorrow at noon. We will restart the Plavix and the aspirin tomorrow. He will need a high protein diet to help with healing. Local wound care to his left f irst toe. Analgesia when necessary. Likely patient will be ready for discharge in 3-5 days. FRANCES MENDEZ MD Oct 07, 2019 13:00
--- NOTE | 2019-10-07 13:55 | HPEPDOC ---
General Date of Admission Oct 07, 2019 at 05:53 Date of Service: Oct 07, 2019 Chief Complaint The patient is a 54-year-old male admitted with a reason for visit of Atherosclerosis Of [place] Arteries Of Lower ..... Source: Patient Exam Limitations: No limitations Timing/Duration: Other (elective left femoral popliteal bypass surgery) Severity: Other (, not applicable) Associated Symptoms: Other (Not applicable) History of Present Illness 54 years old white male with past medical history of Palacio disease PAD, hypertension, depression, anxiety, status post right femoral artery to posterior tibial artery bypass graft by Dr. Ignacio in the past, status post first left toe amputation. He started having increasing left lower extremity claudication,reddened and wound discoloration of left great toe and the left toenail not healing. Patient had a left femoral to above-knee popliteal to popliteal bypass surgery done today by Dr. crawford. Patient will be admitted to medical floor for postop care. Patient is comfortable offers no new complaints at the present time. Home Medications Scheduled Amlodipine Besylate (Norvasc) 10 Mg Tablet, 10 MG PO DAILY, (Reported) Aspirin (Ecotrin) 81 Mg Tablet.dr, 81 MG PO DAILY, (Reported) Scheduled PRN Acetaminophen (Acetaminophen) 500 Mg Tablet, 1,500 MG PO Q6H PRN for PAIN, (Reported) Ibuprofen (Ibuprofen) 200 Mg Capsule, 600 MG PO QIDP PRN for PAIN, (Reported) Allergies Coded Allergies: No Known Allergies (Verified , 10/03/19) Past Medical History Medical History PAD Palacio disease, hypertension, depression, anxiety Surgical History Hand surgery a right lower extremity bypass, right great toe amputation. Right lower extremity angiogram right lower extremity arteriogram Family History Mother with history of diabetes Social History * Smoker: former Smoker Alcohol: Denies Drugs: denies A-FIB/CHADSVASC A-FIB History Current/History of A-Fib/PAF?: No Review of Systems Constitutional: Denies: Chills, Fever, Malaise, Night Sweats, Weakness, Fatigue, Weight Loss, Lethargy, Other Eyes: Denies: Pain, Vision change, Conjunctivae inflammation, Eyelid inflammation, Redness, Other ENT: Denies: Head Aches, Ear Pain, Dysphagia, Sinus Congestion, Post Nasal Drip, Sore Throat, Epistaxis, Other Symptoms Skin: Denies: Rash, Lesions, Jaundice, Bruising, Itching, Dry, Breakdown, Nail Changes, Other Pulmonary: Denies: Dyspnea, Cough, Pleuritic Chest Pain, Other Symptoms Cardiovascular: Denies: Chest Pain, Palpitations, Orthopnea, Paroxysmal Noc. Dyspnea, Edema, Lt Headedness, Other Symptoms Gastrointestinal: Denies: Nausea, Vomiting, Abdominal Pain, Diarrhea, Constipation, Melena, Hematochezia, Other Symptoms Genitourinary: Denies: Dysuria, Frequency, Incontinence, Hematuria, Retention, Other Symptoms Hematologic: Denies: Bruising, Bleeding Excessively, Petecchia, Purpura, Enlarged Lymph Nodes, Other Hematologic Endocrine: Denies: Polydipsia, Polyphagia, Polyuria, Heat Intolerance, Cold Intolerance, Other Endocrine Sx Musculoskeletal: Denies: Neck Pain, Back Pain, Shoulder Pain, Arm Pain, Hand Pain, Leg Pain, Foot Pain, Joint Pain, Muscle Pain, Spasms, Other Symptoms Neurological: Denies: Weakness, Numbness, Incoordination, Change in speech, Confusion, Seizures, Other Symptoms Psych: Denies: Mood Normal, Anxiety, Depression, Memory Issues, Thoughts of Self Harm, Anger, Thoughts of Harming Other, Other Psych Physical Examination General Exam: Positive: Alert, Cooperative Eye Exam: Positive: PERRLA, Conjunctiva & lids normal ENT Exam: Positive: Atraumatic, Mucous membr. moist/pink Neck Exam: Positive: Supple Chest Exam: Positive: Normal air movement Heart Exam: Positive: Rate Normal, Normal S1, Normal S2 Abdomen Exam: Positive: Normal bowel sounds Extremity Exam: Positive: Other (wound with dislodged nail at the left big toe chronic discoloration bilateral bilateral both feet and legs, status post amputation right big toe) Skin Exam: Positive: Other skin issue (as above) Neuro Exam: Positive: Strength at 5/5 X4 ext, Sensation Intact, Cranial Nerves 3-12 NL Psych Exam: Positive: Mental status NL, Oriented x 3 Vital Signs Vital Signs Date Time Temp Pulse Resp B/P (MAP) Pulse Ox O2 Delivery O2 Flow Rate FiO2 10/07/19 13:34 97 75 16 110/60 (77) 96 Room Air 10/07/19 13:05 3 Laboratory Data Labs 24H Laboratory Tests 2 10/07/19 06:11: Nucleated Red Blood Cells % (auto) 0.0, Prothrombin Time 12.5, Prothromb Time International Ratio 0.96, Anion Gap 6L, Glomerular Filtration Rate > 60.0, Calcium Level 8.4L CBC/BMP Laboratory Tests 10/07/19 06:11 Problems (1) S/P femoral-femoral bypass surgery Status: Acute Problem Text: Status post left femoral below-knee popliteal bypass surgery. Patient tolerated procedure very well. Total blood loss was only 150 mL Patient will be admitted under hospitalist service to medical floor. Pain management as per surgical orders High protein diet Bed rest until tomorrow Physical therapy tomorrow Further, as per vascular surgery recommendations (2) PAD (peripheral artery disease) Status: Chronic Problem Text: Continue all home medications Podiatry consult for left foot wound. This has been called and message left with Dr. Hopson's office Further recommendation as per podiatry (3) Depression Status: Chronic Problem Text: Continue home meds (4) HTN (hypertension) Status: Chronic Problem Text: Norvasc restarted Will monitor blood pressure medicine and adjust the dose accordingly (5) Anxiety Status: Chronic Problem Text: Continue home meds Plan / VTE VTE Prophylaxis Ordered?: Yes SONJA MITCHELL MD Oct 07, 2019 13:55
[2019-10-07] MEDS: ASPIRIN 81 MG ENTERIC TAB PO SCH (14:11)
[2019-10-07] MEDS: CLOPIDOGREL 75 MG TAB PO SCH (14:11)
[2019-10-07] MEDS: PERCOCET 5MG/325MG TAB PO PRN (16:58)
[2019-10-08] MEDS: PERCOCET 5MG/325MG TAB PO PRN ×4 (00:52→23:20)
[2019-10-08 02:00] VITALS: BP 114/76
[2019-10-08 06:00] VITALS: BP 132/77
[2019-10-08 06:48] LABS: BASO % 0.2 % (0.0-1.0); EOS % 0.3 % (0.0-3.0); HEMATOCRIT 42.3 % (42.0-52.0); LYMPH # 1.8 10^3/uL (1.5-5.0); LYMPH % 16.6 % (24.0-44.0); MEAN CORPUSCULAR HEMOGLOBIN 34.1 pg (27.0-33.0); MEAN CORPUSCULAR HGB CONC 33.3 g/dl (32.0-36.5); MEAN CORPUSCULAR VOLUME 102.2 fl (80.0-96.0); MONO # 1.3 10^3/uL (0.0-0.8); MONO % 11.9 % (0.0-5.0); NEUTROPHILS # 7.8 10^3/uL (1.5-8.5); NEUTROPHILS % 70.5 % (36.0-66.0); PLATELET COUNT, AUTOMATED 167 10^3/uL (150-450); RED BLOOD COUNT 4.14 10^6/uL (4.30-6.10); WHITE BLOOD COUNT 11.1 10^3/uL (4.0-10.0)
[2019-10-08 06:55] LABS: HEMOGLOBIN 14.1 g/dl (13.5-17.5)
[2019-10-08 07:17] LABS: ALBUMIN 2.8 GM/DL (3.2-5.2); ALT/SGPT 29 U/L (12-78); BILIRUBIN,TOTAL 0.8 MG/DL (0.2-1.0); BLOOD UREA NITROGEN 10 MG/DL (7-18); CALCIUM LEVEL 8.6 MG/DL (8.5-10.1); CARBON DIOXIDE LEVEL 24 MEQ/L (21-32); CHLORIDE LEVEL 104 MEQ/L (98-107); CREATININE FOR GFR 0.65 MG/DL (0.70-1.30); GLOMERULAR FILTRATION RATE > 60.0 (>56); GLUCOSE, FASTING 82 MG/DL (70-100); POTASSIUM SERUM 4.5 MEQ/L (3.5-5.1); SODIUM LEVEL 131 MEQ/L (136-145)
[2019-10-08] MEDS: CLOPIDOGREL 75 MG TAB PO SCH (08:34)
[2019-10-08] MEDS: amLODIPine 10 MG TAB PO SCH (08:34)
[2019-10-08] MEDS: ASPIRIN 81 MG ENTERIC TAB PO SCH (08:34)
[2019-10-08] MEDS: LR 1,000 ML IV SCH (08:38)
[2019-10-08] MEDS ORDERED: FLUBLOK(EGG FREE)(QUAD)INFLUENZA VACC 0.5ML SYRINGE (90682)18YRS&OLDER IM ONE (09:00)
[2019-10-08 10:00] VITALS: BP 119/72
--- NOTE | 2019-10-08 11:40 | IPNPDOC ---
Subjective Date Seen The patient was seen on 10/08/19. Subjective Chief Complaint/HPI Patient is comfortable offers no new complaints, in no apparent distress General: Denies: ROS Unobtainable, Chills, Night Sweats, Fatigue, Malaise, Normal Appetite, Other Symptoms Constitutional: Denies: Chills, Fever, Malaise, Night Sweats, Weakness, Fatigue, Weight Loss, Lethargy, Other Eyes: Denies: Pain, Vision change, Conjunctivae inflammation, Eyelid inflammation, Redness, Other Pulmonary: Denies: Dyspnea, Cough, Pleuritic Chest Pain, Other Symptoms Cardiovascular: Denies: Chest Pain, Palpitations, Orthopnea, Paroxysmal Noc. Dyspnea, Edema, Lt Headedness, Other Symptoms Gastrointestinal: Denies: Nausea, Vomiting, Abdominal Pain, Diarrhea, Constipation, Melena, Hematochezia, Other Symptoms Musculoskeletal: Denies: Neck Pain, Back Pain, Shoulder Pain, Arm Pain, Hand Pain, Leg Pain, Foot Pain, Joint Pain, Muscle Pain, Spasms, Other Symptoms Neurological: Denies: Weakness, Numbness, Incoordination, Change in speech, Confusion, Seizures, Other Symptoms Objective Physical Examination General Exam: Positive: Alert, Cooperative Eye Exam: Positive: PERRLA, Conjunctiva & lids normal ENT Exam: Positive: Atraumatic, Mucous membr. moist/pink Neck Exam: Positive: Supple Chest Exam: Positive: Normal air movement Heart Exam: Positive: Rate Normal, Normal S1, Normal S2 Abdomen Exam: Positive: Normal bowel sounds Extremity Exam: Positive: Other (wound with dislodged nail at the left big toe chronic discoloration bilateral bilateral both feet and legs, status post amputation right big toe) Skin Exam: Positive: Other skin issue (as above) Neuro Exam: Positive: Strength at 5/5 X4 ext, Sensation Intact, Cranial Nerves 3-12 NL Psych Exam: Positive: Mental status NL, Oriented x 3 Assessment /Plan Problems (1) S/P femoral-popliteal bypass surgery Status: Acute Problem Text: Status post left femoral below-knee popliteal bypass surgery. Patient tolerated procedure very well. Total blood loss was only 150 mL Patient will be admitted under hospitalist service to medical floor. Pain management as per surgical orders Continue high protein diet Patient will be admitted out of bed today Is ago therapy consultation has been requested Management discussed with patient and his at the bedside (2) PAD (peripheral artery disease) Status: Chronic Problem Text: Continue all home medications Podiatry consult for left foot wound. This has been called and message left with Dr. Hopson's office Podiatry consult pending (3) HTN (hypertension) Status: Chronic Problem Text: Continue home meds Plan/VTE VTE Prophylaxis Ordered?: Yes VS, I&O, 24H, Fishbone Vital Signs/I&O Vital Signs Date Time Temp Pulse Resp B/P (MAP) Pulse Ox O2 Delivery O2 Flow Rate FiO2 10/08/19 10:00 98.7 57 17 119/72 (88) 95 Room Air 10/07/19 13:05 3 I&O- Last 24 Hours up to 6 AM 10/08/19 06:00 Intake Total 2940 ml Output Total 2930 ml Balance 10 ml Laboratory Data 24H LABS Laboratory Tests 2 10/08/19 06:04: Immature Granulocyte % (Auto) 0.5, Neutrophils (%) (Auto) 70.5H, Lymphocytes (%) (Auto) 16.6L, Monocytes (%) (Auto) 11.9H, Eosinophils (%) (Auto) 0.3, Basophils (%) (Auto) 0.2, Neutrophils # (Auto) 7.8, Lymphocytes # (Auto) 1.8, Monocytes # (Auto) 1.3H, Eosinophils # (Auto) 0.0, Basophils # (Auto) 0.0, Nucleated Red Blood Cells % (auto) 0.0, Anion Gap 3L, Glomerular Filtration Rate > 60.0, Calcium Level 8.6, Total Bilirubin 0.8, Aspartate Amino Transf (AST/SGOT) 39H, Alanine Aminotransferase (ALT/SGPT) 29, Alkaline Phosphatase 62, Total Protein 6.0L, Albumin 2.8L, Albumin/Globulin Ratio 0.88L CBC/BMP Laboratory Tests 10/08/19 06:04 SONJA MITCHELL MD Oct 08, 2019 11:40
[2019-10-08] MEDS: MUPIROCIN 2% OINT 22 GM TUBE TOP SCH (12:15)
[2019-10-08 14:00] VITALS: BP 122/73
--- NOTE | 2019-10-08 14:11 | IPNPDOC ---
Text Note Date of Service The patient was seen on 10/08/19. NOTE Vascular surgery. Dr. Mendez. The patient is a 54-year-old male with history of Buerger's disease, PAD, h/o right common femoral artery to posterior tibial artery bypass graft with saphenous vein graft 11/18/[address] Ignacio. Status post first toe amputation 05/02/[address] Ignacio. POD 1 S/P left lower extremity femoral to above-knee popliteal bypass with left greater saphenous vein as per Dr. Mendez. The patient is currently resting comfortably in bed. Patient states his pain is controlled. The patient has a wound of the left great toe, this is being followed by podiatry. Patient reports pain in his left foot has been improved. The patient's incisions are thoroughly cleaned today, there is no drainage. No surrounding erythema. Dry dressing is reapplied. The left foot is warm to touch. The patient has a strong Doppler signal over the left PT, soft monophasic signal over the left DP. There is strong Doppler signal over the bypass area at the le ft mid thigh. The patient's right lower extremity is cooler to touch however this remains at the patient's baseline. There are no wounds of the right lower extremity. Will continue to monitor the patient's surgical wounds. We will continue to change the dressing daily. Possibly consider getting the patient into the shower tomorrow. Reinforced high-protein diet to facilitate healing. Continue Plavix/aspirin 81 mg. Elevate LLE, activity as tolerated. Continue to closely monitor. VS,Fishbone, I+O VS, Fishbone, I+O Laboratory Tests 10/08/19 06:04 Vital Signs Date Time Temp Pulse Resp B/P (MAP) Pulse Ox O2 Delivery O2 Flow Rate FiO2 10/08/19 10:00 98.7 57 17 119/72 (88) 95 Room Air 10/07/19 13:05 3 I&O- Last 24 Hours up to 6 AM 10/08/19 05:59 Intake Total 2820 ml Output Total 2405 ml Balance 415 ml Eliza Garvey Oct 08, 2019 14:11
[2019-10-08] MEDS: HYDROmorphone 2 MG TAB PO PRN (17:30)
[2019-10-08] MEDS ORDERED: PILL CUTTER 1 EACH XX PRN (17:45)
[2019-10-08 18:00] VITALS: BP 122/73
--- NOTE | 2019-10-08 20:39 | CR ---
DATE OF CONSULTATION: 10/08/2019 REASON FOR CONSULTATION: Left lower extremity ulceration. Chase Garcia is a pleasant 54-year-old male who is admitted for left lower extremity bypass. He has gangrenous changes to his left hallux. He underwent previous angiogram in August with some improvement, but persisting vascular changes. Bypass was performed yesterday, with apparent good improvement. Patient states his foot on the left is feeling much better. PAST MEDICAL HISTORY: Significant for: 1. Peripheral arterial disease. 2. Barnard's disease. 3. Hypertension. 4. Depression/anxiety. PAST SURGICAL HISTORY: Includes: 1. Hand surgery. 2. Right lower extremity bypass. 3. Right hallux amputation. 4. Right and left lower extremity arteriograms. 5. Left lower extremity bypass. SOCIAL HISTORY: Alleged former smoker. Patient was smoking most recently when last seen in my office. FAMILY HISTORY: Includes lung cancer, diabetes. REVIEW OF SYSTEMS: Negative for nausea, vomiting, fever or chills. Vitals are examined. He has been afebrile. Labs are reviewed. White blood cell count is 11.11. LOWER EXTREMITY EXAMINATION: There is improved blood flow to the left lower extremity. The left foot is warm. There is an ulceration on the left hallux with distal eschar. No surrounding erythema. No malodor. There is some slight coldness to the right foot, with some tenderness to palpation. ASSESSMENT: This is a 54-year-old male with a left hallux gangrene status post left lower extremity bypass. PLAN: For now, we will monitor the toe and see what improvements to the wound come from the improved blood flow. There is opportunity that this toe may heal; however, if not improved within the next few weeks, we will plan amputation of this toe. Will discuss with vascular team to evaluate the right foot, as he has been complaining now of pain on this side, now that the left side has improved. Will follow.
[2019-10-08 22:00] VITALS: BP 123/72
[2019-10-09 02:00] VITALS: BP 121/72
[2019-10-09] MEDS: PERCOCET 5MG/325MG TAB PO PRN ×4 (05:04→17:52)
[2019-10-09 06:00] VITALS: BP 127/73
[2019-10-09 06:24] LABS: BASO % 0.2 % (0.0-1.0); EOS # 0.1 10^3/uL (0.0-0.5); EOS % 0.9 % (0.0-3.0); HEMATOCRIT 39.3 % (42.0-52.0); HEMOGLOBIN 13.4 g/dl (13.5-17.5); MEAN CORPUSCULAR HEMOGLOBIN 34.1 pg (27.0-33.0); MEAN CORPUSCULAR HGB CONC 34.1 g/dl (32.0-36.5); MONO # 1.7 10^3/uL (0.0-0.8); NEUTROPHILS # 7.4 10^3/uL (1.5-8.5); NEUTROPHILS % 65.4 % (36.0-66.0); PLATELET COUNT, AUTOMATED 152 10^3/uL (150-450); RED BLOOD COUNT 3.93 10^6/uL (4.30-6.10); WHITE BLOOD COUNT 11.4 10^3/uL (4.0-10.0)
[2019-10-09 06:54] LABS: ALBUMIN 2.7 GM/DL (3.2-5.2); ALT/SGPT 22 U/L (12-78); BILIRUBIN,TOTAL 0.4 MG/DL (0.2-1.0); BLOOD UREA NITROGEN 7 MG/DL (7-18); CALCIUM LEVEL 8.2 MG/DL (8.5-10.1); CARBON DIOXIDE LEVEL 25 MEQ/L (21-32); CHLORIDE LEVEL 103 MEQ/L (98-107); CREATININE FOR GFR 0.63 MG/DL (0.70-1.30); GLOMERULAR FILTRATION RATE > 60.0 (>56); GLUCOSE, FASTING 85 MG/DL (70-100); POTASSIUM SERUM 4.2 MEQ/L (3.5-5.1); SODIUM LEVEL 134 MEQ/L (136-145); TOTAL PROTEIN 6.1 GM/DL (6.4-8.2)
[2019-10-09] MEDS: CLOPIDOGREL 75 MG TAB PO SCH (09:01)
[2019-10-09] MEDS: HYDROmorphone 2 MG TAB PO PRN (09:01)
[2019-10-09] MEDS: ASPIRIN 81 MG ENTERIC TAB PO SCH (09:01)
[2019-10-09] MEDS: amLODIPine 10 MG TAB PO SCH (09:03)
[2019-10-09] MEDS: MUPIROCIN 2% OINT 22 GM TUBE TOP SCH (09:04)
[2019-10-09 10:00] VITALS: BP 128/76
--- NOTE | 2019-10-09 12:59 | IPNPDOC ---
Text Note Date of Service The patient was seen on 10/09/19. NOTE Vascular surgery. Dr. Mendez. The patient is a 54-year-old male with history of Buerger's disease, PAD, h/o right common femoral artery to posterior tibial artery bypass graft with saphenous vein graft 11/18/[address] Ignacio. Status post first toe amputation 05/02/[address] Ignacio. POD 2 S/P left lower extremity femoral to above-knee popliteal bypass with left greater saphenous vein as per Dr. Mendez. The patient is currently resting comfortably in bed. Patient states his pain is controlled. The patient has a wound of the left great toe, this is being followed by podiatry. Patient reports pain in his left foot has been improved. The patient's incisions are thoroughly cleaned today, there is some drainage noted on the dressing from the distal thigh incision. No surrounding erythema. Otherwise his incisions have no drainage. Dry dressing is reapplied. The left foot is warm to touch. The patient has a strong Doppler signal over the left PT, soft monophasic signal over the left DP. There is strong Doppler signal over the bypass area at the left mid thigh. The patient's right lower extremity is cooler to touch however this remains at the patient's baseline. There are no wounds of the right lower extremity. Will continue to monitor the patient's surgical wounds. We will continue to change the dressing daily. Plan for shower today. Reinforced high-protein diet to facilitate healing. Continue Plavix/aspirin 81 mg. Consider statin if no other contraindication. Elevate LLE, activity as tolerated. Reviewed with Dr. Mendez, consider discharge 10/10/19. Continue to closely monitor. VS,Fishbone, I+O VS, Fishbone, I+O Laboratory Tests 10/09/19 05:34 Vital Signs Date Time Temp Pulse Resp B/P (MAP) Pulse Ox O2 Delivery O2 Flow Rate FiO2 10/09/19 10:16 18 10/09/19 10:00 98.6 72 128/76 (93) 94 Room Air 10/07/19 13:05 3 I&O- Last 24 Hours up to 6 AM0 10/09/19 06:00 Intake Total 4020 ml Output Total 3080 ml Balance 940 ml Eliza Garvey Oct 09, 2019 12:59
--- NOTE | 2019-10-09 13:39 | IPNPDOC ---
Date Seen The patient was seen on 10/09/19. Progress Note SUBJECTIVE: 54-year-old male with past medical history of Burger's disease, profound peripheral vascular disease, status post right lower extremity femoropopliteal bypass who is currently admitted status post left lower extremity femoropopliteal bypass. Patient has been doing well postop, reports ambulating around the floor and going up a flight of stairs without difficulty. Patient is tolerating his diet without any issues, reports mild left lower extremity pain, no other complaints at this time. He denies any shortness of breath, chest pain, nausea, vomiting, abdominal pain or diarrhea. 10 point review of system is negative except for above PHYSICAL EXAMINATION: VITAL SIGNS: Please see below. GENERAL: No distress HEENT: Normocephalic, atraumatic, moist mucous membranes NECK: Supple CARDIOVASCULAR EXAMINATION: S1, S2, no murmurs RESPIRATORY EXAMINATION: Clear to auscultation, no wheezing ABDOMINAL EXAMINATION: Soft, nontender, nondistended, positive bowel sounds EXTREMITIES: Range of motion intact SKIN: No rash NEUROLOGICAL EXAMINATION: Alert and oriented 3, no focal deficits PSYCHIATRIC EXAMINATION: Calm and cooperative LABORATORY DATA, IMAGING STUDIES, MICROBIOLOGY: Please see below. ASSESSMENT AND PLAN: 54-year-old male with past medical history of Burger's disease and peripheral artery disease is admitted status post left lower extremity femoropopliteal bypass PROBLEMS: 1. Left lower extremity femoropopliteal bypass: Doing well postop, continue aspirin and Plavix, will add atorvastatin 40 mg daily, should be increased in the outpatient setting if well tolerated, further management as per vascular surgery. 2. Hypertension: Continue Norvasc. VS, I&O, 24H, Fishbone Vital Signs/I&O Vital Signs Date Time Temp Pulse Resp B/P (MAP) Pulse Ox O2 Delivery O2 Flow Rate FiO2 10/09/19 10:16 18 10/09/19 10:00 98.6 72 128/76 (93) 94 Room Air 10/07/19 13:05 3 I&O- Last 24 Hours up to 6 AM 10/09/19 06:00 Intake Total 4020 ml Output Total 3080 ml Balance 940 ml Laboratory Data 24H LABS Laboratory Tests 2 10/09/19 05:34: Immature Granulocyte % (Auto) 0.5, Neutrophils (%) (Auto) 65.4, Lymphocytes (%) (Auto) 18.0L, Monocytes (%) (Auto) 15.0H, Eosinophils (%) (Auto) 0.9, Basophils (%) (Auto) 0.2, Neutrophils # (Auto) 7.4, Lymphocytes # (Auto) 2.0, Monocytes # (Auto) 1.7H, Eosinophils # (Auto) 0.1, Basophils # (Auto) 0.0, Nucleated Red Blood Cells % (auto) 0.0, Anion Gap 6L, Glomerular Filtration Rate > 60.0, Calcium Level 8.2L, Total Bilirubin 0.4, Aspartate Amino Transf (AST/SGOT) 23, Alanine Aminotransferase (ALT/SGPT) 22, Alkaline Phosphatase 61, Total Protein 6.1L, Albumin 2.7L, Albumin/Globulin Ratio 0.79L CBC/BMP Laboratory Tests 10/09/19 05:34 STEVEN CONLEY MD Oct 09, 2019 13:39
[2019-10-09 14:00] VITALS: BP 126/77
[2019-10-09 18:00] VITALS: BP 126/77
[2019-10-09] MEDS ORDERED: ATORVASTATIN 20 MG TAB PO SCH (21:00)
[2019-10-09 22:00] VITALS: BP 126/77
[2019-10-10 02:00] VITALS: BP 134/86
[2019-10-10] MEDS: PERCOCET 5MG/325MG TAB PO PRN (05:08)
[2019-10-10 06:00] VITALS: BP 139/79
[2019-10-10 06:19] LABS: HEMATOCRIT 38.2 % (42.0-52.0); HEMOGLOBIN 13.8 g/dl (13.5-17.5); MEAN CORPUSCULAR HEMOGLOBIN 35.8 pg (27.0-33.0); MEAN CORPUSCULAR HGB CONC 36.1 g/dl (32.0-36.5); PLATELET COUNT, AUTOMATED 163 10^3/uL (150-450); RED BLOOD COUNT 3.86 10^6/uL (4.30-6.10); WHITE BLOOD COUNT 11.3 10^3/uL (4.0-10.0)
[2019-10-10 06:41] LABS: BLOOD UREA NITROGEN 9 MG/DL (7-18); CALCIUM LEVEL 8.6 MG/DL (8.5-10.1); CARBON DIOXIDE LEVEL 23 MEQ/L (21-32); CHLORIDE LEVEL 100 MEQ/L (98-107); CREATININE FOR GFR 0.56 MG/DL (0.70-1.30); GLOMERULAR FILTRATION RATE > 60.0 (>56); GLUCOSE, FASTING 83 MG/DL (70-100); PHOSPHORUS LEVEL 3.6 MG/DL (2.5-4.9); POTASSIUM SERUM 4.4 MEQ/L (3.5-5.1); SODIUM LEVEL 132 MEQ/L (136-145)
[2019-10-10 08:36] VITALS: BP 139/79
[2019-10-10] MEDS: MUPIROCIN 2% OINT 22 GM TUBE TOP SCH (08:36)
[2019-10-10] MEDS: CLOPIDOGREL 75 MG TAB PO SCH (08:36)
[2019-10-10] MEDS: amLODIPine 10 MG TAB PO SCH (08:36)
[2019-10-10] MEDS: ASPIRIN 81 MG ENTERIC TAB PO SCH (08:36)
--- NOTE | 2019-10-10 08:48 | IPNPDOC ---
Text Note Date of Service The patient was seen on 10/10/19. NOTE Vascular surgery. Dr. Mendez. The patient is a 54-year-old male with history of Buerger's disease, PAD, h/o right common femoral artery to posterior tibial artery bypass graft with saphenous vein graft 11/18/[address] Ignacio. Status post first toe amputation 05/02/[address] Ignacio. POD 3 S/P left lower extremity femoral to above-knee popliteal bypass with left greater saphenous vein as per Dr. Mendez. The patient is currently resting comfortably in bed. Patient states his pain is controlled. The patient has a wound of the left great toe, this is being followed by podiatry. Patient reports pain in his left foot has been improved. The patient's incisions are thoroughly cleaned today, there is some drainage noted on the dressing from the distal thigh incision. No surrounding erythema. Otherwise his incisions have no drainage. Dry dressing is reapplied. The left foot is warm to touch. The patient has a strong Doppler signal over the left PT, soft monophasic signal over the left DP. There is strong Doppler signal over the bypass area at the left mid thigh. The patient's right lower extremity is cooler to touch however this remains at the patient's baseline. There are no wounds of the right lower extremity. Monophasic DP/PT pulses obtained with Doppler. Okay for discharge today per Dr. Mendez from vascular surgery standpoint. Plan for shower today prior to discharge. Continue to keep the wounds clean and dry, dry dressing daily. Reinforced high-protein diet to facilitate healing. Continue Plavix/aspirin 81 mg. Agree with statin. Elevate LLE, activity as tolerated. The patient will follow-up in the office early next week to check his wounds. Reinforced tobacco cessation. Continue to closely monitor. VS,Fishbone, I+O VS, Fishbone, I+O Laboratory Tests 10/10/19 05:48 Vital Signs Date Time Temp Pulse Resp B/P (MAP) Pulse Ox O2 Delivery O2 Flow Rate FiO2 10/10/19 08:36 77 139/79 10/10/19 06:00 98.0 18 94 10/10/19 05:38 Room Air 10/07/19 13:05 3 I&O- Last 24 Hours up to 6 AM 10/10/19 05:59 Intake Total 970 ml Output Total 1825 ml Balance -855 ml Eliza Garvey Oct 10, 2019 08:48
[2019-10-10 10:00] VITALS: BP 130/79
[2019-10-10] MEDS ORDERED: CLOP75TA2 PO (10:53)
[2019-10-10] MEDS ORDERED: ATOR1TAB21 PO (10:53)
--- NOTE | 2019-10-10 11:01 | DS.PDOC ---
Discharge Summary General Date of Admission Oct 07, 2019 at 05:53 Date of Discharge 10/10/19 Attending Physician: STEVEN CONLEY MD Discharge Summary PROCEDURES PERFORMED DURING STAY: None. ADMITTING DIAGNOSES: 1. Peripheral vascular disease, status post left lower extremity femoropopliteal bypass. DISCHARGE DIAGNOSES: 1. Peripheral vascular disease, status post left lower extremity femoropopliteal bypass. COMPLICATIONS/CHIEF COMPLAINT: Atherosclerosis Of [place] Arteries Of Lower ..... HISTORY OF PRESENT ILLNESS: 54-year-old male with past medical history of peripheral artery disease who was admitted status post left lower extremity femoropopliteal bypass. Patient is doing well postop, ambulating and climbing up a flight of stairs without difficulty, pain is well controlled, resting comfortably in bed today, without any complaints at this time. Patient has been cleared for discharge by vascular surgery with plans for outpatient follow-up. Patient was started on Plavix and statin in addition to his aspirin. Patient has been tolerating his medications without any difficulty, clinically and hemodynamically stable for discharge and outpatient follow-up with vascular surgery and PCP. HOSPITAL COURSE: As above. DISCHARGE MEDICATIONS: Please see below. ALLERGIES: Please see below. PHYSICAL EXAMINATION: VITAL SIGNS: Please see below. GENERAL: No distress HEENT: Normocephalic, atraumatic, moist mucous membranes NECK: Supple CARDIOVASCULAR EXAMINATION: S1, S2, no murmurs RESPIRATORY EXAMINATION: Clear to auscultation, no wheezing ABDOMINAL EXAMINATION: Soft, nontender, nondistended, positive bowel sounds EXTREMITIES: Left lower extremity with mild tenderness to palpation, left big toenail removed with significant tenderness to palpation, pulses palpable via Doppler SKIN: No rash NEUROLOGICAL EXAMINATION: Alert and oriented 3, no focal deficits PSYCHIATRIC EXAMINATION: Calm and cooperative LABORATORY DATA: Please see below. PROGNOSIS: Fair ACTIVITY: As tolerated. DIET: Cardiac DISCHARGE PLAN: Follow-up with vascular surgery and PCP in 1-2 weeks DISPOSITION: Home. DISCHARGE INSTRUCTIONS: 1. As above. DISCHARGE CONDITION: Stable. TIME SPENT ON DISCHARGE: Greater than 31 minutes. Vital Signs/I&Os Vital Signs Date Time Temp Pulse Resp B/P (MAP) Pulse Ox O2 Delivery O2 Flow Rate FiO2 10/10/19 10:00 98.6 70 18 130/79 (96) 96 Room Air 10/07/19 13:05 3 I&O- Last 24 Hours up to 6 AM 10/10/19 06:00 Intake Total 1020 ml Output Total 1875 ml Balance -855 ml Laboratory Data Labs 24H Laboratory Tests 2 10/10/19 05:48: Nucleated Red Blood Cells % (auto) 0.0, Anion Gap 9, Glomerular Filtration Rate > 60.0, Calcium Level 8.6, Phosphorus Level 3.6, Magnesium Level 2.0 CBC/BMP Laboratory Tests 10/10/19 05:48 Discharge Medications Scheduled Amlodipine Besylate (Norvasc) 10 Mg Tablet, 10 MG PO DAILY, (Reported) Aspirin (Ecotrin) 81 Mg Tablet.dr, 81 MG PO DAILY, (Reported) Atorvastatin Calcium (Atorvastatin Calcium) 20 Mg Tablet, 40 MG PO QHS Clopidogrel Bisulfate (Clopidogrel) 75 Mg Tablet, 75 MG PO DAILY Scheduled PRN Acetaminophen (Acetaminophen) 500 Mg Tablet, 1,500 MG PO Q6H PRN for PAIN, (Reported) Allergies Coded Allergies: No Known Allergies (Verified , 10/03/19) STEVEN CONLEY MD Oct 10, 2019 11:01
== END 2019-10-10 11:56 | disposition home or self-care (01) | DRG 254 ==
LOC: M OR 05:53 → M MSPAV 13:58
PROVIDERS: ADMIT Surgery Vascular Surgery; ATTEND Internal Medicine
PROC: 04CL0ZZ Extirpation of Matter from Left Femoral Artery, Open Approach (ICD-10-PCS; 2019-10-07)
PROC: 041L09L Bypass Left Femoral Artery to Popliteal Artery with Autologous Venous Tissue, Open Approach (ICD-10-PCS; principal; 2019-10-07 07:30)
DX: I70.412 Atherosclerosis of autologous vein bypass graft(s) of the extremities with intermittent claudication, left leg (principal); I73.1 Thromboangiitis obliterans [Buerger's disease]; I10 Essential (primary) hypertension; F32.9 Major depressive disorder, single episode, unspecified; F41.9 Anxiety disorder, unspecified; Z89.411 Acquired absence of right great toe; Z87.891 Personal history of nicotine dependence; Z79.82 Long term (current) use of aspirin; Z79.899 Other long term (current) drug therapy

== ENCOUNTER → 2021-01-25 | Outpatient (CLI) | payer MEDICAID, MEDICARE ==
[~2021-01-25] MED LIST changes: +ASPI-546 PO; -ASPI1TAB15 PO; -ASPI81TA85 PO; +ASPI81TA86 PO; +ATOR1TAB21 PO; +CLOP75TA2 PO; +PANT40TA29 PO; -PANT40TA3 PO
--- NOTE | 2021-01-26 09:10 | REP ---
INDICATION: PAD COMPARISON: 07/17/2019. TECHNIQUE: Real time garcia scale and Duplex Doppler evaluation of the bilateral lower extremity arterial vasculature using linear high frequency transducer. FINDINGS: Garcia scale and duplex doppler images demonstrate occlusion of the proximal right superficial femoral artery through the right popliteal artery. Bypass graft from right common femoral artery to mid posterior tibial artery is patent with normal flow velocities ranging between 31.0 and 70.8 centimeters/second. There is reversal of flow in the proximal anterior and posterior tibial arteries and tibioperoneal trunk. The distal anterior tibial artery is occluded. Biphasic waveforms are noted of the right common femoral artery and distal posterior tibial artery. On the left there is occlusion of the proximal superficial femoral artery through the distal superficial femoral artery. There is a patent bypass graft from a left common femoral artery to popliteal artery demonstrating normal flow velocities ranging between 40.8 and 55.9 centimeter/second. There are diffuse biphasic and triphasic waveforms. Peak systolic velocities (cm/sec) Common femoral artery: Right 121; Left 40 Profunda femoris: Right 88; Left 75 SFA (proximal): Right occluded; Left occluded SFA (mid): Right occluded; Left occluded SFA (distal): Right occluded; Left occluded Popliteal artery: Right occluded; Left 50 MAC (prox.): Right 12.9; Left 62.1 Tibioperoneal trunk: Right 64.2; Left 70 DIELECTRIC TESTING MACHINE OPERATOR (prox.): Right 96; Left 71 DIELECTRIC TESTING MACHINE OPERATOR (distal): Right 76; Left 55 MAC (distal): Right occluded; Left 47 IMPRESSION: Bilateral SFA occlusion. Patent bilateral bypass grafts as discussed in detail above. <Electronically signed by Jose Garcia > 01/26/21 [id number]
== END ==
LOC: M RAD 15:30
PROVIDERS: ATTEND Physician Assistant
DX: I70.213 Atherosclerosis of native arteries of extremities with intermittent claudication, bilateral legs (principal); I73.1 Thromboangiitis obliterans [Buerger's disease]; Z95.828 Presence of other vascular implants and grafts

== ENCOUNTER 2021-08-02 05:35 | Inpatient (IN) | payer MEDICARE ==
[~2021-08-02] VITALS: Ht 177.8 cm; Wt 60.6 kg
[2021-08-02] MEDS ORDERED: NS 1,000 ML IV ONE (08:30)
[2021-08-02] MEDS ORDERED: ONDANSETRON 4MG/2ML VIAL IV ONE (08:40)
[2021-08-02] MEDS ORDERED: THIAMINE 100 MG TAB PO SCH (09:00)
[2021-08-02 09:16] LABS: BASO % 0.4 % (0.0-1.0); EOS % 0.3 % (0.0-3.0); HEMATOCRIT 35.2 % (42.0-52.0); HEMOGLOBIN 12.2 g/dl (13.5-17.5); LYMPH # 1.8 10^3/uL (1.5-5.0); LYMPH % 17.3 % (24.0-44.0); MEAN CORPUSCULAR HEMOGLOBIN 35.8 pg (27.0-33.0); MEAN CORPUSCULAR HGB CONC 34.7 g/dl (32.0-36.5); MEAN CORPUSCULAR VOLUME 103.2 fl (80.0-96.0); MONO # 1.5 10^3/uL (0.0-0.8); NEUTROPHILS # 6.8 10^3/uL (1.5-8.5); NEUTROPHILS % 66.7 % (36.0-66.0); PLATELET COUNT, AUTOMATED 113 10^3/uL (150-450); RED BLOOD COUNT 3.41 10^6/uL (4.30-6.10); WHITE BLOOD COUNT 10.2 10^3/uL (4.0-10.0)
[2021-08-02 09:25] LABS: INR 1.5; PROTHROMBIN TIME 18.5 SECONDS (12.7-14.5)
[2021-08-02 09:26] LABS: PARTIAL THROMBOPLASTIN TIME 35.9 SECONDS (25.9-37.0)
[2021-08-02 09:45] LABS: ALBUMIN 2.4 GM/DL (3.2-5.2); BILIRUBIN,DIRECT 0.9 MG/DL (0.0-0.2); BILIRUBIN,TOTAL 2.1 MG/DL (0.2-1.0); TOTAL PROTEIN 5.8 GM/DL (6.4-8.2)
[2021-08-02 09:46] LABS: CK-MB VALUE MASS 1.7 NG/ML (<3.6); CPK CREATINE PHOSPHOKINASE 47 U/L (39-308); MB/CK RELATIVE INDEX 3.62 (< OR =4); TROPONIN I < 0.02 NG/ML (< 0.10)
[2021-08-02] MEDS ORDERED: ISOVUE-370 76% 100ML VIAL As Ordered ONE (09:53)
[2021-08-02 09:55] LABS: RSV AMPLIFICATION NEGATIVE (NEGATIVE)
[2021-08-02] MEDS ORDERED: HOME MED LIST COMPLETE! XX SCH (10:45)
[2021-08-02 14:09] LABS: FERRITIN 860 NG/ML (26-388); IRON (FE) 52 UG/DL (65-175); PERCENT SATURATION 49.5 % (19.7-50.0); TOTAL IRON BINDING CAPACITY 105 UG/DL (250-450)
[2021-08-02] MEDS ORDERED: FOLIC ACID 1 MG TAB PO ONE (14:15)
[2021-08-02] MEDS ORDERED: NS 500 ML IV ONE (14:25)
[2021-08-02 14:28] LABS: FOLATE 5.5 NG/ML (>5.4); VITAMIN B12 LEVEL 697 PG/ML (247-911)
[2021-08-02 15:51] LABS: HEPATITIS B SURFACE ANTIGEN NEGATIVE (NEGATIVE)
[2021-08-02 16:00] VITALS: BP 148/74
[2021-08-02 16:17] LABS: HEPATITIS C VIRUS ABY INDEX 0.2 INDEX (<0.8)
[2021-08-02 16:18] LABS: HEPATITIS B CORE ANTIBODY IGM NEGATIVE (NEGATIVE)
[2021-08-02] MEDS: NS 1,000 ML IV SCH ×2 (16:29→22:02)
[2021-08-02] MEDS: ASPIRIN 81MG ENTERIC TABLET PO SCH (16:30)
[2021-08-02] MEDS: HEPARIN SOD (PORCINE) 5000UNITS/ML 1ML VIAL/SYRINGE SC SCH ×2 (16:31→22:03)
[2021-08-02] MEDS: THIAMINE INJection 500 MG in NS 100 ML IV SCH ×2 (18:26→23:58)
[2021-08-02 20:19] LABS: PERCENT SATURATION 54.2 % (19.7-50.0)
[2021-08-02 22:00] VITALS: BP 126/70
[2021-08-03] MEDS: NS 1,000 ML IV SCH ×3 (04:30→21:27)
[2021-08-03] MEDS: HEPARIN SOD (PORCINE) 5000UNITS/ML 1ML VIAL/SYRINGE SC SCH ×3 (05:22→21:14)
[2021-08-03 05:30] VITALS: BP 112/66
[2021-08-03 06:22] LABS: HEMATOCRIT 30.9 % (42.0-52.0); HEMOGLOBIN 10.6 g/dl (13.5-17.5); MEAN CORPUSCULAR HEMOGLOBIN 35.8 pg (27.0-33.0); MEAN CORPUSCULAR HGB CONC 34.3 g/dl (32.0-36.5); MEAN CORPUSCULAR VOLUME 104.4 fl (80.0-96.0); RED BLOOD COUNT 2.96 10^6/uL (4.30-6.10); WHITE BLOOD COUNT 10.1 10^3/uL (4.0-10.0)
[2021-08-03 06:23] LABS: PLATELET COUNT, AUTOMATED 99 10^3/uL (150-450)
[2021-08-03 06:47] LABS: ALBUMIN 1.8 GM/DL (3.2-5.2); ALT/SGPT 30 U/L (12-78); BILIRUBIN,TOTAL 1.6 MG/DL (0.2-1.0); BLOOD UREA NITROGEN 5 MG/DL (7-18); CALCIUM LEVEL 7.9 MG/DL (8.5-10.1); CARBON DIOXIDE LEVEL 19 MEQ/L (21-32); CHLORIDE LEVEL 112 MEQ/L (98-107); CREATININE FOR GFR 0.56 MG/DL (0.70-1.30); GLOMERULAR FILTRATION RATE > 60.0 (>56); GLUCOSE, FASTING 59 MG/DL (70-100); MAGNESIUM LEVEL 2.1 MG/DL (1.8-2.4); SODIUM LEVEL 140 MEQ/L (136-145); TOTAL PROTEIN 4.8 GM/DL (6.4-8.2)
[2021-08-03] MEDS: FOLIC ACID 1 MG TAB PO SCH (08:24)
[2021-08-03] MEDS: ASPIRIN 81MG ENTERIC TABLET PO SCH (08:24)
[2021-08-03] MEDS: THIAMINE INJection 500 MG in NS 100 ML IV SCH ×2 (08:24→16:37)
[2021-08-03] MEDS ORDERED: FLUBLOK(EGG FREE)(QUAD)INFLUENZA VACC 0.5ML SYRINGE 18YRS & OLDER IM ONE (09:00)
[2021-08-03 09:52] LABS: APPEARANCE, BODY FLUID HAZY (CLEAR); ASCITES FL COLOR YELLOW (COLORLESS); SOURCE, BODY FLUID ASCITES
[2021-08-03 10:31] LABS: SOURCE, BODY FLUID ALBUMIN ASCITES; SOURCE, BODY FLUID GLUCOSE ASCITES; SOURCE, BODY FLUID TOT PROTEIN ASCITES; TOTAL PROTEIN, BODY FLUID 1.1 G/DL (NOT ESTABLISHED)
[2021-08-03 13:59] LABS: FOLATE 6.1 NG/ML
[2021-08-03 14:00] VITALS: BP 125/75
[2021-08-03 20:55] VITALS: BP 136/73
[2021-08-04] MEDS: NS 1,000 ML IV SCH (04:47)
[2021-08-04 05:42] VITALS: BP 106/57
[2021-08-04] MEDS: HEPARIN SOD (PORCINE) 5000UNITS/ML 1ML VIAL/SYRINGE SC SCH ×2 (06:05→13:01)
[2021-08-04 06:46] LABS: HEMATOCRIT 28.4 % (42.0-52.0); HEMOGLOBIN 9.8 g/dl (13.5-17.5); MEAN CORPUSCULAR HEMOGLOBIN 35.8 pg (27.0-33.0); MEAN CORPUSCULAR HGB CONC 34.5 g/dl (32.0-36.5); MEAN CORPUSCULAR VOLUME 103.6 fl (80.0-96.0); RED BLOOD COUNT 2.74 10^6/uL (4.30-6.10); WHITE BLOOD COUNT 8.4 10^3/uL (4.0-10.0)
[2021-08-04 06:51] LABS: PLATELET COUNT, AUTOMATED 98 10^3/uL (150-450)
[2021-08-04 07:00] LABS: PHOSPHORUS LEVEL 2.4 MG/DL (2.5-4.9)
[2021-08-04 07:01] LABS: ALBUMIN 1.7 GM/DL (3.2-5.2); ALT/SGPT 28 U/L (12-78); BILIRUBIN,TOTAL 1.2 MG/DL (0.2-1.0); BLOOD UREA NITROGEN 6 MG/DL (7-18); CALCIUM LEVEL 7.5 MG/DL (8.5-10.1); CARBON DIOXIDE LEVEL 20 MEQ/L (21-32); CHLORIDE LEVEL 111 MEQ/L (98-107); CREATININE FOR GFR 0.51 MG/DL (0.70-1.30); GLOMERULAR FILTRATION RATE > 60.0 (>56); GLUCOSE, FASTING 79 MG/DL (70-100); POTASSIUM SERUM 4.1 MEQ/L (3.5-5.1); SODIUM LEVEL 137 MEQ/L (136-145); TOTAL PROTEIN 4.6 GM/DL (6.4-8.2)
[2021-08-04] MEDS ORDERED: THIAMINE 100 MG TAB PO SCH (09:00)
[2021-08-04] MEDS: ASPIRIN 81MG ENTERIC TABLET PO SCH (09:05)
[2021-08-04] MEDS: FOLIC ACID 1 MG TAB PO SCH (09:05)
[2021-08-04] MEDS ORDERED: FURO20TA2 PO (12:45)
[2021-08-04] MEDS ORDERED: THIA100TA PO (12:45)
[2021-08-04] MEDS ORDERED: FOLI1TAB11 PO (12:45)
[2021-08-04] MEDS ORDERED: ALDA100T PO (12:45)
[2021-08-04] MEDS ORDERED: K-PHOS ORIGINAL (POT.ACID PHOSPHATE) 500MG TAB PO ONE (13:00)
[2021-08-24] MEDS ORDERED: OMEP-173 PO (08:56)
== END 2021-08-04 16:12 | disposition home or self-care (01) | DRG 434 ==
LOC: M ED 09:41 → M ED INP 12:57 → ENRESERV 14:30 → M MSPAV 15:33
PROVIDERS: ADMIT Internal Medicine; ATTEND Internal Medicine
PROC: 0W9G3ZX Drainage of Peritoneal Cavity, Percutaneous Approach, Diagnostic (ICD-10-PCS; principal; 2021-08-03 09:00)
DX: K70.31 Alcoholic cirrhosis of liver with ascites (principal); R74.01 Elevation of levels of liver transaminase levels; R07.89 Other chest pain; I73.9 Peripheral vascular disease, unspecified; F41.9 Anxiety disorder, unspecified; F32.A Depression, unspecified; I73.1 Thromboangiitis obliterans [Buerger's disease]; I10 Essential (primary) hypertension; Z66 Do not resuscitate; Z89.421 Acquired absence of other right toe(s); Z95.828 Presence of other vascular implants and grafts; F17.210 Nicotine dependence, cigarettes, uncomplicated; F10.10 Alcohol abuse, uncomplicated; Z20.822 Contact with and (suspected) exposure to COVID-19; Z79.82 Long term (current) use of aspirin; Z79.899 Other long term (current) drug therapy

== ENCOUNTER 2021-08-22 13:26 | Inpatient (IN) | payer MEDICARE ==
[~2021-08-22] VITALS: Ht 177.8 cm; Wt 60.7 kg
[~2021-08-22 13:26] MED LIST changes: +ALDA100T PO; +FOLI1TAB11 PO; +FURO20TA2 PO; +THIA100TA PO
[2021-08-22 14:05] LABS: BASO # 0.1 10^3/uL (0.0-0.2); BASO % 0.7 % (0.0-1.0); EOS # 0.3 10^3/uL (0.0-0.5); EOS % 2.6 % (0.0-3.0); HEMATOCRIT 38.6 % (42.0-52.0); LYMPH # 2.4 10^3/uL (1.5-5.0); LYMPH % 23.7 % (24.0-44.0); MEAN CORPUSCULAR HEMOGLOBIN 35.1 pg (27.0-33.0); MEAN CORPUSCULAR HGB CONC 33.7 g/dl (32.0-36.5); MEAN CORPUSCULAR VOLUME 104.3 fl (80.0-96.0); MONO # 1.5 10^3/uL (0.0-0.8); MONO % 14.9 % (2.0-8.0); NEUTROPHILS # 5.9 10^3/uL (1.5-8.5); NEUTROPHILS % 57.7 % (36.0-66.0); PLATELET COUNT, AUTOMATED 124 10^3/uL (150-450); WHITE BLOOD COUNT 10.2 10^3/uL (4.0-10.0)
--- NOTE | 2021-08-22 14:16 | REP ---
INDICATION: abdominal pain. COMPARISON: Comparison radiograph 02 August 2021. TECHNIQUE: Portable upright AP chest radiograph. FINDINGS: Right hemidiaphragm is somewhat elevated today and there is platelike atelectasis above it in the right base. Right lung is otherwise free of infiltrate. The left lung is clear. Pleural angles are sharp. The heart is not felt to be enlarged. Monitoring electrodes are visible. IMPRESSION: Elevated right hemidiaphragm with discoid atelectasis in the right base. Otherwise unchanged. <Electronically signed by Alan Gotti > 08/22/21 [id number]
[2021-08-22 14:27] LABS: ALBUMIN 2.3 GM/DL (3.2-5.2); ALT/SGPT 33 U/L (12-78); BILIRUBIN,DIRECT 0.3 MG/DL (0.0-0.2); BILIRUBIN,TOTAL 1.3 MG/DL (0.2-1.0); BLOOD UREA NITROGEN 13 MG/DL (7-18); CARBON DIOXIDE LEVEL 22 MEQ/L (21-32); CHLORIDE LEVEL 107 MEQ/L (98-107); CREATININE FOR GFR 0.86 MG/DL (0.70-1.30); ETHYL ALCOHOL (ETHANOL) < 0.003 % (0.000-0.010); GLOMERULAR FILTRATION RATE > 60.0 (>56); GLUCOSE, FASTING 82 MG/DL (70-100); LIPASE 154 U/L (73-393); POTASSIUM SERUM 5.1 MEQ/L (3.5-5.1); SODIUM LEVEL 137 MEQ/L (136-145); TOTAL PROTEIN 5.9 GM/DL (6.4-8.2)
[2021-08-22 14:28] LABS: INR 1.27; PROTHROMBIN TIME 16.3 SECONDS (12.7-14.5)
[2021-08-22 14:29] LABS: PARTIAL THROMBOPLASTIN TIME 33.7 SECONDS (25.9-37.0)
[2021-08-22 14:49] LABS: RSV AMPLIFICATION NEGATIVE (NEGATIVE)
--- NOTE | 2021-08-22 14:49 | REP ---
INDICATION: distended abdomen COMPARISON: Comparison study August 02, 2021. TECHNIQUE: Helical scanning is acquired and 3 mm axial images were reformatted. Coronal and sagittal MPR images were generated and reviewed. FINDINGS: Preliminary digital day care aide radiograph demonstrates homogeneous opacity in the flanks on either side of the bowel gas consistent with ascites. Right hemidiaphragm is elevated. There is atelectasis with air bronchograms in the right lower lobe. There is a small quantity of right pleural effusion. This is a new finding compared with August 02, 2021. In the abdomen and pelvis there is a large amount of diffuse abdominal ascites. This is increased somewhat from August 02, 2021. No focal hepatic or splenic lesion is seen. Gallbladder and pancreas are unremarkable. No adrenal lesion is seen on either side. Small and large bowel loops are unremarkable in the abdomen and pelvis except for left colonic diverticulosis. No CT evidence of diverticulitis. The kidneys show no evidence of hydronephrosis or mass. Vascular calcification is again observed. No bony lesion is seen. IMPRESSION: Large amount of diffuse abdominal ascites. Left colonic diverticulosis. Small right pleural effusion and moderate atelectasis in the right lower lobe with air bronchograms. <Electronically signed by Alan Gotti > 08/22/21 [id number]
[2021-08-22] MEDS ORDERED: HOME MED LIST COMPLETE! XX SCH (15:35)
--- OUTSIDE RECORDS SUMMARY | 2021-08-22 15:35 | CCD ---
Author Author [facility] Organization [facility] Address Unknown Phone Unavailable Care Team Providers Care Digital Director Name Role Phone Macho Reaves Unavailable Unavailable MANUEL BARNETT MD Unavailable Unavailable MANUEL BARNETT MD Unavailable Unavailable MANUEL BARNETT MD Unavailable Unavailable MANUEL BARNETT MD Unavailable Unavailable MANUEL BARNETT MD Unavailable Unavailable MANUEL BARNETT MD Unavailable Unavailable MANUEL BARNETT MD Unavailable Unavailable Rashel Cornelius MD Unavailable Unavailable Rashel Cornelius MD Unavailable Unavailable Rashel Cornelius MD Unavailable Unavailable Rashel Cornelius MD Unavailable Unavailable Rashel Cornelius MD Unavailable Unavailable Rashel Cornelius MD Unavailable Unavailable Rashel Cornelius MD Unavailable Unavailable Rashel Cornelius MD Unavailable Unavailable Rashel Cornelius MD Unavailable Unavailable Rashel Cornelius MD Unavailable Unavailable Rashel Cornelius MD Unavailable Unavailable Rashel Cornelius MD Unavailable Unavailable Rashel Cornelius MD Unavailable Unavailable Rashel Cornelius MD Unavailable Unavailable Rashel Cornelius MD Unavailable Unavailable Rashel Cornelius MD Unavailable Unavailable Rashel Cornelius MD Unavailable Unavailable Rashel Cornelius MD Unavailable Unavailable Rashel Cornelius MD Unavailable Unavailable Rashel Cornelius MD Unavailable Unavailable Rashel Cornelius MD Unavailable Unavailable Rashel Cornelius MD Unavailable Unavailable Rashel Cornelius MD Unavailable Unavailable Rashel Cornelius MD Unavailable Unavailable Rashel Cornelius MD Unavailable Unavailable MANUEL BARNETT MD Unavailable Unavailable MANUEL BARNETT MD Unavailable Unavailable MANUEL BARNETT MD Unavailable Unavailable MANUEL BARNETT MD Unavailable Unavailable MANUEL BARNETT MD Unavailable Unavailable MANUEL BARNETT MD Unavailable Unavailable MANUEL BARNETT MD Unavailable Unavailable Adam Winkler Unavailable Unavailable YOVANY, ABU Unavailable Unavailable Saarie, Deepa Unavailable Unavailable Saarie, Deepa Unavailable Unavailable Saarie, Deepa Unavailable Unavailable Saarie, Deepa Unavailable Unavailable Saarie, Deepa Unavailable Unavailable Saarie, Deepa Unavailable Unavailable Saarie, Deepa Unavailable Unavailable Saarie, Deepa Unavailable Unavailable Saarie, Deepa Unavailable Unavailable Saarie, Deepa Unavailable Unavailable Saarie, Deepa Unavailable Unavailable Saarie, Deepa Unavailable Unavailable Saarie, Deepa Unavailable Unavailable Saarie, Deepa Unavailable Unavailable Saarie, Deepa Unavailable Unavailable Saarie, Deepa Unavailable Unavailable Saarie, Deepa Unavailable Unavailable Saarie, Deepa Unavailable Unavailable Saarie, Deepa Unavailable Unavailable Saarie, Deepa Unavailable Unavailable Saarie, Deepa Unavailable Unavailable Saarie, Deepa Unavailable Unavailable Saarie, Deepa Unavailable Unavailable Saarie, Deepa Unavailable Unavailable Saarie, Deepa Unavailable Unavailable Saarie, Deepa Unavailable Unavailable Saarie, Deepa Unavailable Unavailable Saarie, Deepa Unavailable Unavailable Saarie, Deepa Unavailable Unavailable Saarie, Deepa Unavailable Unavailable Saarie, Deepa Unavailable Unavailable Saarie, Deepa Unavailable Unavailable Saarie, Deepa Unavailable Unavailable Saarie, Deepa Unavailable Unavailable Saarie, Deepa Unavailable Unavailable Saarie, Deepa Unavailable Unavailable Saarie, Deepa Unavailable Unavailable Saarie, Deepa Unavailable Unavailable Saarie, Deepa Unavailable Unavailable Saarie, Deepa Unavailable Unavailable Saarie, Deepa Unavailable Unavailable Saarie, Deepa Unavailable Unavailable Saarie, Deepa Unavailable Unavailable Saarie, Deepa Unavailable Unavailable Saarie, Deepa Unavailable Unavailable Saarie, Deepa Unavailable Unavailable Saarie, Deepa Unavailable Unavailable Saarie, Deepa Unavailable Unavailable Saarie, Deepa Unavailable Unavailable Saarie, Deepa Unavailable Unavailable Saarie, Deepa Unavailable Unavailable Saarie, Deepa Unavailable Unavailable Saarie, Deepa Unavailable Unavailable Saarie, Deepa Unavailable Unavailable Saarie, Deepa Unavailable Unavailable Saarie, Deepa Unavailable Unavailable Saarie, Deepa Unavailable Unavailable Saarie, Deepa Unavailable Unavailable Saarie, Deepa Unavailable Unavailable Saarie, Deepa Unavailable Unavailable Saarie, Deepa Unavailable Unavailable Saarie, Deepa Unavailable Unavailable Saarie, Deepa Unavailable Unavailable Saarie, Deepa Unavailable Unavailable Saarie, Deepa Unavailable Unavailable Saarie, Deepa Unavailable Unavailable Saarie, Deepa Unavailable Unavailable Saarie, Deepa Unavailable Unavailable Saarie, Deepa Unavailable Unavailable Saarie, Deepa Unavailable Unavailable Saarie, Deepa Unavailable Unavailable Saarie, Deepa Unavailable Unavailable Saarie, Deepa Unavailable Unavailable Saarie, Deepa Unavailable Unavailable Saarie, Deepa Unavailable Unavailable Saarie, Deepa Unavailable Unavailable Saarie, Deepa Unavailable Unavailable Saarie, Deepa Unavailable Unavailable Saarie, Deepa Unavailable Unavailable Saarie, Deepa Unavailable Unavailable Saarie, Deepa Unavailable Unavailable Saarie, Deepa Unavailable Unavailable Saarie, Deepa Unavailable Unavailable Saarie, Deepa Unavailable Unavailable Saarie, Deepa Unavailable Unavailable Saarie, Deepa Unavailable Unavailable UR MARYCRUZ KELLY NICKI MD Unavailable Unavailable UR MARYCRUZ KELLY NICKI MD Unavailable Unavailable UR MARYCRUZ KELLY NICKI MD Unavailable Unavailable UR MARYCRUZ KELLY NICKI MD Unavailable Unavailable UR MARYCRUZ KELLY NICKI MD Unavailable Unavailable UR MARYCRUZ KELLY NICKI MD Unavailable Unavailable UR MARYCRUZ, KELLY NICKI MD Unavailable Unavailable UR MARYCRUZ, KELLY NICKI MD Unavailable Unavailable UR MARYCRUZ, KELLY NICKI MD Unavailable Unavailable UR MARYCRUZ KELLY NICKI MD Unavailable Unavailable UR MARYCRUZ, KELLY NICKI MD Unavailable Unavailable UR MARYCRUZ, KELLY NICKI MD Unavailable Unavailable UR MARYCRUZ, KELLY NICKI MD Unavailable Unavailable UR MARYCRUZ KELLY NICKI MD Unavailable Unavailable UR MARYCRUZ KELLY NICKI MD Unavailable Unavailable UR MARYCRUZ KELLY NICKI MD Unavailable Unavailable UR MARYCRUZ KELLY NICKI MD Unavailable Unavailable PHYSICIAN, PHYSICIAN ER Unavailable Unavailable TURRIN, ANDRAE Unavailable Unavailable TURRIN, ANDRAE Unavailable Unavailable TURRIN, ANDRAE Unavailable Unavailable TURRIN, ANDRAE Unavailable Unavailable Guevara Banks MD Unavailable Unavailable Guevara Banks MD Unavailable Unavailable Guevara Banks MD Unavailable Unavailable Guevara Banks MD Unavailable Unavailable Guevara Banks MD Unavailable Unavailable Guevara Banks MD Unavailable Unavailable Guevara Banks MD Unavailable Unavailable Guevara Banks MD Unavailable Unavailable Guevara Banks MD Unavailable Unavailable Guevara Banks MD Unavailable Unavailable Guevara Banks MD Unavailable Unavailable Guevara Banks MD Unavailable Unavailable Guevara Banks MD Unavailable Unavailable Guevara Banks MD Unavailable Unavailable Guevara Banks MD Unavailable Unavailable Guevara Banks MD Unavailable Unavailable Guevara Banks MD Unavailable Unavailable Guevara Banks MD Unavailable Unavailable Guevara Banks MD Unavailable Unavailable Guevara Banks MD Unavailable Unavailable Guevara Banks MD Unavailable Unavailable Guevara Banks MD Unavailable Unavailable Guevara Banks MD Unavailable Unavailable Guevara Banks MD Unavailable Unavailable Guevara Banks MD Unavailable Unavailable Guevara Banks MD Unavailable Unavailable Guevara Banks MD Unavailable Unavailable Guevara Banks MD Unavailable Unavailable Guevara Banks MD Unavailable Unavailable Guevara Banks MD Unavailable Unavailable Guevara Banks MD Unavailable Unavailable Guevara Banks MD Unavailable Unavailable Guevara Banks MD Unavailable Unavailable Guevara Banks MD Unavailable Unavailable Guevara Banks MD Unavailable Unavailable Guevara Banks MD Unavailable Unavailable Guevara Banks MD Unavailable Unavailable Guevara Banks MD Unavailable Unavailable Guevara Banks MD Unavailable Unavailable Guevara Banks MD Unavailable Unavailable Garvey, L Eliza RPA Unavailable Unavailable Garvey, L Eliza RPA Unavailable Unavailable Garvey, L Eliza RPA Unavailable Unavailable Garvey, L Eliza RPA Unavailable Unavailable Garvey, L Eliza RPA Unavailable Unavailable Garvey, L Eliza RPA Unavailable Unavailable Garvey, L Eliza RPA Unavailable Unavailable Garvey, L Eliza RPA Unavailable Unavailable Garvey, L Eliza RPA Unavailable Unavailable Garvey, L Eliza RPA Unavailable Unavailable Garvey, L Eliza RPA Unavailable Unavailable Garvey, L Eliza RPA Unavailable Unavailable Garvey, L Eliza RPA Unavailable Unavailable Garvey, L Eliza RPA Unavailable Unavailable Garvey, L Eliza RPA Unavailable Unavailable Garvey, L Eliza RPA Unavailable Unavailable Garvey, L Eliza RPA Unavailable Unavailable Garvey, L Eliza RPA Unavailable Unavailable Garvey, L Eliza RPA Unavailable Unavailable Garvey, L Eliza RPA Unavailable Unavailable Garvey, L Eliza RPA Unavailable Unavailable Garvey, L Eliza RPA Unavailable Unavailable Garvey, L Eliza RPA Unavailable Unavailable Garvey, L Eliza RPA Unavailable Unavailable Garvey, L Eliza RPA Unavailable Unavailable Garvey, L Eliza RPA Unavailable Unavailable Garvey, L Eliza RPA Unavailable Unavailable Garvey, L Eliza RPA Unavailable Unavailable Garvey, L Eliza RPA Unavailable Unavailable Garvey, L Eliza RPA Unavailable Unavailable Garvey, L Eliza RPA Unavailable Unavailable Garvey, L Eliza RPA Unavailable Unavailable Rashel Cornelius MD Unavailable Unavailable Rashel Cornelius MD Unavailable Unavailable Rashel Cornelius MD Unavailable Unavailable Rashel Cornelius MD Unavailable Unavailable Rashel Cornelius MD Unavailable Unavailable Rashel Cornelius MD Unavailable Unavailable Rashel Cornelius MD Unavailable Unavailable Rashel Cornelius MD Unavailable Unavailable Rashel Cornelius MD Unavailable Unavailable Rashel Cornelius MD Unavailable Unavailable Rashel Cornelius MD Unavailable Unavailable Rashel Cornelius MD Unavailable Unavailable Rashel Cornelius MD Unavailable Unavailable Rashel Cornelius MD Unavailable Unavailable Rashel Cornelius MD Unavailable Unavailable Rashel Cornelius MD Unavailable Unavailable Rashel Cornelius MD Unavailable Unavailable Rashel Cornelius MD Unavailable Unavailable Rsahel Cornelius MD Unavailable Unavailable Rashel Cornelius MD Unavailable Unavailable Rashel Cornelius MD Unavailable Unavailable Rashel Cornelius MD Unavailable Unavailable Rashel Cornelius MD Unavailable Unavailable Rashel Cornelius MD Unavailable Unavailable Rashel Cornelius MD Unavailable Unavailable UR MARYCRUZLYLYA NICKI SANON Unavailable Unavailable UR MARYCRUZ KELLY NICKI MD Unavailable Unavailable UR MARYCRUZ, KELLY NICKI MD Unavailable Unavailable UR MARYCRUZ, KELLY NICKI MD Unavailable Unavailable UR MARYCRUZ, KELLY NICKI MD Unavailable Unavailable UR MARYCRUZ, KELLY NICKI MD Unavailable Unavailable UR MARYCRUZ, KELLY NICKI MD Unavailable Unavailable UR MARYCRUZ, KELLY NICKI MD Unavailable Unavailable UR MARYCRUZ, KELLY NICKI MD Unavailable Unavailable UR MARYCRUZ, KELLY NICKI MD Unavailable Unavailable UR MARYCRUZ, KELLY NICKI MD Unavailable Unavailable UR MARYCRUZ, KELLY NICKI MD Unavailable Unavailable UR MARYCRUZ, KELLY NICKI MD Unavailable Unavailable UR MARYCRUZ, KELLY NICKI MD Unavailable Unavailable UR MARYCRUZ, KELLY NICKI MD Unavailable Unavailable UR MARYCRUZ, KELLY NICKI MD Unavailable Unavailable UR MARYCRUZ, KELLY NICKI MD Unavailable Unavailable POLO CHRISTINA DO Unavailable Unavailable MALVASI, POLO DO Unavailable Unavailable MALVASI, POLO DO Unavailable Unavailable MALVASI, POLO DO Unavailable Unavailable MALVASI, POLO DO Unavailable Unavailable MALVASI, POLO DO Unavailable Unavailable MALVASI, POLO DO Unavailable Unavailable MALVASI, POLO DO Unavailable Unavailable MALVASI, POLO DO Unavailable Unavailable MALVASI, POLO DO Unavailable Unavailable MALVASI, POLO DO Unavailable Unavailable MALVASI, POLO DO Unavailable Unavailable MALVASI, POLO DO Unavailable Unavailable MALVASI, POLO DO Unavailable Unavailable MALVASI, POLO DO Unavailable Unavailable MALVASI, POLO DO Unavailable Unavailable MALVASI, POLO DO Unavailable Unavailable MALVASI, POLO DO Unavailable Unavailable MALVASI, POLO DO Unavailable Unavailable MALVASI, POLO DO Unavailable Unavailable MALVASI, POLO DO Unavailable Unavailable MALVASI, POLO DO Unavailable Unavailable MALVASI, POLO DO Unavailable Unavailable MALVASI, POLO DO Unavailable Unavailable MALVASI, POLO DO Unavailable Unavailable MALVASI, POLO DO Unavailable Unavailable MALVASI, POLO DO Unavailable Unavailable MALVASI, POLO DO Unavailable Unavailable MALVASI, POLO DO Unavailable Unavailable MALVASI, POLO DO Unavailable Unavailable MALVASI, POLO DO Unavailable Unavailable MALVASI, POLO DO Unavailable Unavailable MALVASI, POLO DO Unavailable Unavailable MALVASI, POLO DO Unavailable Unavailable MALVASI, POLO DO Unavailable Unavailable MALVASI, POLO DO Unavailable Unavailable MALVASI, POLO DO Unavailable Unavailable MALVASI, POLO DO Unavailable Unavailable MALVASI, POLO DO Unavailable Unavailable MALVASI, POLO DO Unavailable Unavailable MALVASI, POLO DO Unavailable Unavailable MALVASI, POLO DO Unavailable Unavailable MALVASI, POLO DO Unavailable Unavailable MALVASI, POLO DO Unavailable Unavailable MALVASI, POLO DO Unavailable Unavailable MALVASI, POLO DO Unavailable Unavailable MALVASI, POLO DO Unavailable Unavailable MALVASI, POLO DO Unavailable Unavailable MALVASI, POLO DO Unavailable Unavailable MALVASI, POLO DO Unavailable Unavailable MALVASI, POLO DO Unavailable Unavailable MALVASI, POLO DO Unavailable Unavailable MALVASI, POLO DO Unavailable Unavailable MALVASI, POLO DO Unavailable Unavailable MALVASI, POLO DO Unavailable Unavailable MALVASI, POLO DO Unavailable Unavailable MALVASI, POLO DO Unavailable Unavailable MALVASI, POLO DO Unavailable Unavailable MALVASI, POLO DO Unavailable Unavailable MALVASI, POLO DO Unavailable Unavailable MALVASI, POLO DO Unavailable Unavailable MALVASI, POLO DO Unavailable Unavailable MALVASI, POLO DO Unavailable Unavailable MALVASI, POLO DO Unavailable Unavailable MALVASI, POLO DO Unavailable Unavailable MALVASI, POLO DO Unavailable Unavailable MALVASI, POLO DO Unavailable Unavailable MALVASI, POLO DO Unavailable Unavailable ZOHRA PEDROZA MD Unavailable Unavailable Be REAVES [id number] Unavailable Unavailable PHYSICIAN, ER Unavailable Unavailable Jordan, E Duncan Unavailable Unavailable Jordan, E Duncan Unavailable Unavailable BREED, L DEMETRIO Unavailable Unavailable Re-disclosure Warning The records that you are about to access may contain information from federally-assisted alcohol or drug abuse programs. If such information is present, then the following federally mandated warning applies: This information has been disclosed to you from records protected by federal confidentiality rules (42 CFR part 2). The federal rules prohibit you from making any further disclosure of this information unless further disclosure is expressly permitted by the written consent of the person to whom it pertains or as otherwise permitted by 42 CFR part 2. A general authorization for the release of medical or other information is NOT sufficient for this purpose. The Federal rules restrict any use of the information to criminally investigate or prosecute any alcohol or drug abuse patient.The records that you are about to access may contain highly sensitive health information, the redisclosure of which is protected by Article 27-F of the [facility] Public Health law. If you continue you may have access to information: Regarding HIV / AIDS; Provided by facilities licensed or operated by the [facility] Office of Mental Health; or Provided by the [facility] Office for People With Developmental Disabilities. If such information is present, then the following [facility] mandated warning applies: This information has been disclosed to you from confidential records which are protected by state law. State law prohibits you from making any further disclosure of this information without the specific written consent of the person to whom it pertains, or as otherwise permitted by law. Any unauthorized further disclosure in violation of state law may result in a fine or nursing home sentence or both. A general authorization for the release of medical or other information is NOT sufficient authorization for further disc losure. Family History Family Member Name Family Member Gender Family Member Status Date o f Status Description Data Source(s) Unknown Unknown Problem [facility] ([facility]) Encounters Encounter Providers Location Date Indications Data Source(s ) Emergency Attender: ANDRAE NOLASCOConsultant: Marcial singh MD 08/16/2021 04:31:00 PM EST - 08/16/2021 08:46:00 PM [facility] Patient discharged. Outpatient Attender: POLO CHRISTINA DO Main Office 02/16/2021 0 7:30:00 PM EDT [facility] ([facility]) Outpatient Attender: Adam June ter: Adam WinklerReferrer: Macho Reaves 02/05/2021 02:30:16 PM EDT [facility] Attender: Eliza Garvey RPA Juli/Page/Kelby/R eindl 02/04/2021 01:45:00 PM EDT [facility] ([facility]) Inpatient 01/26/2021 08:48:49 AM EDT [facility] Outpatient Attender: Eliza Garvey RPA Juli/Page/Kelby/R eindl 01/11/2021 01:15:00 PM EDT [facility] ([facility] Outpatient Attender: POLO CHRISTINA DO Main Office 12/14/2020 0 7:00:00 PM EDT [facility] ([facility]) [place] ( in Healthcare facility) Attender: NICKI JOEL MDAdmitter: MANUEL BARNETT MDConsultant: Deepa Lund 11/02/2020 04:12:00 AM [facility] Inpatient Attender: Dash Cornelius MDAttender: ER PHYSICIAN 11/02/2020 04:12:00 AM [facility] Inpatient Attender: FADIA Pham er: NICKI JOEL MDAttender: Dash Cornelius MDAttender: ER PHYSICIANAdmitter: MANUEL BARNETT MD 11/01/2020 10:21:15 PM EST [facility] Attender: AMI Cooneyender: NICKI JOEL MDAttender: Dash Cornelius MDAttender: MANUEL BARNETT MDAttender: ER PHYSICIANAdmitter: MANUEL BARNETT MD 11/01/2020 08:44:00 PM EST - 11/10/2020 04:13:00 PM EST [facility] WITH GENERALIZED WEAKNESS DIARRHEA HYPOKALEMIA [facility] MS WITH GENERALIZED WEAKNESS DIARRHEA HY POKALEMIA Patient discharged. Emergency Attender: Duncan Ortega [id number] 06:00:00 PM EST - 10/22/2020 11:27:00 PM EST [facility] Patient discharged. Outpatient Attender: POLO CHRISTINA DO Main Office 08/26/2020 0 8:30:00 AM EST [facility] ([facility]) Outpatient Attender: POLO CHRISTINA DO Main Office 07/02/2020 0 1:45:00 PM EDT [facility] ([facility]) Outpatient Attender: DEMETRIO WYNNEReferrer: MACHO REAVES [id number] 03/26/2020 01:44:51 PM EDT - 03/26/2020 03:24:08 PM EDT [facility] Multiple sclerosis Immunizations Vaccine Date Status Description Data Source(s) New in 2012. IIV4 07/02/2020 11:06:00 AM EDT completed [facility] ([facility]) Medications Medication Brand Name Start Date Product Form Dose Route Admi nistrative Instructions Pharmacy Instructions Status Indications Reaction Description Data Source(s) 12 HR Carbamazepine 100 MG Extended Release Oral Tablet Carb amazepine ER 02/24/2021 12:00:00 AM EDT ORAL active [facility] ([facility]) Furosemide 20 MG Oral Tablet Furosemide 02/16/2021 12:00:00 AM EDT active [facility]) Quad Cane 12/14/2020 12:00:00 AM EDT active [facility] ([facility]) 12 HR Carbamazepine 400 MG Extended Release Oral Tablet Carb amazepine ER 12/14/2020 12:00:00 AM EDT ORAL completed [facility] ([facility]) Mayzent Mayzent 12/14/2020 12:00:00 AM EDT ORAL active [facility] ([facility]) Tamsulosin hydrochloride 0.4 MG Oral Capsule Tamsulosin HCL 12/14/2020 12:00:00 AM EDT ORAL active [facility] ([facility]) Trazodone Hydrochloride 50 MG Oral Tablet Trazodone HCL 12/14/2020 12:00:00 AM EDT ORAL active [facility] ([facility]) Potassium Chloride 20 MEQ Extended Release Oral Tablet Potas sium Chloride ER 12/14/2020 12:00:00 AM EDT ORAL completed [facility] ([facility]) quetiapine 100 MG Oral Tablet Quetiapine Fumarate 12/14/2020 12:00: 00 AM EDT ORAL active [facility] ([facility]) sildenafil 50 MG Oral Tablet Sildenafil Citrate 12/03/2020 12:00:00 A M EDT completed [facility] ([facility]) Sertraline 100 MG Oral Tablet Sertraline HCL 08/27/2020 12:00:[address] ORAL active [facility] ([facility]) Simvastatin 20 MG Oral Tablet Simvastatin 08/27/2020 12:00:00 AM EST ORAL active [facility] ([facility]) meloxicam 7.5 MG Oral Tablet Meloxicam 08/26/2020 12:00:00 AM EST ORAL active [facility] ([facility]) Chantix Starting Month Neftali Chantix Starting Month Neftali 2019 12:00:00 AM EDT completed [facility] ([facility]) Chantix Continuing Month Neftali Chantix Continuing Month Neftali 12:00:00 AM EDT completed [facility] ([facility]) Escitalopram 20 MG Oral Tablet [Lexapro] Lexapro 04/02/2020 12:00: 00 AM EDT ORAL completed [facility] ([facility]) Sulfamethoxazole 800 MG / Trimethoprim 160 MG Oral Tablet [B actrim] Bactrim DS 04/02/2020 12:00:00 AM EDT ORAL completed [facility] ([facility]) Insurance Providers Payer name Policy type / Coverage type Policy ID Covered libertarian ID Covered libertarian's relationship to farris Policy Farris Plan Information [facility] [employer] [id number] Self V [id number] [facility] [employer] [id number] Self V [id number] [employer] Commercial [id number] Self V [id number] [employer] Commercial [id number] Self V [id number] [employer] Commercial [id number] Self [id number] [employer] Commercial [id number] Self V [id number] [employer] Commercial [id number] Self V [id number] [employer] Commercial [id number] Self V [id number] [employer] Commercial [id number] Self [id number] [employer] Commercial [id number] Self [employer] Commercial [id number] Self V [id number] [employer] Workers Compensation [id number] Self 1 [id number] [employer] Workers Compensation [id number] Self [id number] [employer] Workers Compensation [id number] Self 1 [id number] [employer] Workers Compensation [id number] Self 1 [id number] [employer] Workers Compensation [id number] Self 1 [id number] [employer] Workers Compensation [id number] Self 1 [id number] [employer] Workers Compensation [id number] Self 1 [id number] [employer] Workers Compensation [id number] Self [id number] [employer] Workers Compensation [id number] Self 1 [id number] [employer] Workers Compensation [id number] Self 1 [id number] [employer] Workers Compensation [id number] Self EXCELLUS H [id number] Self [id number] EXCELLUS BCBS [id number] Patience VYS EXCELLUS BCBS [id number] Patience VYS EXCELLUS C [id number] Self [id number] [employer] GENERIC C [id number] Self WM [id number] EXCELLUS BCBS [id number] Patience VYS [id number] Medicaid S [id number] S [id number] Managed Care [place] P [id number] S [id number] Blue Cross Blue Shield P [id number] SELF [id number] Blue Cross Blue Shield P [id number] SELF [id number] Blue Cross Blue Shield P [id number] SELF [id number] REY [id number] SP [id number] REY I [id number] Self [id number] REY I [id number] Self [id number] Medicaid S [id number] S [id number] MEDICARE [id number] SP [id number] D23 MEDICAID [id number] SP [id number] Medicare P [id number] S [id number] D23 Blue Cross Blue Shield Commercial [id number] Self [id number] SELF PAY ONLY [id number] SP [id number] Blue Cross Blue Shield Commercial [id number] Self [id number] REY [id number] SP [id number] [place] [id number] SP [id number] Blue Cross Blue Shield P [id number] SELF [id number] Blue Cross Blue Shield P [id number] SELF [id number] EXCELLUS BCBS [id number] [phone] [id number] EXCELLUS H [id number] SOth [id number] EXCELLUS BCBS [id number] Spo [id number] Blue Cross Blue Shield P [id number] SPOUSE [id number] Medicare P [id number] S [id number] [id number] INSURANCE COVID-19 COVID Patience C OVID INSURANCE COVID-19 COVID Patience C OVID INSURANCE COVID-19 [id number] [id number] INSURANCE COVID-19 [id number] xxxxx [id number] INSURANCE COVID-19 COVID Patience C OVID INSURANCE COVID-19 COVID Patience C OVID EXCELLUS BCBS B [id number] S W [id number] [place]/307 [id number] SP [id number] [place] 302/307 [id number] SP [id number] [place] 306/806 [id number] SP [id number] Blue Shield of [facility] [id number] 18 [id number] BCBS/Blue Card Commercial [id number] Self SELF PAY 2 UNAVAILABLE 1 UNAVAILA BLE BC BLUE CARD 1 [id number] EXCELLUS BLUE CROSS BLUE SHIELD HEA [id number] SP [id number] Blue Shield of [facility] [id number] SE [id number] Blue Shield of [facility] [id number] SE [id number] MEDICARE PART A -O/P [id number] 18 [id number] MEDICARE C [id number] S [id number] MEDICAID M [id number] S [id number] INSURANCE COVID-19 COVID Patience C OVID INSURANCE COVID-19 [id number] [phone] [id number] MEDICAID [id number] SP [id number] [facility] UNAVAILABLE 18 UNAVAILABLE Blue Shield of [facility] [id number] 01 [id number] Blue Cross Blue Shield P [id number] SPOUSE [id number] MEDICARE [id number] SP [id number] Managed Care [place] P [id number] S [id number] EXCELLUS BLUE CROSS BLUE SHIELD HEA [id number] S [id number] MEDICARE [id number] SP [id number] EXCELLUS BCBS [place] [id number] S [id number] ANSI-Commercial [id number] REY [id number] SP [id number] ANSI-Commercial [id number] REY [id number] Medicaid S [id number] S [id number] BCBS [place] 306/806 [id number] SP [id number] Problems, Conditions, and Diagnoses Code Display Name Description Problem Type Effective Dates Data Source(s) G50.0 Trigeminal neuralgia Trigeminal neuralgia Diagnosis 10/22/2020 08:15:21 PM EST [facility] [id number] Depressive disorder Depressive disorder Problem 0 11/11/2020 12:00:00 AM EST [facility] ([facility]) Surgeries/Procedures Procedure Description Date Indications Data Source(s) OFFICE OUTPATIENT VISIT 25 MINUTES 02/16/2021 12:00:00 AM EDT [facility] ([facility]) OFFICE OUTPATIENT VISIT 25 MINUTES 12/14/2020 12:00:00 AM EDT [facility]) Electrocardiogram Interpretation & Report Only 021 12:00:00 AM EST [facility] ([facility]) Electrocardiogram Interpretation & Report Only 021 12:00:00 AM EST [facility] ([facility]) Results ID Date Data Source [id number] 08/19/2021 03:17:02 PM EST [facility] Name Value Range Interpretation Code Description Data Anat rce(s) Supporting Document(s) TOTAL PROTEIN 6.8 g/dL (6.4-8.2) [facility] ALBUMIN 3.7 g/dL (3.5-4.6) [facility] GLOBULIN 3.1 g/dL (2.7-4.3) [facility] ALB/GLOB RATIO 1.2 RATIO [facility] BILIRUBIN,TOTAL 0.3 mg/dL (0.0-1.0) [facility] PLEASE NOTE:Total bilirubin results may be falselyelevated in patients taking Eltrombopag. BILIRUBIN,CONJUGATED 0.1 mg/dL (0.0-0.3) [facility] BILIRUBIN,UNCONJ. 0.2 mg/dL (0.0-0.7) [facility] ALKALINE PHOSPHATASE 128 U/L (45-117) H [facility] AST (SGOT) 11 U/L (11-39) [facility] ALT (SGPT) 32 U/L (12-78) [facility] ID Date Data Source [id number] 08/19/2021 01:04:58 PM EST [facility] Name Value Range Interpretation Code Description Data Anat rce(s) Supporting Document(s) WBC 5.7 10*3/uL (4.1-11.0) [facility] RBC 4.96 10*6/uL (4.60-6.10) [facility] HGB 15.1 g/dL (13.5-18.0) [facility] HCT 44.2 % (41.0-53.0) [facility] MCV 89.3 fL (80.0-95.0) [facility] MCH 30.4 pg (27.0-32.0) [facility] MCHC 34.1 g/dL (32.0-36.0) [facility] RDW 16.7 % (10.5-14.5) H [facility] PLT 401 10*3/uL (150-450) [facility] MPV 7.0 fL (7.1-10.7) L [facility] NEUT % 82.7 % (35.0-75.0) H [facility] LYMPH % 2.9 % (16.0-52.0) L [facility] MONO % 7.7 % (0.0-8.0) [facility] EOS % 6.2 % (0.0-5.0) H [facility] - CORE BASO % 0.5 % (0.0-4.0) [facility] NEUT # 4.7 10*3/uL (1.8-7.7) Laboratory [facility] - C[facility] LYMPH # 0.2 10*3/uL (1.2-4.8) L Laboratory [facility] of [facility] - CORE MONO # 0.4 10*3/uL (0.0-0.8) Laboratory [facility] - [facility] Eosinophils [#/volume] in Blood by Automated count 0.4 10*3/uL (0.0-0 .5) [facility] BASO # 0.0 10*3/uL (0.0-0.2) Laboratory [facility] ID Date Data Source [id number] 08/17/2021 10:41:00 [place] [address] PHONE: [phone] FAX: [phone] Name .................. : CASIE PHILLIPS Av Acct Number.................. : [id number] ROOM. ................. : VT-26 Number ................... : [id number] Stay type ............. : E/R Discharge Date......... ... : 08/16/21 Admit Date ......... : 08/16/21 Admit Phys .................... : CONSTANCE BOCANEGRA Date of ....... : 1965 Family Phys ................... : GABRIELLA Ley Phone .................. : [phone] Age ................................ : 56 Film# .................. .:[id number] Sex ................................. : M Unsigned transcriptions are preliminary reports and do not represent a medical or legal document CT ABD & PELV W/[place] OR[place] W/[place] [id number] COMPLETE:08/16/21 19:19 SHERICE [id number] Reason(s): Abdominal Pain CT ABDOMEN AND PELVIS WITHOUT IV CONTRAST INDICATION: Abdominal pain COMPARISON: None IV CONTRAST: None Preliminary report for this exam was provided by Gary . One or more of the following dose reduction techniques were utilized in effectively lowering the radiation dose for this examination: Automated Exposure Control, Adjustment of the mA and/or kV according to patient size, or Iterative reconstruction. FINDINGS: LUNG BASES: Right lower lobe atelectasis and/or pneumonia. Coronary artery calcification. LIVER/BILIARY: Small nodular liver typical of cirrhosis. No lesions are identified. Unremarkable gallbladder. SPLEEN: Normal. PANCREAS: Normal. ADRENALS: Normal bilaterally. KIDNEYS/: Normal kidneys without hydronephrosis. No nephrolithiasis. The bladder is largely collapsed and a noncontrast study limiting assessment. Allowing for this there is an asymmetric 13 mm soft tissue density near the region of the right UVJ. Clearly asymmetrically more prominent than any corresponding structure in left UVJ region. This should be considered bladder malignancy until proven otherwise. Page [address] [facility] [address] [place] [address] PHONE: [phone] FAX: [phone] Name .................. : CASIE PHILLIPS Av Acct Number.................. : [id number] ROOM. ................. : VT-26 Number ................... : [id number] Stay type ............. : E/R Discharge Date......... ... : 08/16/21 Admit Date ......... : 08/16/21 Admit Phys .................... : CONSTANCE BOCANEGRA Date of ....... : 1965 Family Phys ................... : GABRIELLA Av Phone .................. : [phone] Age ................................ : 56 Film# .................. .:[id number] Sex ................................. : M Unsigned transcriptions are preliminary reports and do not represent a medical or legal document CT ABD & PELV W/[place] ORAL W/[place] [id number] COMPLETE:08/16/21 19:19 SHERICE [id number] Reason(s): Abdominal Pain Prostate does not appear abnormally enlarged. BOWEL/GI: Severe ascites. No free air. Extensive diverticulosis without diverticulitis. No colitis. Appendix not clearly delineated. Possible appendiceal stump. No indication of appendicitis. Mild gastric distention. No wall thickening. NODES/RETROPERITONEUM: No adenopathy. Heavily calcified aortoiliac system without aneurysm. Appearance of the middle region suggest bilateral femoral origin vascular grafts. SKELETAL: [id number] degenerative disc and facet change. No acute compression fracture. IMPRESSION: Cirrhotic appearing liver with severe ascites. No splenomegaly. Right lower lobe atelectasis and/or pneumonia. These findings correspond to preliminary report. Diverticulosis. Mild gastric distention of questionable significance. Asymmetric soft tissue density at right UVJ region in bladder. This should be considered bladder malignancy until proven otherwise. The finding could be assessed with cystoscopy or CT IVP. This is a change from the preliminary report. Report placed in result notification protocol. Electronically Reviewed and Signed By Madi Andujar MD , 08/17/21 10:41, SCB Transcribe Initials: DZ , Transcribe Date: 08/17/21 01:06, Dictation Date: Page [address] [facility] [address] [place] [address] PHONE: [phone] FAX: [phone] Name .................. : CASIE Ley Acct Number.................. : [id number] ROOM. ................. : VT-26 Number ................... : [id number] Stay type ............. : E/R Discharge Date......... ... : 08/16/21 Admit Date ......... : 08/16/21 Admit Phys .................... : CONSTANCE BOCANEGRA Date of ....... : 1965 Family Phys ................... : GABRIELLA Av Phone .................. : [phone] Age ................................ : 56 Film# .................. .:[id number] Sex ................................. : M Unsigned transcriptions are preliminary reports and do not represent a medical or legal document CT ABD & PELV W/[place] [id number] COMPLETE:08/16/21 19:19 SHERICE [id number] Reason(s): Abdominal Pain Copy for: ANNABELSILVERIO OSBALDO via fax Copy for: EMERGENCY DEPT via modem Copy for: 710 MED REC DISCHARGED Page 3 of 3 Name Value Range Interpretation Code Description Data [facility] rce(s) Supporting Document(s) ID Date Data Source [id number] 08/16/2021 07:25:00 PM EST [facility] Name Value Range Interpretation Code Description Data [facility](s) Supporting Document(s) COMPREHENSIVE METABOLIC PANEL [facility] COMPREHENSIVE METABOLIC PANEL Sodium [Moles/volume] in Serum or Plasma 131 mEq/L 134 - 153 L [facility] Potassium [Moles/volume] in Serum or Plasma 4.3 mEq/L 3.6 - 5.0 [facility] Chloride [Moles/volume] in Serum or Plasma 99 mEq/L 98 - 107 [facility] Carbon dioxide, total [Moles/volume] in Serum or Plasma 22 MEQ/L 22 - 30 [facility] Glucose [Mass/volume] in Serum or Plasma 96 MG/DL 70 - 99 [facility] BUN 9 MG/DL 7 - 21 [facility] Creatinine [Mass/volume] in Serum or Plasma 0.8 MG/DL 0.7 - 1.5 [facility] BUN/CREAT 11 8 - 27 [facility] Protein [Mass/volume] in Serum or Plasma 5.6 G/DL 6.3 - 8.2 L [facility] Albumin [Mass/volume] in Serum or Plasma 2.8 G/DL 3.9 - 5.0 L [facility] Globulin [Mass/volume] in Serum by calculation 2.8 GM/DL 2.4 - 3.2 [facility] A/G RATIO 1.0 0.8 - 2.0 [facility] Calcium [Mass/volume] in Serum or Plasma 8.9 MG/DL 8.4 - 10.2 [facility] Bilirubin.total [Mass/volume] in Serum or Plasma 1.4 MG/DL 0.2 - 1.3 H [facility] Alkaline phosphatase [Enzymatic activity/volume] in Serum or Plasma 65 U/L 38 - 126 [facility] Aspartate aminotransferase [Enzymatic activity/volume] in Serum or Plasma 60 U/L 5 - 40 H [facility] Alanine aminotransferase [Enzymatic activity/volume] in Seru m or Plasma 29 U/L 7 - 56 [facility] Anion gap 3 in Serum or Plasma 10.0 mmol/L 8.0 - 16.0 [facility] AGE 56 yrs [facility] NON-AA GFR >60 mL/min [facility] ital AFR AMER GFR >60 mL/min [facility] Ho spital Male GFR In terprentation 20-49 yrs >60 mL/min Normal 50-59 yrs >56 mL/min Normal 60-69 yrs >49 mL/min Normal 70-79yrs >42 mL/min Normal 80 and above >35 mL/min Normal Female GFR Interpretation 20-39 yrs >60 mL/min Normal 40-49 yrs >58 mL/min Normal 50-59 yrs >51 mL/min Normal 60-69 yrs >45 mL/min Normal 70-79 yrs >39 mL/min Normal 80 and above >32 mL/min Normal ID Date Data Source [id number] 08/16/2021 07:17:00 PM [facility] Name Value Range Interpretation Code Description Data Anat rce(s) Supporting Document(s) Ethanol [Moles/volume] in Blood <10.0 MG/DL [facility] ALCOHOL % 0.01 % 0.00 - 0.01 [facility] ital *FOR MEDICAL PURPOSES ONLY * ID Date Data Source [id number] 08/16/2021 07:17:00 PM [facility] Value Range Interpretation Code Description Data Anat rce(s) Supporting Document(s) Lactate dehydrogenase [Enzymatic activity/volume] in Serum o r Plasma 148 U/L 135 - 225 [facility] ID Date Data Source [id number] 08/16/2021 07:17:00 PM [facility] Value Range Interpretation Code Description Data Anat rce(s) Supporting Document(s) Magnesium [Mass/volume] in Serum or Plasma 2.0 MG/DL 1.7 - 2.2 [facility] ID Date Data Source [id number] 08/16/2021 07:17:00 PM [facility] Value Range Interpretation Code Description Data Anat rce(s) Supporting Document(s) Lipase [Enzymatic activity/volume] in Serum or Plasma 52 U/L 13 - 60 [facility] ID Date Data Source [id number] 08/16/2021 07:16:00 PM [facility] Name Value Range Interpretation Code Description Data Anat rce(s) Supporting Document(s) BNP 1286 PG/ML 0 - 125 H [facility] Hos[facility] adilia ID Date Data Source [id number] 08/16/2021 07:06:00 PM EST [facility] Name Value Range Interpretation Code Description Data Anat rce(s) Supporting Document(s) CBC W/AUTOMATED DIFF [facility] COMPLETE BLOOD COUNT Leukocytes [#/volume] in Blood by Automated count 10.3 10^3/uL 4.2 - 11.0 [facility] Erythrocytes [#/volume] in Blood by Automated count 3.50 10^6/uL 4. 50 - 6.30 L [facility] Hemoglobin [Mass/volume] in Blood 12.4 g/dL 14.0 - 16.0 L [facility] Hematocrit [Volume Fraction] of Blood by Automated count 35.7 % 4 1.0 - 51.0 L [facility] Erythrocyte mean corpuscular volume [Entitic volume] b y Automated count 102.0 fL 80.0 - 94.0 H [facility] Erythrocyte mean corpuscular hemoglobin [Entitic mass] by Automated count 35.4 pg 27.0 - 34.0 H [facility] Erythrocyte mean corpuscular hemoglobin concentration [Mass/volume] by Automated count 34.7 g/dL 31.0 - 36.0 [facility] Erythrocyte distribution width [Ratio] by Automated count 14.4 % 11.5 - 14.8 [facility] Platelets [#/volume] in Blood by Automated count 130 10^3/uL 150 - 45 0 L [facility] Platelet mean volume [Entitic volume] in Blood by Automated count 10.5 fL 7.4 - 10.4 H [facility] Neutrophils/100 leukocytes in Blood by Automated count 62.7 % 37. 0 - 80.0 [facility] Lymphocytes/100 leukocytes in Blood by Manual count 18.6 % 25.0 - 40.0 L [facility] Monocytes/100 leukocytes in Blood by Automated count 15.8 % 3.0 - 8.0 H [facility] Eosinophils/100 leukocytes in Blood by Automated count 1.8 % 0.0 - 7.0 [facility] Basophils/100 leukocytes in Blood by Automated count 0.7 % 0.0 - 2.0 [facility] %IG 0.4 % 0.0 - 0.0 H [facility] al %NRBC 0.0 % 0.0 - 0.0 [facility] al Neutrophils [#/volume] in Blood by Automated count 6.46 10^3/uL 2.00 - 6.90 [facility] Lymphocytes [#/volume] in Blood by Automated count 1.92 10^3/uL 0.60 - 3.40 [facility] Monocytes [#/volume] in Blood by Automated count 1.63 10^3/uL 0.00 - 0.90 H [facility] Eosinophils [#/volume] in Blood by Automated count 0.19 10^3/uL 0.00 - 0.70 [facility] Basophils [#/volume] in Blood by Automated count 0.07 10^3/uL 0.00 - 0.20 [facility] #IG 0.04 10^3/uL 0.00 - 0.10 [facility] ospital #NRBC 0.00 10^3/uL 0.00 - 0.00 [facility] o[facility]ital MANUAL DIFF SEE BELOW [facility] ital Segmented neutrophils/100 leukocytes in Blood by Manual count 75 % 37 - 80 [facility] %LYMPH 12 % 25 - 40 L [facility] al %MONO 13 % 3 - 8 H [facility] al RBC MORPH NOT INDICATED [facility] Ho spital ID Date Data Source [id number] 08/16/2021 07:06:00 PM EST [facility] Name Value Range Interpretation Code Description Data Anat rce(s) Supporting Document(s) TROPONIN T <0.01 NG/ML 0.00 - 0.10 [facility]ital TROPONIN T0.1 ng/ml Recommended as the c linical threshold value forTroponin T. ID Date Data Source [id number] 08/16/2021 07:06:00 PM EST [facility] Name Value Range Interpretation Code Description Data Anat rce(s) Supporting Document(s) Ammonia [Mass/volume] in Plasma 29.0 UG/DL 27.2 - 102 [facility] ID Date Data Source [id number] 08/16/2021 06:52:00 PM [facility] Name Value Range Interpretation Code Description Data Anat rce(s) Supporting Document(s) Prothrombin time (PT) 15.5 SECONDS 11.0 - 15.5 [facility] INR in Platelet poor plasma by Coagulation assay 1.20 0.93 - 1. 23 [facility] aPTT in Blood by Coagulation assay 34.2 SECONDS 24.8 - 36.7 [facility] \\BLDo\\INR INTERPRETATION\\BLDx\\ Therapeutic range for Coumadin and related oral anticoagulants. - International Normalized Ratio (INR): 2.0 - 3.0 for Venous Thrombosis, Pulmonary Embolus, Tissue heart valves, Acute ND Atrial Fibrillation, Valvular heart disease and recurrent Systemic Embolism. - International Normalized Ratio (INR): 2.5 - 3.5 for Mechanical Prosthetic valve. ID Date Data Source [id number] 08/16/2021 06:48:00 PM [facility] Name Value Range Interpretation Code Description Data Anat rce(s) Supporting Document(s) Lactate [Moles/volume] in Serum or Plasma 1.5 MMOL/L 0.2 - 2.2 [facility] ID Date Data Source [id number] 08/02/2021 08:49:00 AM EST [facility] Name Value Range Interpretation Code Description Data Anat rce(s) Supporting Document(s) SARS coronavirus 2 RNA [Presence] in Res piratory specimen by SONAM with probe detection [facility]GATIVE [facility] This lab was ordered by [facility] a nd reported by [facility]. ID Date Data Source [id number] 05/20/2021 04:52:00 PM EDT [facility] Name Value Range Interpretation Code Description Data Anat rce(s) Supporting Document(s) TOTAL PROTEIN 6.2 g/dL (6.4-8.2) L [facility] ALBUMIN 2.9 g/dL (3.5-4.6) L [facility] GLOBULIN 3.3 g/dL (2.7-4.3) [facility] ALB/GLOB RATIO 0.9 RATIO [facility] BILIRUBIN,TOTAL 0.3 mg/dL (0.0-1.0) [facility] PLEASE NOTE:Total bilirubin results may be falselyelevated in patients taking Eltrombopag. BILIRUBIN,CONJUGATED 0.1 mg/dL (0.0-0.3) [facility] BILIRUBIN,UNCONJ. 0.2 mg/dL (0.0-0.7) [facility] - C[facility] ALKALINE PHOSPHATASE 148 U/L (45-117) H [facility] AST (SGOT) 6 U/L (11-39) L [facility] - [facility] ALT (SGPT) 24 U/L (12-78) [facility] ID Date Data Source [id number] 05/20/2021 03:37:48 PM EDT [facility] Name Value Range Interpretation Code Description Data Anat rce(s) Supporting Document(s) WBC 7.4 10*3/uL (4.1-11.0) [facility] RBC 4.68 10*6/uL (4.60-6.10) [facility] HGB 14.3 g/dL (13.5-18.0) [facility] HCT 42.0 % (41.0-53.0) [facility] MCV 89.8 fL (80.0-95.0) [facility] MCH 30.5 pg (27.0-32.0) [facility] MCHC 33.9 g/dL (32.0-36.0) [facility] RDW 13.8 % (10.5-14.5) [facility] PLT 490 10*3/uL (150-450) H [facility] MPV 7.0 fL (7.1-10.7) L [facility] C[facility] NEUT % 84.4 % (35.0-75.0) H [facility] LYMPH % 3.6 % (16.0-52.0) L [facility] MONO % 9.1 % (0.0-8.0) H [facility] EOS % 2.7 % (0.0-5.0) [facility] - C[facility] BASO % 0.2 % (0.0-4.0) [facility] C[facility] NEUT # 6.3 10*3/uL (1.8-7.7) [facility] LYMPH # 0.3 10*3/uL (1.2-4.8) L [facility] MONO # 0.7 10*3/uL (0.0-0.8) [facility] Eosinophils [#/volume] in Blood by Automated count 0.2 10*3/uL (0.0-0 .5) [facility] C[facility] BASO # 0.0 10*3/uL (0.0-0.2) [facility] ID Date Data Source [id number] 02/16/2021 08:06:00 PM EDT [facility] Name Value Range Interpretation Code Description Data Anat rce(s) Supporting Document(s) Cholesterol [Mass/volume] in Serum or Plasma 196 mg/dL 112-200 [facility] ([facility]) GOAL LESS THAN 200 Triglyceride [Mass/volume] in Serum or Plasma 136 mg/dL 1-200 [facility] ([facility]) GOAL LESS THAN 200 Cholesterol in HDL [Mass/volume] in Serum or Plasma 63 mg/dL 30-70 [facility] ([facility]) GOAL GREATER THAN 45 Cholesterol non HDL [Mass/volume] in Serum or Plasma 133.00 mg/dL 0 .00-100.00 [facility] ([facility]) GOAL LESS THAN 100 Cholesterol in LDL [Mass/volume] in Serum or Plasma by calcu lation 105.80 mg/dL 20.00-130.00 [facility] ([facility]) GOAL LESS THAN 100 Cholesterol.total/Cholesterol in HDL [Mass Ratio] in Serum o r Plasma 3.11 4.00-6.70 [facility] ([facility]) ID Date Data Source [id number] 02/16/2021 08:06:00 PM EDT [facility] Name Value Range Interpretation Code Description Data Anat rce(s) Supporting Document(s) Glucose [Mass/volume] in Serum or Plasma 84.00 mg/dL 70.00-110.00 [facility] ([facility]) Urea nitrogen [Mass/volume] in Serum or Plasma 16 mg/dL 9-21 [facility] ([facility]) Creatinine [Mass/volume] in Serum or Plasma 0.8 mg/dL 0.7-1.3 [facility] ([facility]) Potassium [Moles/volume] in Serum or Plasma 3.9 mmol/L 3.5-5.1 [facility] ([facility]) Chloride [Moles/volume] in Serum or Plasma 106 mmol/L 98-107 [facility] ([facility]) GFR 107.18 mL/min [facility] ([facility]) <content>NORMAL FUNCTION OR MILD RENAL D ISEASE:>60 ml/min</content>
<content>ADVANCED RENAL DISEASE:15-59 ml/min</content>
<content>RENAL FAILURE:<15 ml/min</content>
<content></content> Protein [Mass/volume] in Serum or Plasma 6.4 g/dL 6.4-8.3 [facility] ([facility]) Albumin [Mass/volume] in Serum or Plasma 3.80 g/dL 3.30-5.00 [facility] ([facility]) Alkaline phosphatase [Enzymatic activity/volume] in Serum or Plasma 123 U/L 40-150 [facility] ([facility]) Aspartate aminotransferase [Enzymatic activity/volume] in Serum or Plasma 13 U/L 5-34 [facility] ([facility]) Alanine aminotransferase [Enzymatic activity/volume] in Seru m or Plasma 22 U/L 0-55 [facility] ([facility]) Osmolality of Serum or Plasma by calculation 294.38 275.00-295.00 [facility] ([facility]) Albumin/Globulin [Mass Ratio] in Serum or Plasma 1.46 Ratio [facility] ([facility]) Carbon dioxide, total [Moles/volume] in Serum or Plasma 26.0 0 mmol/L 22.00-31.00 [facility] ([facility]) Bilirubin.total [Mass/volume] in Serum or Plasma 0.8 mg/dL 0.2-1.2 [facility] ([facility]) Calcium [Mass/volume] in Serum or Plasma 9.60 mg/dL 8.90-10.40 [facility] ([facility]) Sodium [Moles/volume] in Serum or Plasma 142 mmol/L 136-145 [facility] ([facility]) Urea nitrogen/Creatinine [Mass Ratio] in Serum or Plasma 20.25 Ratio [facility] ([facility]) Globulin [Mass/volume] in Serum by calculation 2.60 2.30-4.20 [facility] ([facility]) ID Date Data Source [id number] 02/05/2021 02:30:13 PM EDT [facility] Diagnosti c Imaging EXAMINATION:MRI brain with and without G adavistCLINICAL HISTORY:Trigeminal neuralgia, left side, multiple sclerosisCOMPARISON:09/25/2019TECHNIQUE:A routine exam is performed before and after 6 cc of intravenous Gadavist. No complication frominjection. Patient advised to hydrateSequences consist of axial images T1 and T2 through the brain, FLAIR images through the brain,diffusion images of the brain, T2 sagittal, stir coronal, post gadolinium axial and coronal [id number].FINDINGS:Ventricular size normal. Slight prominent sylvian fissures bilaterally stable. Subtle areas ofrestricted diffusion white- matter lesions right centrum semiovale again visualized. Some of thiscould be T2 shine through.Vascular structures at the base of the skull have normal signal void. Mild deviation mid nasalseptum to the right. Mild chronic ethmoid sinus disease. Orbits normal. Mastoid air cellsnormally aerated.Thin section axial FIESTA images through the skull base demonstrate normal 7th and 8th and 5thcranial nerves.Additional coronal FIESTA images demonstrated a small blood vessel on the right making contact withthe right 5th cranial nerve. No such vascular impingement on the left.FLAIR axial images through the brain demonstrate periventricular white-matter disease suggestive ofdemyelination unchanged in size and number.After Gadavist the white-matter disease does not enhance. No abnormal enhancement of the 5thcranial nerves.IMPRESSION:White matter disease stable without enhancement suggesting demyelination.Equivocal atrophy stable.Ethmoid sinus disease bilaterally somewhat improved.No abnormal enhancement to suggest active disease.On the coronal thin-section FIESTA images a blood vessel makes contact with the right 5th cranialnerve. No abnormality left 5th cranial nerve. Name Value Range Interpretation Code Description Data Anat rce(s) Supporting Document(s) ID Date Data Source [id number] 12/14/2020 07:42:00 PM EDT [facility] ([facility]) Name Value Range Interpretation Code Description Data Anat rce(s) Supporting Document(s) Sodium [Moles/volume] in Serum or Plasma 139 mmol/L 136-145 [facility] ([facility]) Glucose [Mass/volume] in Serum or Plasma 87.00 mg/dL 70.00-110.00 [facility] ([facility]) Potassium [Moles/volume] in Serum or Plasma 3.7 mmol/L 3.5-5.1 [facility] ([facility]) Carbon dioxide, total [Moles/volume] in Serum or Plasma 26.0 0 mmol/L 22.00-31.00 [facility] ([facility]) Chloride [Moles/volume] in Serum or Plasma 103 mmol/L 98-107 [facility] ([facility]) GFR 117.48 mL/min [facility] ([facility]) <content>NORMAL FUNCTION OR MILD RENAL D ISEASE:>60 ml/min</content>
<content>ADVANCED RENAL DISEASE:15-59 ml/min</content>
<content>RENAL FAILURE:<15 ml/min</content>
<content></content> Urea nitrogen [Mass/volume] in Serum or Plasma 12 mg/dL 9-21 [facility] ([facility]) Creatinine [Mass/volume] in Serum or Plasma 0.7 mg/dL 0.7-1.3 [facility] ([facility]) Calcium [Mass/volume] in Serum or Plasma 9.60 mg/dL 8.90-10.40 [facility] ([facility]) Osmolality of Serum or Plasma by calculation 287.12 275.00-295.00 [facility] ([facility]) Urea nitrogen/Creatinine [Mass Ratio] in Serum or Plasma 16.44 Ratio [facility] ([facility]) ID Date Data Source [id number] 11/08/2020 08:34:13 AM EST [facility] Name Value Range Interpretation Code Description Data Anat rce(s) Supporting Document(s) CARBAMAZEPINE 13.7 ug/mL (4.0-12.0) [facility] RESULT(S) CALLED TO AND READ BACK BYJOYC E ON 6N AT 0825 ON 11/08/20.28663 ID Date Data Source [id number] 11/08/2020 08:34:13 AM EST [facility] Name Value Range Interpretation Code Description Data Anat rce(s) Supporting Document(s) MAGNESIUM 2.0 mg/dL (1.7-2.4) [facility] ID Date Data Source [id number] 11/08/2020 08:34:13 AM EST [facility] Name Value Range Interpretation Code Description Data Anat rce(s) Supporting Document(s) SODIUM 145 mmol/L (136-145) [facility] POTASSIUM 3.6 mmol/L (3.6-5.2) [facility] CHLORIDE 109 mmol/L (100-108) H [facility] CO2 30 mmol/L (22-31) [facility] ANION GAP 6 mmol/L (7-16) L [facility] UREA NITROGEN 18 mg/dL (7-24) [facility] CREATININE 0.66 mg/dL (0.80-1.30) L [facility] BUN/CREAT RATIO 27.3 RATIO (10.0-20.0) H [facility] GLUCOSE 76 mg/dL (70-99) [facility] CALCIUM 8.6 mg/dL (8.4-10.2) [facility] GFR >60 ml/min/1.73m2 (>59) [facility] GFR ( AMER) >60 ml/min/1.73m2 (>59) [facility] GFR INTERPRETATION [facility] --NORMAL KIDNEY FUNCTION OR MILD DISEASE - GFR >OR= 60CHRONIC KIDNEY DISEASE - GFR 15 - 59RENAL FAILURE - GFR <15 Est. GFR calculation based on the MDRDstudy equation, which assumes a steadystate for creatinine. Est. GFR should notbe used for medication dosing. ID Date Data Source [id number] 11/08/2020 07:58:24 AM EST [facility] Name Value Range Interpretation Code Description Data Anat rce(s) Supporting Document(s) WBC 5.3 10*3/uL (4.1-11.0) [facility] [place] RBC 4.41 10*6/uL (4.60-6.10) L [facility] HGB 13.2 g/dL (13.5-18.0) L [facility] HCT 39.0 % (41.0-53.0) L [facility] MCV 88.5 fL (80.0-95.0) [facility] MCH 30.0 pg (27.0-32.0) [facility] MCHC 33.8 g/dL (32.0-36.0) [facility] RDW 15.2 % (10.5-14.5) H [facility] PLT 332 10*3/uL (150-450) [facility] MPV 6.7 fL (7.1-10.7) L [facility] ID Date Data Source [id number] 11/06/2020 07:24:46 AM EST [facility] Name Value Range Interpretation Code Description Data Anat rce(s) Supporting Document(s) SODIUM 145 mmol/L (136-145) [facility] POTASSIUM 3.6 mmol/L (3.6-5.2) [facility] CHLORIDE 112 mmol/L (100-108) H [facility] CO2 26 mmol/L (22-31) [facility] ANION GAP 7 mmol/L (7-16) [facility] UREA NITROGEN 18 mg/dL (7-24) [facility] CREATININE 0.65 mg/dL (0.80-1.30) L [facility] BUN/CREAT RATIO 27.7 RATIO (10.0-20.0) H [facility] GLUCOSE 71 mg/dL (70-99) [facility] CALCIUM 8.8 mg/dL (8.4-10.2) [facility] GFR >60 ml/min/1.73m2 (>59) [facility] GFR ( AMER) >60 ml/min/1.73m2 (>59) [facility] GFR INTERPRETATION [facility] --NORMAL KIDNEY FUNCTION OR MILD DISEASE - GFR >OR= 60CHRONIC KIDNEY DISEASE - GFR 15 - 59RENAL FAILURE - GFR <15 Est. GFR calculation based on the MDRDstudy equation, which assumes a steadystate for creatinine. Est. GFR should notbe used for medication dosing. ID Date Data Source [id number] 11/06/2020 07:12:39 AM EST [facility] Name Value Range Interpretation Code Description Data Anat rce(s) Supporting Document(s) WBC 5.3 10*3/uL (4.1-11.0) [facility] [place] RBC 4.22 10*6/uL (4.60-6.10) L [facility] HGB 12.7 g/dL (13.5-18.0) L [facility] HCT 37.0 % (41.0-53.0) L [facility] MCV 87.7 fL (80.0-95.0) [facility] MCH 30.1 pg (27.0-32.0) [facility] MCHC 34.3 g/dL (32.0-36.0) [facility] RDW 15.2 % (10.5-14.5) H [facility] PLT 331 10*3/uL (150-450) [facility] MPV 6.8 fL (7.1-10.7) L [facility] NEUT % 53.3 % (35.0-75.0) [facility] LYMPH % 32.5 % (16.0-52.0) [facility] MONO % 9.7 % (0.0-8.0) H [facility] EOS % 4.3 % (0.0-5.0) [facility] BASO % 0.2 % (0.0-4.0) [facility] NEUT # 2.8 10*3/uL (1.8-7.7) [facility] LYMPH # 1.7 10*3/uL (1.2-4.8) [facility] MONO # 0.5 10*3/uL (0.0-0.8) [facility] Eosinophils [#/volume] in Blood by Automated count 0.2 10*3/uL (0.0-0 .5) [facility] BASO # 0.0 10*3/uL (0.0-0.2) [facility] ID Date Data Source [id number] 11/05/2020 11:34:55 AM EST [facility] Name Value Range Interpretation Code Description Data Anat rce(s) Supporting Document(s) SODIUM 143 mmol/L (136-145) [facility] POTASSIUM 3.5 mmol/L (3.6-5.2) L [facility] CHLORIDE 107 mmol/L (100-108) [facility] CO2 27 mmol/L (22-31) [facility] ANION GAP 9 mmol/L (7-16) [facility] UREA NITROGEN 7 mg/dL (7-24) [facility] CREATININE 0.58 mg/dL (0.80-1.30) L [facility] BUN/CREAT RATIO 12.1 RATIO (10.0-20.0) [facility] GLUCOSE 75 mg/dL (70-99) [facility] CALCIUM 9.0 mg/dL (8.4-10.2) [facility] GFR >60 ml/min/1.73m2 (>59) [facility] GFR ( AMER) >60 ml/min/1.73m2 (>59) [facility] GFR INTERPRETATION [facility] --NORMAL KIDNEY FUNCTION OR MILD DISEASE - GFR >OR= 60CHRONIC KIDNEY DISEASE - GFR 15 - 59RENAL FAILURE - GFR <15 Est. GFR calculation based on the MDRDstudy equation, which assumes a steadystate for creatinine. Est. GFR should notbe used for medication dosing. ID Date Data Source [id number] 11/09/2020 03:05:26 PM EST [facility] [place], [place] [address]Tel# SURGICAL PATHOLOGY REPORTPatient Name:JACQUELINE GARCIA:1965Received:11/06/2020ccession #:[id number](s) Received: A: Cecum and ascending colon bx, r/o IBD, infectious process,microcolitisB: Transverse, descending and sigmoid colon bx, r/o IBD, infectiousprocess, microcolitisC: Rectum bx, r/o IBD, infectious process, microcolitisClinical Diagnosis and History: Diarrhea, rule out inflammatory bowel disease, infectious processmicrocolitis. DIAGNOSIS:A) COLON, CECUM AND ASCENDING, BIOPSY ACTIVE COLITIS WITH ACUTECRYPTITIS, CRYPT ABSCESSES, AND PROMINENT LYMPHOPLASMACYTICINFLAMMATORY INFILTRATE IN THE LAMINA PROPRIA AND FOCAL CRYPTARCHITECTURAL DISTORTION; NO GRANULOMAS OR DYSPLASIA IDENTIFIED (SEECOMMENT).B) COLON, TRANSVERSE, DESCENDING AND SIGMOID, BIOPSY ACTIVE COLITISWITH ACUTE CRYPTITIS, CRYPT ABSCESSES, AND PROMINENTLYMPHOPLASMACYTIC INFLAMMATORY INFILTRATE IN THE LAMINA PROPRIA ANDFOCAL CRYPT ARCHITECTURAL DISTORTION; NO GRANULOMAS OR DYSPLASIAIDENTIFIED (SEE COMMENT).C) RECTUM, BIOPSY ACTIVE COLITIS WITH ACUTE CRYPTITIS AND PROMINENT CHRONIC INFLAMMATORY CELLS IN THE LAMINA PROPRIA AND CRYPT ARCHITECTURAL DISTORTION; NO GRANULOMAS OR DYSPLASIA IDENTIFIED. COMMENTS:The findings are consistent with inflammatory bowel disease, given thediffuse involvement of all submitted tissue fragments, ulcerative colitisis favored. Correlation with clinical and endoscopic findingsrecommended. GROSS DESCRIPTION: Specimen A received in formalin labeled "cecum and ascending colonbiopsy" are six osuna-rob irregular fragments of soft tissue varying from0.2 to 0.4 cm in greatest dimension and which are submitted in toto formicroscopic examination. (1 block) Specimen B received in formalin labeled "transverse, descending andsigmoid colon biopsy" are five osuna-rob irregular to elongated fragmentsof soft tissue varying from 0.2 to 0.6 cm in greatest dimension and whichare submitted in toto for microscopic examination. (1 block) Specimen C received in formalin labeled "rectal biopsy" are three osuna-grayirregular fragments of soft tissue varying from 0.1 to 0.3 cm in greatestdimension and which are submitted in toto for microscopic examination. (1block) jglmls/tbsReported: 11/09/2020Electronically Signed Out By Wayne Sumner MD jmdPathology Associates [place], [place] [address]Technical component performed at [facility], Histopathology, [address] [place] [address], [facility].Reported at [facility], [address] [place] [address], [facility].This report may include immunohistochemical or in-situ hybridizationresults. Testing was developed and the performance characteristicsdetermined by [facility], as required byCLIA '88. The FDA has determined that approval for specific use is notnecessary for clinical use. The quality of Hematoxylin and Eosin stainsand as applicable, for all immunohistochemical and/or special stains,including positive and negative controls, were reviewed and consideredappropriate.ICD codes: K51.80CPT4 codes: A: 68180YW: 47414IM: 48863Z Name Value Range Interpretation Code Description Data Anat rce(s) Supporting Document(s) ID Date Data Source [id number] 11/06/2020 12:51:[address] [facility] Name Value Range Interpretation Code Description Data [facility](s) Supporting Document(s) GLIADIN PEPTIDE IGA 3 [arb'U] (<20) Lab [facility] INTERPRET ATION OF RESULTS: < 20 UNITS [id number] UNITS WEAK POSITIVE > 30 UNITS MODERATE TO STRONG POSITIVE The following result was obtained withthe [employer]ANT[employer] Lite Gliadin IgA II.Results obtained with other manufacturers'assay methods may not be used interchangeably.The magnitude of the reported IgA levelcannot be correlated to an endpoint titer. GLIADIN PEPTIDE IGG 2 [arb'U] (<20) Lab [facility] INTERPRET ATION OF RESULTS: < 20 UNITS [id number] UNITS WEAK POSITIVE > 30 UNITS MODERATE TO STRONG POSITIVE The following result was obtained withthe [employer]ANT[employer] Lite Gliadin IgG II.Results obtained with other manufacturers'assay methods may not be used interchangeably.The magnitude of the reported IgG levelscannot be correlated to an endpoint titer. IGA @ 112 mg/dL (83-407) [facility] TRANSGLUTAMINASE IGA 3 [arb'U] (<20) Lab [facility] INTERPRET ATION OF RESULTS: < 20 UNITS [id number] UNITS WEAK POSITIVE > 30 UNITS MODERATE TO STRONG POSITIVE The following result was obtained withthe [employer] QUANT[employer] Lite h-tTG IgA BETSY.Results obtained with other manufacturers'assay methods may not be used interchangeably.The magnitude of the reported IgA levelcannot be correlated to an endpoint titer.Performed at [address] [place] [address] TRANSGLUTAMINASE IGG 2 [arb'U] (<20) Lab [facility] INTERPRET ATION OF RESULTS: < 20 UNITS [id number] UNITS WEAK POSITIVE > 30 UNITS MODERATE TO STRONG POSITIVE The following result was obtained withthe [employer] Lite h-tTG IgG BETSY.Results obtained with other manufacturers'assay methods may not be used interchangeably.The magnitude of the reported IgG levelscannot be correlated to an endpoint titer.Performed at [address] [place] [address] ID Date Data Source [id number] 11/04/2020 11:04:00 PM EST [facility] DATE OF EXAM: 11/04/2020[facility] BRAIN WITHOUT AND WITH CONTRAST CLINICAL STATEMENT: Multiple sclerosis. Agitation. TECHNIQUE: MRI of the brain was performed with and without contrast, following intravenous administration of 12/15 ml ProHance. The following pulse sequences were performed: Sagittal T1, FLAIR, and axial T1,T2, FLAIR, GRE, DWI, post-contrast axial and coronal T1. COMPARISON: 10/27/2019 FINDINGS: Since the prior study, there has been no significant interval change in multifocal T2 hyperintense lesions involving the periventricular and subcortical white matter and callosal septal interface, in a pattern compatible with the stated clinical diagnosis of multiple sclerosis. The posterior fossa and brachium pontis are spared. No new or abnormal enhancing lesion is identified. There is no acute parenchymal hemorrhage, extra-axial fluid collection, mass, mass-effect or midline shift. There is no evidence of restricted diffusion to suggest acute infarction. The ventricles are normal in size and configuration. Normal intracranial arterial flow-voids are present. The visualized paranasal sinuses and orbits appear unremarkable. IMPRESSION: Since 10/27/2019, No significant interval change. Multifocal T2 hyperintense lesions involving the periventricular and subcortical white matter and callosal septal interface, in a pattern compatible with the stated clinical diagnosis of multiple sclerosis. No evidence of new or enhancing demyelinating lesion. Professional interpretation performed at [facility] [phone].End of diagnostic report for accession: [id number] Interpreted: Eliel Jaramillo MDTranscribed: 11/04/2020 11:01 PMSigned: 11/04/2020 11:04 PM Eliel Jaramillo MD [facility] # [id number] BILL # [id number] Name Value Range Interpretation Code Description Data Anat rce(s) Supporting Document(s) ID Date Data Source [id number] 11/04/2020 02:24:55 PM [facility] Lab [facility] Name Value Range Interpretation Code Description Data Anat rce(s) Supporting Document(s) PT 9.8 s (9.2-11.9) [facility] INR 0.93 [facility] SUGGESTED THERAPEUTIC RANGES USING INR F ORSTABILIZED ANTICOAGULATED PATIENTS:STANDARD DOSE THERAPY INR 2.0-3.0 DVT, PE, PREVENT DVT OR EMBOLISMHIGH DOSE THERAPY INR 2.5-3.5 PREVENT EMBOLISM FROM MECHANICAL HEART VALVE ID Date Data Source [id number] 11/04/2020 12:08:27 PM EST [facility] Name Value Range Interpretation Code Description Data Anat rce(s) Supporting Document(s) CARBAMAZEPINE 6.7 ug/mL (4.0-12.0) [facility] ID Date Data Source [id number] 11/04/2020 11:18:31 AM EST [facility] Name Value Range Interpretation Code Description Data Anat rce(s) Supporting Document(s) TSH,ULTRASENSITIVE @ 1.882 mIU/L (0.360-4.170) [facility] PERFORMED AT [address] [place] [address] ID Date Data Source [id number] 11/04/2020 09:19:29 AM EST [facility] Name Value Range Interpretation Code Description Data Anat rce(s) Supporting Document(s) SODIUM 145 mmol/L (136-145) [facility] POTASSIUM 3.2 mmol/L (3.6-5.2) L [facility] CHLORIDE 109 mmol/L (100-108) H [facility] CO2 29 mmol/L (22-31) [facility] ANION GAP 7 mmol/L (7-16) [facility] UREA NITROGEN 9 mg/dL (7-24) [facility] CREATININE 0.63 mg/dL (0.80-1.30) L [facility] BUN/CREAT RATIO 14.3 RATIO (10.0-20.0) [facility] GLUCOSE 90 mg/dL (70-99) [facility] CALCIUM 8.7 mg/dL (8.4-10.2) [facility] GFR >60 ml/min/1.73m2 (>59) [facility] GFR ( AMER) >60 ml/min/1.73m2 (>59) [facility] GFR INTERPRETATION [facility] --NORMAL KIDNEY FUNCTION OR MILD DISEASE - GFR >OR= 60CHRONIC KIDNEY DISEASE - GFR 15 - 59RENAL FAILURE - GFR <15 Est. GFR calculation based on the MDRDstudy equation, which assumes a steadystate for creatinine. Est. GFR should notbe used for medication dosing. ID Date Data Source [id number] 11/03/2020 09:01:22 AM EST [facility] Name Value Range Interpretation Code Description Data Anat rce(s) Supporting Document(s) MAGNESIUM 1.9 mg/dL (1.7-2.4) [facility] ID Date Data Source [id number] 11/03/2020 08:10:11 AM EST [facility] Name Value Range Interpretation Code Description Data Anat rce(s) Supporting Document(s) SODIUM 146 mmol/L (136-145) H [facility] POTASSIUM 3.2 mmol/L (3.6-5.2) L [facility] CHLORIDE 111 mmol/L (100-108) H [facility] CO2 27 mmol/L (22-31) [facility] ANION GAP 8 mmol/L (7-16) [facility] UREA NITROGEN 5 mg/dL (7-24) L [facility] CREATININE 0.61 mg/dL (0.80-1.30) L [facility] BUN/CREAT RATIO 8.2 RATIO (10.0-20.0) L [facility] GLUCOSE 78 mg/dL (70-99) [facility] CALCIUM 8.6 mg/dL (8.4-10.2) [facility] TOTAL PROTEIN 5.3 g/dL (6.4-8.2) L [facility] ALBUMIN 3.1 g/dL (3.5-4.6) L [facility] GLOBULIN 2.2 g/dL (2.7-4.3) L [facility] ALB/GLOB RATIO 1.4 RATIO [facility] ALKALINE PHOSPHATASE 105 U/L (45-117) [facility] BILIRUBIN,TOTAL 0.5 mg/dL (0.0-1.0) [facility] PLEASE NOTE:Total bilirubin results may be falselyelevated in patients taking Eltrombopag. AST (SGOT) 39 U/L (11-39) [facility] ALT (SGPT) 65 U/L (12-78) [facility] GFR >60 ml/min/1.73m2 (>59) [facility] GFR ( AMER) >60 ml/min/1.73m2 (>59) [facility] GFR INTERPRETATION [facility] --NORMAL KIDNEY FUNCTION OR MILD DISEASE - GFR >OR= 60CHRONIC KIDNEY DISEASE - GFR 15 - 59RENAL FAILURE - GFR <15 Est. GFR calculation based on the MDRDstudy equation, which assumes a steadystate for creatinine. Est. GFR should notbe used for medication dosing. ID Date Data Source [id number] 11/03/2020 07:59:45 AM EST [facility] Name Value Range Interpretation Code Description Data Anat rce(s) Supporting Document(s) WBC 6.5 10*3/uL (4.1-11.0) [facility] [place] RBC 4.32 10*6/uL (4.60-6.10) L [facility] HGB 12.7 g/dL (13.5-18.0) L [facility] HCT 36.8 % (41.0-53.0) L [facility] MCV 85.3 fL (80.0-95.0) [facility] MCH 29.4 pg (27.0-32.0) [facility] MCHC 34.4 g/dL (32.0-36.0) [facility] RDW 14.9 % (10.5-14.5) H [facility] PLT 315 10*3/uL (150-450) [facility] MPV 6.7 fL (7.1-10.7) L [facility] ID Date Data Source [id number] 11/02/2020 02:44:22 PM EST [facility] Name Value Range Interpretation Code Description Data Anat rce(s) Supporting Document(s) SPECIMEN DESCRIPTION [facility] DIFF TOXIN B (NEG) [facility] [place] 027 NAP1 B1 (NEG) [facility] COMMENT [facility] [place] IS CLINICALLY INDICATED, PLEASE CONTA CT THE MICROBIOLOGY LABORATORY ([phone]) WITHIN 3 DAYS OF THIS REPORT. ID Date Data Source [id number] 11/02/2020 08:10:00 AM EST [facility] DATE OF EXAM: 11/02/2020T BRAIN WITHOUT CONTRAST CLINICAL STATEMENT: Trauma, pain TECHNIQUE: Multiple noncontrast images were obtained through the brain from the base of skull to the vertex without intravenous contrast. COMPARISON: 10/26/2019 FINDINGS: No acute major vascular territory infarct or intracranial hemorrhage is seen. Mild low attenuation is seen in the periventricular and subcortical white matter, nonspecific however most likely sequela very mild chronic small vessel ischemic disease. An additional process such as demyelination or multiple sclerosis may also be considered (better visualized on previous MRI brain from 10/27/2019). No midline shift or mass effect is seen. The ventricles and sulci are mildly prominent, compatible with diffuse cerebral volume loss. There is no intra or extra-axial fluid collection. The calvarium is intact. Mild mucoperiosteal thickening is seen within the visualized paranasal sinuses. The visualized orbits appear unremarkable. Mastoid air cells are clear. IMPRESSION: No acute intracranial abnormality is seen. A contemporaneous report was provided by [facility] at the time of this examination, reporting similar findings. Professional interpretation performed at [facility] .End of diagnostic report for accession: [id number] Interpreted: Roddy Brandt MDTranscribed: 11/02/2020 08:07 AMSigned: 11/02/2020 08:10 AM Roddy Brandt MD [facility] # [id number] BILL # [id number] Name Value Range Interpretation Code Description Data Anat rce(s) Supporting Document(s) ID Date Data Source [id number] 11/05/2020 06:54:00 PM EST [facility] [address] [place], [place] [id number] NAME: JACQUELINE GARCIADATE OF : 1965REPORT: ADMISSION NOTEPATIENT NUMBER: [id number] STATUS: IPMEDICAL RECORD NUMBER: [id number] OF ADMISSION: 11/02/2020[facility] Deepa Lund [facility] COMPLAINTS: Generalized weakness with falls and diarrhea.HISTORY OF PRESENT ILLNESS: 55-year-old male with a progressive MS diagnosed about a year ago, kidney stones and depression presents with reports of increasing generalized weakness over the last week or so with recurrent falls sustaining some mild bruising on the forehead. Reports of also experiencing some profuse nonbloody diarrhea since Monday with left lower quadrant abdominal pains. Admits to nausea and a few episodes of nonbloody and nonbilious emesis. Denies any chest pain, palpitations, shortness of breath or cough. Denies any unusual diets, sick contact, or recent antibiotic use. Reports of increasing his dose of his MS medications over the last week or two. In the ED, he was noted to have stable vitals and was saturating well on room air with foul smelling diarrhea. Lab work showed mild hypokalemia but rest essentially normal. COVID was negative and UA was negative. CT of abdomen and pelvis showed multiple stones in the left ureteral system with a 5-mm stone at the UVJ junction with mild left hydronephrosis and right renal cysts. CT of the brain is pending. He was started on some minimal IV fluids and given Flomax.PAST MEDICAL HISTORY: Includes:1. 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 Hyperlipidemia.3. Depression.4. Nephrolithiasis.PAST SURGICAL HISTORY: Includes:1. Hernia repair.2. Right knee surgery.3. C5-6 laminectomy.4. Possible lithotripsy.SOCIAL HISTORY: Reports of being heavy smoker since he was 18 years old,used to smoke about three packs per day, now smoking about a pack a day.Denies any alcohol use or any recreational drugs. Presented from home.ALLERGIES: No known drug allergies.MEDICATIONS:carBAMazepine 200 mg Tablet 0.5 tablet oral three times a daymeloxicam 7.5 mg Tablet 1 tablet oral dailysertraline 100 mg Tablet 1 tablet oral dailysimvastatin 20 mg Tablet 1 tablet oral dailysiponimod (Mayzent) 2 mg Tablet 1 tablet oral dailykcl 40 meq po bid - pt had a three day course filled 10/23.FAMILY HISTORY: Patient is not aware of parents' medical problems, butthey are still alive in their 80s, however.REVIEW OF SYSTEMS: All 14 systems were reviewed and were negative with theexception of as per HPI.PHYSICAL EXAMIN ATION:Vitals on admission: Temperature 36.7, pulse of 80, respiratory rate of18, blood pressure 140/76, saturating 97 percent on room air. Reports ofpain about 6/10 in intensity in the left lower quadrant region.General: Male of stated age, lying in bed, slightly lethargic. Alert andoriented x3.HEENT: Normocephalic and atraumatic. Pupils are equal, round, andreactive to light. Extraocular muscles are intact. Anicteric sclerae.Neck: Supple.Cardiovascular: Normal S1 and S2. No murmurs, rubs, or gallops noted.Lungs: Clear to auscultation bilaterally. No wheezing, rhonchi, orcrackles.Abdomen: Soft, nondistended. Normal bowel sounds. There is mildtenderness to palpation in the left lower quadrant region. No guarding orrebound tenderness. No palpable masses noted.Extremities: No clubbing, cyanosis, no edema.Neuro Exam: Grossly intact. Able to ambulate to the bathroom.Skin: Dry and intact. No rashes noted.Psychiatric: Lethargic, otherwise cooperative with history and exam.LABO RATORIES AND IMAGING: Chemistry with potassium of 3.1, restessentially normal. LFTs essentially normal. Troponin is negative.Lipase was normal. BNP was normal. CBC essentially normal. COVIDnegative. UA negative. CT of abdomen and pelvis showed obstructing distalleft ureteral calculi, also small bladder calculi with mild colonicthickening. We cannot exclude mild colitis. CT of the brain pending. EKGshowed sinus rhythm at 82 beats per minute.ASSESSMENT AND PLAN: 55-year-old male with a history of progressive MS, hyperlipidemia, possible depression and nephrolithiasis, presented from home with reports of increasing generalized weakness with recurrent falls but denies any focal neurological deficits with increasing nonbloody diarrhea the last few days with no fevers, chills or recent antibiotics noted to have stable vitals with mild hypokalemia with CT showing obstructing distal left ureteral calculi likely diarrhea due to side-effects of MS medication resulting in dehydration1. Diarrhea, likely due to side effects of MS medication; however will obtain stool studies to rule out any infectious etiology. We will keep patient on isolation precautions for now and continue IV fluids and Zofran as needed for nausea and vomiting.2. Hypokalemia supplemented and will repeat chemistry in the morning for improvement.3. Nephrolithiasis. Reports of lower abdominal pain, likely cause of that. We will obtain Urology consult in the morning for further evaluation and management with morphine as needed for pain. 4. Depression with possible bipolar disorder. Continue sertraline and carbamazepine. 5. Hyperlipidemia. Continue simvastatin. 6. MS, likely stable. We will follow up official reading of CT of the brain in the morning. Consider obtaining Neurology consult in the morning if needed. 7. DVT prophylaxis will be heparin subcu.Per my assessment, patient will likely need more than two midnights' stay.Admit patient to inpatient service.DICTATED BY: MIMI Allenictated: 11/02/2020 4:26DT: 11/02/2020 5:41Job #: [id number]: Deepa Lund MDNOTE: [facility] computer generated reports are not confirmed orauthenticated unless they are signed by the providerElectronically Authenticated and Edited by:MANUEL BARNETT MD On 11/05/2020 06:54 PM EST Name Value Range Interpretation Code Description Data Anat rce(s) Supporting Document(s) ID Date Data Source [id number] 11/02/2020 02:34:26 PM EST [facility] SPECIMEN DESCRIPTION STOOLSPECIAL REQUESTS NONERESULT NEGATIVE FOR ENTERIC PATHOGENS BY PCR.NOTE: THIS MOLECULAR ASSAY DETECTS THE FOLLOWING ENTERIC PATHOGENS:CAMPYLOBACTER GROUP (COLI, JEJUNI, JUDITH), SALMONELLA SPECIES,SHIGELLA SPECIES (DYSENTERIAE, BOYDII, SONNEI, FLEXNERI), VIBRIOGROUP (CHOLERAE, PARAHAEMOLYTICUS), YERSINIA ENTEROCOLITICA, SHIGATOXIN 1, SHIGA TOXIN 2, NOROVIRUS GROUP 1 AND 2, ROTAVIRUS A. REPORT STATUS FINAL 11/02/2020 Name Value Range Interpretation Code Description Data Anat rce(s) Supporting Document(s) ID Date Data Source [id number] 11/02/2020 01:27:11 AM EST [facility] Name Value Range Interpretation Code Description Data Anat rce(s) Supporting Document(s) COLOR [facility] PERFORMED AT [address] [facility] [address] APPEARANCE [facility] SPEC GRAV URINE 1.038 (1.003-1.030) H [facility] PH URINE 6.0 (5.0-7.5) [facility] LEUK ESTERASE (NEG) [facility] CRITERIA FOR CULTURE NOT MET.CULTURE CAN BE ADDED WITHIN 36 HOURS OFCOLLECTION. NITRITE URINE (NEG) [facility] PROTEIN URINE (NEG) [facility] GLUCOSE URINE (NEG) [facility] KETONE URINE 1+ (NEG) A [facility] [place] UROBILINOGEN 0.2 mg/dL (0-1.0) [facility] [place] BILIRUBIN URINE (NEG) [facility] [place] BLOOD/HGB URINE (NEG) [facility] [place] ID Date Data Source [id number] 11/02/2020 09:06:00 AM EST [facility] DATE OF EXAM: 11/01/2020T ABDOMEN AND P AGUSTINA WITH CONTRAST INDICATION: DIVERTICULITIS COMPARISON: None TECHNIQUE: Axial CT images were obtained of the abdomen and pelvis with contrast. Coronal and sagittal reformatted images were obtained. One or more of the following dose reduction techniques were utilized in effectively lowering the radiation dose for this examination: Automated Exposure Control, Adjustment of the mA and/or kV according to patient size, or Iterative reconstruction. CONTRAST: 100 mL Omnipaque 300 FINDINGS: Lung Bases: Emphysematous changes. Liver: Unremarkable. Bile Ducts: Normal caliber.Gallbladder: Unremarkable. Pancreas: Unremarkable.Spleen: Unremarkable.Adrenals: Unremarkable. Kidneys/Ureters: Bilateral nonobstructing calculi, largest in the left lower pole measuring 10 mm. 2 mm calculus in the distalmost left ureter near the left vesicoureteral junction and 5 mm calculus within the bladder lumen adjacent to or at the vesicoureteral junction. Mild left hydroureteronephrosis.Bladder: Several calculi within the bladder lumen, measuring 2-5 mm. Stomach and Bowel: Wall thickening of the ascending, transverse and proximal descending colon, compatible with colitis. No dilation. Normal appendix. Peritoneum/Retroperitoneum: Unremarkable. Reproductive Organs: Unremarkable. Lymph Nodes: No adenopathy.Vessels: Moderate atherosclerotic changes. Soft Tissues: Inguinal herniorrhaphy.Bones: Diffuse osseous demineralization. Degenerative changes of the spine. IMPRESSION: 1. Colitis involving the ascending, transverse and proximal descending colon, likely infectious/inflammatory.2. Several distal left ureteral/ureterovesical junction calculi measuring up to 2-5 mm with mild left hydroureteronephrosis. Additional nonobstructing bilateral renal calculi and several bladder calculi. A contemporaneous report was provided by [facility] at the time of this examination, reporting similar findings. Professional interpretation performed at [facility] .End of diagnostic report for accession: [id number] Interpreted: Nieves Pierce MDTranscribed: 11/02/2020 08:57 AMSigned: 11/02/2020 09:06 AM Nieves Pierce MD [facility] # [id number] BILL # [id number] Name Value Range Interpretation Code Description Data Anat rce(s) Supporting Document(s) ID Date Data Source [id number] 11/01/2020 10:10:00 PM EST [facility] Name Value Range Interpretation Code Description Data Anat rce(s) Supporting Document(s) SARS coronavirus 2 RNA [Presence] in Res piratory specimen by SONAM with probe detection NOT DETECTED [facility] This lab was reported by [facility]. ID Date Data Source [id number] 11/02/2020 01:40:02 AM EST [facility] [place] Name Value Range Interpretation Code Description Data Anat rce(s) Supporting Document(s) SPECIMEN DESCRIPTION [facility] [place] COVID19 RESULT (NDET) [facility] [place] NEGATIVE COVID-19 RESULTS DONOT PRECLUDE COVID-2019 INFECTION ANDSHOULD NOT BE USED THE SOLE BASISFOR PATIENT MANAGEMENT DECISIONS.THIS ASSAY AMPLIFIES AND DETECTS THE TARGETRNA USING ISOTHERMAL HELICASE DEPENDENTAMPLIFICATION.TESTING PERFORMED ON THE [employer].THE U.[place]. FDA HAS MADE THIS TEST AVAILABLEUNDER AN EMERGENCY USE AUTHORIZATION(EUA) FOR THE DETECTION AND/OR DIAGNOSISOF THE VIRUS THAT CAUSES COVID-19. FIRST TEST [facility] [place] EMPL[facility]ED IN [facility]THC[facility] [place] SYMPTOMATIC [facility] DATE OF SYMPT ONSET [facility] HOSPITALIZED [facility] ICU [facility] [place] CONGREG[facility] CARE SET [facility] [place] ID Date Data Source [id number] 11/01/2020 10:44:10 PM EST [facility] [place] Name Value Range Interpretation Code Description Data Anat rce(s) Supporting Document(s) TOTAL PROTEIN 7.1 g/dL (6.4-8.2) [facility] [place] ALBUMIN 4.2 g/dL (3.5-4.6) [facility] GLOBULIN 2.9 g/dL (2.7-4.3) [facility] ALB/GLOB RATIO 1.4 RATIO [facility] BILIRUBIN,TOTAL 0.6 mg/dL (0.0-1.0) [facility] [place] PLEASE NOTE:Total bilirubin results may be falselyelevated in patients taking Eltrombopag. BILIRUBIN,CONJUGATED 0.3 mg/dL (0.0-0.3) [facility] [place] BILIRUBIN,UNCONJ. 0.3 mg/dL (0.0-0.7) [facility] ALKALINE PHOSPHATASE 130 U/L (45-117) H [facility] AST (SGOT) 23 U/L (11-39) [facility] ALT (SGPT) 52 U/L (12-78) [facility] ID Date Data Source [id number] 11/01/2020 10:44:10 PM EST [facility] Name Value Range Interpretation Code Description Data Anat rce(s) Supporting Document(s) SODIUM 142 mmol/L (136-145) [facility] POTASSIUM 3.1 mmol/L (3.6-5.2) L [facility] CHLORIDE 107 mmol/L (100-108) [facility] CO2 28 mmol/L (22-31) [facility] ANION GAP 7 mmol/L (7-16) [facility] UREA NITROGEN 12 mg/dL (7-24) [facility] CREATININE 0.82 mg/dL (0.80-1.30) [facility] BUN/CREAT RATIO 14.6 RATIO (10.0-20.0) [facility] GLUCOSE 89 mg/dL (70-99) [facility] CALCIUM 9.4 mg/dL (8.4-10.2) [facility] GFR >60 ml/min/1.73m2 (>59) [facility] GFR ( AMER) >60 ml/min/1.73m2 (>59) [facility] GFR INTERPRETATION [facility] --NORMAL KIDNEY FUNCTION OR MILD DISEASE - GFR >OR= 60CHRONIC KIDNEY DISEASE - GFR 15 - 59RENAL FAILURE - GFR <15 Est. GFR calculation based on the MDRDstudy equation, which assumes a steadystate for creatinine. Est. GFR should notbe used for medication dosing. ID Date Data Source [id number] 11/01/2020 10:44:10 PM EST [facility] [place] Name Value Range Interpretation Code Description Data Anat rce(s) Supporting Document(s) TROPONIN I <0.05 ng/mL (<0.05) [facility] [place] Less than 0.05: Myocardial injury unlike lyGreater than or equal to 0.05: Highly suggestive of myocardial injuryCorrelation with rise and/or fall ofserial troponins, clinical symptomsand ECG changes is necessary. ID Date Data Source [id number] 11/01/2020 10:44:10 PM EST [facility] [place] Name Value Range Interpretation Code Description Data Anat rce(s) Supporting Document(s) NT PRO BNP 93 pg/mL (0-125) [facility] [place] ID Date Data Source [id number] 11/01/2020 10:44:10 PM EST [facility] [place] Name Value Range Interpretation Code Description Data Anat rce(s) Supporting Document(s) MAGNESIUM 1.9 mg/dL (1.7-2.4) [facility] [place] ID Date Data Source [id number] 11/01/2020 10:44:10 PM EST [facility] [place] Name Value Range Interpretation Code Description Data Anat rce(s) Supporting Document(s) LIPASE 77 U/L (65-230) [facility] [place] ID Date Data Source [id number] 11/01/2020 10:21:14 PM EST [facility] [place] Name Value Range Interpretation Code Description Data Anat rce(s) Supporting Document(s) WBC 9.9 10*3/uL (4.1-11.0) [facility] [place] RBC 4.93 10*6/uL (4.60-6.10) [facility] HGB 14.7 g/dL (13.5-18.0) [facility] HCT 43.8 % (41.0-53.0) [facility] MCV 88.9 fL (80.0-95.0) [facility] MCH 29.8 pg (27.0-32.0) [facility] [place] MCHC 33.5 g/dL (32.0-36.0) [facility] RDW 15.1 % (10.5-14.5) H [facility] PLT 347 10*3/uL (150-450) [facility] MPV 7.3 fL (7.1-10.7) [facility] NEUT % 90.0 % (35.0-75.0) H [facility] LYMPH % 1.2 % (16.0-52.0) L [facility] MONO % 8.1 % (0.0-8.0) H [facility] EOS % 0.6 % (0.0-5.0) [facility] BASO % 0.1 % (0.0-4.0) [facility] NEUT # 8.9 10*3/uL (1.8-7.7) H [facility] LYMPH # 0.1 10*3/uL (1.2-4.8) L [facility] MONO # 0.8 10*3/uL (0.0-0.8) [facility] Eosinophils [#/volume] in Blood by Automated count 0.1 10*3/uL (0.0-0 .5) [facility] BASO # 0.0 10*3/uL (0.0-0.2) [facility] ID Date Data Source [id number] 11/01/2020 09:54:53 PM EST [facility] Name Value Range Interpretation Code Description Data Anat rce(s) Supporting Document(s) MUSE EKG PDF encoded [facility] [id number] [file] [id number]== ID Date Data Source [id number] 10/25/2020 05:09:19 AM EST [facility] INFORMATIONPatient MRN Name Date of Age Gend*PT [id number] Jacqueline Garcia 1965 55 years M EDPT Location Admission Date/Time Visit ID Attending [id number] 10/22/202014 --- --- EPI ID CSN Admitting Provider [id number] ---Attestation signed by Duncan Ortega MD at 10/25/2020 5:09 GABRIEL Attestations:Attestation Type: Mid-Level: SUPERVISED APC: Based on the medical record thecare appears appropriate Provider in Triage NotesED Provider in Triage NotePatient Name: Jacqueline GarciaPatient and Time of Assessment: 10/22/20, 7:09 PMChief ComplaintPatient presents with Jaw Pain left sided jaw pain x 3 weeks, pt had root canal after onset of pain. despiteroot canal pain remains.Brief HPI: 55 years male, L jaw pain x 3 weeksHas MS, has been having worsening painHas seen dentist who put in temporary crown recentlyPhysical exam:VSSAmbulatoryNontoxPreliminary Plan:reassessThis note was electronically signed by GENARO Rodríguez, 10/22/20, 7:09 PM.ED CourseGENARO Rodríguez10/22/201909History of Present IllnessChief ComplaintPatient presents with Jaw Pain left sided jaw pain x 3 weeks, pt had root canal after onset of pain. despiteroot canal pain remains.pt states he has MS and is feeling alot of pain in leftside of Jaw denies all other symptoms. while taking a shower today i lostcontrol and had a bmPatient reports history of primary progressive multiple sclerosis.Mayzent 2 milligrams by mouth daily in the morning, patient is up-to-date onthis medicationPatient very poorly educated on his presenting symptoms of MS, but does statethat normally his acute symptoms of MS include agitation. Patient reportsconcerned that his left-sided jaw pain is presentation of an MS, but is unableto state whether this is typical presenting sign for him.He denies change in vision. Denies confusion. Patient does report increasedagitation.Today patient is mostly concerned about left-sided jaw pain, which has beenpresent for 3 weeks. [facility], unable to state which dental clinic he has presented to, but reportshe had a recent root canal and temporary placement of crowns, with plans forrevision dental work by the same clinic in several weeks.Patient denies confusion, change in gait, lightheadedness, dizziness, orheadache.Patient appears to be established with [place], [facility], able to relay HPI over phone:Patient reports he is only seen neurology at [place] 1 time, and denies anyrecent imaging to confirm diagnosis of MS. states he has indeed been compliantwith his daily medication as noted above. also reports that the patient'sbaseline neurological status is as follows: Intermittent incontinence, bothbladder and bowel, as well as instability with walking, patient frequentlystutters and is forgetful. also reports that the patient has been tomultiple dental clinics to assess his left-sided jaw pain, and there is yet claudia any satisfactory diagnosis or indica tion as to why patient is having dentalpain from a dental perspective.HistoryHistory reviewed. No pertinent past medical history.No past surgical history on file.History reviewed. No pertinent family history.Social HistoryTobacco Use Smoking status: Not on fileSubstance Use Topics Alcohol use: Not on file Drug use: Not on fileROSReview of SystemsConstitutional: Negative for activi ty change, appetite change, chills,diaphoresis and fever.HENT: Positive for dental problem. Negative for congestion, ear pain, postnasaldrip, rhinorrhea, sinus pain, sore throat and voice change.Eyes: Negative for pain, discharge and redness.Respiratory: Negative for apnea, cough, chest tightness and shortness of breath.Cardiovascular: Negative for chest pain, palpitations and leg swelling.Gastrointestinal: Negative for abdominal distention, abdominal pain, blood instool, constipation, diarrhea, nausea and vomiting.Genitourinary: Negative for difficulty urinating and flank pain.Musculoskeletal: Negative for back pain, gait problem and neck stiffness.Skin: Negative for color change.Neurological: Negative for dizziness, tremors, syncope, facial asymmetry,weakness and light-headedness.Psychiatric/Behavioral: Positive for agitation.All other systems reviewed and are negative.Physical ExamBP 158/76 (BP Location: Left upper arm, Patient Position: Lying) | Pulse 66 |Temp 98.1 F (Oral) | Resp 16 | SpO2 100%Physical ExamConstitutional: He is oriented to person, place, and time. No distress.Nontoxic appearing.Vital signs stablePatient ambulatory with poor balance, sits upright and is conversational. Welloriented, no acute respiratory distress.Demeanor: appears irritatedHENT:Head: Normocephalic and atraumatic.Nose: Nose normal.Mouth/Throat: No oropharyngeal exudate.TMI B without erythema or effusion. Uvula midline without deviation. No erythemaor exudates in the posterior pharynx. No lymphadenopathy. No trismus. Nodifficulty breathing or swallowing on exam. Nares patent. Site of left jaw pain shows bone colored fillings to left lower 3 molars. Painis palpated externally along jawline. No swelling or drainage noted.Eyes: Pupils are equal, round, and reactive to light. Conjunctivae and EOM arenormal. Right eye exhibits no discharge. Left eye exhibits no discharge.Neck: Normal range of motion. No JVD present. No tracheal deviation present.Cardiovascular: Normal heart sounds and intact distal pulses. Exam reveals nogallop and no friction rub.No murmur heard.Pulmonary/Chest: Effort normal and breath sounds normal. No respiratorydistress. He has no wheezes. He has no rales.Abdominal: S oft. He exhibits no distension and no mass. There is no tenderness.Musculoskeletal: Normal range of motion. He exhibits no edema, tenderness ordeformity.Neurological: He is alert and oriented to person, place, and time. No sensorydeficit. Coordination normal.Alert and well oriented.Vision intact. Pupils PERRLA. Bidirectional nystagmus present on left andright (left beating when eyes directed left, right beating when directed toright).Rest of cranial nerves demonstrate to be intact.Patient demonstrates no unilateral symptoms of numbness, paresthesia, weakness.Full strength demonstrated.Gait is unsteady, with patient tilting to left side.Pronator drift absent.Cerebellar testing with rapid alternating movements poorly demonstrated (patientslow to pronate and supinate). Heel-to-toe normal.Skin: Skin is warm and dry. Capillary refill takes less than 2 seconds. He isnot diaphoretic. No erythema.Psychiatric: He has a normal mood and affect.Nursing note and vitals reviewed.ED CourseProceduresResults for orders placed or performed during the hospital encounter of 10/22/20Comprehensive metabolic panelResult Value Ref Range Sodium 145 136 - 145 mmol/L Potassium 3.1 (L) 3.6 - 5.2 mmol/L Chloride 111 (H) 100 - 108 mmol/L CO2 27 22 - 31 mmol/L Anion Gap 7 7 - 16 mmol/L Urea nitrogen 20 7 - 24 mg/dL Creatinine 0.68 (L) 0.80 - 1.30 mg/dL BUN/Creatinine Ratio 29.4 (H) 10.0 - 20.0 RATIO GLUCOSE 85 70 - 99 mg/dL Calcium 9.2 8.4 - 10.2 mg/dL Protein, Total 7.4 6.4 - 8.2 g/dL Albumin 4.0 3.5 - 4.6 g/dL Globulin 3.4 2.7 - 4.3 g/dL Alb/Glob ratio 1.2 RATIO Alkaline Phosphatase 107 45 - 117 U/L Bilirubin, Total 0.8 0.0 - 1.0 mg/dL AST 33 11 - 39 U/L ALT 108 (H) 12 - 78 U/L GFR MDRD Non Af Amer >60 >59 ml/min/1.73m2 GFR MDRD Af Amer >60 >59 ml/min/1.73m2 Glom Filt Rate, Est SEE NOTESCBC w/ diffResult Value Ref Range WBC 5.0 4.1 - 11.0 10*3/uL RBC 4.78 4.60 - 6.10 10*6/uL Hemoglobin 14.5 13.5 - 18.0 g/dL Hematocrit 41.3 41.0 - 53.0 % MCV 86.4 80.0 - 95.0 fL MCH 30.3 27.0 - 32.0 pg MCHC 35.1 32.0 - 36.0 g/dL RDW 14.8 (H) 10.5 - 14.5 % Platelets 343 150 - 450 10*3/uL MPV 7.1 7.1 - 10.7 fL Neutrophils % 83.2 (H) 35.0 - 75.0 % Lymphocytes Relative 2.5 (L) 16.0 - 52.0 % Monocytes Relative 10.6 (H) 0.0 - 8.0 % Eosinophils Relative 3.4 0.0 - 5.0 % Basophils Relative 0.3 0.0 - 4.0 % Neutrophils Absolute 4.2 1.8 - 7.7 10*3/uL Lymphocytes Absolute 0.1 (L) 1.2 - 4.8 10*3/uL Monocytes Absolute 0.5 0.0 - 0.8 10*3/uL Eosinophils Man 0.2 0.0 - 0 .5 10*3/uL Basophils Absolute 0.0 0.0 - 0.2 10*3/uLMDMNumber of Diagnoses or Management OptionsTrigeminal neuralgia:Diagnosis management comments: 10:00 PM discussed case with Dr. Cuba,neurology telemedicine who advises based on description of patient's signs,symptoms and exam findings and other objective findings of workup, the patient'spresentation is very likely trigeminal neuralgia, and patient would benefit fromlow dose carbamazepine outpatient. At this time this provider healthcare risk control consultant doesalso recommend baseline lab work including CBC and CMP prior to initiatingpatient's regimen. Patient thereafter encouraged to follow-up with hisneurologist established within 3 to 6 months for follow-up labs and reevaluationas well as for chronic MS.No imaging obtained at this time.LFTs normal, patient is cleared to start outpatient carbamazepine. Hypokalemiafound, patient sent prescription for potassium, and is aware of thisprescription at pharmacy.This was electronically signed by GERDA Saucedo, 10/22/20 8:33 PM.GENARO Saucedo-Juarez10/23/20 0116Amatthew Ortega MD10/25/20 0509 Name Value Range Interpretation Code Description Data Anat rce(s) Supporting Document(s) ID Date Data Source [id number] 10/22/2020 11:51:59 PM EST [facility] Name Value Range Interpretation Code Description Data Anat rce(s) Supporting Document(s) SODIUM 145 mmol/L (136-145) [facility] POTASSIUM 3.1 mmol/L (3.6-5.2) L [facility] CHLORIDE 111 mmol/L (100-108) H [facility] CO2 27 mmol/L (22-31) [facility] ANION GAP 7 mmol/L (7-16) [facility] UREA NITROGEN 20 mg/dL (7-24) [facility] CREATININE 0.68 mg/dL (0.80-1.30) L [facility] BUN/CREAT RATIO 29.4 RATIO (10.0-20.0) [facility] GLUCOSE 85 mg/dL (70-99) [facility] CALCIUM 9.2 mg/dL (8.4-10.2) [facility] TOTAL PROTEIN 7.4 g/dL (6.4-8.2) [facility] ALBUMIN 4.0 g/dL (3.5-4.6) [facility] GLOBULIN 3.4 g/dL (2.7-4.3) [facility] ALB/GLOB RATIO 1.2 RATIO [facility] ALKALINE PHOSPHATASE 107 U/L (45-117) [facility] BILIRUBIN,TOTAL 0.8 mg/dL (0.0-1.0) [facility] PLEASE NOTE:Total bilirubin results may be falselyelevated in patients taking Eltrombopag. AST (SGOT) 33 U/L (11-39) [facility] ALT (SGPT) 108 U/L (12-78) H [facility] GFR >60 ml/min/1.73m2 (>59) [facility] GFR ( AMER) >60 ml/min/1.73m2 (>59) [facility] GFR INTERPRETATION [facility] --NORMAL KIDNEY FUNCTION OR MILD DISEASE - GFR >OR= 60CHRONIC KIDNEY DISEASE - GFR 15 - 59RENAL FAILURE - GFR <15 Est. GFR calculation based on the MDRDstudy equation, which assumes a steadystate for creatinine. Est. GFR should notbe used for medication dosing. ID Date Data Source [id number] 10/22/2020 11:32:09 PM EST [facility] Name Value Range Interpretation Code Description Data Anat rce(s) Supporting Document(s) WBC 5.0 10*3/uL (4.1-11.0) [facility] RBC 4.78 10*6/uL (4.60-6.10) [facility] HGB 14.5 g/dL (13.5-18.0) [facility] HCT 41.3 % (41.0-53.0) [facility] MCV 86.4 fL (80.0-95.0) [facility] MCH 30.3 pg (27.0-32.0) [facility] MCHC 35.1 g/dL (32.0-36.0) [facility] RDW 14.8 % (10.5-14.5) H [facility] PLT 343 10*3/uL (150-450) [facility] MPV 7.1 fL (7.1-10.7) [facility] NEUT % 83.2 % (35.0-75.0) H [facility] LYMPH % 2.5 % (16.0-52.0) L [facility] MONO % 10.6 % (0.0-8.0) H [facility] EOS % 3.4 % (0.0-5.0) [facility] BASO % 0.3 % (0.0-4.0) [facility] NEUT # 4.2 10*3/uL (1.8-7.7) [facility] LYMPH # 0.1 10*3/uL (1.2-4.8) L [facility] MONO # 0.5 10*3/uL (0.0-0.8) [facility] Eosinophils [#/volume] in Blood by Automated count 0.2 10*3/uL (0.0-0 .5) [facility] BASO # 0.0 10*3/uL (0.0-0.2) [facility] ID Date Data Source [id number] 10/22/2020 09:12:03 PM [facility]FORMATIONPatient MRN Name Date of Age Gend*PT [id number] Jacqueline Garcia 1965 55 years M EDPT Location Admission Date/Time Visit ID Attending [id number] 10/22/202014 --- Duncan Ortega MD([id number]) EPI ID CSN Admitting Provider [id number] Attestation signed by Manuel Arredondo MD at 10/22/2020 9:12 PMI was the attending physician on duty at the time the patient visited the ED.The patient was evaluated by the PA/[employer] SYSTEMS ADMINISTRATOR. I was personally available forconsultation; however, I did not see the patient nor participated in themedical decision making process of the encounter. The patient was dispositionedwithout my knowledge and I am administratively signing the chart after thefact. I was available for immediate consultation during the patient's ED visit. ED Provider in Triage NotePatient Name: Jacqueline GarciaPatient and Time of Assessment: 10/22/20, 7:09 PMChief ComplaintPatient presents with Jaw Pain left sided jaw pain x 3 weeks, pt had root canal after onset of pain. despiteroot canal pain remains.Brief HPI: 55 years male, L jaw pain x 3 weeksHas MS, has been having worsening painHas seen dentist who put in temporary crown recentlyPhysical exam:VSSAmbulatoryNontoxPreliminary Plan:reassessThis note was electronically signed by GENARO Rodríguez, 10/22/20, 7:09 PM.ED CourseGENARO Rodríguez10/22/201909Joliam Arredondo MD10/22/202111 Name Value Range Interpretation Code Description Data Anat rce(s) Supporting Document(s) ID Date Data Source [id number] 10/12/2020 09:52:48 AM [facility] Name Value Range Interpretation Code Description Data Anat rce(s) Supporting Document(s) [facility] [id number] jb2 [file] 563sT/diesel technician/OXpubfF2bGplsc/f/0m7d9/7u/t+boSl [file] [id number]= ID Date Data Source [id number] 08/26/2020 10:12:00 AM EST [facility] Name Value Range Interpretation Code Description Data Anat rce(s) Supporting Document(s) Prostate specific Ag [Mass/volume] in Serum or Plasma 1.26 ng/mL 0.00 -4.00 [facility] ID Date Data Source [id number] 08/26/2020 10:12:00 AM EST [facility] Name Value Range Interpretation Code Description Data Anat rce(s) Supporting Document(s) Triglyceride [Mass/volume] in Serum or Plasma 152 mg/dL 1-200 [facility] GOAL LESS THAN 200 Cholesterol [Mass/volume] in Serum or Plasma 223 mg/dL 112-200 [facility] GOAL LESS THAN 200 Cholesterol.total/Cholesterol in HDL [Mass Ratio] in Serum o r Plasma 3.54 4.00-6.70 [facility] Cholesterol in HDL [Mass/volume] in Serum or Plasma 63 mg/dL 30-70 [facility]) GOAL GREATER THAN 45 Cholesterol in LDL [Mass/volume] in Serum or Plasma by calcu lation 129.60 mg/dL 20.00-130.00 [facility] GOAL LESS THAN 100 Cholesterol non HDL [Mass/volume] in Serum or Plasma 160.00 mg/dL 0 .00-100.00 [facility] GOAL LESS THAN 100 ID Date Data Source [id number] 08/26/2020 10:12:00 AM EST [facility] Name Value Range Interpretation Code Description Data Anat rce(s) Supporting Document(s) Glucose [Mass/volume] in Serum or Plasma 98.00 mg/dL 70.00-110.00 [facility] Creatinine [Mass/volume] in Serum or Plasma 0.9 mg/dL 0.7-1.3 [facility] Urea nitrogen [Mass/volume] in Serum or Plasma 20 mg/dL 9-21 [facility] GFR 90.05 mL/min [facility] <content>NORMAL FUNCTION OR MILD RENAL D ISEASE:>60 ml/min</content>
<content>ADVANCED RENAL DISEASE:15-59 ml/min</content>
<content>RENAL FAILURE:<15 ml/min</content>
<content></content> Sodium [Moles/volume] in Serum or Plasma 141 mmol/L 136-145 [facility] Potassium [Moles/volume] in Serum or Plasma 5.2 mmol/L 3.5-5.1 [facility] Chloride [Moles/volume] in Serum or Plasma 103 mmol/L 98-107 [facility] Albumin [Mass/volume] in Serum or Plasma 4.50 g/dL 3.30-5.00 [facility]) Protein [Mass/volume] in Serum or Plasma 7.4 g/dL 6.4-8.3 [facility]) Aspartate aminotransferase [Enzymatic activity/volume] in Serum or Plasma 24 U/L 5-34 [facility] Alanine aminotransferase [Enzymatic activity/volume] in Seru m or Plasma 44 U/L 0-55 [facility] Carbon dioxide, total [Moles/volume] in Serum or Plasma 31.0 0 mmol/L 22.00-31.00 [facility] Alkaline phosphatase [Enzymatic activity/volume] in Serum or Plasma 139 U/L 40-150 [facility] Albumin/Globulin [Mass Ratio] in Serum or Plasma 1.55 Ratio [facility]) Calcium [Mass/volume] in Serum or Plasma 10.30 mg/dL 8.90-10.40 [facility]) Osmolality of Serum or Plasma by calculation 294.59 275.00-295.00 [facility]) Globulin [Mass/volume] in Serum by calculation 2.90 2.30-4.20 [facility] Urea nitrogen/Creatinine [Mass Ratio] in Serum or Plasma 21.74 Ratio [facility]) Bilirubin.total [Mass/volume] in Serum or Plasma 0.6 mg/dL 0.2-1.2 [facility] ID Date Data Source [id number] 08/26/2020 10:12:00 AM EST [facility] Name Value Range Interpretation Code Description Data Anat rce(s) Supporting Document(s) Leukocytes [#/volume] in Blood by Automated count 7.88 k/uL 4.60-10. 20 [facility] Neutrophils [#/volume] in Blood by Automated count 4.76 2.00-7. 50 [facility]) Neutrophils/100 leukocytes in Blood by Automated count 60.3 % 37. 0-80.0 [facility]) Monocytes [#/volume] in Blood by Automated count 0.508 0.000-0.9 00 [facility]) Lymphocytes [#/volume] in Blood by Automated count 2.34 K/UL 1.20-4. 80 [facility]) Lymphocytes/100 leukocytes in Blood by Automated count 29.7 % 10. 0-50.0 [facility]) Eosinophils/100 leukocytes in Blood by Automated count 2.97 % 0.0 0-7.00 [facility]) Monocytes/100 leukocytes in Blood by Automated count 6.44 % 0.00- 12.00 [facility]) Eosinophils [#/volume] in Blood by Automated count 0.234 0.000-0 .700 [facility] Basophils [#/volume] in Blood by Automated count 0.043 0.000-0.2 00 [facility]) Erythrocytes [#/volume] in Blood by Automated count 5.77 m/uL 4.04-6 .13 [facility]) Basophils/100 leukocytes in Blood by Automated count 0.55 % 0.00- 4.00 [facility]) Hematocrit [Volume Fraction] of Blood by Automated count 52.4 % 4 2.0-53.7 [facility]) Hemoglobin [Mass/volume] in Blood 16.9 g/dL 12.2-18.1 [facility]) Erythrocyte mean corpuscular hemoglobin [Entitic mass] by Automated count 29.3 pg 27.0-31.2 [facility]) Erythrocyte mean corpuscular hemoglobin concentration [Mass/volume] by Automated count 32.3 g/dL 31.8-35.4 [facility]) Erythrocyte mean corpuscular volume [Entitic volume] by Auto mated count 90.8 fL 80.0-97.0 [facility]) Erythrocyte distribution width [Ratio] by Automated count 12.8 % 11.6-14.8 [facility]) Platelets [#/volume] in Blood by Automated count 349 K/uL 142-424 [facility]) Platelet mean volume [Entitic volume] in Blood by [place] 5.3 fL 0.0-99.9 [facility] Procedure Social History Code Duration Value Status Description Data Source(s ) Smoking 02/16/2021 12:00:00 AM EDT Patient is a current cigarette smoker, smokes every day completed Patient is a current cigarette smoker, s mokes every day [facility]) Cigarette Use 02/16/2021 12:00:00 AM EDT Pack Years - 20 completed Pack Years - 20 [facility] Smoking 11/04/2020 11:37:00 AM EST Daily Smoker completed Daily [facility] Vital Signs ID Date Data Source UNK Name Value Range Interpretation Code Description Data Source(s) Systolic blood pressure 118 mm[Hg] 118 mm[Hg] M [facility] Diastolic blood pressure 72 mm[Hg] 72 mm[Hg] [facility] Heart rate 68 /min 68 /min [facility] Body temperature 98.1 [degF] 98.1 [degF] [facility]) Respiratory rate 16 /min 16 /min [facility] Body weight 136.00 [lb_av] 136.00 [lb_av] [facility] Body weight 61.690 kg 61.690 kg [facility] Body height 67 [in_i] 67 [in_i] [facility] 5'7" Body mass index (BMI) [Ratio] 21.3 kg/m2 21.3 k g/m2 [facility]) [place] body weight 148 [lb_av] 148 [lb_av] [facility] ([facility]) Body height 70 [in_i] 70 [in_i] [facility] ([facility], ) 5'10" Systolic blood pressure 122 mm[Hg] 122 mm[Hg] M [facility] ([facility], ) Diastolic blood pressure 64 mm[Hg] 64 mm[Hg] [facility] ([facility], ) Body weight 131.25 [lb_av] 131.25 [lb_av] [facility] T ([facility]) Body mass index (BMI) [Ratio] 18.8 kg/m2 18.8 k g/m2 [facility] ([facility]) [place] body weight 166 [lb_av] 166 [lb_av] [facility] T ([facility]) Body weight 59.535 kg 59.535 kg [facility] ([facility]) Body surface area Derived from formula 1.75 m2 1.75 m2 [facility] ([facility]) [place] body weight 166 [lb_av] 166 [lb_av] [facility] T ([facility]) Body weight 132.00 [lb_av] 132.00 [lb_av] [facility] ([facility]) Systolic blood pressure 142 mm[Hg] 142 mm[Hg] M [facility] ([facility]) Diastolic blood pressure 68 mm[Hg] 68 mm[Hg] [facility] ([facility]) Body surface area Derived from formula 1.75 m2 1.75 m2 [facility] ([facility]) Body weight 59.875 kg 59.875 kg [facility] ([facility]) Body height 70 [in_i] 70 [in_i] [facility] ([facility]) 5'10" Body mass index (BMI) [Ratio] 18.9 kg/m2 18.9 k g/m2 [facility] ([facility]) Respiratory rate 16 /min 16 /min [facility] ( [facility]) Systolic blood pressure 122 mm[Hg] 122 mm[Hg] M [facility] ([facility]) Diastolic blood pressure 70 mm[Hg] 70 mm[Hg] [facility]) Heart rate 80 /min 80 /min [facility] Body temperature 98.0 [degF] 98.0 [degF] [facility]) [place] body weight 148 [lb_av] 148 [lb_av] [facility] ([facility]) Body weight 144.00 [lb_av] 144.00 [lb_av] [facility]) Body weight 65.318 kg 65.318 kg [facility] Body height 67 [in_i] 67 [in_i] [facility] 5'7" Body mass index (BMI) [Ratio] 22.6 kg/m2 22.6 k g/m2 [facility]) Diastolic blood pressure 69 mm[Hg] Normal (applies to non-numeric results) 69 mm[Hg] [facility] Heart rate 88 min Normal (applies to non-numeric resul ts) 88 min [facility] Systolic blood pressure 99 mm[Hg] Normal (applies t o non-numeric results) 99 mm[Hg] [facility] Body temperature 36.9 allie Normal (applies to non-numeric results) 36.9 allie [facility] Respiratory rate 18 min Normal (applies to non-numeric results) 18 min [facility] Deprecated Oxygen saturation in Capillary blood by Oximetry 96 % Normal (applies to non-numeric results) 96 % [facility] Body height 169.06801282422025 cm Normal (applies to non-numeric results) 169.69873148072540 cm [facility] Body mass index (BMI) [Ratio] 21.9 kg/m2 No rmal (applies to non-numeric results) 21.9 kg/m2 [facility] Body weight Measured 140 [lb_av] Normal (applies to n on-numeric results) 140 [lb_av] [facility] Diastolic blood pressure 80 mm[Hg] 80 mm[Hg] [facility]) [place] body weight 148 [lb_av] 148 [lb_av] [facility] ([facility]) Heart rate 70 /min 70 /min [facility] Body height 67 [in_i] 67 [in_i] [facility] 5'7" Systolic blood pressure 120 mm[Hg] 120 mm[Hg] M [facility]) Body temperature 98.1 [degF] 98.1 [degF] [facility]) Respiratory rate 12 /min 12 /min [facility] Body weight 148.00 [lb_av] 148.00 [lb_av] [facility] Body weight 67.133 kg 67.133 kg [facility] Body mass index (BMI) [Ratio] 23.2 kg/m2 23.2 k g/m2 [facility]) Systolic blood pressure 112 mm[Hg] 112 mm[Hg] M [facility]) Diastolic blood pressure 64 mm[Hg] 64 mm[Hg] [facility] Heart rate 68 /min 68 /min [facility] Body temperature 97.7 [degF] 97.7 [degF] [facility]) Respiratory rate 16 /min 16 /min [facility] Body weight 141.00 [lb_av] 141.00 [lb_av] [facility] Body weight 63.958 kg 63.958 kg [facility] Body height 67 [in_i] 67 [in_i] [facility] 5'7" Body mass index (BMI) [Ratio] 22.1 kg/m2 22.1 k g/m2 [facility]) [place] body weight 148 [lb_av] 148 [lb_av] [facility]
[2021-08-22] MEDS ORDERED: ONDANSETRON 4MG/2ML VIAL IV PRN (16:30)
--- OUTSIDE RECORDS SUMMARY | 2021-08-22 16:42 | CCD ---
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 Name Role Phone Macho Reaves Unavailable Unavailable [...] Unavailable Unavailable MANUEL BARNETT MD Unavailable Unavailable Adma Winkler Unavailable Unavailable YOVANY, ABU Unavailable Unavailable [...] Unavailable Unavailable Guevara Banks MD Unavailable Unavailable Gueavra Banks MD Unavailable Unavailable Guevara Banks MD [...] NICKI MD Unavailable Unavailable UR MARYCRUZ, KELLY INCKI MD Unavailable Unavailable UR MARYCRUZ, KELLY NICKI [...] ZOHRA PEDROZA MD Unavailable Unavailable Be REAVES [id number] Unavailable Unavailable PHYSICIAN, ER Unavailable Unavailable Jordan, [...] is protected by Article 27-F of the [facility] Public Health law. If you continue you may have access to information: Regarding HIV / AIDS; Provided by facilities licensed or operated by the [facility] Office of Mental Health; or Provided by the [facility] Office for People With Developmental Disabilities. If such information is present, then the following [facility] mandated warning applies: This information has been [...] law may result in a fine or fci sentence or both. A general authorization for [...] 04:31:00 PM EST - 08/16/2021 08:46:00 PM [facility] Patient discharged. Outpatient Attender: POLO CHRISTINA DO Main Office 02/16/2021 0 7:30:00 PM EDT [facility] ([facility]) Outpatient Attender: Adam June ter: Adam WinklerReferrer: Macho Reaves 02/05/2021 02:30:16 PM EDT [facility] Attender: Eliza Garvey RPA [place] 02/04/2021 01:45:00 PM EDT [facility] ([facility] Inpatient 01/26/2021 08:48:49 AM EDT [facility] Outpatient Attender: Eliza Garvey RPA [place] 01/11/2021 01:15:00 PM EDT [facility] ([facility] Outpatient Attender: POLO CHRISTINA DO Main Office 12/14/2020 0 7:00:00 PM EDT [facility] ([facility]) [place] ( in Healthcare facility) Attender: NICKI JOEL MDAdmitter: MANUEL BARNETT MDConsultant: Deepa Lund 11/02/2020 04:12:00 AM [facility] Inpatient Attender: Dash Cornelius MDAttender: ER PHYSICIAN 11/02/2020 04:12:00 AM [facility] Inpatient Attender: FADIA Pham er: NICKI JOEL MDAttender: Dash Cornelius MDAttender: ER PHYSICIANAdmitter: MANUEL BARNETT MD 11/01/2020 10:21:15 PM EST [facility] In[facility] Attender: AMI Cooneyender: NICKI JOEL MDAttender: Dash Cornelius MDAttender: MANUEL BARNETT MDAttender: ER PHYSICIANAdmitter: MANUEL BARNETT MD 11/01/2020 08:44:00 PM EST - 11/10/2020 04:13:00 PM EST MS WITH GENERALIZED WEAKNESS DIARRHEA HYPOKALEMIA [facility] MS WITH GENERALIZED WEAKNESS DIARRHEA HY POKALEMIA Patient discharged. Emergency Attender: Duncan Ortega [id number] 06:00:00 PM EST - 10/22/2020 11:27:00 PM EST [facility] Patient discharged. Outpatient Attender: POLO CHRISTINA DO Main Office 08/26/2020 0 8:30:00 AM EST [facility] ([facility]) Outpatient Attender: POLO CHRISTINA DO Main Office 07/02/2020 0 1:45:00 PM EDT [facility] ([facility]) Outpatient Attender: DEMETRIO WYNNEReferrer: MACHO REAVES [id number] [facility]EDITC 03/26/2020 01:44:51 PM EDT - 03/26/2020 03:24:08 PM EDT [facility] Multiple sclerosis Immunizations Vaccine Date Status [...] 12/14/2020 12:00:00 AM EDT ORAL active [facility] ([facility] [place]) Trazodone Hydrochloride 50 MG Oral Tablet Trazodone HCL 12/14/2020 12:00:00 AM EDT ORAL active [facility] ([facility] [place]) Potassium Chloride 20 MEQ Extended Release Oral Tablet Potas sium Chloride ER 12/14/2020 12:00:00 AM EDT ORAL completed [facility] ([facility] [place]) quetiapine 100 MG Oral Tablet Quetiapine Fumarate 12/14/2020 12:00: 00 AM EDT ORAL active [facility] ([facility]) sildenafil 50 MG Oral Tablet Sildenafil Citrate 12/03/2020 12:00:00 A M EDT completed [facility] ([facility]) Sertraline 100 MG Oral Tablet Sertraline HCL 08/27/2020 12:00:[address] ORAL active [facility] ([facility]) Simvastatin 20 MG Oral Tablet Simvastatin 08/27/2020 12:00:00 AM EST ORAL active [facility] ([facility] [place]) meloxicam 7.5 MG Oral Tablet Meloxicam 08/26/2020 12:00:00 AM EST ORAL active [facility] ([facility]) Chantix Starting Month Nefatli Chantix Starting Month Neftali 2019 12:00:00 AM EDT completed [facility] ([facility]) Chantix Continuing Month Neftali Chantix Continuing Month Neftali 12:00:00 AM EDT completed [facility] ([facility] [place]) Escitalopram 20 MG Oral Tablet [Lexapro] Lexapro 04/02/2020 12:00: 00 AM EDT ORAL completed [facility] ([facility] [place]) Sulfamethoxazole 800 MG / Trimethoprim 160 MG Oral Tablet [B actrim] Bactrim DS 04/02/2020 12:00:00 AM EDT ORAL completed [facility] ([facility]) Insurance Providers Payer name Policy type / Coverage type Policy ID Covered republican ID Covered republican's relationship to farris Policy Farris Plan Information [facility] [id number] Self V [id number] [facility] [id number] Self V [id number] Blue Cross Blue Shield Commercial [id number] Self V [id number] Blue Cross Blue Shield Commercial [id number] Self V [id number] Blue Cross Blue Shield Commercial [id number] Self [id number] Blue Cross Blue Shield Commercial [id number] Self V [id number] Blue Cross Blue Shield Commercial [id number] Self V [id number] Blue Cross Blue Shield Commercial [id number] Self V [id number] Blue Cross Blue Shield Commercial [id number] Self [id number] Blue Cross Blue Shield Commercial [id number] Self Blue Cross Blue Shield Commercial [id number] Self V [id number] [employer] Compensation [id number] Self 1 [id number] [employer] Workers Compensation [id number] Self [id number] [employer] Workers Compensation [id number] Self 1 [id number] [employer] Workers Compensation [id number] Self 1 [id number] [employer] Workers Compensation [id number] Self 1 [id number] [employer] Workers Compensation [id number] [id number] Self 1 [id number] [employer] Workers Compensation [id number] [id number] Self 1 [id number] [employer] Workers Compensation [id number] Self [id number] [employer] Workers Compensation [id number] Self 1 [id number] [employer] Workers Compensation [id number] Self 1 [id number] [employer] Workers Compensation [id number] Self EXCELLUS H [id number] Self [id number] EXCELLUS BCBS [id number] Patience VYS EXCELLUS BCBS [id number] Patience VYS EXCELLUS C [id number] Self [id number] BCBS GENERIC C [id number] Self [id number] EXCELLUS BCBS [id number] Patience VYS [id number] Medicaid S [id number] S [id number] Managed Care [place] P [id number] S [id number] Blue Cross Blue Shield P [id number] SELF [id number] Blue Cross Blue Shield P [id number] SELF [id number] Blue Cross Blue Shield P [id number] SELF [id number] REY [id number] SP [id number] 300 REY I [id number] Self [id number] REY I [id number] Self [id number] Medicaid S [id number] S [id number] MEDICARE [id number] SP [id number] MEDICAID [id number] SP [id number] Medicare P [id number] S [id number] D23 Blue Cross Blue Shield Commercial [id number] Self [id number] SELF PAY ONLY [id number] SP [id number] Blue Cross Blue Shield Commercial [id number] Self [id number] REY [id number] SP [id number] [place] [id number] SP [id number] Blue Cross Blue Shield P [id number] SELF [id number] Blue Cross Blue Shield P [id number] SELF [id number] EXCELLUS BCBS [id number] [phone] [id number] EXCELLUS H [id number] SOth [id number] EXCELLUS BCBS [id number] Spo [id number] Blue Cross Blue Shield P [id number] SPOUSE [id number] Medicare P [id number] S [id number] [id number] INSURANCE COVID-19 COVID Patience C OVID INSURANCE COVID-19 COVID Patience C OVID INSURANCE COVID-19 [id number] xxxxx [id number] INSURANCE COVID-19 [id number] xxxxx [id number] INSURANCE COVID-19 COVID Patience C OVID INSURANCE COVID-19 COVID Patience C OVID EXCELLUS BCBS B [id number] S W [id number] [place] 302/307 [id number] SP [id number] [place] 302/307 [id number] SP [id number] BCBS [place] 306/806 [id number] SP [id number] [facility] [id number] BCBS/Blue Card Commercial [id number] Self SELF PAY 2 UNAVAILABLE 1 UNAVAILA BLE BC BLUE CARD 1 [id number] EXCELLUS BLUE CROSS BLUE SHIELD HEA [id number] SP [id number] [facility] [id number] SE [id number] [facility] [id number] SE [id number] MEDICARE PART A -O/P [id number] MEDICARE C [id number] S [id number] D23 MEDICAID M [id number] S [id number] INSURANCE COVID-19 COVID Patience C OVID INSURANCE COVID-19 [id number] xxxxx [id number] MEDICAID [id number] SP [id number] [facility] UNAVAILABLE 18 UNAVAILABLE [facility] [id number] Blue Cross Blue Shield P [id number] SPOUSE [id number] MEDICARE [id number] SP [id number] D23 Managed Care [place] P [id number] S [id number] EXCELLUS BLUE CROSS BLUE SHIELD HEA [id number] S [id number] MEDICARE [id number] SP [id number] EXCELLUS BCBS [place] [id number] S [id number] ANSI-Commercial [id number] REY [id number] SP [id number] 300 ANSI-Commercial [id number] REY [id number] Medicaid S [id number] S [id number] BCBS OF [place] 306/806 [id number] SP [id number] Problems, Conditions, and Diagnoses Code Display Name Description Problem Type Effective Dates Data Source(s) G50.0 Trigeminal neuralgia Trigeminal neuralgia Diagnosis 10/22/2020 08:15:21 PM EST [facility] [id number] Depressive disorder Depressive disorder Problem 0 11/11/2020 12:00:00 AM EST [facility] ([facility] [place]) Surgeries/Procedures Procedure Description Date Indications Data Source(s) OFFICE OUTPATIENT VISIT 25 MINUTES 02/16/2021 12:00:00 AM EDT [facility] ([facility] [place]) OFFICE OUTPATIENT VISIT 25 MINUTES 12/14/2020 12:00:00 AM EDT [facility] Electro[facility]ogram Interpretation & Report Only 021 12:00:00 AM EST [facility] ([facility]) Electrocardiogram Interpretation & Report Only 021 12:00:00 AM EST [facility] ([facility]) Results ID Date Data Source [id number] 08/19/2021 03:17:02 PM EST [facility] Name Value Range Interpretation Code Description Data Anat rce(s) Supporting Document(s) TOTAL PROTEIN 6.8 g/dL (6.4-8.2) [facility] ALBUMIN 3.7 g/dL (3.5-4.6) [facility] GLOBULIN 3.1 g/dL (2.7-4.3) [facility] ALB/GLOB RATIO 1.2 RATIO [facility] BILIRUBIN,TOTAL 0.3 mg/dL (0.0-1.0) [facility] PLEASE NOTE:Total bilirubin results may be falselyelevated in patients taking Eltrombopag. BILIRUBIN,CONJUGATED 0.1 mg/dL (0.0-0.3) [facility] BILIRUBIN,UNCONJ. 0.2 mg/dL (0.0-0.7) [facility] ALKALINE PHOSPHATASE 128 U/L (45-117) H [facility] AST (SGOT) 11 U/L (11-39) [facility] ALT (SGPT) 32 U/L (12-78) [facility] ID Date Data Source [id number] 08/19/2021 01:04:58 PM EST [facility] [...] CORE MPV 7.0 fL (7.1-10.7) L [facility] NEUT % 82.7 % (35.0-75.0) H [facility] LYMPH % 2.9 % (16.0-52.0) L [facility] MONO % 7.7 % (0.0-8.0) [facility] EOS % 6.2 % (0.0-5.0) H [facility] CORE BASO % 0.5 % (0.0-4.0) [facility] NEUT # 4.7 10*3/uL (1.8-7.7) Laboratory [facility] - C[facility] LYMPH # 0.2 10*3/uL (1.2-4.8) L [facility] - C[facility] MONO # 0.4 10*3/uL (0.0-0.8) Laboratory [facility] Eosinophils [#/volume] in Blood by Automated count 0.4 10*3/uL (0.0-0 .5) [facility] BASO # 0.0 10*3/uL (0.0-0.2) Laboratory [facility] ID Date Data Source [id number] 08/17/2021 10:41:00 [place] [address] PHONE: [phone] FAX: [phone] Name .................. : CASIE PHILLIPS Av Acct Number.................. : [id number] ROOM. ................. : VT-26 Number ................... : [id number] Stay type ............. : E/R Discharge Date......... ... : 08/16/21 Admit Date ......... : 08/16/21 Admit Phys .................... : CONSTANCE BOCANEGRA Date of ....... : 1965 Family Phys ................... : GABRIELLA Ley Phone .................. : [phone] Age ................................ : 56 Film# .................. .:[id number] Sex ................................. : M Unsigned transcriptions are preliminary reports and do not represent a medical or legal document CT ABD & PELV W/O ORAL W/[place] [id number] COMPLETE:08/16/21 19:19 SHERICE [id number] Reason(s): Abdominal Pain CT ABDOMEN AND PELVIS [...] until proven otherwise. Page 1 of 3 [facility] [address] [place] [address] PHONE: [phone] FAX: [phone] Name .................. : CASIE PHILLIPS Av Acct Number.................. : [id number] ROOM. ................. : VT-26 Number ................... : [id number] Stay type ............. : E/R Discharge Date......... ... : 08/16/21 Admit Date ......... : 08/16/21 Admit Phys .................... : CONSTANCE BOCANEGRA Date of ....... : 1965 Family Phys ................... : GABRIELLA Av Phone .................. : [phone] Age ................................ : 56 Film# .................. .:[id number] Sex ................................. : M Unsigned transcriptions are preliminary reports and do not represent a medical or legal document CT ABD & PELV W/[place] ORAL W/[place] [id number] COMPLETE:08/16/21 19:19 SHERICE [id number] Reason(s): Abdominal Pain Prostate does not appear abnormally enlarged. BOWEL/GI: Severe ascites. No free air. Extensive diverticulosis without diverticulitis. No colitis. Appendix not clearly delineated. Possible appendiceal stump. No indication of appendicitis. Mild gastric distention. No wall thickening. NODES/RETROPERITONEUM: No adenopathy. Heavily calcified aortoiliac system without aneurysm. Appearance of the middle region suggest bilateral femoral origin vascular grafts. SKELETAL: Vitx-iy-hlmlblrf degenerative disc and facet change. No acute [...] 01:06, Dictation Date: Page 2 of 3 [facility] [address] [place] [address] PHONE: [phone] FAX: [phone] Name .................. : CASIE Ley Acct Number.................. : [id number] ROOM. ................. : VT-26 Number ................... : [id number] Stay type ............. : E/R Discharge Date......... ... : 08/16/21 Admit Date ......... : 08/16/21 Admit Phys .................... : CONSTANCE BOCANEGRA Date of ....... : 1965 Family Phys ................... : GABRIELLA Av Phone .................. : [phone] Age ................................ : 56 Film# .................. .:[id number] Sex ................................. : M Unsigned transcriptions are preliminary reports and do not represent a medical or legal document CT ABD & PELV W/[place] ORAL W/[place] [id number] COMPLETE:08/16/21 19:19 SHERICE [id number] Reason(s): Abdominal Pain Copy for: ANNABELSILVERIO OSBALDO via fax Copy for: EMERGENCY DEPT via modem Copy for: 710 MED REC DISCHARGED Page 3 of 3 Name Value Range Interpretation Code Description Data [facility] rce(s) Supporting Document(s) ID Date Data Source [id number] 08/16/2021 07:25:00 PM EST [facility] Name Value Range Interpretation Code Description Data [facility](s) Supporting Document(s) COMPREHENSIVE METABOLIC PANEL [facility] COMPREHENSIVE METABOLIC PANEL Sodium [Moles/volume] in Serum or Plasma 131 mEq/L 134 - 153 L [facility] Potassium [Moles/volume] in Serum or Plasma 4.3 mEq/L 3.6 - 5.0 [facility] Chloride [Moles/volume] in Serum or Plasma 99 mEq/L 98 - 107 [facility] Carbon dioxide, total [Moles/volume] in Serum or Plasma 22 MEQ/L 22 - 30 [facility] Glucose [Mass/volume] in Serum or Plasma 96 MG/DL 70 - 99 [facility] BUN 9 MG/DL 7 - 21 [facility] Creatinine [Mass/volume] in Serum or Plasma 0.8 MG/DL 0.7 - 1.5 [facility] BUN/CREAT 11 8 - 27 [facility] Protein [Mass/volume] in Serum or Plasma 5.6 G/DL 6.3 - 8.2 L [facility] Albumin [Mass/volume] in Serum or Plasma 2.8 G/DL 3.9 - 5.0 L [facility] Globulin [Mass/volume] in Serum by calculation 2.8 GM/DL 2.4 - 3.2 [facility] A/G RATIO 1.0 0.8 - 2.0 [facility] Calcium [Mass/volume] in Serum or Plasma 8.9 MG/DL 8.4 - 10.2 [facility] Bilirubin.total [Mass/volume] in Serum or Plasma 1.4 MG/DL 0.2 - 1.3 H [facility] Alkaline phosphatase [Enzymatic activity/volume] in Serum or Plasma 65 U/L 38 - 126 [facility] Aspartate aminotransferase [Enzymatic activity/volume] in Serum or Plasma 60 U/L 5 - 40 H [facility] Alanine aminotransferase [Enzymatic activity/volume] in Seru m or Plasma 29 U/L 7 - 56 [facility] Anion gap 3 in Serum or Plasma 10.0 mmol/L 8.0 - 16.0 [facility] AGE 56 yrs [facility] NON-AA GFR >60 mL/min [facility] ital AFR AMER GFR >60 mL/min [facility] spital Male GFR In terprentation 20-49 [...] >32 mL/min Normal ID Date Data Source [id number] 08/16/2021 07:17:00 PM [facility] Name Value Range Interpretation Code Description Data Anat rce(s) Supporting Document(s) Ethanol [Moles/volume] in Blood <10.0 MG/DL [facility] ALCOHOL % 0.01 % 0.00 - 0.01 [facility] ital *FOR MEDICAL PURPOSES ONLY * ID Date Data Source [id number] 08/16/2021 07:17:00 PM [facility] Value Range Interpretation Code Description Data Anat rce(s) Supporting Document(s) Lactate dehydrogenase [Enzymatic activity/volume] in Serum o r Plasma 148 U/L 135 - 225 [facility] ID Date Data Source [id number] 08/16/2021 07:17:00 PM [facility] Value Range Interpretation Code Description Data Anat rce(s) Supporting Document(s) Magnesium [Mass/volume] in Serum or Plasma 2.0 MG/DL 1.7 - 2.2 [facility] ID Date Data Source [id number] 08/16/2021 07:17:00 PM [facility] Value Range Interpretation Code Description Data Anat rce(s) Supporting Document(s) Lipase [Enzymatic activity/volume] in Serum or Plasma 52 U/L 13 - 60 [facility] ID Date Data Source [id number] 08/16/2021 07:16:00 PM [facility] Name Value Range Interpretation Code Description Data Anat rce(s) Supporting Document(s) BNP 1286 PG/ML 0 - 125 H [facility] Hos[facility] adilia ID Date Data Source [id number] 08/16/2021 07:06:00 PM EST [facility] Name Value Range Interpretation Code Description Data Anat rce(s) Supporting Document(s) CBC W/AUTOMATED DIFF [facility] COMPLETE BLOOD COUNT Leukocytes [#/volume] in Blood by Automated count 10.3 10^3/uL 4.2 - 11.0 [facility] Erythrocytes [#/volume] in Blood by Automated count 3.50 10^6/uL 4. 50 - 6.30 L [facility] Hemoglobin [Mass/volume] in Blood 12.4 g/dL 14.0 - 16.0 L [facility] Hematocrit [Volume Fraction] of Blood by Automated count 35.7 % 4 1.0 - 51.0 L [facility] Erythrocyte mean corpuscular volume [Entitic volume] b y Automated count 102.0 fL 80.0 - 94.0 H [facility] Erythrocyte mean corpuscular hemoglobin [Entitic mass] by Automated count 35.4 pg 27.0 - 34.0 H [facility] Erythrocyte mean corpuscular hemoglobin concentration [Mass/volume] by Automated count 34.7 g/dL 31.0 - 36.0 [facility] Erythrocyte distribution width [Ratio] by Automated count 14.4 % 11.5 - 14.8 [facility] Platelets [#/volume] in Blood by Automated count 130 10^3/uL 150 - 45 0 L [facility] Platelet mean volume [Entitic volume] in Blood by Automated count 10.5 fL 7.4 - 10.4 H [facility] Neutrophils/100 leukocytes in Blood by Automated count 62.7 % 37. 0 - 80.0 [facility] Lymphocytes/100 leukocytes in Blood by Manual count 18.6 % 25.0 - 40.0 L [facility] Monocytes/100 leukocytes in Blood by Automated count 15.8 % 3.0 - 8.0 H [facility] Eosinophils/100 leukocytes in Blood by Automated count 1.8 % 0.0 - 7.0 [facility] Basophils/100 leukocytes in Blood by Automated count 0.7 % 0.0 - 2.0 [facility] %IG 0.4 % 0.0 - 0.[address] [facility] al %NRBC 0.0 % 0.0 - 0.0 [facility] al Neutrophils [#/volume] in Blood by Automated count 6.46 10^3/uL 2.00 - 6.90 [facility] Lymphocytes [#/volume] in Blood by Automated count 1.92 10^3/uL 0.60 - 3.40 [facility] Monocytes [#/volume] in Blood by Automated count 1.63 10^3/uL 0.00 - 0.90 H [facility] Eosinophils [#/volume] in Blood by Automated count 0.19 10^3/uL 0.00 - 0.70 [facility] Basophils [#/volume] in Blood by Automated count 0.07 10^3/uL 0.00 - 0.20 [facility] #IG 0.04 10^3/uL 0.00 - 0.[address] [facility] ospital #NRBC 0.00 10^3/uL 0.00 - 0.[address] [facility] ospital MANUAL DIFF SEE BELOW [facility] ital Segmented neutrophils/100 leukocytes in Blood by Manual count 75 % 37 - 80 [facility] %LYMPH 12 % 25 - [address] [facility] al %MONO 13 % 3 - [address] [facility] al RBC MORPH NOT INDICATED [facility] Ho spital ID Date Data Source [id number] 08/16/2021 07:06:00 PM EST [facility] Name Value Range Interpretation Code Description Data Anat rce(s) Supporting Document(s) TROPONIN T <0.01 NG/ML 0.00 - 0.[address] [facility] ospital TROPONIN T0.1 ng/ml Recommended as the c linical threshold value forTroponin T. ID Date Data Source [id number] 08/16/2021 07:06:00 PM EST [facility] Name Value Range Interpretation Code Description Data Anat rce(s) Supporting Document(s) Ammonia [Mass/volume] in Plasma 29.0 UG/DL 27.2 - 102 [facility] ID Date Data Source [id number] 08/16/2021 06:52:00 PM [facility] Name Value Range Interpretation Code Description Data Anat rce(s) Supporting Document(s) Prothrombin time (PT) 15.5 SECONDS 11.0 - 15.5 [facility] INR in Platelet poor plasma by Coagulation assay 1.20 0.93 - 1. 23 [facility] aPTT in Blood by Coagulation assay 34.2 SECONDS 24.8 - 36.7 [facility] \\BLDo\\INR INTERPRETATION\\BLDx\\ Therapeutic range for Coumadin and related oral anticoagulants. - International Normalized Ratio (INR): 2.0 - 3.0 for Venous Thrombosis, Pulmonary Embolus, Tissue heart valves, Acute MA Atrial Fibrillation, Valvular heart disease and recurrent Systemic Embolism. - International Normalized Ratio (INR): 2.5 - 3.5 for Mechanical Prosthetic valve. ID Date Data Source [id number] 08/16/2021 06:48:00 PM [facility] Name Value Range Interpretation Code Description Data Anat rce(s) Supporting Document(s) Lactate [Moles/volume] in Serum or Plasma 1.5 MMOL/L 0.2 - 2.2 [facility] ID Date Data Source [id number] 08/02/2021 08:49:00 AM EST [facility] Name Value Range Interpretation Code Description Data Anat rce(s) Supporting Document(s) SARS coronavirus 2 RNA [Presence] in Res piratory specimen by SONAM with probe detection NEGATIVE [facility] This lab was ordered by [facility] a nd reported by [facility]. ID Date Data Source [id number] 05/20/2021 04:52:00 PM EDT [facility] Name Value Range Interpretation Code Description Data Anat rce(s) Supporting Document(s) TOTAL PROTEIN 6.2 g/dL (6.4-8.2) L Laboratory [facility] ALBUMIN 2.9 g/dL (3.5-4.6) L [facility] - CORE GLOBULIN 3.3 g/dL (2.7-4.3) [facility] - CORE ALB/GLOB RATIO 0.9 RATIO Laboratory [facility] - CORE BILIRUBIN,TOTAL 0.3 mg/dL (0.0-1.0) [facility] - CORE PLEASE NOTE:Total bilirubin results may be falselyelevated in patients taking Eltrombopag. BILIRUBIN,CONJUGATED 0.1 mg/dL (0.0-0.3) Laborator [facility] - CORE BILIRUBIN,UNCONJ. 0.2 mg/dL (0.0-0.7) Laboratory [facility] - CORE ALKALINE PHOSPHATASE 148 U/L (45-117) H [facility] - CORE AST (SGOT) 6 U/L (11-39) L [facility] - CORE ALT (SGPT) 24 U/L (12-78) [facility] - CORE ID Date Data Source [id number] 05/20/2021 03:37:48 PM EDT Laboratory Al [facility] [...] CORE MPV 7.0 fL (7.1-10.7) L [facility] - CORE NEUT % 84.4 % (35.0-75.0) H [facility] - CORE LYMPH % 3.6 % (16.0-52.0) L [facility] - CORE MONO % 9.1 % (0.0-8.0) H [facility] - CORE EOS % 2.7 % (0.0-5.0) [facility] - CORE BASO % 0.2 % (0.0-4.0) [facility] - CORE NEUT # 6.3 10*3/uL (1.8-7.7) [facility] - CORE LYMPH # 0.3 10*3/uL (1.2-4.8) L [facility] - CORE MONO # 0.7 10*3/uL (0.0-0.8) [facility] - CORE Eosinophils [#/volume] in Blood by Automated count 0.2 10*3/uL (0.0-0 .5) [facility] - CORE BASO # 0.0 10*3/uL (0.0-0.2) [facility] - CORE ID Date Data Source [id number] 02/16/2021 08:06:00 PM EDT [facility] ([facility] [...] ([facility]) ID Date Data Source [id number] 02/16/2021 08:06:00 PM EDT [facility] Name Value Range Interpretation Code [...] ([facility]) GFR 107.18 mL/min [facility] ([facility]) <content>NORMAL FUNCTION OR [...] in Serum or Plasma 1.46 Ratio [facility] ([facility]) Carbon dioxide, total [Moles/volume] in Serum or Plasma 26.0 0 mmol/L 22.00-31.00 [facility] ([facility]) Bilirubin.total [Mass/volume] in Serum or Plasma 0.8 mg/dL 0.2-1.2 [facility] ([facility]) Calcium [Mass/volume] in Serum or Plasma 9.60 mg/dL 8.90-10.40 [facility] ([facility]) Sodium [Moles/volume] in Serum or Plasma 142 mmol/L 136-145 [facility] ([facility]) Urea nitrogen/Creatinine [Mass Ratio] in Serum or Plasma 20.25 Ratio [facility] ([facility]) Globulin [Mass/volume] in Serum by calculation 2.60 2.30-4.20 [facility] ([facility]) ID Date Data Source [id number] 02/05/2021 02:30:13 PM EDT [facility] Diagnosti c Imaging EXAMINATION:MRI brain with [...] stir coronal, post gadolinium axial and coronal T3nrfnxd.FINDINGS:Ventricular size normal. Slight prominent sylvian fissures bilaterally [...] rce(s) Supporting Document(s) ID Date Data Source [id number] 12/14/2020 07:42:00 PM EDT [facility] ([facility]) Name Value Range Interpretation Code Description Data Anat rce(s) Supporting Document(s) Sodium [Moles/volume] in Serum or Plasma 139 mmol/L 136-145 [facility] ([facility]) Glucose [Mass/volume] in Serum or Plasma 87.00 mg/dL 70.00-110.00 [facility] ([facility]) Potassium [Moles/volume] in Serum or Plasma 3.7 mmol/L 3.5-5.1 [facility] ([facility]) Carbon dioxide, total [Moles/volume] in Serum or Plasma 26.0 0 mmol/L 22.00-31.00 [facility] ([facility]) Chloride [Moles/volume] in Serum or Plasma 103 mmol/L 98-107 [facility] ([facility]) GFR 117.48 mL/min [facility] ([facility]) <content>NORMAL FUNCTION OR MILD RENAL D ISEASE:>60 ml/min</content>
<content>ADVANCED RENAL DISEASE:15-59 ml/min</content>
<content>RENAL FAILURE:<15 ml/min</content>
<content></content> Urea nitrogen [Mass/volume] in Serum or Plasma 12 mg/dL 9-21 [facility] ([facility]) Creatinine [Mass/volume] in Serum or Plasma 0.7 mg/dL 0.7-1.3 [facility] ([facility]) Calcium [Mass/volume] in Serum or Plasma 9.60 mg/dL 8.90-10.40 [facility] ([facility]) Osmolality of Serum or Plasma by calculation 287.12 275.00-295.00 [facility]) Urea nitrogen/Creatinine [Mass Ratio] in Serum or Plasma 16.44 Ratio [facility] ([facility]) ID Date Data Source [id number] 11/08/2020 08:34:13 AM EST [facility] Name Value Range Interpretation Code Description Data Anat rce(s) Supporting Document(s) CARBAMAZEPINE 13.7 ug/mL (4.0-12.0) [facility] RESULT(S) CALLED TO AND READ BACK BYJOYC E ON 6N AT 0825 ON 11/08/20.01677 ID Date Data Source [id number] 11/08/2020 08:34:13 AM EST [facility] Name Value Range Interpretation Code Description Data Anat rce(s) Supporting Document(s) MAGNESIUM 2.0 mg/dL (1.7-2.4) [facility] ID Date Data Source [id number] 11/08/2020 08:34:13 AM EST [facility] Name Value Range Interpretation Code Description Data Anat rce(s) Supporting Document(s) SODIUM 145 mmol/L (136-145) [facility] POTASSIUM 3.6 mmol/L (3.6-5.2) [facility] CHLORIDE 109 mmol/L (100-108) H [facility] CO2 30 mmol/L (22-31) [facility] ANION GAP 6 mmol/L (7-16) L [facility] UREA NITROGEN 18 mg/dL (7-24) [facility] CREATININE 0.66 mg/dL (0.80-1.30) L [facility] BUN/CREAT RATIO 27.3 RATIO (10.0-20.0) H [facility] GLUCOSE 76 mg/dL (70-99) [facility] CALCIUM 8.6 mg/dL (8.4-10.2) [facility] GFR >60 ml/min/1.73m2 (>59) [facility] GFR ( AMER) >60 ml/min/1.73m2 (>59) [facility] GFR INTERPRETATION [facility] --NORMAL KIDNEY FUNCTION OR MILD DISEASE - GFR >OR= 60CHRONIC KIDNEY DISEASE - GFR 15 - 59RENAL FAILURE - GFR <15 Est. GFR calculation based on the MDRDstudy equation, which assumes a steadystate for creatinine. Est. GFR should notbe used for medication dosing. ID Date Data Source [id number] 11/08/2020 07:58:24 AM EST [facility] Name Value Range Interpretation Code Description Data Anat rce(s) Supporting Document(s) WBC 5.3 10*3/uL (4.1-11.0) [facility] [place] RBC 4.41 10*6/uL (4.60-6.10) L [facility] HGB 13.2 g/dL (13.5-18.0) L [facility] HCT 39.0 % (41.0-53.0) L [facility] MCV 88.5 fL (80.0-95.0) [facility] MCH 30.0 pg (27.0-32.0) [facility] MCHC 33.8 g/dL (32.0-36.0) [facility] RDW 15.2 % (10.5-14.5) H [facility] PLT 332 10*3/uL (150-450) [facility] MPV 6.7 fL (7.1-10.7) L [facility] ID Date Data Source [id number] 11/06/2020 07:24:46 AM EST [facility] Name Value Range Interpretation Code Description Data Anat rce(s) Supporting Document(s) SODIUM 145 mmol/L (136-145) [facility] POTASSIUM 3.6 mmol/L (3.6-5.2) [facility] CHLORIDE 112 mmol/L (100-108) H [facility] CO2 26 mmol/L (22-31) [facility] ANION GAP 7 mmol/L (7-16) [facility] UREA NITROGEN 18 mg/dL (7-24) [facility] CREATININE 0.65 mg/dL (0.80-1.30) L [facility] BUN/CREAT RATIO 27.7 RATIO (10.0-20.0) H [facility] GLUCOSE 71 mg/dL (70-99) [facility] CALCIUM 8.8 mg/dL (8.4-10.2) [facility] GFR >60 ml/min/1.73m2 (>59) [facility] GFR ( AMER) >60 ml/min/1.73m2 (>59) [facility] GFR INTERPRETATION Lab [facility] --NORMAL KIDNEY FUNCTION OR MILD DISEASE - GFR >OR= 60CHRONIC KIDNEY DISEASE - GFR 15 - 59RENAL FAILURE - GFR <15 Est. GFR calculation based on the MDRDstudy equation, which assumes a steadystate for creatinine. Est. GFR should notbe used for medication dosing. ID Date Data Source [id number] 11/06/2020 07:12:39 AM EST [facility] Name Value Range Interpretation Code Description Data Anat rce(s) Supporting Document(s) WBC 5.3 10*3/uL (4.1-11.0) [facility] [place] RBC 4.22 10*6/uL (4.60-6.10) L [facility] HGB 12.7 g/dL (13.5-18.0) L [facility] HCT 37.0 % (41.0-53.0) L [facility] MCV 87.7 fL (80.0-95.0) [facility] MCH 30.1 pg (27.0-32.0) [facility] MCHC 34.3 g/dL (32.0-36.0) [facility] RDW 15.2 % (10.5-14.5) H [facility] PLT 331 10*3/uL (150-450) [facility] MPV 6.8 fL (7.1-10.7) L [facility] NEUT % 53.3 % (35.0-75.0) [facility] LYMPH % 32.5 % (16.0-52.0) [facility] MONO % 9.7 % (0.0-8.0) H [facility] EOS % 4.3 % (0.0-5.0) [facility] BASO % 0.2 % (0.0-4.0) [facility] NEUT # 2.8 10*3/uL (1.8-7.7) [facility] LYMPH # 1.7 10*3/uL (1.2-4.8) [facility] MONO # 0.5 10*3/uL (0.0-0.8) [facility] Eosinophils [#/volume] in Blood by Automated count 0.2 10*3/uL (0.0-0 .5) [facility] BASO # 0.0 10*3/uL (0.0-0.2) [facility] ID Date Data Source [id number] 11/05/2020 11:34:55 AM EST [facility] Name Value Range Interpretation Code Description Data Anat rce(s) Supporting Document(s) SODIUM 143 mmol/L (136-145) [facility] POTASSIUM 3.5 mmol/L (3.6-5.2) L [facility] CHLORIDE 107 mmol/L (100-108) [facility] CO2 27 mmol/L (22-31) [facility] ANION GAP 9 mmol/L (7-16) [facility] UREA NITROGEN 7 mg/dL (7-24) [facility] CREATININE 0.58 mg/dL (0.80-1.30) L [facility] BUN/CREAT RATIO 12.1 RATIO (10.0-20.0) [facility] GLUCOSE 75 mg/dL (70-99) [facility] CALCIUM 9.0 mg/dL (8.4-10.2) [facility] GFR >60 ml/min/1.73m2 (>59) [facility] GFR ( AMER) >60 ml/min/1.73m2 (>59) [facility] GFR INTERPRETATION Lab [facility] --NORMAL KIDNEY FUNCTION OR MILD DISEASE - GFR >OR= 60CHRONIC KIDNEY DISEASE - GFR 15 - 59RENAL FAILURE - GFR <15 Est. GFR calculation based on the MDRDstudy equation, which assumes a steadystate for creatinine. Est. GFR should notbe used for medication dosing. ID Date Data Source [id number] 11/09/2020 03:05:26 PM EST [facility] [place], [place] [address]Tel# SURGICAL PATHOLOGY REPORTPatient Name:JACQUELINE GARCIA:1965Received:11/06/2020ccession #:[id number](s) [...] Out By Wayne Sumner MD jmdPathology Associates [place], [place] [address]Technical component performed at [facility], Histopathology, [address] [place] [address], [facility].Reported at [facility], [address] [place] [address], [facility].This report may include immunohistochemical or in-situ hybridizationresults. Testing was developed and the performance characteristicsdetermined by [facility], as required byCLIA '88. The FDA has determined that approval for specific use is notnecessary for clinical use. The quality of Hematoxylin and Eosin stainsand as applicable, for all immunohistochemical and/or special stains,including positive and negative controls, were reviewed and consideredappropriate.ICD codes: K51.80CPT4 codes: A: 82205AT: 33478MA: [id number] Name Value Range Interpretation Code Description Data Anat rce(s) Supporting Document(s) ID Date Data Source [id number] 11/06/2020 12:51:41 PM EST [facility] Name Value Range Interpretation Code Description Data [facility](s) Supporting Document(s) GLIADIN PEPTIDE IGA 3 [arb'U] (<20) Lab [facility] INTERPRET ATION OF RESULTS: < 20 UNITS [id number] UNITS WEAK POSITIVE > 30 UNITS MODERATE TO STRONG POSITIVE The following result was obtained withthe [employer] Lite Gliadin IgA II.Results obtained with other manufacturers'assay methods may not be used interchangeably.The magnitude of the reported IgA levelcannot be correlated to an endpoint titer. GLIADIN PEPTIDE IGG 2 [arb'U] (<20) Lab [facility] INTERPRET ATION OF RESULTS: < 20 UNITS [id number] UNITS WEAK POSITIVE > 30 UNITS MODERATE TO STRONG POSITIVE The following result was obtained withthe [employer]ANT[employer] Lite Gliadin IgG II.Results obtained with other manufacturers'assay methods may not be used interchangeably.The magnitude of the reported IgG levelscannot be correlated to an endpoint titer. IGA @ 112 mg/dL (83-407) [facility] TRANSGLUTAMINASE IGA 3 [arb'U] (<20) Lab [facility] INTERPRET ATION OF RESULTS: < 20 UNITS [id number] UNITS WEAK POSITIVE > 30 UNITS MODERATE TO STRONG POSITIVE The following result was obtained withthe [employer] QUANT[employer] Lite h-tTG IgA BETSY.Results obtained with other manufacturers'assay methods may not be used interchangeably.The magnitude of the reported IgA levelcannot be correlated to an endpoint titer.Performed at [address] [place] [address] TRANSGLUTAMINASE IGG 2 [arb'U] (<20) Lab [facility] INTERPRET ATION OF RESULTS: < 20 UNITS [id number] UNITS WEAK POSITIVE > 30 UNITS MODERATE TO STRONG POSITIVE The following result was obtained withthe [employer] QUANT[employer] Lite h-tTG IgG BETSY.Results obtained with other manufacturers'assay methods may not be used interchangeably.The magnitude of the reported IgG levelscannot be correlated to an endpoint titer.Performed at [address] [place] [address] ID Date Data Source [id number] 11/04/2020 11:04:00 PM EST [facility] DATE OF EXAM: 11/04/2020[facility] MRI BRAIN WITHOUT AND WITH CONTRAST CLINICAL [...] enhancing demyelinating lesion. Professional interpretation performed at [facility] .End of diagnostic report for accession: [id number] Interpreted: Eliel Jaramillo MDTranscribed: 11/04/2020 11:01 PMSigned: 11/04/2020 11:04 PM Eliel Jaramillo MD [facility] # [id number] BILL # [id number] Name Value Range Interpretation Code Description Data Anat rce(s) Supporting Document(s) ID Date Data Source [id number] 11/04/2020 02:24:55 PM [facility] Lab [employer] Name Value Range Interpretation Code Description Data Anat rce(s) Supporting Document(s) PT 9.8 s (9.2-11.9) [facility] INR 0.93 [facility] SUGGESTED THERAPEUTIC RANGES USING INR F ORSTABILIZED ANTICOAGULATED PATIENTS:STANDARD DOSE THERAPY INR 2.0-3.0 DVT, PE, PREVENT DVT OR EMBOLISMHIGH DOSE THERAPY INR 2.5-3.5 PREVENT EMBOLISM FROM MECHANICAL HEART VALVE ID Date Data Source [id number] 11/04/2020 12:08:27 PM EST [facility] Name Value Range Interpretation Code Description Data Anat rce(s) Supporting Document(s) CARBAMAZEPINE 6.7 ug/mL (4.0-12.0) [facility] ID Date Data Source [id number] 11/04/2020 11:18:31 AM EST [facility] Name Value Range Interpretation Code Description Data Anat rce(s) Supporting Document(s) TSH,ULTRASENSITIVE @ 1.882 mIU/L (0.360-4.170) [facility] PERFORMED AT [address] [place] [address] ID Date Data Source [id number] 11/04/2020 09:19:29 AM EST [facility] Name Value Range Interpretation Code Description Data Anat rce(s) Supporting Document(s) SODIUM 145 mmol/L (136-145) [facility] POTASSIUM 3.2 mmol/L (3.6-5.2) L [facility] CHLORIDE 109 mmol/L (100-108) H [facility] CO2 29 mmol/L (22-31) [facility] ANION GAP 7 mmol/L (7-16) [facility] UREA NITROGEN 9 mg/dL (7-24) [facility] CREATININE 0.63 mg/dL (0.80-1.30) L [facility] BUN/CREAT RATIO 14.3 RATIO (10.0-20.0) [facility] GLUCOSE 90 mg/dL (70-99) [facility] CALCIUM 8.7 mg/dL (8.4-10.2) [facility] GFR >60 ml/min/1.73m2 (>59) [facility] GFR ( AMER) >60 ml/min/1.73m2 (>59) [facility] GFR INTERPRETATION [facility] --NORMAL KIDNEY FUNCTION OR MILD DISEASE - GFR >OR= 60CHRONIC KIDNEY DISEASE - GFR 15 - 59RENAL FAILURE - GFR <15 Est. GFR calculation based on the MDRDstudy equation, which assumes a steadystate for creatinine. Est. GFR should notbe used for medication dosing. ID Date Data Source [id number] 11/03/2020 09:01:22 AM EST [facility] Name Value Range Interpretation Code Description Data Anat rce(s) Supporting Document(s) MAGNESIUM 1.9 mg/dL (1.7-2.4) [facility] ID Date Data Source [id number] 11/03/2020 08:10:11 AM EST [facility] Name Value Range Interpretation Code Description Data Anat rce(s) Supporting Document(s) SODIUM 146 mmol/L (136-145) H [facility] POTASSIUM 3.2 mmol/L (3.6-5.2) L [facility] CHLORIDE 111 mmol/L (100-108) H [facility] CO2 27 mmol/L (22-31) [facility] ANION GAP 8 mmol/L (7-16) [facility] UREA NITROGEN 5 mg/dL (7-24) L [facility] CREATININE 0.61 mg/dL (0.80-1.30) L [facility] BUN/CREAT RATIO 8.2 RATIO (10.0-20.0) L [facility] GLUCOSE 78 mg/dL (70-99) [facility] CALCIUM 8.6 mg/dL (8.4-10.2) [facility] TOTAL PROTEIN 5.3 g/dL (6.4-8.2) L [facility] ALBUMIN 3.1 g/dL (3.5-4.6) L [facility] GLOBULIN 2.2 g/dL (2.7-4.3) L [facility] ALB/GLOB RATIO 1.4 RATIO [facility] ALKALINE PHOSPHATASE 105 U/L (45-117) [facility] BILIRUBIN,TOTAL 0.5 mg/dL (0.0-1.0) [facility] PLEASE NOTE:Total bilirubin results may be falselyelevated in patients taking Eltrombopag. AST (SGOT) 39 U/L (11-39) [facility] ALT (SGPT) 65 U/L (12-78) [facility] GFR >60 ml/min/1.73m2 (>59) [facility] GFR ( AMER) >60 ml/min/1.73m2 (>59) [facility] GFR INTERPRETATION [facility] --NORMAL KIDNEY FUNCTION OR MILD DISEASE - GFR >OR= 60CHRONIC KIDNEY DISEASE - GFR 15 - 59RENAL FAILURE - GFR <15 Est. GFR calculation based on the MDRDstudy equation, which assumes a steadystate for creatinine. Est. GFR should notbe used for medication dosing. ID Date Data Source [id number] 11/03/2020 07:59:45 AM EST [facility] Name Value Range Interpretation Code Description Data Anat rce(s) Supporting Document(s) WBC 6.5 10*3/uL (4.1-11.0) [facility] [place] RBC 4.32 10*6/uL (4.60-6.10) L [facility] HGB 12.7 g/dL (13.5-18.0) L [facility] HCT 36.8 % (41.0-53.0) L [facility] MCV 85.3 fL (80.0-95.0) [facility] MCH 29.4 pg (27.0-32.0) [facility] MCHC 34.4 g/dL (32.0-36.0) [facility] RDW 14.9 % (10.5-14.5) H [facility] PLT 315 10*3/uL (150-450) [facility] MPV 6.7 fL (7.1-10.7) L [facility] ID Date Data Source [id number] 11/02/2020 02:44:22 PM EST [facility] Name Value Range Interpretation Code Description Data Anat rce(s) Supporting Document(s) SPECIMEN DESCRIPTION [facility] [place] C DIFF TOXIN B (NEG) [facility] 027 NAP1 B1 (NEG) [facility] COMMENT [facility] IS CLINICALLY INDICATED, PLEASE CONTA CT THE MICROBIOLOGY LABORATORY ([phone]) WITHIN 3 DAYS OF THIS REPORT. ID Date Data Source [id number] 11/02/2020 08:10:00 AM EST [facility] DATE OF EXAM: 11/02/2020T BRAIN [...] reporting similar findings. Professional interpretation performed at [facility] .End of diagnostic report for accession: [id number] Interpreted: Roddy Brandt MDTranscribed: 11/02/2020 08:07 AMSigned: 11/02/2020 08:10 AM Roddy Brandt MD [facility] # [id number] BILL # [id number] Name Value Range Interpretation Code Description Data Anat rce(s) Supporting Document(s) ID Date Data Source [id number] 11/05/2020 06:54:00 PM EST [facility] [id number] [place], [place] [id number] NAME: JACQUELINE GARCIADATE OF : 1965REPORT: ADMISSION NOTEPATIENT NUMBER: [id number] STATUS: IPMEDICAL RECORD NUMBER: [id number] OF ADMISSION: 11/02/2020[facility] Deepa Lund [facility] COMPLAINTS: Generalized weakness with falls and diarrhea.HISTORY [...] MIMI Allenictated: 11/02/2020 4:26DT: 11/02/2020 5:41Job #: [id number]: Deepa Lund MDNOTE: [facility] computer generated reports are not confirmed orauthenticated unless they are signed by the providerElectronically Authenticated and Edited by:MANUEL BARNETT MD On 11/05/2020 06:54 PM EST Name Value Range Interpretation Code Description Data Anat rce(s) Supporting Document(s) ID Date Data Source [id number] 11/02/2020 02:34:26 PM EST [facility] SPECIMEN DESCRIPTION STOOLSPECIAL REQUESTS NONERESULT NEGATIVE [...] rce(s) Supporting Document(s) ID Date Data Source [id number] 11/02/2020 01:27:11 AM EST [facility] Name Value Range Interpretation Code Description Data Anat rce(s) Supporting Document(s) COLOR [facility] PERFORMED AT [address] [facility] [address] APPEARANCE [facility] SPEC GRAV URINE 1.038 (1.003-1.030) H [facility] PH URINE 6.0 (5.0-7.5) [facility] LEUK ESTERASE (NEG) [facility] CRITERIA FOR CULTURE NOT MET.CULTURE CAN BE ADDED WITHIN 36 HOURS OFCOLLECTION. NITRITE URINE (NEG) [facility] PROTEIN URINE (NEG) [facility] GLUCOSE URINE (NEG) [facility] KETONE URINE 1+ (NEG) A [facility] [place] UROBILINOGEN 0.2 mg/dL (0-1.0) [facility] [place] BILIRUBIN URINE (NEG) [facility] BLOOD/HGB URINE (NEG) [facility] ID Date Data Source [id number] 11/02/2020 09:06:00 AM EST [facility] [...] reporting similar findings. Professional interpretation performed at [facility] .End of diagnostic report for accession: [id number] Interpreted: Nieves Pierce MDTranscribed: 11/02/2020 08:57 AMSigned: 11/02/2020 09:06 AM Nieves Pierce MD [facility] # [id number] BILL # [id number] Name Value Range Interpretation Code Description Data Anat rce(s) Supporting Document(s) ID Date Data Source [id number] 11/01/2020 10:10:00 PM EST [facility] Name Value Range Interpretation Code Description Data Anat rce(s) Supporting Document(s) SARS coronavirus 2 RNA [Presence] in Res piratory specimen by SONAM with probe detection NOT DETECTED [facility] This lab was reported by [facility]. ID Date Data Source [id number] 11/02/2020 01:40:02 AM EST [facility] [place] Name Value Range Interpretation Code Description Data Anat rce(s) Supporting Document(s) SPECIMEN DESCRIPTION [facility] [place] COVID19 RESULT (NDET) [facility] [place] NEGATIVE COVID-19 RESULTS DONOT PRECLUDE COVID-2019 INFECTION ANDSHOULD NOT BE USED THE SOLE BASISFOR PATIENT MANAGEMENT DECISIONS.THIS ASSAY AMPLIFIES AND DETECTS THE TARGETRNA USING ISOTHERMAL HELICASE DEPENDENTAMPLIFICATION.TESTING PERFORMED ON THE [employer].THE [place] FDA HAS MADE THIS TEST AVAILABLEUNDER AN EMERGENCY USE AUTHORIZATION(EUA) FOR THE DETECTION AND/OR DIAGNOSISOF THE VIRUS THAT CAUSES COVID-19. FIRST TEST [facility] [place] EMPLOYED IN HLTHCARE [facility] SYMPTOMATIC [facility] [place] DATE OF SYMPT ONSET [facility] HOSP[facility]IZED [facility] [facility] ID Date Data Source [id number] 11/01/2020 10:44:10 PM EST [facility] Name Value Range Interpretation Code Description Data Anat rce(s) Supporting Document(s) TOTAL PROTEIN 7.1 g/dL (6.4-8.2) [facility] ALBUMIN 4.2 g/dL (3.5-4.6) [facility] GLOBULIN 2.9 g/dL (2.7-4.3) [facility] ALB/GLOB RATIO 1.4 RATIO [facility] BILIRUBIN,TOTAL 0.6 mg/dL (0.0-1.0) [facility] PLEASE NOTE:Total bilirubin results may be falselyelevated in patients taking Eltrombopag. BILIRUBIN,CONJUGATED 0.3 mg/dL (0.0-0.3) [facility] BILIRUBIN,UNCONJ. 0.3 mg/dL (0.0-0.7) [facility] ALKALINE PHOSPHATASE 130 U/L (45-117) H [facility] AST (SGOT) 23 U/L (11-39) [facility] ALT (SGPT) 52 U/L (12-78) [facility] ID Date Data Source [id number] 11/01/2020 10:44:10 PM EST [facility] Name Value Range Interpretation Code Description Data Anat rce(s) Supporting Document(s) SODIUM 142 mmol/L (136-145) [facility] POTASSIUM 3.1 mmol/L (3.6-5.2) L [facility] CHLORIDE 107 mmol/L (100-108) [facility] CO2 28 mmol/L (22-31) [facility] ANION GAP 7 mmol/L (7-16) [facility] UREA NITROGEN 12 mg/dL (7-24) [facility] CREATININE 0.82 mg/dL (0.80-1.30) [facility] BUN/CREAT RATIO 14.6 RATIO (10.0-20.0) [facility] GLUCOSE 89 mg/dL (70-99) [facility] CALCIUM 9.4 mg/dL (8.4-10.2) [facility] GFR >60 ml/min/1.73m2 (>59) [facility] GFR ( AMER) >60 ml/min/1.73m2 (>59) [facility] GFR INTERPRETATION [facility] --NORMAL KIDNEY FUNCTION OR MILD DISEASE - GFR >OR= 60CHRONIC KIDNEY DISEASE - GFR 15 - 59RENAL FAILURE - GFR <15 Est. GFR calculation based on the MDRDstudy equation, which assumes a steadystate for creatinine. Est. GFR should notbe used for medication dosing. ID Date Data Source [id number] 11/01/2020 10:44:10 PM EST [facility] Name Value Range Interpretation Code Description Data Anat rce(s) Supporting Document(s) TROPONIN I <0.05 ng/mL (<0.05) [facility] [place] Less than 0.05: Myocardial injury unlike lyGreater than or equal to 0.05: Highly suggestive of myocardial injuryCorrelation with rise and/or fall ofserial troponins, clinical symptomsand ECG changes is necessary. ID Date Data Source [id number] 11/01/2020 10:44:10 PM EST [facility] Name Value Range Interpretation Code Description Data Anat rce(s) Supporting Document(s) NT PRO BNP 93 pg/mL (0-125) [facility] ID Date Data Source [id number] 11/01/2020 10:44:10 PM EST [facility] Name Value Range Interpretation Code Description Data Anat rce(s) Supporting Document(s) MAGNESIUM 1.9 mg/dL (1.7-2.4) [facility] ID Date Data Source [id number] 11/01/2020 10:44:10 PM EST [facility] Name Value Range Interpretation Code Description Data Anat rce(s) Supporting Document(s) LIPASE 77 U/L (65-230) [facility] ID Date Data Source [id number] 11/01/2020 10:21:14 PM EST [facility] Name Value Range Interpretation Code Description Data Anat rce(s) Supporting Document(s) WBC 9.9 10*3/uL (4.1-11.0) [facility] [place] RBC 4.93 10*6/uL (4.60-6.10) [facility] HGB 14.7 g/dL (13.5-18.0) [facility] HCT 43.8 % (41.0-53.0) [facility] MCV 88.9 fL (80.0-95.0) [facility] MCH 29.8 pg (27.0-32.0) [facility] MCHC 33.5 g/dL (32.0-36.0) [facility] RDW 15.1 % (10.5-14.5) H [facility] PLT 347 10*3/uL (150-450) [facility] MPV 7.3 fL (7.1-10.7) [facility] NEUT % 90.0 % (35.0-75.0) H [facility] LYMPH % 1.2 % (16.0-52.0) L [facility] MONO % 8.1 % (0.0-8.0) H [facility] EOS % 0.6 % (0.0-5.0) [facility] BASO % 0.1 % (0.0-4.0) [facility] NEUT # 8.9 10*3/uL (1.8-7.7) H [facility] LYMPH # 0.1 10*3/uL (1.2-4.8) L [facility] MONO # 0.8 10*3/uL (0.0-0.8) [facility] Eosinophils [#/volume] in Blood by Automated count 0.1 10*3/uL (0.0-0 .5) [facility] BASO # 0.0 10*3/uL (0.0-0.2) [facility] ID Date Data Source [id number] 11/01/2020 09:54:53 PM EST [facility] Name Value Range Interpretation Code Description Data Anat rce(s) Supporting Document(s) MUSE EKG PDF encoded [facility] [id number] jb2 [file] [id number]== ID Date Data Source [id number] 10/25/2020 05:09:19 AM EST [facility]FORMATIONPatient MRN Name Date of Age Gend*PT [id number] Jacqueline Garcia 1965 55 years M EDPT Location Admission Date/Time Visit ID Attending [id number] 10/22/202014 --- --- EPI ID CSN Admitting Provider [id number] ---Attestation signed by Duncan Ortega MD at [...] [facility] that [facility], unable to state which dental clinic he has presented to, but reportshe had a recent root canal and temporary placement of crowns, with plans forrevision dental work by the same clinic in several weeks.Patient denies confusion, change in gait, lightheadedness, dizziness, orheadache.Patient appears to be established with [facility].Adia, able to relay HPI over phone:Patient reports he is only seen neurology at [facility] 1 time, and denies anyrecent imaging to [...] carbamazepine outpatient. At this time this provider direct sales consultant doesalso recommend baseline lab work including [...] rce(s) Supporting Document(s) ID Date Data Source [id number] 10/22/2020 11:51:59 PM EST [facility] Name Value Range Interpretation Code Description Data Anat rce(s) Supporting Document(s) SODIUM 145 mmol/L (136-145) [facility] POTASSIUM 3.1 mmol/L (3.6-5.2) L [facility] CHLORIDE 111 mmol/L (100-108) H [facility] CO2 27 mmol/L (22-31) [facility] ANION GAP 7 mmol/L (7-16) [facility] UREA NITROGEN 20 mg/dL (7-24) [facility] CREATININE 0.68 mg/dL (0.80-1.30) L [facility] BUN/CREAT RATIO 29.4 RATIO (10.0-20.0) H [facility] GLUCOSE 85 mg/dL (70-99) [facility] CALCIUM 9.2 mg/dL (8.4-10.2) [facility] TOTAL PROTEIN 7.4 g/dL (6.4-8.2) [facility] ALBUMIN 4.0 g/dL (3.5-4.6) [facility] GLOBULIN 3.4 g/dL (2.7-4.3) [facility] ALB/GLOB RATIO 1.2 RATIO [facility] ALKALINE PHOSPHATASE 107 U/L (45-117) [facility] BILIRUBIN,TOTAL 0.8 mg/dL (0.0-1.0) [facility] PLEASE NOTE:Total bilirubin results may be falselyelevated in patients taking Eltrombopag. AST (SGOT) 33 U/L (11-39) [facility] ALT (SGPT) 108 U/L (12-78) H [facility] GFR >60 ml/min/1.73m2 (>59) [facility] GFR ( AMER) >60 ml/min/1.73m2 (>59) [facility] GFR INTERPRETATION [facility] --NORMAL KIDNEY FUNCTION OR MILD DISEASE - GFR >OR= 60CHRONIC KIDNEY DISEASE - GFR 15 - 59RENAL FAILURE - GFR <15 Est. GFR calculation based on the MDRDstudy equation, which assumes a steadystate for creatinine. Est. GFR should notbe used for medication dosing. ID Date Data Source [id number] 10/22/2020 11:32:09 PM EST [facility] Name Value Range Interpretation Code Description Data Anat rce(s) Supporting Document(s) WBC 5.0 10*3/uL (4.1-11.0) [facility] [place] RBC 4.78 10*6/uL (4.60-6.10) [facility] HGB 14.5 g/dL (13.5-18.0) [facility] HCT 41.3 % (41.0-53.0) [facility] MCV 86.4 fL (80.0-95.0) [facility] MCH 30.3 pg (27.0-32.0) [facility] MCHC 35.1 g/dL (32.0-36.0) [facility] RDW 14.8 % (10.5-14.5) H [facility] PLT 343 10*3/uL (150-450) [facility] MPV 7.1 fL (7.1-10.7) [facility] NEUT % 83.2 % (35.0-75.0) H [facility] LYMPH % 2.5 % (16.0-52.0) L [facility] MONO % 10.6 % (0.0-8.0) H [facility] EOS % 3.4 % (0.0-5.0) [facility] BASO % 0.3 % (0.0-4.0) [facility] NEUT # 4.2 10*3/uL (1.8-7.7) [facility] LYMPH # 0.1 10*3/uL (1.2-4.8) L [facility] MONO # 0.5 10*3/uL (0.0-0.8) [facility] Eosinophils [#/volume] in Blood by Automated count 0.2 10*3/uL (0.0-0 .5) [facility] BASO # 0.0 10*3/uL (0.0-0.2) [facility] ID Date Data Source [id number] 10/22/2020 09:12:03 PM EST [facility]FORMATIONPatient MRN Name Date of Age Gend*PT [id number] Jacqueline Garcia 1965 55 years M EDPT Location Admission Date/Time Visit ID Attending [id number] 10/22/202014 --- Duncan Ortega MD([id number]) EPI ID CSN Admitting Provider [id number] Attestation signed by Manuel Arredondo MD at 10/22/2020 9:12 PMI was the attending physician on duty at the time the patient visited the ED.The patient was evaluated by the PA/WAITER/WAITRESS CAFETERIA. 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/WAwnhxV6pCbnxp/f/0m7d9/7u/t+boSl [file] [id number]= ID Date Data Source [id number] 08/26/2020 10:12:00 AM EST [facility] Name Value Range Interpretation Code Description Data Anat rce(s) Supporting Document(s) Prostate specific Ag [Mass/volume] in Serum or Plasma 1.26 ng/mL 0.00 -4.00 [facility]) ID Date Data Source [id number] 08/26/2020 10:12:00 AM EST [facility] [...] LESS THAN 100 ID Date Data Source [id number] 08/26/2020 10:12:00 AM EST [facility] [...] ([facility]) ID Date Data Source [id number] 08/26/2020 10:12:00 AM EST [facility] Name Value Range Interpretation Code Description [...] by Automated count 349 K/uL 142-424 [facility]) Platelet mean volume [Entitic volume] in Blood by [place] 5.3 fL 0.0-99.9 [facility]) Procedure Social History Code Duration Value Status Description Data Source(s ) Smoking 02/16/2021 12:00:00 AM EDT Patient is a current cigarette smoker, smokes every day completed Patient is a current cigarette smoker, s mokes every day [facility] ([facility] [place]) Cigarette Use 02/16/2021 12:00:00 AM EDT Pack Years - 20 completed Pack Years - 20 [facility] ([facility] [place]) Smoking 11/04/2020 11:37:00 AM EST Daily Smoker completed Daily [facility] Vital Signs ID Date Data Source [...] 61.690 kg 61.690 kg [facility] Body height 67 [in_i] 67 [in_i] [facility] ([facility]) 5'7" Body mass index (BMI) [Ratio] 21.3 kg/m2 21.3 k g/m2 [facility]) [place] body weight 148 [lb_av] 148 [lb_av] [facility] T ([facility]) Systolic blood pressure 122 mm[Hg] 122 mm[Hg] M [facility] ([facility], ) Diastolic blood pressure 64 mm[Hg] 64 mm[Hg] [facility] ([facility], ) Body height 70 [in_i] 70 [facility]_i[facility] 5'10" Body weight 131.25 [lb_av] 131.25 [lb_av] [facility] T ([facility]) Body mass index (BMI) [Ratio] 18.8 kg/m2 18.8 k g/m2 [facility] ([facility]) Appling body weight 166 [lb_av] 166 [lb_av] [facility] T ([facility]) Body weight 59.535 kg 59.535 kg [facility] ([facility]) Body surface area Derived from formula 1.75 m2 1.75 m2 [facility] ([facility]) [place] body weight 166 [lb_av] 166 [lb_av] [facility] T ([facility]) Body weight 132.00 [lb_av] 132.00 [lb_av] [facility] ([facility]) Systolic blood pressure 142 mm[Hg] 142 mm[Hg] M EDENT ([facility]) Diastolic blood pressure 68 mm[Hg] 68 mm[Hg] [facility] ([facility]) Body surface area Derived from formula 1.75 m2 1.75 m2 [facility] ([facility]) Body height 70 [in_i] 70 [in_i] [facility] ([facility]) 5'10" Body mass index (BMI) [Ratio] 18.9 kg/m2 18.9 k g/m2 [facility] ([facility]) Body weight 59.875 kg 59.875 kg [facility] ([facility]) Respiratory rate 16 /min 16 /min [facility] ( [facility]) Systolic blood pressure 122 mm[Hg] 122 mm[Hg] M [facility] ([facility]) Diastolic blood pressure 70 mm[Hg] 70 mm[Hg] [facility] ([facility]) Heart rate 80 /min 80 /min [facility] Body temperature 98.0 [degF] 98.0 [degF] [facility] ([facility]) [place] body weight 148 [lb_av] 148 [lb_av] [facility] ([facility]) Body weight 144.00 [lb_av] 144.00 [lb_av] [facility] ([facility]) Body weight 65.318 kg 65.318 kg [facility] Body height 67 [in_i] 67 [in_i] [facility] 5'7" Body mass index (BMI) [Ratio] 22.6 kg/m2 22.6 k g/m2 [facility]) Systolic blood pressure 99 mm[Hg] Normal (applies t o non-numeric results) 99 mm[Hg] [facility] Heart rate 88 min Normal (applies to non-numeric resul ts) 88 min [facility] Respiratory rate 18 min Normal (applies to non-numeric results) 18 min [facility] Diastolic blood pressure 69 mm[Hg] Normal (applies to non-numeric results) 69 mm[Hg] [facility] Body temperature 36.9 allie Normal (applies to non-numeric results) 36.9 allie [facility] Deprecated Oxygen saturation in Capillary blood by Oximetry 96 % Normal (applies to non-numeric results) 96 % [facility] Body height 169.06861165615826 cm Normal (applies to non-numeric results) 169.97564657821380 cm [facility] Body mass index (BMI) [Ratio] 21.9 kg/m2 No rmal (applies to non-numeric results) 21.9 kg/m2 [facility] Body weight Measured 140 [lb_av] Normal (applies to n on-numeric results) 140 [lb_av] [facility] [place] body weight 148 [lb_av] 148 [lb_av] [facility] ([facility]) Diastolic blood pressure 80 mm[Hg] 80 mm[Hg] [facility]) Heart rate 70 /min [...] 23.2 k g/m2 [facility]) Heart rate 68 /min 68 /min [facility]) Systolic blood pressure 112 mm[Hg] 112 mm[Hg] M [facility] ([facility]) Diastolic blood pressure 64 mm[Hg] 64 mm[Hg] [facility] Body temperature 97.7 [degF] 97.7 [degF] [...] 22.1 k g/m2 [facility]) [place]ling body weight 148 [lb_av] 148 [lb_av] [facility])
--- NOTE | 2021-08-22 17:05 | HPEPDOC ---
[facility] Medical History & Physical Date of Admission Aug 22, 2021 Date of Service: Aug 22, 2021 Attending Physician: MARITZA SANCHEZ DO History and Physical CHIEF COMPLAINT: Abdominal pain with vomiting HISTORY OF PRESENT ILLNESS: Patient is a 56-year-old male presented to the emergency department today with a chief complaint of abdominal pain and having difficulty eating and walking around due to abdominal girth. Patient was recently hospitalized at the end of July 2021 for similar complaints and was found to have ascites that needed to be drained. Patient was diagnosed with cirrhosis at that time. Patient not followed up with primary care and/or gastroenterology. Patient states that the abdominal pain is getting worse over the last few days. Patient did begin vomiting while in the room with him. Patient denies any bloody vomitus. Patient describes the vomit as either clear or yellow. Patient says it is difficult for him to walk because of the increased abdominal girth. PAST MEDICAL HISTORY: 1. Buerger's disease. 2. Peripheral artery disease. 3. Hypertension. 4. Depression and anxiety PAST SURGICAL HISTORY: 1. Right lower extremity femoral endarterectomy with patch angioplasty. 2. Right great toe amputation. 3. Right lower extremity arteriogram 4. Left lower extremity arteriogram 5. Left common femoral endarterectomy with unit or patch angioplasty 6. Left femoral to above-knee popliteal bypass in situ vein SOCIAL HISTORY: Smoked over a pack a day for many years but quit about 4 months ago. Patient used to drink multiple beers for many years a day but quit 4 months ago. Denies using illicit drug use. FAMILY HISTORY: Father had lung cancer as well as brain cancer and mother has a history of diabetes ALLERGIES: Please see below. REVIEW OF SYSTEMS: General: Patient denies fevers HEENT: Patient denies headaches Cardiovascular: Patient denies chest pain Respiratory: Patient denies shortness of breath, cough GI: Patient reports abdominal pain and vomiting as above : Patient denies increased frequency or pain with urination Extremities: Patient denies swelling or pain in extremities Neurological: Patient denies numbness or tingling in legs Skin: Patient denies any new rashes or lesions. Hematologic: Patient denies any easy bruising. Lymphatic: Patient denies any lumps lumps or bumps in neck, axilla, or groin HOME MEDICATIONS: Please see below. PHYSICAL EXAMINATION: VITAL SIGNS: Temperature 97.7, pulse 80, respiratory rate 20, blood pressure 149/75, pulse oximetry 95% on room air. General: Alert and oriented male patient who was laying on the stretcher when I walked in the room. Patient did not appear to be in acute distress. HEENT: Normocephalic, atraumatic, moist mucous membranes. Neck: No lymphadenopathy or thyromegaly Cardiac: Regular rate and rhythm, no murmurs, normal S1, normal S2 Pulm: Clear to auscultation bilaterally. No wheezes, rhonchi, rales Abd: Distended, soft, mildly tender to palpation, no rebound tenderness, normal bowel sounds, dullness to percussion Ext: No edema bilateral lower extremities Neuro: Patient was able to move all 4 extremities on command and reported equal sensation light touch in all 4 extremities. Skin: Skin of the head, neck, upper and lower extremities was examined did not show any evidence of rash or wounds. LABORATORY DATA: See below. IMAGING: Chest x-ray performed on 08/22/2021 was reported to show elevated right hemidiaphragm with discoid atelectasis in the right base. Otherwise unchanged. CT of the abdomen pelvis without contrast performed on 08/22/2021 is reported a large amount of diffuse abdominal ascites. Left colonic diverticulosis. Small right pleural effusion moderate atelectasis in the right lower lobe with air bronchograms. MICROBIOLOGY: Please see below. ASSESSMENT: 56-year-old male presented with abdominal pain and vomiting which is most likely secondary to ascites. . PLAN: 1. Ascites. Patient will need to have his ascites drained. Because of the mild abdominal pain, we will send for laboratory studies however, my suspicion for spontaneous bacterial peritonitis is low as the patient has been afebrile and has a mildly elevated white count however, patient will receive 1 dose of ceftriaxone tonight. Patient will most likely be started on Lasix and spironolactone in order to maintain his ascites as he does appear to fill up with ascites within the last 3 weeks. Patient also need to have a primary care provider and gastroenterology appointment set up prior to discharge in order to make sure the patient has not lost to follow-up. 2. Air bronchograms with platelike atelectasis seen on CT. This is most likely secondary to the patient's ascites causing atelectasis of the lungs. We will get a procalcitonin and treat with ceftriaxone as above and monitor after ascites has been performed. Patient denies any shortness of breath. 3. Nausea with vomiting. Patient's vomitus is nonbloody. Zofran has been ordered. 4. Peripheral vascular disease. Aspirin will be held pending paracentesis. Can be restarted after paracentesis. 5. Hypertension. We will monitor patient's blood pressure and treat appropriately. DVT prophylaxis: Mechanical CODE STATUS: Patient would like to be a DNR/DNI. When I asked the patient if he understands that DO NOT RESUSCITATE means that if he is in a cardiac arrest will not perform CPR therefore he would , patient states he understands this. Patient will be made DNR/DNI Disposition: Patient be admitted to the medical surgical floor. I do expect the patient be discharged greater than or equal to 2 midnight stay. Vital Signs Vital Signs Date Time Temp Pulse Resp B/P (MAP) Pulse Ox O2 Delivery O2 Flow Rate FiO2 08/22/21 16:11 80 95 08/22/21 15:36 149/75 (99) 08/22/21 13:37 97.7 20 Room Air Laboratory Data Labs 24H Laboratory Tests 2 08/22/21 13:43: Immature Granulocyte % (Auto) 0.4, Neutrophils (%) (Auto) 57.7, Lymphocytes (%) (Auto) 23.7L, Monocytes (%) (Auto) 14.9H, Eosinophils (%) (Auto) 2.6, Basophils (%) (Auto) 0.7, Neutrophils # (Auto) 5.9, Lymphocytes # (Auto) 2.4, Monocytes # (Auto) 1.5H, Eosinophils # (Auto) 0.3, Basophils # (Auto) 0.1, Nucleated Red Blood Cells % (auto) 0.0, Anion Gap 8, Glomerular Filtration Rate > 60.0, Lactic Acid Level 2.0, Calcium Level 9.0, Total Bilirubin 1.3H, Direct Bilirubin 0.3H, Aspartate Amino Transf (AST/SGOT) 68H, Alanine Aminotransferase (ALT/SGPT) 33, Alkaline Phosphatase 62, Ammonia 32, Total Protein 5.9L, Albumin 2.3L, Albumin/Globulin Ratio 0.6, Lipase 154, Ethyl Alcohol Level < 0.003 08/22/21 14:06: Prothrombin Time 16.3H, Prothromb Time International Ratio 1.27, Activated Partial Thromboplast Time 33.7, Coronavirus (COVID-19)(PCR) NEGATIVE, Influenza Type A (RT-PCR) NEGATIVE, Influenza Type B (RT-PCR) NEGATIVE, Respiratory Syncytial Virus (PCR) NEGATIVE CBC/BMP Laboratory Tests 08/22/21 13:43 Microbiology Microbiology 08/22/21 Blood Culture, Received Pending 08/22/21 Blood Culture, Received Pending Home Medications Scheduled Aspirin (Ecotrin) 81 Mg Tablet.dr, 81 MG PO DAILY Allergies Coded Allergies: No Known Allergies (Verified , 10/03/19) A-FIB/CHADSVASC A-FIB History Current/History of A-Fib/PAF?: No MARITZA SANCHEZ DO Aug 22, 2021 17:05
--- NOTE | 2021-08-22 21:15 | ECGEPIP ---
[facility] - ED Test Date: 2021-08-22 Pat Name: JACQUELINE JASON Department: Room: - Gender: Male Web Marketing Strategist: FIDELINA : 1965 Requested By: LIDYA Cazares Order Number: [id number] Reading MD: Sandoval Andrews Measurements Intervals [place] Rate: 84 P: 37 NE: 148 QRS: 2 QRSD: 74 T: 74 QT: 392 QTc: 463 Interpretive Statements Sinus rhythm with occasional premature ventricular complexes and fusion complexes Low voltage QRS NSTTW ABNORMALITY(S) SIMILAR TO 08/02/21 Electronically Signed on 08-22-2021 21:15:15 EST by Sandoval Andrews
[2021-08-22 21:40] VITALS: BP 130/92
[2021-08-23] MEDS ORDERED: BENZONATATE 100MG CAPSULE PO PRN (00:05)
[2021-08-23 06:00] VITALS: BP 145/80
[2021-08-23 06:23] LABS: HEMATOCRIT 36.7 % (42.0-52.0); HEMOGLOBIN 12.4 g/dl (13.5-17.5); MEAN CORPUSCULAR HEMOGLOBIN 34.6 pg (27.0-33.0); MEAN CORPUSCULAR HGB CONC 33.8 g/dl (32.0-36.5); MEAN CORPUSCULAR VOLUME 102.5 fl (80.0-96.0); PLATELET COUNT, AUTOMATED 131 10^3/uL (150-450); RED BLOOD COUNT 3.58 10^6/uL (4.30-6.10)
[2021-08-23 06:51] LABS: ALBUMIN 2.1 GM/DL (3.2-5.2); ALT/SGPT 29 U/L (12-78); BILIRUBIN,TOTAL 1.7 MG/DL (0.2-1.0); BLOOD UREA NITROGEN 14 MG/DL (7-18); CALCIUM LEVEL 8.7 MG/DL (8.5-10.1); CARBON DIOXIDE LEVEL 22 MEQ/L (21-32); CHLORIDE LEVEL 109 MEQ/L (98-107); CREATININE FOR GFR 0.72 MG/DL (0.70-1.30); GLOMERULAR FILTRATION RATE > 60.0 (>56); GLUCOSE, FASTING 83 MG/DL (70-100); MAGNESIUM LEVEL 2.2 MG/DL (1.8-2.4); POTASSIUM SERUM 4.3 MEQ/L (3.5-5.1); SODIUM LEVEL 141 MEQ/L (136-145); TOTAL PROTEIN 5.4 GM/DL (6.4-8.2)
[2021-08-23] MEDS ORDERED: ASPIRIN 81MG ENTERIC TABLET PO SCH (09:00)
[2021-08-23] MEDS ORDERED: cefTRIAXone SOD 2 GM in D5W MINI-BAG PLUS 50 ML IV SCH (09:00)
[2021-08-23] MEDS: PANTOPRAZOLE 40MG VIAL (C9113 PER 1) IV SCH ×2 (09:22→20:33)
--- NOTE | 2021-08-23 16:05 | IPNPDOC ---
Date Seen The patient was seen on 08/23/21. Progress Note SUBJECTIVE: Patient is a 56-year-old male with ascites and nausea and vomiting. Presented to ER on 08/22/2021. Says abdominal pain in nausea and vomiting began on August 21, 2021. Says he has vomited 3 times a day on the and . He says he was becoming nauseous at the site of food and was having difficulty walking due to increased abdominal girth related to ascites. He was also diagnosed with cirrhosis back in July but follow-up has been poor. He has vomited today and some specks of blood were seen in it. OBJECTIVE PHYSICAL EXAMINATION: VITAL SIGNS: Please see below. GENERAL: 56-year-old male, thin appearance, resting comfortably in bed in no acute distress CARDIOVASCULAR: Regular rate and rhythm, no murmurs, rubs, or gallops RESPIRATORY: CTA bilaterally ABDOMINAL: Normoactive bowel sounds, tender to palpation diffusely, distended PSYCHOLOGICAL: Alert to person, place, situation; not oriented to time LABORATORY DATA, IMAGING STUDIES, MICROBIOLOGY: Please see below. DVT prophylaxis ordered?: Mechanical ASSESSMENT AND PLAN: This is a 56-year-old male with recurrent ascites, nausea vomiting. Skin had spots of blood in vomitus this morning. PROBLEMS: #. Ascites Will need paracentesis. Patient has remained afebrile, however his white count has increased to 13 from 10.2 yesterday -peritoneal fluid will be analyzed for spontaneous bacterial peritonitis. Ceftriaxone has been added for both the possible SBP secondary to possible GI bleeding and platelike atelectasis with increased leukocytosis. #. Platelike atelectasis Procalcitonin ordered #. Spots of blood seen in vomit Start IV Protonix 40 mg twice daily Consider EGD after paracentesis to rule out variceal bleeding/rupture from re tching continue to monitor H&H every 6 hours. #. Peripheral vascular disease Holding aspirin until H&H is been stable. #. Hypertension Monitor blood pressure and treat appropriately DISPOSITION: Paracentesis planned VS, I&O, 24H, Fishbone Vital Signs/I&O Vital Signs Date Time Temp Pulse Resp B/P (MAP) Pulse Ox O2 Delivery O2 Flow Rate FiO2 08/23/21 06:00 98.3 88 17 145/80 (101) 94 Room Air I&O- Last 24 Hours up to 6 AM 12/13/21 06:00 Intake Total 420 ml Output Total 300 ml Balance 120 ml Laboratory Data 24H LABS Laboratory Tests 2 08/22/21 13:43: Immature Granulocyte % (Auto) 0.4, Neutrophils (%) (Auto) 57.7, Lymphocytes (%) (Auto) 23.7L, Monocytes (%) (Auto) 14.9H, Eosinophils (%) (Auto) 2.6, Basophils (%) (Auto) 0.7, Neutrophils # (Auto) 5.9, Lymphocytes # (Auto) 2.4, Monocytes # (Auto) 1.5H, Eosinophils # (Auto) 0.3, Basophils # (Auto) 0.1, Nucleated Red Blood Cells % (auto) 0.0, Anion Gap 8, Glomerular Filtration Rate > 60.0, Lactic Acid Level 2.0, Calcium Level 9.0, Total Bilirubin 1.3H, Direct Bilirubin 0.3H, Aspartate Amino Transf (AST/SGOT) 68H, Alanine Aminotransferase (ALT/SGPT) 33, Alkaline Phosphatase 62, Ammonia 32, Total Protein 5.9L, Albumin 2.3L, Albumin/Globulin Ratio 0.6, Lipase 154, Ethyl Alcohol Level < 0.003 08/22/21 14:06: Prothrombin Time 16.3H, Prothromb Time International Ratio 1.27, Activated Partial Thromboplast Time 33.7, Coronavirus (COVID-19)(PCR) NEGATIVE, Influenza Type A (RT-PCR) NEGATIVE, Influenza Type B (RT-PCR) NEGATIVE, Respiratory Syncytial Virus (PCR) NEGATIVE 08/23/21 05:46: Nucleated Red Blood Cells % (auto) 0.0, Anion Gap 10, Glomerular Filtration Rate > 60.0, Calcium Level 8.7, Total Bilirubin 1.7H, Aspartate Amino Transf (AST/SGOT) 41H, Alanine Aminotransferase (ALT/SGPT) 29, Alkaline Phosphatase 59, Total Protein 5.4L, Albumin 2.1L, Albumin/Globulin Ratio 0.6, Magnesium Level 2.2 CBC/BMP Laboratory Tests 08/22/21 13:43 08/23/21 05:46 Microbiology Microbiology 08/22/21 Blood Culture, Received Pending 08/22/21 Blood Culture, Received Pending GME ATTESTATION GME ATTESTATION My faculty preceptor for this patient encounter was physically present during the encounter and was fully available. All aspects of the patient interview, examination, medical decision making process, and medical care plan development were reviewed and approved by the faculty preceptor. The faculty preceptor is aware and concurs with the plan as stated in the body of this note and will attest to such by his/her cosignature. ATTENDING NOTE I, Roman Sanchez DO, have independently examined this patient and performed my own physical exam, as well as reviewed the documentation and edited where necessary. I have discussed in detail with the resident the findings and plan of treatment as documented by the resident and edited their note. I agree with their findings and treatment plan and have edited their documentation. I will continue to follow the patient during this hospital stay. Dash He DO Aug 23, 2021 11:50 ROMAN SANCHEZ DO Aug 23, 2021 18:39
--- NOTE | 2021-08-23 16:22 | REP ---
INDICATION: ASCITES WITH ABD PAIN The patient has a history of ascites COMPARISON: None. TECHNIQUE: The procedure was performed by MARY Coleman, under the direct supervision of Dr. Hewitt The risks and benefits of the procedure were explained to the patient and an informed consent was obtained both verbally and written. Directly prior to the start of the procedure a formal time-out was completed in the procedure room. The largest pocket of fluid was localized in the right flank using ultrasound guidance. The skin was prepped and draped in a sterile fashion. Ten ML of 1% lidocaine 10 mg/ml was used as a local anesthetic. An 8-Polish multi side-hole catheter was inserted using trocar technique. FINDINGS: The largest pocket of fluid was localized in the right flank using ultrasound guidance. Skin was prepped and draped in sterile fashion. 10 mL of 1% lidocaine was utilized for local anesthetic. An 8 Polish multi sidehole catheter was inserted using trocar technique. 4350 mL of cloudy yellow fluid were removed. The catheter was removed and a sterile dressing was placed over the incision site. The patient tolerated the procedure well and there were no immediate complications. After the appropriate amount of monitored convalescence, the patient was discharged from the department. IMPRESSION: Technically successful paracentesis yielding 4350 mL yellow fluid. <Electronically signed by Kitty Chacon > 08/23/21 1614 <Electronically signed by Darion Hewitt > 08/23/21 1618
[2021-08-23 19:48] LABS: HEMATOCRIT 34.3 % (42.0-52.0); HEMOGLOBIN 11.7 g/dl (13.5-17.5); MEAN CORPUSCULAR HEMOGLOBIN 35.5 pg (27.0-33.0); MEAN CORPUSCULAR HGB CONC 34.1 g/dl (32.0-36.5); MEAN CORPUSCULAR VOLUME 103.9 fl (80.0-96.0); PLATELET COUNT, AUTOMATED 121 10^3/uL (150-450); WHITE BLOOD COUNT 10.9 10^3/uL (4.0-10.0)
[2021-08-23 20:01] LABS: APPEARANCE, BODY FLUID HAZY (CLEAR); ASCITES FL COLOR YELLOW (COLORLESS); SOURCE, BODY FLUID ASCITES
[2021-08-23 20:14] VITALS: BP 106/74
[2021-08-23 20:16] LABS: ALBUMIN 1.9 GM/DL (3.2-5.2); ALT/SGPT 23 U/L (12-78); BILIRUBIN,TOTAL 1.2 MG/DL (0.2-1.0); BLOOD UREA NITROGEN 13 MG/DL (7-18); CALCIUM LEVEL 8.5 MG/DL (8.5-10.1); CARBON DIOXIDE LEVEL 24 MEQ/L (21-32); CHLORIDE LEVEL 106 MEQ/L (98-107); CREATININE FOR GFR 0.73 MG/DL (0.70-1.30); GLOMERULAR FILTRATION RATE > 60.0 (>56); GLUCOSE, FASTING 75 MG/DL (70-100); POTASSIUM SERUM 4.2 MEQ/L (3.5-5.1); SODIUM LEVEL 138 MEQ/L (136-145); TOTAL PROTEIN 4.9 GM/DL (6.4-8.2)
[2021-08-23 20:16] LABS: SOURCE, BODY FLUID ALBUMIN ASCITES; SOURCE, BODY FLUID GLUCOSE ASCITES; SOURCE, BODY FLUID TOT PROTEIN ASCITES; TOTAL PROTEIN, BODY FLUID 1.1 G/DL (NOT ESTABLISHED)
[2021-08-24 01:55] LABS: HEMATOCRIT 31.7 % (42.0-52.0); HEMOGLOBIN 10.9 g/dl (13.5-17.5); MEAN CORPUSCULAR HEMOGLOBIN 35.2 pg (27.0-33.0); MEAN CORPUSCULAR HGB CONC 34.4 g/dl (32.0-36.5); MEAN CORPUSCULAR VOLUME 102.3 fl (80.0-96.0); PLATELET COUNT, AUTOMATED 113 10^3/uL (150-450); WHITE BLOOD COUNT 12.4 10^3/uL (4.0-10.0)
[2021-08-24 05:29] VITALS: BP 92/55
[2021-08-24 06:01] VITALS: BP 119/64
[2021-08-24] MEDS ORDERED: OMEP-218 PO (08:56)
[2021-08-24] MEDS ORDERED: ALDA25TA2 PO (08:56)
[2021-08-24] MEDS ORDERED: FURO20TA2 PO (08:56)
[2021-08-24] MEDS ORDERED: SPIRONOLACTONE 12.5MG PER 1/2 TABLET PO SCH (09:00)
[2021-08-24] MEDS ORDERED: OMEPRAZOLE 20 MG CAP PO SCH (09:00)
[2021-08-24] MEDS ORDERED: FUROSEMIDE 20 MG TAB PO SCH (09:00)
[2021-08-24 10:29] LABS: MEAN CORPUSCULAR HEMOGLOBIN 34.7 pg (27.0-33.0); MEAN CORPUSCULAR HGB CONC 33.3 g/dl (32.0-36.5); PLATELET COUNT, AUTOMATED 124 10^3/uL (150-450); RED BLOOD COUNT 3.46 10^6/uL (4.30-6.10); WHITE BLOOD COUNT 10.7 10^3/uL (4.0-10.0)
--- NOTE | 2021-08-24 11:25 | IPNPDOC ---
Date Seen The patient was seen on 08/24/21. Progress Note PROCEDURES PERFORMED DURING STAY: Paracentesis. ADMITTING DIAGNOSES: 1. Ascites. 2. Abdominal pain DISCHARGE DIAGNOSES: 1. Ascites 2. Abdominal pain COMPLICATIONS/CHIEF COMPLAINT: Weakness / Difficulty walking because of abdominal distension HISTORY OF PRESENT ILLNESS: Patient is a 48-year-old male who presented to the ED on 08/22/2021 with abdominal pain and difficulty eating, and walking due to fluid in abdomen. States the abdominal pain was getting worse over the few days preceding his arrival. He also complained of vomiting and did so again while provider was in the room with patient. He denies bloody vomitus. He was diagnosed with cirrhosis in July of this year after presenting with ascites then as well, which also needed to be drained. He did not follow-up with primary care and/or gastroenterology after discharge. Patient was seen and examined at the bedside. Currently denies any nausea, vomiting, abdominal pain, diarrhea, or urinary discomfort. Denies any shortness breath, cough or palpitations. HOSPITAL COURSE: 08/22/2021: Was admitted for inpatient management of ascites and abdominal pain. 08/23/2021: Spots of blood were witnessed in patient's vomit. He elaborated more on the symptoms he has been experiencing. Says the vomiting began on August 21 and was becoming nauseous at the site of food. Ceftriaxone was added for possible SBP secondary to possible GI bleeding and atelectasis with increased leukocytosis. Paracentesis was done and drained 4000 3050 mL of fluid; fluid analysis was inconsistent was infection. 08/24/2021: Patient reported he is doing well doing better. Denies nausea, vomiting, diarrhea, abdominal pain. Reports that he has been able to keep down food and liquid. He reports that the procedure went well. Patient will be need to follow up with GI as an outpatient for further evaluation. His H&H has stab ilized and is considered appropriate for discharge. DISCHARGE MEDICATIONS: Please see below. ALLERGIES: Please see below. PHYSICAL EXAMINATION ON DISCHARGE: VITAL SIGNS: Please see below. GENERAL: 56-year-old, male, lying in bed, no acute distress CARDIOVASCULAR EXAMINATION: Regular rate and rhythm RESPIRATORY EXAMINATION: CTA bilaterally ABDOMINAL EXAMINATION: Normoactive bowel sounds and nontender to palpation; dressing in place over site of paracentesis, no erythema or signs of infection appreciated EXTREMITIES: Moves all 4 extremities appropriately NEUROLOGICAL EXAMINATION: No gross deficits appreciated PSYCHIATRIC EXAMINATION: Alert to person, place, situation, but not to time LABORATORY DATA: Please see below. IMAGING: CXR 08/22/2021: Right hemidiaphragm is somewhat elevated today and there is platelike atelectasis above it in the right base. Right lung is otherwise free of infiltrate. The left lung is clear. Pleural angles are sharp. The heart is not felt to be enlarged. Monitoring electrodes are visible. Abdomen/pelvis CT 08/22/2021: Preliminary digital veterinary practitioner radiograph demonstrates homogeneous opacity in the flanks on either side of the bowel gas consistent with ascites. Right hemidiaphragm is elevated. There is atelectasis with air bronchograms in the right lower lobe. There is a small quantity of right pleural effusion. This is a new finding compared with August 02, 2021. In the abdomen and pelvis there is a large amount of diffuse abdominal ascites. This is increased somewhat from August 02, 2021. No focal hepatic or splenic lesion is seen. Gallbladder and pancreas are unremarkable. No adrenal lesion is seen on either side. Small and large bowel loops are unremarkable in the abdomen and pelvis except for left colonic diverticulosis. No CT evidence of diverticulitis. The kidneys show no evidence of hydronephrosis or mass. Vascular calcification is again observed. No bony lesion is seen. Paracentesis US 08/23/2021: The largest pocket of fluid was localized in the right flank using ultrasound guidance. Skin was prepped and draped in sterile fashion. 10 mL of 1% lidocaine was utilized for local anesthetic. An 8 Setswana multi sidehole catheter was inserted using trocar technique. 4350 mL of cloudy yellow fluid were removed. The catheter was removed and a sterile dressing was placed over the incision site. The patient tolerated the procedure well and there were no immediate complicati ons. After the appropriate amount of monitored convalescence, the patient was discharged from the department. PROGNOSIS: Improved ACTIVITY: [As tolerated]. DIET: As tolerated DISPOSITION: Home DISCHARGE INSTRUCTIONS AND ITEMS TO FOLLOW-UP ON OUTPATIENT 1. Continue furosemide, spironolactone, omeprazole and take as directed 2. Establish care with a PCP and follow-up with gastroenterology 3. Keep procedure site on abdomen clean and dry 4. Return to ED if symptoms return DISCHARGE CONDITION: [Stable]. TIME SPENT ON DISCHARGE: 35 minutes. VS, I&O, 24H, Fishbone Vital Signs/I&O Vital Signs Date Time Temp Pulse Resp B/P (MAP) Pulse Ox O2 Delivery O2 Flow Rate FiO2 08/24/21 06:01 119/64 (82) 08/24/21 05:29 98.5 76 18 95 Room Air I&O- Last 24 Hours up to 6 AM 08/24/21 06:00 Intake Total 1250 ml Balance 1250 ml Laboratory Data 24H LABS Laboratory Tests 2 08/23/21 15:23: Body Fluid Source ASCITES, Body Fluid Color YELLOW, Body Fluid Appearance HAZY, Body Fluid Specific [place] 1.010, Body Fluid WBC (Auto) 40H, Body Fluid RBC (Auto) < 2, Body Fluid Mononuclear Cells % Auto 87.5H, Fluid Polymorphonuclear Cell % Auto 12.5H, Body Fluid Glucose Source ASCITES, Body Fluid Glucose 91, Body Fluid Protein Source ASCITES, Body Fluid Total Protein 1.1, Body Fluid Albumin Source ASCITES, Body Fluid Albumin 0.3 08/23/21 19:33: Nucleated Red Blood Cells % (auto) 0.0 08/23/21 19:50: Anion Gap 8, Glomerular Filtration Rate > 60.0, Calcium Level 8.5, Total Bilirubin 1.2H, Aspartate Amino Transf (AST/SGOT) 33, Alanine Aminotransferase (ALT/SGPT) 23, Alkaline Phosphatase 48, Total Protein 4.9L, Albumin 1.9L, Albumin/Globulin Ratio 0.6 08/24/21 01:22: Nucleated Red Blood Cells % (auto) 0.0 08/24/21 09:25: Nucleated Red Blood Cells % (auto) 0.0 CBC/BMP Laboratory Tests 08/23/21 19:33 08/23/21 19:50 08/24/21 01:22 08/24/21 09:25 Microbiology Microbiology 08/23/21 Fungal Smear, Received Pending 08/23/21 Fungal Culture, Received Pending 08/23/21 Gram Stain, Received Pending 08/23/21 Body Fluid Culture, Received Pending 08/22/21 Blood Culture - Preliminary, Resulted No growth after 24 hours . All specim... 08/22/21 Blood Culture - Preliminary, Resulted No growth after 24 hours . All specim... GME ATTESTATION GME ATTESTATION My faculty preceptor for this patient encounter was physically present during the encounter and was fully available. All aspects of the patient interview, examination, medical decision making process, and medical care plan development were reviewed and approved by the faculty preceptor. The faculty preceptor is aware and concurs with the plan as stated in the body of this note and will attest to such by his/her cosignature. ATTENDING NOTE I, Kareem Tatum, have independently examined this patient and performed my own physical exam, as well as reviewed the documentation and edited where necessary with the resident. For medical students we have performed the physical exam together and discussed medical decision making and I have verified the history. I have discussed in detail with the resident / student the findings and plan of treatment as documented by the resident / student and edited their note. I agree with their findings and treatment plan and have edited their documentation. I will continue to follow the patient during this hospital stay. Time spent on discharge 35 minutes Dash He DO Aug 24, 2021 11:25 KAREEM TATUM MD Aug 24, 2021 13:23
== END 2021-08-24 12:40 | disposition home health service (06) | DRG 433 ==
LOC: M ED 13:26 → EDBD 13:26 → M ED INP 16:26 → M MS5PR 21:40
PROVIDERS: ADMIT Family Medicine; ATTEND Internal Medicine
PROC: 0W9G3ZZ Drainage of Peritoneal Cavity, Percutaneous Approach (ICD-10-PCS; principal; 2021-08-23 15:00)
DX: K74.60 Unspecified cirrhosis of liver (principal); R18.8 Other ascites; J98.11 Atelectasis; I73.1 Thromboangiitis obliterans [Buerger's disease]; I73.9 Peripheral vascular disease, unspecified; I10 Essential (primary) hypertension; F32.A Depression, unspecified; F41.9 Anxiety disorder, unspecified; Z89.411 Acquired absence of right great toe; Z95.828 Presence of other vascular implants and grafts; Z87.891 Personal history of nicotine dependence; Z66 Do not resuscitate; Z79.82 Long term (current) use of aspirin; Z20.822 Contact with and (suspected) exposure to COVID-19

== ENCOUNTER 2021-09-27 14:48 | Inpatient (IN) | payer MEDICARE, OTHER ==
[~2021-09-27] VITALS: Ht 177.8 cm; Wt 57.0 kg
[2021-09-27 07:34] VITALS: BP 121/74
[~2021-09-27 14:48] MED LIST changes: +ALDA25TA2 PO; +OMEP-173 PO
[2021-09-27] MEDS ORDERED: HOME MED LIST COMPLETE! XX SCH (17:45)
[2021-09-27] MEDS ORDERED: OMEP-173 PO (17:45)
[2021-09-27] MEDS ORDERED: SPIR100T3 PO (17:45)
[2021-09-27] MEDS ORDERED: FURO20TA2 PO (17:45)
[2021-09-27 19:15] LABS: BASO % 0.2 % (0.0-1.0); EOS % 0.1 % (0.0-3.0); HEMATOCRIT 41.2 % (42.0-52.0); LYMPH % 19.6 % (24.0-44.0); MEAN CORPUSCULAR HEMOGLOBIN 33.6 pg (27.0-33.0); MEAN CORPUSCULAR VOLUME 98.8 fl (80.0-96.0); MONO # 1.3 10^3/uL (0.0-0.8); MONO % 13.2 % (2.0-8.0); NEUTROPHILS # 6.6 10^3/uL (1.5-8.5); NEUTROPHILS % 66.4 % (36.0-66.0); PLATELET COUNT, AUTOMATED 108 10^3/uL (150-450); RED BLOOD COUNT 4.17 10^6/uL (4.30-6.10); WHITE BLOOD COUNT 9.9 10^3/uL (4.0-10.0)
[2021-09-27 19:25] LABS: INR 1.46; PROTHROMBIN TIME 18.2 SECONDS (12.7-14.5)
[2021-09-27 19:26] LABS: PARTIAL THROMBOPLASTIN TIME 43.4 SECONDS (25.9-37.0)
[2021-09-27 19:57] LABS: ACETAMINOPHEN LEVEL < 2.0 UG/ML (10.0-30.0); ALBUMIN 2.1 GM/DL (3.2-5.2); ALT/SGPT 16 U/L (12-78); AMYLASE 82 U/L (25-115); BILIRUBIN,DIRECT 1.1 MG/DL (0.0-0.2); BLOOD UREA NITROGEN 19 MG/DL (7-18); CALCIUM LEVEL 8.7 MG/DL (8.5-10.1); CARBON DIOXIDE LEVEL 24 MEQ/L (21-32); CHLORIDE LEVEL 102 MEQ/L (98-107); ETHYL ALCOHOL (ETHANOL) 0.003 % (0.000-0.010); GLOMERULAR FILTRATION RATE > 60.0 (>56); GLUCOSE, FASTING 92 MG/DL (70-100); LIPASE 141 U/L (73-393); POTASSIUM SERUM 4.8 MEQ/L (3.5-5.1); SALICYLATE LEVEL < 1.7 MG/DL (5.0-30.0); SODIUM LEVEL 135 MEQ/L (136-145); TOTAL PROTEIN 6.1 GM/DL (6.4-8.2)
[2021-09-27] MEDS ORDERED: NS 500 ML IV ONE (20:15)
[2021-09-27] MEDS ORDERED: ISOVUE-370 76% 100ML VIAL As Ordered ONE (20:26)
[2021-09-27] MEDS: SUCRALFATE SUSP 1GM/10ML UD PO SCH (22:00)
[2021-09-27] MEDS ORDERED: HALOPERIDOL 5MG/ML VIAL (J1630 PER 1) IV ONE (22:55)
[2021-09-27] MEDS: PANTOPRAZOLE 40MG VIAL (C9113 PER 1) IV SCH (23:15)
[2021-09-27] MEDS ORDERED: ONDANSETRON 4MG/2ML VIAL IV PRN (23:15)
[2021-09-27] MEDS: cefTRIAXone SOD 1 GM in D5W MINI-BAG PLUS 50 ML IV SCH (23:15)
[2021-09-28 00:56] LABS: HEMATOCRIT 37.6 % (42.0-52.0); HEMOGLOBIN 12.7 g/dl (13.5-17.5)
[2021-09-28 01:10] VITALS: BP 144/71
[2021-09-28] MEDS: OCTREOTIDE ACETATE 1,200 MCG in NS 238.8 ML IV SCH ×2 (01:46→23:15)
[2021-09-28 03:20] LABS: VENOUS BASE EXCESS -4.7 (-2.0-2.0); VENOUS O2 SATURATION 93.4 % (60.0-80.0); VENOUS PARTIAL PRESSURE CO2 27.7 mmHg (38.0-50.0); VENOUS PARTIAL PRESSURE O2 65.7 mmHg (30.0-50.0); VENOUS PH 7.431 UNITS (7.330-7.430); VENOUS STANDARD HCO3 20.5 MEQ/L; VENOUS TOTAL CO2 18.9 MEQ/L (24.0-28.0)
[2021-09-28 03:32] LABS: BASO % 0.3 % (0.0-1.0); HEMATOCRIT 40.9 % (42.0-52.0); HEMOGLOBIN 13.9 g/dl (13.5-17.5); LYMPH # 1.4 10^3/uL (1.5-5.0); LYMPH % 10.5 % (24.0-44.0); MEAN CORPUSCULAR HEMOGLOBIN 34.3 pg (27.0-33.0); MONO # 1.8 10^3/uL (0.0-0.8); MONO % 13.6 % (2.0-8.0); NEUTROPHILS # 9.8 10^3/uL (1.5-8.5); NEUTROPHILS % 74.9 % (36.0-66.0); RED BLOOD COUNT 4.05 10^6/uL (4.30-6.10); WHITE BLOOD COUNT 13.1 10^3/uL (4.0-10.0)
[2021-09-28 03:34] LABS: PLATELET COUNT, AUTOMATED 95 10^3/uL (150-450)
[2021-09-28 03:36] LABS: INR 1.62; PROTHROMBIN TIME 19.7 SECONDS (12.7-14.5)
[2021-09-28 03:37] LABS: PARTIAL THROMBOPLASTIN TIME 42.2 SECONDS (25.9-37.0)
[2021-09-28 03:48] LABS: ALT/SGPT 14 U/L (12-78); BILIRUBIN,TOTAL 1.8 MG/DL (0.2-1.0); BLOOD UREA NITROGEN 17 MG/DL (7-18); CALCIUM LEVEL 8.4 MG/DL (8.5-10.1); CARBON DIOXIDE LEVEL 17 MEQ/L (21-32); CHLORIDE LEVEL 107 MEQ/L (98-107); CREATININE FOR GFR 0.82 MG/DL (0.70-1.30); GLOMERULAR FILTRATION RATE > 60.0 (>56); GLUCOSE, FASTING 78 MG/DL (70-100); POTASSIUM SERUM 4.7 MEQ/L (3.5-5.1); SODIUM LEVEL 135 MEQ/L (136-145); TOTAL PROTEIN 5.4 GM/DL (6.4-8.2)
[2021-09-28 04:00] VITALS: BP 136/83
[2021-09-28] MEDS: SUCRALFATE SUSP 1GM/10ML UD PO SCH ×3 (05:46→20:38)
[2021-09-28 08:00] VITALS: BP 121/74
[2021-09-28] MEDS: PANTOPRAZOLE 40MG VIAL (C9113 PER 1) IV SCH ×2 (08:04→20:38)
[2021-09-28] MEDS: cefTRIAXone SOD 1 GM in D5W MINI-BAG PLUS 50 ML IV SCH (08:05)
[2021-09-28 08:18] LABS: HEMATOCRIT 37.8 % (42.0-52.0); HEMOGLOBIN 12.9 g/dl (13.5-17.5)
[2021-09-28 11:20] LABS: APPEARANCE, BODY FLUID HAZY (CLEAR); ASCITES FL COLOR YELLOW (COLORLESS); SOURCE, BODY FLUID ASCITES; SPEC. GRAVITY BODY FLUIDS 1.013 (NOT ESTABLISHED)
[2021-09-28 11:54] VITALS: BP 115/74
[2021-09-28 12:22] LABS: SOURCE, BODY FLUID ALBUMIN ASCITES; SOURCE, BODY FLUID GLUCOSE ASCITES; SOURCE, BODY FLUID TOT PROTEIN ASCITES; TOTAL PROTEIN, BODY FLUID 1.4 G/DL (NOT ESTABLISHED)
[2021-09-28 14:06] LABS: HEMATOCRIT 37.9 % (42.0-52.0); HEMOGLOBIN 12.9 g/dl (13.5-17.5)
[2021-09-28 16:09] VITALS: BP 117/58
[2021-09-28 19:10] VITALS: BP 121/84
[2021-09-28 20:24] LABS: HEMATOCRIT 35.7 % (42.0-52.0); HEMOGLOBIN 12.3 g/dl (13.5-17.5)
[2021-09-29] VITALS (7 sets, daily range): BP systolic 109–128; BP diastolic 64–78
[2021-09-29] MEDS: SUCRALFATE SUSP 1GM/10ML UD PO SCH ×3 (05:25→21:27)
[2021-09-29 08:01] LABS: BASO % 0.2 % (0.0-1.0); EOS # 0.1 10^3/uL (0.0-0.5); EOS % 1.5 % (0.0-3.0); HEMATOCRIT 36.5 % (42.0-52.0); HEMOGLOBIN 12.5 g/dl (13.5-17.5); LYMPH # 1.8 10^3/uL (1.5-5.0); LYMPH % 22.9 % (24.0-44.0); MEAN CORPUSCULAR HEMOGLOBIN 33.7 pg (27.0-33.0); MEAN CORPUSCULAR HGB CONC 34.2 g/dl (32.0-36.5); MEAN CORPUSCULAR VOLUME 98.4 fl (80.0-96.0); MONO # 1.3 10^3/uL (0.0-0.8); MONO % 16.7 % (2.0-8.0); NEUTROPHILS # 4.7 10^3/uL (1.5-8.5); NEUTROPHILS % 58.5 % (36.0-66.0); PLATELET COUNT, AUTOMATED 105 10^3/uL (150-450); RED BLOOD COUNT 3.71 10^6/uL (4.30-6.10)
[2021-09-29 08:12] LABS: INR 1.57; PROTHROMBIN TIME 19.2 SECONDS (12.7-14.5)
[2021-09-29 08:13] LABS: PARTIAL THROMBOPLASTIN TIME 47.5 SECONDS (25.9-37.0)
[2021-09-29 08:28] LABS: ALBUMIN 1.8 GM/DL (3.2-5.2); ALT/SGPT 16 U/L (12-78); BILIRUBIN,TOTAL 1.6 MG/DL (0.2-1.0); BLOOD UREA NITROGEN 17 MG/DL (7-18); CALCIUM LEVEL 8.4 MG/DL (8.5-10.1); CARBON DIOXIDE LEVEL 23 MEQ/L (21-32); CHLORIDE LEVEL 104 MEQ/L (98-107); CREATININE FOR GFR 0.84 MG/DL (0.70-1.30); GLOMERULAR FILTRATION RATE > 60.0 (>56); GLUCOSE, FASTING 118 MG/DL (70-100); POTASSIUM SERUM 4.1 MEQ/L (3.5-5.1); SODIUM LEVEL 135 MEQ/L (136-145); TOTAL PROTEIN 5.1 GM/DL (6.4-8.2)
[2021-09-29] MEDS: PANTOPRAZOLE 40MG VIAL (C9113 PER 1) IV SCH (08:32)
[2021-09-29] MEDS: cefTRIAXone SOD 1 GM in D5W MINI-BAG PLUS 50 ML IV SCH (08:32)
[2021-09-29] MEDS ORDERED: GLYCOPYRROLATE INJ 0.2 MG/ML 2 ML VIAL As Ordered ONE (15:27)
[2021-09-29] MEDS ORDERED: propofoL 200 MG/20 ML VIAL As Ordered ONE (15:27)
[2021-09-29] MEDS ORDERED: LIDOCAINE 2% 100MG/5ML SDV (FOR ANES.) As Ordered ONE (15:27)
[2021-09-29] MEDS ORDERED: PHENYLephrine 500MCG 5ML (100MCG/ML) SYRINGE As Ordered ONE (15:27)
[2021-09-29 17:21] LABS: HEMATOCRIT 36.5 % (42.0-52.0); HEMOGLOBIN 12.4 g/dl (13.5-17.5)
[2021-09-29 20:12] LABS: HEMATOCRIT 37.4 % (42.0-52.0); HEMOGLOBIN 12.7 g/dl (13.5-17.5)
[2021-09-30 06:10] VITALS: BP 119/72
[2021-09-30 06:11] LABS: BASO % 0.3 % (0.0-1.0); EOS # 0.3 10^3/uL (0.0-0.5); EOS % 3.4 % (0.0-3.0); HEMATOCRIT 33.6 % (42.0-52.0); HEMOGLOBIN 11.6 g/dl (13.5-17.5); LYMPH # 2.1 10^3/uL (1.5-5.0); LYMPH % 28.6 % (24.0-44.0); MEAN CORPUSCULAR HEMOGLOBIN 33.6 pg (27.0-33.0); MEAN CORPUSCULAR HGB CONC 34.5 g/dl (32.0-36.5); MEAN CORPUSCULAR VOLUME 97.4 fl (80.0-96.0); MONO # 1.1 10^3/uL (0.0-0.8); MONO % 14.4 % (2.0-8.0); NEUTROPHILS # 3.9 10^3/uL (1.5-8.5); RED BLOOD COUNT 3.45 10^6/uL (4.30-6.10); WHITE BLOOD COUNT 7.4 10^3/uL (4.0-10.0)
[2021-09-30] MEDS: SUCRALFATE SUSP 1GM/10ML UD PO SCH ×3 (06:12→21:09)
[2021-09-30 06:21] LABS: INR 1.69; PROTHROMBIN TIME 20.3 SECONDS (12.7-14.5)
[2021-09-30 06:32] LABS: ALBUMIN 1.6 GM/DL (3.2-5.2); ALT/SGPT 15 U/L (12-78); BILIRUBIN,TOTAL 1.6 MG/DL (0.2-1.0); BLOOD UREA NITROGEN 15 MG/DL (7-18); CALCIUM LEVEL 8.1 MG/DL (8.5-10.1); CARBON DIOXIDE LEVEL 24 MEQ/L (21-32); CHLORIDE LEVEL 105 MEQ/L (98-107); CREATININE FOR GFR 0.67 MG/DL (0.70-1.30); GLOMERULAR FILTRATION RATE > 60.0 (>56); GLUCOSE, FASTING 114 MG/DL (70-100); POTASSIUM SERUM 4.1 MEQ/L (3.5-5.1); SODIUM LEVEL 135 MEQ/L (136-145); TOTAL PROTEIN 4.5 GM/DL (6.4-8.2)
[2021-09-30 06:55] LABS: PLATELET COUNT, AUTOMATED 76 10^3/uL (150-450)
[2021-09-30] MEDS: PANTOPRAZOLE 40MG TAB (PROTONIX) PO SCH (08:10)
[2021-09-30 14:00] VITALS: BP 116/64
[2021-09-30] MEDS ORDERED: ONDANSETRON 4 MG TAB PO PRN (17:20)
[2021-10-01] MEDS: SUCRALFATE SUSP 1GM/10ML UD PO SCH ×3 (05:26→21:36)
[2021-10-01 05:56] VITALS: BP 117/67
[2021-10-01 06:14] LABS: HEMATOCRIT 35.1 % (42.0-52.0); HEMOGLOBIN 12.3 g/dl (13.5-17.5); MEAN CORPUSCULAR HEMOGLOBIN 33.7 pg (27.0-33.0); MEAN CORPUSCULAR VOLUME 96.2 fl (80.0-96.0); RED BLOOD COUNT 3.65 10^6/uL (4.30-6.10); WHITE BLOOD COUNT 9.7 10^3/uL (4.0-10.0)
[2021-10-01 06:19] LABS: PLATELET COUNT, AUTOMATED 70 10^3/uL (150-450)
[2021-10-01 06:46] LABS: ALBUMIN 1.7 GM/DL (3.2-5.2); ALT/SGPT 14 U/L (12-78); BILIRUBIN,TOTAL 2.1 MG/DL (0.2-1.0); BLOOD UREA NITROGEN 13 MG/DL (7-18); CARBON DIOXIDE LEVEL 22 MEQ/L (21-32); CHLORIDE LEVEL 105 MEQ/L (98-107); CREATININE FOR GFR 0.65 MG/DL (0.70-1.30); GLOMERULAR FILTRATION RATE > 60.0 (>56); GLUCOSE, FASTING 100 MG/DL (70-100); SODIUM LEVEL 133 MEQ/L (136-145); TOTAL PROTEIN 4.7 GM/DL (6.4-8.2)
[2021-10-01] MEDS: SPIRONOLACTONE 50 MG TAB PO SCH (09:00)
[2021-10-01] MEDS ORDERED: ASPIRIN 81MG ENTERIC TABLET PO SCH (09:00)
[2021-10-01] MEDS: FUROSEMIDE 20 MG TAB PO SCH (09:00)
[2021-10-01 09:39] VITALS: BP 99/59
[2021-10-01] MEDS: PANTOPRAZOLE 40MG TAB (PROTONIX) PO SCH (09:39)
[2021-10-01 14:00] VITALS: BP 125/78
[2021-10-02] MEDS: SUCRALFATE SUSP 1GM/10ML UD PO SCH ×3 (05:21→20:47)
[2021-10-02 06:00] VITALS: BP 102/65
[2021-10-02 06:42] LABS: HEMATOCRIT 37.2 % (42.0-52.0); MEAN CORPUSCULAR HEMOGLOBIN 34.1 pg (27.0-33.0); MEAN CORPUSCULAR HGB CONC 34.9 g/dl (32.0-36.5); MEAN CORPUSCULAR VOLUME 97.6 fl (80.0-96.0); RED BLOOD COUNT 3.81 10^6/uL (4.30-6.10)
[2021-10-02 06:43] LABS: PLATELET COUNT, AUTOMATED 61 10^3/uL (150-450)
[2021-10-02 06:55] LABS: BLOOD UREA NITROGEN 15 MG/DL (7-18); CARBON DIOXIDE LEVEL 20 MEQ/L (21-32); CHLORIDE LEVEL 105 MEQ/L (98-107); CREATININE FOR GFR 0.66 MG/DL (0.70-1.30); GLOMERULAR FILTRATION RATE > 60.0 (>56); GLUCOSE, FASTING 92 MG/DL (70-100); MAGNESIUM LEVEL 1.9 MG/DL (1.8-2.4); POTASSIUM SERUM 4.3 MEQ/L (3.5-5.1); SODIUM LEVEL 131 MEQ/L (136-145)
[2021-10-02 08:40] VITALS: BP 103/67
[2021-10-02] MEDS: SPIRONOLACTONE 50 MG TAB PO SCH (08:46)
[2021-10-02] MEDS: FUROSEMIDE 20 MG TAB PO SCH (08:47)
[2021-10-02] MEDS: PANTOPRAZOLE 40MG TAB (PROTONIX) PO SCH (08:55)
[2021-10-02] MEDS: TAMSULOSIN 0.4 MG CAP PO SCH (09:23)
[2021-10-03] MEDS: SUCRALFATE SUSP 1GM/10ML UD PO SCH ×3 (05:57→21:27)
[2021-10-03 06:49] LABS: HEMOGLOBIN 12.4 g/dl (13.5-17.5); MEAN CORPUSCULAR HEMOGLOBIN 33.7 pg (27.0-33.0); MEAN CORPUSCULAR HGB CONC 35.4 g/dl (32.0-36.5); MEAN CORPUSCULAR VOLUME 95.1 fl (80.0-96.0); RED BLOOD COUNT 3.68 10^6/uL (4.30-6.10); WHITE BLOOD COUNT 12.6 10^3/uL (4.0-10.0)
[2021-10-03 06:51] LABS: PLATELET COUNT, AUTOMATED 64 10^3/uL (150-450)
[2021-10-03 07:03] LABS: BLOOD UREA NITROGEN 16 MG/DL (7-18); CALCIUM LEVEL 7.8 MG/DL (8.5-10.1); CARBON DIOXIDE LEVEL 22 MEQ/L (21-32); CHLORIDE LEVEL 103 MEQ/L (98-107); CREATININE FOR GFR 0.65 MG/DL (0.70-1.30); GLOMERULAR FILTRATION RATE > 60.0 (>56); GLUCOSE, FASTING 100 MG/DL (70-100); SODIUM LEVEL 131 MEQ/L (136-145)
[2021-10-03] MEDS: TAMSULOSIN 0.4 MG CAP PO SCH (08:06)
[2021-10-03] MEDS: FUROSEMIDE 20 MG TAB PO SCH (08:06)
[2021-10-03] MEDS: SPIRONOLACTONE 50 MG TAB PO SCH (08:07)
[2021-10-03] MEDS: PANTOPRAZOLE 40MG TAB (PROTONIX) PO SCH (08:07)
[2021-10-03] MEDS: CIPROFLOXACIN 500MG TABLET PO SCH (09:28)
[2021-10-04] MEDS: CIPROFLOXACIN 500MG TABLET PO SCH (06:07)
[2021-10-04] MEDS: SUCRALFATE SUSP 1GM/10ML UD PO SCH ×3 (06:07→21:42)
[2021-10-04 06:31] LABS: HEMATOCRIT 32.9 % (42.0-52.0); HEMOGLOBIN 11.8 g/dl (13.5-17.5); MEAN CORPUSCULAR HGB CONC 35.9 g/dl (32.0-36.5); MEAN CORPUSCULAR VOLUME 94.8 fl (80.0-96.0); PLATELET COUNT, AUTOMATED 70 10^3/uL (150-450); RED BLOOD COUNT 3.47 10^6/uL (4.30-6.10); WHITE BLOOD COUNT 11.2 10^3/uL (4.0-10.0)
[2021-10-04 06:46] LABS: BLOOD UREA NITROGEN 16 MG/DL (7-18); CALCIUM LEVEL 7.9 MG/DL (8.5-10.1); CARBON DIOXIDE LEVEL 21 MEQ/L (21-32); CHLORIDE LEVEL 103 MEQ/L (98-107); CREATININE FOR GFR 0.65 MG/DL (0.70-1.30); GLOMERULAR FILTRATION RATE > 60.0 (>56); GLUCOSE, FASTING 96 MG/DL (70-100); MAGNESIUM LEVEL 1.9 MG/DL (1.8-2.4); POTASSIUM SERUM 4.1 MEQ/L (3.5-5.1); SODIUM LEVEL 132 MEQ/L (136-145)
[2021-10-04 07:07] VITALS: BP 100/64
[2021-10-04] MEDS: SPIRONOLACTONE 50 MG TAB PO SCH (09:00)
[2021-10-04] MEDS: FUROSEMIDE 20 MG TAB PO SCH (09:00)
[2021-10-04] MEDS: PANTOPRAZOLE 40MG TAB (PROTONIX) PO SCH (10:02)
[2021-10-04] MEDS: TAMSULOSIN 0.4 MG CAP PO SCH (10:02)
[2021-10-05] MEDS: SUCRALFATE SUSP 1GM/10ML UD PO SCH ×3 (05:22→22:55)
[2021-10-05] MEDS: CIPROFLOXACIN 500MG TABLET PO SCH (05:22)
[2021-10-05 06:00] VITALS: BP 106/69
[2021-10-05 06:47] LABS: HEMATOCRIT 35.1 % (42.0-52.0); HEMOGLOBIN 12.5 g/dl (13.5-17.5); MEAN CORPUSCULAR HEMOGLOBIN 33.7 pg (27.0-33.0); MEAN CORPUSCULAR HGB CONC 35.6 g/dl (32.0-36.5); MEAN CORPUSCULAR VOLUME 94.6 fl (80.0-96.0); RED BLOOD COUNT 3.71 10^6/uL (4.30-6.10); WHITE BLOOD COUNT 8.7 10^3/uL (4.0-10.0)
[2021-10-05 06:48] LABS: PLATELET COUNT, AUTOMATED 83 10^3/uL (150-450)
[2021-10-05 07:14] LABS: BLOOD UREA NITROGEN 14 MG/DL (7-18); CARBON DIOXIDE LEVEL 23 MEQ/L (21-32); CHLORIDE LEVEL 99 MEQ/L (98-107); CREATININE FOR GFR 0.77 MG/DL (0.70-1.30); GLOMERULAR FILTRATION RATE > 60.0 (>56); GLUCOSE, FASTING 105 MG/DL (70-100); POTASSIUM SERUM 4.3 MEQ/L (3.5-5.1); SODIUM LEVEL 127 MEQ/L (136-145)
[2021-10-05] MEDS: TAMSULOSIN 0.4 MG CAP PO SCH (08:45)
[2021-10-05] MEDS: FUROSEMIDE 20 MG TAB PO SCH (08:45)
[2021-10-05] MEDS: SPIRONOLACTONE 50 MG TAB PO SCH (08:45)
[2021-10-05] MEDS: PANTOPRAZOLE 40MG TAB (PROTONIX) PO SCH (08:45)
[2021-10-05] MEDS: MORPHINE 2 MG/ML 1ML VIAL (J2270) IV PRN (17:14)
[2021-10-05] MEDS: LORazepam 2 MG/ML VIAL IV PRN (18:45)
[2021-10-06] MEDS: SUCRALFATE SUSP 1GM/10ML UD PO SCH ×3 (05:49→23:44)
[2021-10-06] MEDS: CIPROFLOXACIN 500MG TABLET PO SCH (05:49)
[2021-10-06] MEDS: SPIRONOLACTONE 50 MG TAB PO SCH (09:00)
[2021-10-06] MEDS: FUROSEMIDE 20 MG TAB PO SCH (09:00)
[2021-10-06 10:31] VITALS: BP 107/70
[2021-10-06] MEDS: TAMSULOSIN 0.4 MG CAP PO SCH (10:32)
[2021-10-06] MEDS: PANTOPRAZOLE 40MG TAB (PROTONIX) PO SCH (10:33)
[2021-10-06] MEDS: MORPHINE 2 MG/ML 1ML VIAL (J2270) IV PRN ×2 (18:58→23:45)
[2021-10-07] MEDS: CIPROFLOXACIN 500MG TABLET PO SCH (05:20)
[2021-10-07] MEDS: SUCRALFATE SUSP 1GM/10ML UD PO SCH ×3 (05:20→21:00)
[2021-10-07] MEDS: TAMSULOSIN 0.4 MG CAP PO SCH (09:23)
[2021-10-07] MEDS: PANTOPRAZOLE 40MG TAB (PROTONIX) PO SCH (09:23)
[2021-10-07] MEDS: FUROSEMIDE 20 MG TAB PO SCH (09:23)
[2021-10-07] MEDS: SPIRONOLACTONE 50 MG TAB PO SCH (09:24)
[2021-10-07] MEDS: MORPHINE 2 MG/ML 1ML VIAL (J2270) IV PRN (13:26)
[2021-10-08] MEDS: CIPROFLOXACIN 500MG TABLET PO SCH (05:35)
[2021-10-08] MEDS: SUCRALFATE SUSP 1GM/10ML UD PO SCH ×3 (05:35→22:00)
[2021-10-08] MEDS: TAMSULOSIN 0.4 MG CAP PO SCH (08:15)
[2021-10-08] MEDS: FUROSEMIDE 20 MG TAB PO SCH (08:15)
[2021-10-08] MEDS: PANTOPRAZOLE 40MG TAB (PROTONIX) PO SCH (08:15)
[2021-10-08] MEDS: SPIRONOLACTONE 50 MG TAB PO SCH (08:15)
[2021-10-08] MEDS: MORPHINE 2 MG/ML 1ML VIAL (J2270) IV PRN (23:19)
[2021-10-09] MEDS: SUCRALFATE SUSP 1GM/10ML UD PO SCH ×3 (05:17→22:00)
[2021-10-09] MEDS: CIPROFLOXACIN 500MG TABLET PO SCH (05:17)
[2021-10-09] MEDS: MORPHINE 2 MG/ML 1ML VIAL (J2270) IV PRN ×2 (05:18→16:35)
[2021-10-09] MEDS: PANTOPRAZOLE 40MG TAB (PROTONIX) PO SCH (08:53)
[2021-10-09] MEDS: SPIRONOLACTONE 50 MG TAB PO SCH (08:53)
[2021-10-09] MEDS: TAMSULOSIN 0.4 MG CAP PO SCH (08:53)
[2021-10-09] MEDS: FUROSEMIDE 20 MG TAB PO SCH (08:53)
[2021-10-10] MEDS: SUCRALFATE SUSP 1GM/10ML UD PO SCH ×3 (06:00→22:00)
[2021-10-10] MEDS: CIPROFLOXACIN 500MG TABLET PO SCH (06:00)
[2021-10-10] MEDS: MORPHINE 2 MG/ML 1ML VIAL (J2270) IV PRN ×2 (06:21→22:48)
[2021-10-10] MEDS: SPIRONOLACTONE 50 MG TAB PO SCH (08:31)
[2021-10-10] MEDS: PANTOPRAZOLE 40MG TAB (PROTONIX) PO SCH (08:32)
[2021-10-10] MEDS: TAMSULOSIN 0.4 MG CAP PO SCH (08:32)
[2021-10-10] MEDS: FUROSEMIDE 20 MG TAB PO SCH (08:32)
[2021-10-10] MEDS: LORazepam 2 MG/ML VIAL IV PRN (17:25)
[2021-10-11] MEDS: CIPROFLOXACIN 500MG TABLET PO SCH (05:05)
[2021-10-11] MEDS: SUCRALFATE SUSP 1GM/10ML UD PO SCH ×3 (05:05→23:35)
[2021-10-11] MEDS: SPIRONOLACTONE 50 MG TAB PO SCH (08:17)
[2021-10-11] MEDS: TAMSULOSIN 0.4 MG CAP PO SCH (08:17)
[2021-10-11] MEDS: PANTOPRAZOLE 40MG TAB (PROTONIX) PO SCH (08:17)
[2021-10-11] MEDS: FUROSEMIDE 20 MG TAB PO SCH (08:17)
[2021-10-11] MEDS: MORPHINE 2 MG/ML 1ML VIAL (J2270) IV PRN (13:36)
[2021-10-11] MEDS: LORazepam 2 MG/ML VIAL IV PRN (18:40)
[2021-10-12] MEDS: CIPROFLOXACIN 500MG TABLET PO SCH (05:27)
[2021-10-12] MEDS: SUCRALFATE SUSP 1GM/10ML UD PO SCH ×3 (05:27→21:33)
[2021-10-12] MEDS: LORazepam 2 MG/ML VIAL IV PRN ×2 (08:00→13:11)
[2021-10-12] MEDS: FUROSEMIDE 20 MG TAB PO SCH (08:03)
[2021-10-12] MEDS: SPIRONOLACTONE 50 MG TAB PO SCH (08:03)
[2021-10-12] MEDS: TAMSULOSIN 0.4 MG CAP PO SCH (08:03)
[2021-10-12] MEDS: PANTOPRAZOLE 40MG TAB (PROTONIX) PO SCH (08:03)
[2021-10-13] MEDS: SUCRALFATE SUSP 1GM/10ML UD PO SCH ×3 (06:16→22:55)
[2021-10-13] MEDS: CIPROFLOXACIN 500MG TABLET PO SCH (06:16)
[2021-10-13] MEDS: SPIRONOLACTONE 50 MG TAB PO SCH (09:00)
[2021-10-13] MEDS: FUROSEMIDE 20 MG TAB PO SCH (09:00)
[2021-10-13] MEDS: PANTOPRAZOLE 40MG TAB (PROTONIX) PO SCH (09:00)
[2021-10-13] MEDS: TAMSULOSIN 0.4 MG CAP PO SCH (09:00)
[2021-10-13] MEDS: MORPHINE 2 MG/ML 1ML VIAL (J2270) IV PRN ×2 (09:39→14:10)
[2021-10-13] MEDS: LORazepam 2 MG/ML VIAL IV PRN (14:10)
[2021-10-14] MEDS: CIPROFLOXACIN 500MG TABLET PO SCH (06:38)
[2021-10-14] MEDS: MORPHINE 2 MG/ML 1ML VIAL (J2270) IV PRN ×2 (06:38→13:00)
[2021-10-14] MEDS: SUCRALFATE SUSP 1GM/10ML UD PO SCH ×3 (06:38→23:02)
[2021-10-14] MEDS: PANTOPRAZOLE 40MG TAB (PROTONIX) PO SCH (07:50)
[2021-10-14] MEDS: TAMSULOSIN 0.4 MG CAP PO SCH (07:50)
[2021-10-14] MEDS: FUROSEMIDE 20 MG TAB PO SCH (07:50)
[2021-10-14] MEDS: SPIRONOLACTONE 50 MG TAB PO SCH (07:50)
[2021-10-14] MEDS: LORazepam 2 MG/ML VIAL IV PRN (20:17)
[2021-10-15] MEDS: CIPROFLOXACIN 500MG TABLET PO SCH (06:45)
[2021-10-15] MEDS: SUCRALFATE SUSP 1GM/10ML UD PO SCH ×3 (06:45→20:53)
[2021-10-15] MEDS: FUROSEMIDE 20 MG TAB PO SCH (09:00)
[2021-10-15] MEDS: PANTOPRAZOLE 40MG TAB (PROTONIX) PO SCH (09:00)
[2021-10-15] MEDS: TAMSULOSIN 0.4 MG CAP PO SCH (09:00)
[2021-10-15] MEDS: SPIRONOLACTONE 50 MG TAB PO SCH (09:00)
[2021-10-15] MEDS: MORPHINE 2 MG/ML 1ML VIAL (J2270) IV PRN (16:10)
[2021-10-16] MEDS: SUCRALFATE SUSP 1GM/10ML UD PO SCH ×2 (05:20→14:00)
[2021-10-16] MEDS: CIPROFLOXACIN 500MG TABLET PO SCH (05:20)
[2021-10-16] MEDS: LORazepam 2 MG/ML VIAL IV PRN ×2 (07:36→22:28)
[2021-10-16] MEDS: MORPHINE 2 MG/ML 1ML VIAL (J2270) IV PRN ×2 (08:42→18:28)
[2021-10-16] MEDS: PANTOPRAZOLE 40MG TAB (PROTONIX) PO SCH (08:45)
[2021-10-16] MEDS: TAMSULOSIN 0.4 MG CAP PO SCH (08:45)
[2021-10-16] MEDS: FUROSEMIDE 20 MG TAB PO SCH (08:45)
[2021-10-16] MEDS: SPIRONOLACTONE 50 MG TAB PO SCH (08:45)
[2021-10-17] MEDS: MORPHINE 2 MG/ML 1ML VIAL (J2270) IV PRN (15:54)
[2021-10-18] MEDS: MORPHINE 2 MG/ML 1ML VIAL (J2270) IV PRN ×4 (02:13→21:00)
[2021-10-18] MEDS: ONDANSETRON 4MG/2ML VIAL IV PRN (21:12)
[2021-10-18] MEDS ORDERED: LORazepam 2 MG/ML VIAL As Ordered ONE (21:50)
[2021-10-18] MEDS: LORazepam 2 MG/ML VIAL IV PRN (21:57)
[2021-10-19] MEDS: MORPHINE 2 MG/ML 1ML VIAL (J2270) IV PRN ×4 (03:04→21:51)
[2021-10-19] MEDS: LORazepam 2 MG/ML VIAL IV PRN (21:50)
[2021-10-20] MEDS: MORPHINE 2 MG/ML 1ML VIAL (J2270) IV PRN ×2 (02:12→15:10)
[2021-10-20] MEDS: LORazepam 2 MG/ML VIAL IV PRN (08:15)
[2021-10-21] MEDS: MORPHINE 2 MG/ML 1ML VIAL (J2270) IV PRN ×3 (01:08→18:33)
[2021-10-22] MEDS: MORPHINE 2 MG/ML 1ML VIAL (J2270) IV PRN ×2 (12:28→22:17)
[2021-10-23] MEDS: MORPHINE 2 MG/ML 1ML VIAL (J2270) IV PRN ×4 (03:23→17:40)
[2021-10-24] MEDS: MORPHINE 2 MG/ML 1ML VIAL (J2270) IV PRN ×3 (04:16→18:04)
[2021-10-24] MEDS: LORazepam 2 MG/ML VIAL IV PRN (10:06)
[2021-10-25] MEDS: MORPHINE 2 MG/ML 1ML VIAL (J2270) IV PRN ×2 (00:08→05:12)
[2021-10-25] MEDS: LORazepam 2 MG/ML VIAL IV PRN (10:30)
[2021-10-25] MEDS: MORPHINE 4 MG/ML 1ML VIAL/SYRINGE (J2270) IV PRN ×2 (10:31→23:36)
[2021-10-25] MEDS: SCOPOLAMINE 1MG TRANSDERMAL PATCH TOP PRN (10:35)
[2021-10-26] MEDS: MORPHINE 4 MG/ML 1ML VIAL/SYRINGE (J2270) IV PRN ×3 (05:44→15:06)
[2021-10-27] MEDS: MORPHINE 4 MG/ML 1ML VIAL/SYRINGE (J2270) IV PRN ×3 (05:23→20:40)
[2021-10-27] MEDS: ONDANSETRON 4MG/2ML VIAL IV PRN (13:30)
[2021-10-28] MEDS: MORPHINE 4 MG/ML 1ML VIAL/SYRINGE (J2270) IV PRN ×5 (00:49→16:56)
[2021-10-28] MEDS: LORazepam 2 MG/ML VIAL IV PRN (17:20)
[2021-10-29] MEDS: MORPHINE 4 MG/ML 1ML VIAL/SYRINGE (J2270) IV PRN ×3 (01:59→19:20)
[2021-10-30] MEDS: SCOPOLAMINE 1MG TRANSDERMAL PATCH TOP PRN (03:10)
[2021-10-30] MEDS: LORazepam 2 MG/ML VIAL IV PRN ×2 (03:11→16:58)
[2021-10-30] MEDS: MORPHINE 4 MG/ML 1ML VIAL/SYRINGE (J2270) IV PRN (12:34)
[2021-10-31] MEDS: MORPHINE 4 MG/ML 1ML VIAL/SYRINGE (J2270) IV PRN ×5 (06:35→22:19)
[2021-10-31] MEDS: LORazepam 2 MG/ML VIAL IV PRN ×2 (13:55→16:59)
[2021-11-01] MEDS: MORPHINE 4 MG/ML 1ML VIAL/SYRINGE (J2270) IV PRN ×7 (01:16→17:27)
[2021-11-01] MEDS: LORazepam 2 MG/ML VIAL IV PRN (19:00)
== END 2021-11-01 19:55 | disposition expired | DRG 432 ==
LOC: M ED 14:48 → EDBD 14:48 → M ED INP 14:49 → M PCU 09-28 01:13 → OBSVTOIN 09-28 14:31 → M MSPAV 09-29 17:36
PROVIDERS: ADMIT Family Medicine; ATTEND Internal Medicine
PROC: 0W9G3ZZ Drainage of Peritoneal Cavity, Percutaneous Approach (ICD-10-PCS; principal; 2021-09-28 14:00)
PROC: 0DB78ZX Excision of Stomach, Pylorus, Via Natural or Artificial Opening Endoscopic, Diagnostic (ICD-10-PCS; 2021-09-29)
DX: K70.31 Alcoholic cirrhosis of liver with ascites (principal); K21.01 Gastro-esophageal reflux disease with esophagitis, with bleeding; E43 Unspecified severe protein-calorie malnutrition; J96.00 Acute respiratory failure, unspecified whether with hypoxia or hypercapnia; E87.2 Acidosis; E87.1 Hypo-osmolality and hyponatremia; J90 Pleural effusion, not elsewhere classified; R64 Cachexia; I73.1 Thromboangiitis obliterans [Buerger's disease]; K29.70 Gastritis, unspecified, without bleeding; I10 Essential (primary) hypertension; Z51.5 Encounter for palliative care; Z66 Do not resuscitate; F41.9 Anxiety disorder, unspecified; F32.A Depression, unspecified; Z95.820 Peripheral vascular angioplasty status with implants and grafts; Z89.411 Acquired absence of right great toe; Z87.891 Personal history of nicotine dependence; Z79.82 Long term (current) use of aspirin; Z79.899 Other long term (current) drug therapy